=== PATIENT | female | born 1930 | race Caucasian/White ===

== ENCOUNTER 2016-09-04 09:03 | Inpatient (IN) | payer MEDICARE ==
[2016-09-04] VITALS (8 sets, daily range): BP systolic 112–154; BP diastolic 56–71; PULSE 73–86; RESP 16–18; TEMP 96.2–98.2; O2SAT 94–100
[~2016-09-04] VITALS: Ht 154.9 cm; Wt 60.4 kg
[~2016-09-04 09:03] MED LIST: EZET10 PO; GABA300 PO; LEVO.025 PO; LISI-357 PO; LISI-360 PO; MEVA40TA6 PO; PLAV75TA PO; TAB-TAB PO
--- NOTE | 2016-09-04 09:11 | PD ---
HPI Chief Complaint: fall, hip and shoulder pain Time Seen by Provider: 09:11 Travel History International Travel<30 days: No Contact w/Intl Traveler<30days: No Traveled to known affect area: No History of Present Illness HPI 86-year-old female who lives by herself says she got up out of her bed and went to open the door when she lost her balance and fell. She fell backwards but didn't hit her head. She was unable to get up from the floor because of intense left hip and left shoulder pain. She was brought in by EMS. They noticed swelling of her left shoulder and shortening of her left leg with rotation. Patient is on Plavix. She is awake and answering questions appropriately. She was given morphine en route. Vital signs in triage were stable. [facility] Past Medical History Narrative Medical List of his past medical, surgical, social and family history is reviewed from the nursing note. Hx Anticoagulant Therapy: Yes (plavix) Arthritis: Yes Cancer: Yes (SKIN-MELANOMA) Cardiovascular Problems: Yes (htn on meds) Diabetes: No Diminished Hearing: No Endocrine: No Gastrointestinal Disorders: Yes (HX OF ACID REFLUX MANY YEARS AGO, HX OF ESOPHAGEAL DILATION) Genitourinary: No Hepatitis: No Hiatal Hernia: No Hypertension: Yes Immune Disorder: No Musculoskeletal: Yes (SPINAL STENOSIS, BACK AND NECK PAIN, ARTHRITIS) Neurologic: Yes (NUMBNESS, TINGLING IN FEET, NEUROPATHY) Psychiatric: No Respiratory: No Immunizations Current: Yes Thyroid Disease: Yes (HYPO) Ulcer: Yes Menopausal: Yes Past Surgical History AICD: No Eye Surgery: Yes (LEFT CATARACT) Joint Replacement: No Oral Surgery: Yes (ESOPHAGEAL DILATION 1997) Pacemaker: No Other Surgery: Yes (SKIN CANCER REMOVED ON NOSE) Social History Alcohol Use: No Tobacco Use: No Substance Use: No Allergies-Medications (Allergen,Severity, Reaction): Coded Allergies: Tizanidine (Verified Allergy, Severe, doesn't know, 12/28/15) Tramadol (Verified Allergy, Severe, doesn't remember, 12/28/15) Baclofen (Unverified Allergy, Intermediate, RASH, 12/28/15) Cipro (Unverified Allergy, Intermediate, RASH, 12/28/15) Cymbalta (Unverified Allergy, Intermediate, SEVERE RASH, 12/28/15) Elavil (Unverified Allergy, Intermediate, RASH, 12/28/15) Tetracycline (Unverified Allergy, Intermediate, RASH, 12/28/15) Triamcinolone (Unverified Allergy, Intermediate, SEVERE RASH, 12/28/15) Comments List of his allergies reviewed from the nursing note. Reported Meds & Prescriptions Reported Meds & Active Scripts Active Reported Multiple Vitamin 1 Tab 1 Tab PO DAILY Plavix (Clopidogrel Bisulfate) 75 Mg Tab 75 Mg PO DAILY Levothyroxine (Levothyroxine Sodium) 25 Mcg Tab 25 Mcg PO DAILY Lovastatin 40 Mg Tab 80 Mg PO DAILY Zetia (Ezetimibe) 10 Mg Tab 10 Mg PO DAILY Lisinopril 5 Mg Tab 5 Mg PO HS Lisinopril 5 Mg Tab 10 Mg PO Narrative Medication List of his home medications reviewed from the nursing note. Review of Systems Except as stated in HPI: all other systems reviewed are Neg Physical Exam Narrative GENERAL: Awake, alert, elderly, mild distress SKIN: Focused skin assessment warm/dry. HEAD: Atraumatic. Normocephalic. EYES: Pupils equal and round. No scleral icterus. No injection or drainage. ENT: No nasal bleeding or discharge. Dry mucous membrane and coated tongue NECK: Trachea midline. No JVD. CARDIOVASCULAR: Regular rate and rhythm. No murmur appreciated. RESPIRATORY: No accessory muscle use. Clear to auscultation. Breath sounds equal bilaterally. GASTROINTESTINAL: Abdomen soft, non-tender, nondistended. Hepatic and splenic margins not palpable. MUSCULOSKELETAL: Left shoulder swollen, tender and decreased range of motion due to the tenderness. Left leg shortening and externally rotated. Decreased range of motion due to the pain. No clubbing. No cyanosis. No edema. Distal pulses palpable. NEUROLOGICAL: Awake and alert. No obvious cranial nerve deficits. Motor grossly within normal limits. Normal speech. PSYCHIATRIC: Appropriate mood and affect; insight and judgment normal. Data Data Last Documented VS Vital Signs Date Time Temp Pulse Resp B/P Pulse Ox O2 Delivery O2 Flow Rate FiO2 09/04/16 11:00 76 18 112/56 94 Nasal Cannula 2 09/04/16 09:05 98.0 Orders Electrocardiogram (09/04/16 09:23) Basic Metabolic Panel (Bmp) (09/04/16 09:23) Complete Blood Count With Diff (09/04/16 09:23) Prothrombin Time / Inr (Pt) (09/04/16 09:23) Chest, Single Ap (09/04/16 09:23) Ecg Monitoring (09/04/16 09:23) Bilateral Bp Monitoring (09/04/16 09:23) Iv Access Insert/Monitor (09/04/16 09:23) Oximetry (09/04/16 09:23) Oxygen Administration (09/04/16 09:23) Sodium Chloride 0.9% Flush (Ns Flush) (09/04/16 09:30) Hip, Uni(Ap&Lat) W Ap Pelvis (09/04/16 ) Sodium Chlorid 0.9% 500 Ml Inj (Ns 500 M (09/04/16 09:30) Urinalysis - C+S If Indicated (09/04/16 09:57) Shoulder, Limited(2vws) (09/04/16 ) Sling Cradle Arm (09/04/16 ) Admit To Inpatient (09/04/16 ) Code Status (09/04/16 10:35) Vital Signs (Adult) Q4H (09/04/16 10:35) Activity Bed Rest (09/04/16 10:35) Substance Abuse Prevention Coordinator / Telemetry .CONTINUOUS (09/04/16 10:35) Sodium Chloride 0.9% Flush (Ns Flush) (09/04/16 10:45) Sodium Chloride 0.9% Flush (Ns Flush) (09/04/16 21:00) Acetaminophen (Tylenol) (09/04/16 10:45) Ondansetron Inj (Zofran Inj) (09/04/16 10:45) Basic Metabolic Panel (Bmp) (09/05/16 06:00) Complete Blood Count With Diff (09/05/16 06:00) Pt Request For Service (09/04/16 10:35) Scd Bilateral/Knee High RACHEL.BID (09/04/16 10:35) Naloxone Inj (Narcan Inj) (09/04/16 10:45) Magnesium Hydroxide Liq (Milk Of Magnesi (09/04/16 10:45) Inpatient Certification (09/04/16 ) Hydromorphone Pf Inj (Dilaudid Pf Inj) (09/04/16 10:45) Ezetimibe (Zetia) (09/04/16 11:00) Levothyroxine (Synthroid) (09/05/16 06:00) Lisinopril (Prinivil) (09/04/16 21:00) Lisinopril (Prinivil) (09/05/16 09:00) Enalaprilat Inj (Vasotec Inj) (09/04/16 10:45) Clonidine (Catapres) (09/04/16 10:45) Pravastatin (Pravachol) (09/04/16 11:00) Urine Culture (09/04/16 10:15) Admit Order (Ed Use Only) (09/04/16 10:59) Labs Laboratory Tests Test 09/04/16 09/04/16 09:30 10:15 White Blood Count 14.2 TH/MM3 Red Blood Count 4.19 MIL/MM3 Hemoglobin 12.5 GM/DL Hematocrit 38.0 % Mean Corpuscular Volume 90.7 FL Mean Corpuscular Hemoglobin 29.9 PG Mean Corpuscular Hemoglobin 33.0 % Concent Red Cell Distribution Width 13.2 % Platelet Count 239 TH/MM3 Mean Platelet Volume 8.1 FL Neutrophils (%) (Auto) 86.0 % Lymphocytes (%) (Auto) 6.7 % Monocytes (%) (Auto) 6.5 % Eosinophils (%) (Auto) 0.2 % Basophils (%) (Auto) 0.6 % Neutrophils # (Auto) 12.2 TH/MM3 Lymphocytes # (Auto) 1.0 TH/MM3 Monocytes # (Auto) 0.9 TH/MM3 Eosinophils # (Auto) 0.0 TH/MM3 Basophils # (Auto) 0.1 TH/MM3 CBC Comment DIFF FINAL Differential Comment Sodium Level 135 MEQ/L Potassium Level 4.5 MEQ/L Chloride Level 101 MEQ/L Carbon Dioxide Level 22.4 MEQ/L Anion Gap 12 MEQ/L Blood Urea Nitrogen 17 MG/DL Creatinine 0.99 MG/DL Estimat Glomerular Filtration 53 ML/MIN Rate Random Glucose 116 MG/DL Calcium Level 8.5 MG/DL Prothrombin Time 10.0 SEC Prothromb Time International 0.9 RATIO Ratio Urine Color YELLOW Urine Turbidity CLEAR Urine pH 5.0 Urine Specific [place] 1.013 Urine Protein NEG mg/dL Urine Glucose (UA) NEG mg/dL Urine Ketones NEG mg/dL Urine Occult Blood NEG Urine Nitrite NEG Urine Bilirubin NEG Urine Urobilinogen LESS THAN 2.0 MG/DL Urine Leukocyte Esterase NEG Urine RBC LESS THAN 1 /hpf Urine WBC LESS THAN 1 /hpf Urine Bacteria RARE /hpf Urine Hyaline Casts 1 /lpf Urine Mucus FEW /lpf Microscopic Urinalysis Comment CATH-CULTURE IND MDM Medical Decision Making Medical Screen Exam Complete: Yes Emergency Medical Condition: Yes Medical Record Reviewed: Yes Interpretation(s) Twelve-lead EKG was reviewed by me. Normal sinus rhythm, normal axis, nonspecific ST-T wave changes. Heart rate of 78 bpm. Differential Diagnosis Shoulder fracture, hip fracture, shoulder dislocation, hip dislocation Narrative Course 9:56 AM awaiting for the blood test and x-rays to be done and resulted. Patient was given 250 ML's of IV fluid bolus in the meanwhile. My suspicion for fracture both of her extremities are high. 10:20 AM x-ray suggestive of femoral neck fracture with displacement and left humeral head fracture. Patient will be given an arm sling for the shoulder. I put a call out for the orthopedist as well as the hospitalist for consult and admission. 10:30 AM spoke with Lloyd who is the PA for Dr. Dunbar. They want the patient nothing by mouth after midnight for a surgery tomorrow. Awaiting for the hospitalist to call back. Procedures EKG Prior to Arrival: No Physician Communication Physician Communication PA for Dr. Dunbar Diagnosis Primary Impression: Hip fracture, left Qualified Code: S72.002A - Hip fracture, left, closed, initial encounter Additional Impression: Humerus head fracture Qualified Code: S42.292A - Humerus head fracture, left, closed, initial encounter Admitting Information Admitting Physician Requests: Admit Scripts Calcium Carbonate-Vitamin D (Calcium 600+D 200)600-200 Mg-Unit Tab1 Tab PO BID 30 Days Ref 0 Prov:Lloyd Munoz 09/05/16 Cholecalciferol (Vitamin D3)2,000 Unit Cap2,000 Units PO DAILY #56 CAP Ref 0 Prov:Lloyd Munoz 09/05/16 Ergocalciferol 50,000 Unit Cap50,000 Units PO Q7D #56 CAP Prov:Lloyd Munoz 09/05/16 Rivaroxaban (Xarelto)10 Mg Tab10 Mg PO DAILY #14 TAB Ref 0 Prov:Lloyd Munoz 09/05/16 Hydrocodone-Acetaminophen 7.5-325 mg Tab1 Tab PO Q4H PRN (PAIN) #60 TAB Ref 0 Prov:Lloyd Munoz 09/05/16 Hemant Humphrey MD Sep 04, 2016 09:11
[2016-09-04] MEDS ORDERED: SODIUM CHLORIDE 0.9% FLUSH 10 ML FLUSH IVF PRN (09:30)
[2016-09-04] MEDS ORDERED: SODIUM CHLORID 0.9% 500 ML INJ 500 ML IV ONE (09:30)
[2016-09-04] MEDS ORDERED: LOVA40TA PO (09:35)
[2016-09-04] MEDS ORDERED: ZETI10TA5 PO (09:35)
[2016-09-04] MEDS ORDERED: LEVO25TA4 PO (09:35)
[2016-09-04] MEDS ORDERED: MULTTAB67 PO (09:35)
[2016-09-04] MEDS ORDERED: PLAV75TA29 PO (09:35)
[2016-09-04] MEDS ORDERED: LISI-519 PO ×2 (09:35)
[2016-09-04 09:54] LABS: AUTOMATED NEUTROPHIL # 12.2 TH/MM3 (1.8-7.7); BASOPHIL # 0.1 TH/MM3 (0-0.2); BASOPHIL % 0.6 % (0.0-2.0); EOSINOPHIL % 0.2 % (0.0-4.0); HEMO FLAGS DIFF FINAL; LYMPH % 6.7 % (9.0-44.0); MEAN CELL VOLUME 90.7 FL (80.0-100.0); MEAN CORPUSCULAR HEMOGLOBIN 29.9 PG (27.0-34.0); MONO % 6.5 % (0.0-8.0); PLATELET COUNT 239 TH/MM3 (150-450); RED BLOOD COUNT 4.19 MIL/MM3 (4.00-5.30); RED CELL DISTRIBUTION WIDTH 13.2 % (11.6-17.2); WHITE BLOOD COUNT 14.2 TH/MM3 (4.0-11.0)
[2016-09-04 10:15] LABS: BICARBONATE 22.4 MEQ/L (21.0-32.0); POTASSIUM 4.5 MEQ/L (3.5-5.1)
--- NOTE | 2016-09-04 10:20 | RADRPT ---
EXAM DATE/TIME: 09/04/2016 09:35 [facility] COMPARISON: CHEST SINGLE AP, January 28, 2015, 19:31. INDICATIONS : Left shoulder pain post fall MEDICAL HISTORY : Hypothyroidism. Neuropathy SURGICAL HISTORY : None. ENCOUNTER: Initial ACUITY: 1 day PAIN SCORE: 9/10 LOCATION: Bilateral chest FINDINGS: Heart is minimally enlarged. There is mild interstitial edema present. There is no alveolar consoli dation, pleural effusion or pneumothorax. CONCLUSION: 1. Compared to 01/28/2015, there would appear to be mild to moderate congestive failure. 2. There is no identifiable rib fracture. Gatito Vásquez MD FACR on September 04, 2016 at 10:15 Board Certified Radiologist. This report was verified electronically.
--- NOTE | 2016-09-04 10:22 | RADRPT ---
EXAM DATE/TIME: 09/04/2016 09:36 [facility] COMPARISON: No previous studies available for comparison. INDICATIONS : Left hip pain post fall MEDICAL HISTORY : Hypothyroidism. Neuropathy SURGICAL HISTORY : None. ENCOUNTER: Initial ACUITY: 1 day PAIN SCORE: 10/10 LOCATION: Left hip FINDINGS: There is basicervical fracture left femoral neck. Femoral head remains aligned with the acetabulum. Right hemipelvis is intact. CONCLUSION: Basicervical fracture left femoral neck. Gatito Vásquez MD FACR on September 04, 2016 at 10:16 Board Certified Radiologist. This report was verified electronically.
--- NOTE | 2016-09-04 10:23 | RADRPT ---
EXAM DATE/TIME: 09/04/2016 09:38 [facility] COMPARISON: No previous studies available for comparison. INDICATIONS : Left shoulder pain post fall MEDICAL HISTORY : Hypothyroidism. Neuropathy SURGICAL HISTORY : None. ENCOUNTER: Initial ACUITY: 1 day PAIN SCORE: 9/10 LOCATION: Left upper extremity FINDINGS: There is a minimally displaced fracture of the humerus with moderate impaction. Majority of the anoop ral head remains aligned with the glenoid. Acromion and clavicle are intact. CONCLUSION: Humeral fracture as described above with moderate impaction. Gatito Vásquez MD FACR on September 04, 2016 at 10:16 Board Certified Radiologist. This report was verified electronically.
[2016-09-04] MEDS ORDERED: NALOXONE HCL 0.4 MG/ML AMP IV PRN (10:45)
[2016-09-04] MEDS ORDERED: ENALAPRILAT 1.25 MG/ML VIAL IV PRN (10:45)
[2016-09-04] MEDS ORDERED: SODIUM CHLORIDE 0.9% FLUSH 10 ML FLUSH IV FLUSH PRN (10:45)
[2016-09-04] MEDS ORDERED: cloNIDine HCL 0.2 MG TAB PO PRN (10:45)
[2016-09-04] MEDS ORDERED: ACETAMINOPHEN 325 MG TAB PO PRN (10:45)
[2016-09-04 10:55] LABS: BACTERIA, URINE RARE /hpf; BLOOD, URINE NEG (NEG); GLUCOSE,URINE NEG (NEG); HYALINE CAST, URINE 1 /lpf (RARE); INTERNATIONAL NORMALIZED RATIO 0.9 RATIO; KETONE, URINE NEG (NEG); MUCUS URINE FEW /lpf (OCC); NITRITE,URINE NEG (NEG); URINE COLOR YELLOW (YELLW/STRAW)
[2016-09-04] MEDS: EZETIMIBE 10 MG TAB PO SCH (10:55)
[2016-09-04] MEDS: PRAVASTATIN SOD 80 MG TAB PO SCH (10:55)
[2016-09-04 10:56] LABS: COMMENT (UR) CATH-CULTURE IND; CULTURE IF INDICATED CATH CULTURE IND
[2016-09-04] MEDS: HYDROmorphone HCL PF 1 MG/ML VIAL IV PUSH PRN ×3 (14:08→23:43)
--- NOTE | 2016-09-04 17:30 | HHI.HP ---
HPI Service [facility] Hospitalists Primary Care Physician Adan Davis MD Admission Diagnosis hip fracture, shoulder fracture Chief Complaint: left shoulder pain left hip pain Travel History International Travel<30 Days: No Contact w/Intl Traveler <30 Da: No Traveled to Known Affected Are: No History of Present Illness Pt is a pleasant 86 y/o F with h/o HTN, TIA, CKD-2, and peripheral neuropathy. Last night while ambulating to the bathroom, pt lost her balance and fell to the floor without striking her head. Pt experienced immediate pain to the left shoulder and left hip. Pt was brought to the [place] ER. X-rays confromed Left humerus fracture with impaction and Left femoral neck fracture. Pt with advanced age so admitted to the medical service. Dr. Bill has been consulted. Surgical repair of the pt's Left hip fracture is planned fot . Pt's pain is adequately controlled. Review of Systems Constitutional: DENIES: Diaphoretic episodes, Fatigue, Fever, Weight gain, Weight loss, Chills, Dizziness, Change in appetite, Night Sweats Endocrine: DENIES: Heat/cold intolerance, Polydipsia, Polyuria, Polyphagia Eyes: DENIES: Blurred vision, Diplopia, Eye inflammation, Eye pain, Vision loss , Photosensitivity, Double Vision Ears, nose, mouth, throat: DENIES: Tinnitus, Hearing loss, Vertigo, Nasal discharge, Oral lesions, Throat pain, Hoarseness, Ear Pain, Running Nose, Epistaxis, Sinus Pain, Toothache, Odynophagia Respiratory: DENIES: Apneas, Cough, Snoring, Wheezing, Hemoptysis, Sputum production, Shortness of breath Cardiovascular: DENIES: Chest pain, Palpitations, Syncope, Dyspnea on Exertion , PND, Lower Extremity Edema, Orthopnea, Claudication Gastrointestinal: DENIES: Abdominal pain, Black stools, Bloody stools, BRB per rectum, Constipation, Diarrhea, GERD, Nausea, Reflux, Vomiting, Difficulty Swallowing, Anorexia Genitourinary: COMPLAINS OF: Sexual dysfunction, DENIES: Urinary frequency, Urinary incontinence, Urgency, Hematuria, Dysuria, Nocturia Musculoskeletal: COMPLAINS OF: Joint pain, DENIES: Muscle aches, Stiffness, Joint Swelling, Back pain, Neck pain Integumentary: DENIES: Abnormal pigmentation, Pruritus, Rash, Nail changes, Breast masses, Breast skin changes, Nipple discharge Hematologic/lymphatic: DENIES: Bruising, Lymphadenopathy Immunologic/allergic: DENIES: Eczema, Urticaria Neurologic: DENIES: Abnormal gait, Headache, Localized weakness, Paresthesias, Seizures, Speech Problems, Tremor, Poor Balance Psychiatric: DENIES: Anxiety, Confusion, Mood changes, Depression, Hallucinations, Agitation, Suicidal Ideation, Homicidal Ideation, Delusions, History of Bipolar, History of Schizophrenia Past Family Social History Past Medical History 1) HTN 2) peripheral neuropathy 3) CKD, stage 2 4) TIA 5) hypothyroid 6) hyperlipidemia Past Surgical History 1. History of Arthroscopy Knee Left 2. History of Complete Colonoscopy 3. History of Duodenoscopy With Biopsy 4. History of Nerve Block Paravertebral Facet Joint Additional Lumbar Level 5. EGD with dilation 6. left cataract surgery 7. Excision of skin cancer from nose Reported Medications Reported Meds & Active Scripts Active Reported Multiple Vitamin 1 Tab 1 Tab PO DAILY Plavix (Clopidogrel Bisulfate) 75 Mg Tab 75 Mg PO DAILY Levothyroxine (Levothyroxine Sodium) 25 Mcg Tab 25 Mcg PO DAILY Lovastatin 40 Mg Tab 80 Mg PO DAILY Zetia (Ezetimibe) 10 Mg Tab 10 Mg PO DAILY Lisinopril 5 Mg Tab 5 Mg PO HS Lisinopril 5 Mg Tab 10 Mg PO Allergies: Coded Allergies: Tizanidine (Verified Allergy, Severe, doesn't know, 12/28/15) Tramadol (Verified Allergy, Severe, doesn't remember, 12/28/15) Baclofen (Unverified Allergy, Intermediate, RASH, 12/28/15) Cipro (Unverified Allergy, Intermediate, RASH, 12/28/15) Cymbalta (Unverified Allergy, Intermediate, SEVERE RASH, 12/28/15) Elavil (Unverified Allergy, Intermediate, RASH, 12/28/15) Tetracycline (Unverified Allergy, Intermediate, RASH, 12/28/15) Triamcinolone (Unverified Allergy, Intermediate, SEVERE RASH, 12/28/15) Family History Non-contributory Social History - - son, lives in [place] - NO tobacco - NO alcohol - NO illicit street drugs - Pt lives alone & is independent with ADLs at baseline Physical Exam Vital Signs Vital Signs Date Time Temp Pulse Resp B/P Pulse Ox O2 Delivery O2 Flow Rate FiO2 09/04/16 13:12 97.0 80 16 140/63 100 09/04/16 11:00 76 18 112/56 94 Nasal Cannula 2 09/04/16 10:00 73 16 115/57 100 Nasal Cannula 2 09/04/16 09:30 78 16 98 Room Air 09/04/16 09:27 16 98 Room Air 09/04/16 09:26 98 Nasal Cannula 2 09/04/16 09:26 16 98 Room Air 09/04/16 09:05 98.0 78 16 122/58 100 09/04/16 09:05 78 16 122/58 98 Room Air 130/56 Physical Exam GENERAL: This is a well-nourished, well-developed patient, in no apparent distress. SKIN: No rashes, ecchymoses or lesions. Cool and dry. HEAD: Atraumatic. Normocephalic. No temporal or scalp tenderness. EYES: Pupils equal round and reactive. Extraocular motions intact. No scleral icterus. No injection or drainage. ENT: Nose without bleeding, purulent drainage or septal hematoma. Throat without erythema, tonsillar hypertrophy or exudate. Uvula midline. Airway patent. NECK: Trachea midline. No JVD or lymphadenopathy. Supple, nontender, no meningeal signs. CARDIOVASCULAR: Regular rate and rhythm without murmurs, gallops, or rubs. RESPIRATORY: Clear to auscultation. Breath sounds equal bilaterally. No wheezes , rales, or rhonchi. GASTROINTESTINAL: Abdomen soft, non-tender, nondistended. No hepato-splenomegaly , or palpable masses. No guarding. MUSCULOSKELETAL: Extremities without clubbing, cyanosis, or edema. No joint tenderness, effusion, or edema noted. No calf tenderness. Negative Homans sign bilaterally. NEUROLOGICAL: Awake and alert. Cranial nerves II through XII intact. Motor and sensory grossly within normal limits. Five out of 5 muscle strength in all muscle groups. Normal speech. Laboratory Laboratory Tests Test 09/04/16 09/04/16 09:30 10:15 White Blood Count 14.2 Red Blood Count 4.19 Hemoglobin 12.5 Hematocrit 38.0 Mean Corpuscular Volume 90.7 Mean Corpuscular Hemoglobin 29.9 Mean Corpuscular Hemoglobin 33.0 Concent Red Cell Distribution Width 13.2 Platelet Count 239 Mean Platelet Volume 8.1 Neutrophils (%) (Auto) 86.0 Lymphocytes (%) (Auto) 6.7 Monocytes (%) (Auto) 6.5 Eosinophils (%) (Auto) 0.2 Basophils (%) (Auto) 0.6 Neutrophils # (Auto) 12.2 Lymphocytes # (Auto) 1.0 Monocytes # (Auto) 0.9 Eosinophils # (Auto) 0.0 Basophils # (Auto) 0.1 CBC Comment DIFF FINAL Differential Comment Sodium Level 135 Potassium Level 4.5 Chloride Level 101 Carbon Dioxide Level 22.4 Anion Gap 12 Blood Urea Nitrogen 17 Creatinine 0.99 Estimat Glomerular Filtration 53 Rate Random Glucose 116 Calcium Level 8.5 Prothrombin Time 10.0 Prothromb Time International 0.9 Ratio Urine Color YELLOW Urine Turbidity CLEAR Urine pH 5.0 Urine Specific [place] 1.013 Urine Protein NEG Urine Glucose (UA) NEG Urine Ketones NEG Urine Occult Blood NEG Urine Nitrite NEG Urine Bilirubin NEG Urine Urobilinogen LESS THAN 2.0 Urine Leukocyte Esterase NEG Urine RBC LESS THAN 1 Urine WBC LESS THAN 1 Urine Bacteria RARE Urine Hyaline Casts 1 Urine Mucus FEW Microscopic Urinalysis Comment CATH-CULTURE IND Date/Time Procedure Status Source Growth 09/04/16 10:15 Urine Culture Received Urine Clean Catch Pending Result Diagram: 09/04/1630 09/04/16 0930 Imaging Last Impressions Chest X-Ray 09/04/1623 Signed Impressions: Service Date/Time: Sunday, September 04, 2016 09:35 - CONCLUSION: 1. Compared to 01/28/2015, there would appear to be mild to moderate congestive failure. 2. There is no identifiable rib fracture. Gatito Vásquez MD FACR Shoulder X-Ray 09/04/16 0000 Signed Impressions: Service Date/Time: Sunday, September 04, 2016 09:38 - CONCLUSION: Humeral fracture as described above with moderate impaction. Gatito Vásquez MD FACR Hip and Pelvis X-Ray 09/04/16 0000 Signed Impressions: Service Date/Time: Sunday, September 04, 2016 09:36 - CONCLUSION: Basicervical fracture left femoral neck. Gatito Vásquez MD FACR Septic Shock Reassessment Heart: Regular rate and rhythm Lungs: Clear Skin: Warm Peripheral Pulses: Bounding Right Radial Bounding Left Radial Bounding Right Popliteal Bounding Left Popliteal Bounding Right Dorsalis Pedis Bounding Left Dorsalis Pedis Bounding Right Posterior Tibial Bounding Left Posterior Tibial Capillary Refill: Brisk Assessment and Plan Problem List: (1) Hip fracture, left Status: Acute Plan: - comgmt with Dr. Bill, Orthopedist - surgical repair planned for 09/04/16 - norco/dilaudid prn - ASA/plavix on hold - PT - pt will need SNF at the end of this hospitalization - constipation precautions - supportive care (2) Humerus head fracture Status: Acute Plan: - repair per Orthopedic service - norco/dilaudid prn pain - PT (3) HTN (hypertension) Status: Chronic Plan: - stable - lisinopril (4) Hyperlipidemia Status: Chronic Plan: - zetia, pravachol (5) Hypothyroid Status: Chronic Plan: - levothyroxine (6) Hx TIA/stroke w/o resid Status: Chronic Plan: - ASA, plavix on hold (7) Peripheral neuropathy Status: Chronic Physician Certification 2 Midnight Certification Type: Admission for Inpatient Services Order for Inpatient Services The services are ordered in accordance with Medicare regulations or non- Medicare payer requirements, as applicable. In the case of services not specified as inpatient-only, they are appropriately provided as inpatient services in accordance with the 2-midnight benchmark. Estimated LOS (days): 3 3 days is the estimated time the patient will need to remain in the hospital, assuming treatment plan goals are met and no additional complications. Post-Hospital Plan: SNF Problem Qualifiers (1) Hip fracture, left: Qualified Code: S72.002A - Hip fracture, left, closed, initial encounter (2) Humerus head fracture: Qualified Code: S42.292A - Humerus head fracture, left, closed, initial encounter (3) HTN (hypertension): Qualified Code: I10 - Essential hypertension (4) Hyperlipidemia: Qualified Code: E78.5 - Hyperlipidemia, unspecified hyperlipidemia type (5) Hypothyroid: Qualified Code: E03.9 - Hypothyroidism, unspecified type (6) Peripheral neuropathy: Qualified Code: G62.9 - Peripheral polyneuropathy Ankit Fournier DO Sep 04, 2016 17:30
[2016-09-04] MEDS: LISINOPRIL 5 MG TAB PO SCH (23:44)
[2016-09-04] MEDS: ONDANSETRON HCL 4 MG/2 ML VIAL IVP PRN (23:44)
[2016-09-04] MEDS: SODIUM CHLORIDE 0.9% FLUSH 10 ML FLUSH IV FLUSH SCH (23:44)
[2016-09-05] VITALS (8 sets, daily range): BP systolic 125–135; BP diastolic 56–65; PULSE 67–88; RESP 16–20; TEMP 96.6–97.6; O2SAT 95–99
[2016-09-05] MEDS ORDERED: INSULIN HUMAN REGULAR 1,000 UNITS/10 ML VIAL SQ PRN (02:30)
[2016-09-05] MEDS ORDERED: SODIUM CHLORID 0.9% 500 ML IV PRN (02:30)
[2016-09-05] MEDS ORDERED: POVIDONE IODINE 5% (ANTISEPSIS KIT) 4 APPLICATIONS EACH NARE PRN (02:30)
[2016-09-05] MEDS ORDERED: METOPROLOL TARTRATE 25 MG TAB PO PRN (02:30)
[2016-09-05] MEDS ORDERED: CHLORHEXIDINE GLUCONATE 2 % 1 PACK (2 CLOTHS) TOPICAL PRN (02:30)
[2016-09-05] MEDS ORDERED: LACTATED RINGER'S 1000 ML IV PRN (02:30)
[2016-09-05] MEDS: ONDANSETRON HCL 4 MG/2 ML VIAL IVP PRN ×3 (05:23→20:38)
[2016-09-05] MEDS: LEVOTHYROXINE SODIUM 25 MCG TAB PO SCH (05:23)
[2016-09-05] MEDS: HYDROmorphone HCL PF 1 MG/ML VIAL IV PUSH PRN ×3 (05:26→17:27)
[2016-09-05 07:09] LABS: AUTOMATED NEUTROPHIL # 7.7 TH/MM3 (1.8-7.7); BASOPHIL % 0.1 % (0.0-2.0); HEMATOCRIT 33.7 % (35.0-46.0); HEMO FLAGS DIFF FINAL; LYMPH % 5.4 % (9.0-44.0); LYMPHOCYTE # 0.5 TH/MM3 (1.0-4.8); MEAN CELL VOLUME 89.6 FL (80.0-100.0); MEAN CORPUSCULAR HEMOGLOBIN 31.7 PG (27.0-34.0); MEAN CORPUSCULAR HGB CONC 35.4 % (32.0-36.0); MONO % 8.8 % (0.0-8.0); NEUT % 85.7 % (16.0-70.0); PLATELET COUNT 228 TH/MM3 (150-450); RED BLOOD COUNT 3.76 MIL/MM3 (4.00-5.30); RED CELL DISTRIBUTION WIDTH 13.2 % (11.6-17.2)
--- NOTE | 2016-09-05 07:13 | PD.ORT.PN ---
Subjective Subjective Remarks s/p fall at home left shoulder and left hip pain Objective Vitals Vital Signs Date Time Temp Pulse Resp B/P Pulse Ox O2 Delivery O2 Flow Rate FiO2 09/05/16 03:47 97.4 88 19 135/59 95 09/05/16 00:01 96.7 78 18 133/63 98 09/04/16 20:19 98.2 86 18 140/63 97 09/04/16 19:17 Nasal Cannula 2.00 09/04/16 16:00 96.2 82 16 154/71 96 09/04/16 13:12 97.0 80 16 140/63 100 09/04/16 11:00 76 18 112/56 94 Nasal Cannula 2 09/04/16 10:00 73 16 115/57 100 Nasal Cannula 2 09/04/16 09:30 78 16 98 Room Air 09/04/16 09:27 16 98 Room Air 09/04/16 09:26 98 Nasal Cannula 2 09/04/16 09:26 16 98 Room Air 09/04/16 09:05 98.0 78 16 122/58 100 09/04/16 09:05 78 16 122/58 98 Room Air 130/56 I/O 09/04/16 09/04/16 09/04/16 09/05/16 09/05/16 09/05/16 07:00 15:00 23:00 07:00 15:00 23:00 Intake Total 0 ml 360 ml 0 ml Output Total 150 ml 500 ml 200 ml Balance -150 ml -140 ml -200 ml Intake Oral 0 ml 360 ml 0 ml Output Urine Total 150 ml 500 ml 200 ml # Voids 0 0 # Bowel Movements 0 0 0 Result Diagram: 09/05/16 0546 09/04/16929 Other Results Laboratory Tests Test 09/04/16 10:15 Prothrombin Time 10.0 SEC (9.8-11.6) Prothromb Time International 0.9 RATIO Ratio Imaging Last 24 hours Impressions Chest X-Ray 09/04/16922 Signed Impressions: Service Date/Time: Sunday, September 04, 2016 09:35 - CONCLUSION: 1. Compared to 01/28/2015, there would appear to be mild to moderate congestive failure. 2. There is no identifiable rib fracture. Gatito Vásquez MD FACR Objective Remarks LUE: +sling. minimal pain in elbow. full motion of wrist and fingers. Full sensation to median/ulnar nerve. full radial nerve function LLE: pain in hip with motion. no pain in knee or ankle. NVI Assessment & Plan Assessment and Plan 1) Left Femoral NEck Fx 2) Left Proximal Humerus Fx -NWB LUE/AMELIA -NPO -consents -surgery today Lloyd Munoz Sep 05, 2016 07:13
[2016-09-05 07:21] LABS: BICARBONATE 29.3 MEQ/L (21.0-32.0); POTASSIUM 4.5 MEQ/L (3.5-5.1)
[2016-09-05] MEDS ORDERED: ERGO1CAP30 PO (07:28)
[2016-09-05] MEDS ORDERED: HYDR-3580 PO (07:28)
[2016-09-05] MEDS ORDERED: CALCTAB19 PO (07:28)
[2016-09-05] MEDS ORDERED: XARE10TA PO (07:28)
[2016-09-05] MEDS ORDERED: VITA2000 PO (07:28)
[2016-09-05] MEDS ORDERED: TRANEXAMIC ACID INJ 897 MG in SODIUM CHLORIDE 0.9% INJ 100 ML IV ONE (07:30)
[2016-09-05] MEDS ORDERED: GENTAMICIN SULFATE 80 MG/2 ML VIAL ONE (07:48)
[2016-09-05] MEDS ORDERED: SODIUM CHLOR 0.9% 250 ML INJ 250 ML ONE (07:48)
[2016-09-05] MEDS ORDERED: VANCOMYCIN HCL 1000 MG VIAL ONE (07:48)
[2016-09-05] MEDS ORDERED: KETAMINE HCL 500 MG/5 ML VIAL ONE (08:11)
[2016-09-05] MEDS ORDERED: ceFAZolin INJ 1,000 MG VIAL IV ONE ×2 (08:40→12:00)
[2016-09-05] MEDS: PRAVASTATIN SOD 80 MG TAB PO SCH (09:00)
[2016-09-05] MEDS: LISINOPRIL 10 MG TAB PO SCH (09:00)
[2016-09-05] MEDS: SODIUM CHLORIDE 0.9% FLUSH 10 ML FLUSH IV FLUSH SCH ×2 (09:00→20:37)
[2016-09-05] MEDS: EZETIMIBE 10 MG TAB PO SCH (09:00)
[2016-09-05] MEDS ORDERED: Post-op Orders (for Pharmacy) MISC XX ONE (09:15)
[2016-09-05] MEDS ORDERED: MORPHINE SULFATE 4 MG/ML INJ IV PUSH PRN (09:15)
[2016-09-05] MEDS ORDERED: SODIUM CHLORIDE 0.9% FLUSH 5 ML FLUSH IVF PRN (09:15)
[2016-09-05] MEDS ORDERED: ACETAMINOPHEN/HYDROcodone 325 MG/7.5 MG TAB PO PRN (09:15)
--- NOTE | 2016-09-05 09:16 | MB ---
cc: JUDY LANDEROS DATE OF CONSULTATION: 09/05/2016 REASON FOR CONSULTATION 1. Left proximal humerus fracture. 2. Left femoral neck fracture. CONSULTING PHYSICIAN Dr. New. HISTORY OF PRESENT ILLNESS Lisa is a pleasant 86-year-old female who has a history of TIA, renal failure, peripheral neuropathy, hypertension. She was going to the bathroom when she lost her balance. She fell. She landed on her left side. She had immediate left shoulder and left hip pain. She presented to the emergency room where x-rays revealed a left femoral neck fracture as well as a left proximal humerus fracture. She is currently awake and alert in the orthopedic floor. She complains of left shoulder and left hip pain. She denies hitting her head. She had no dizziness, syncope, loss of consciousness. Pain is worse with movement and is improved with rest. PAST MEDICAL HISTORY ILLNESSES 1. Hypertension. 2. Peripheral neuropathy. 3. Renal failure. 4. TIA. 5. Hypothyroidism. 6. High cholesterol. SURGERIES 1. Left knee arthroscopy. 2. Colonoscopy. 3. Duodenal biopsy. 4. EGD. 5. Cataract surgery. 6. Skin cancer removal. MEDICATIONS Include: 1. Plavix. 2. Levothyroxine. 3. Lovastatin. 4. Zetia. 5. Lisinopril. ALLERGIES TRAMADOL, BACLOFEN, CIPRO, SYBALTA, ELAVIL, TETRACYCLINE, TRIAMCINOLONE. FAMILY HISTORY Noncontributory. SOCIAL HISTORY The patient is . She lives alone. She has a son who lives in [place]. She denies alcohol, tobacco or drug use. REVIEW OF SYSTEMS The patient denies headache, visual changes, neck pain, chest pain, shortness of breath, abdominal pain, nausea, vomiting or recent weight loss. She complains of left shoulder pain and left hip pain. PHYSICAL EXAMINATION GENERAL: The patient is a pleasant 86-year-old female who is awake and alert. She is alert and oriented x3. VITAL SIGNS: Temperature 97.4, pulse 88, respirations 19, blood pressure 135/59, O2 sat 95% on 2 liters nasal cannula. The patient appears well-developed, well-nourished. HEAD: The patient is normocephalic. Pupils are equal. NECK: Soft, nontender. Trachea is midline. ABDOMEN: Soft, nontender, nondistended. EXTREMITIES: Examination of left arm reveals mild swelling around her shoulder. She is diffusely tender around the proximal humerus. She has minimal tenderness around her elbow, wrist or fingers. She has intact sensation all fingers. She has palpable radial pulse. Skin is intact. Examination of right arm reveals no pain with shoulder, elbow or wrist motion. Skin is intact. Radial pulses palpable. Sensation is intact in all fingers. Examination of right leg reveals no pain with hip, knee or ankle motion. Skin is intact. Dorsalis pedis pulses palpable. Examination of left leg reveals pain with any hip motion. She has no tenderness around her knee, tibia or ankle. Skin is intact. Dorsalis pedis pulse is palpable. X-RAYS X-rays of left hip were reviewed. X-rays reveal a displaced left femoral neck fracture. X-RAYS X-rays of left shoulder were reviewed. X-rays reveal a mildly displaced left proximal humerus fracture. IMPRESSION 1. Displaced left femoral neck fracture. 2. Partially displaced left proximal humerus fracture. 3. Osteoporosis. 4. Hypertension. 5. History of TIA. PLAN Treatment options were discussed with the patient. At this point I discussed surgical and nonsurgical options of the proximal humerus and the femoral neck fracture. At this point I would recommend surgical intervention for left hip hemiarthroplasty. Fracture of the proximal humerus was relatively well-aligned. Nonoperative treatment will likely yield relatively good function. If the proximal humerus fracture displaces she may need surgical intervention with open reduction, internal fixation. Risks of surgery include bleeding, infection, injuries to arteries, nerves and blood vessels, hip dislocation, leg length discrepancies as well as medical complications including blood clot, stroke, heart attack and . All questions were answered. I will plan on surgery today. A mid-level provider in my office, nurse practitioner or PA, may see this patient on a follow-up basis and continue to implement the objective of this plan including: Starting or adjusting medications, injections of muscle, tendon, bursa or joints, cast application, orthotic or brace application, physical therapy, further radiographic studies including x-ray, MRI, CT, ultrasounds or bone scan, vascular studies, neurologic studies, or other specialist consultations, and proceeding with surgical management as appropriate. MD CINTHYA Plummer/SUHAIL /7:19 AM /9:06 AM
--- NOTE | 2016-09-05 09:18 | PD.OP ---
cc: Rah Dunbar MD Operative Report Date of Surgery: Sep 05, 2016 Preoperative Diagnosis: Displaced left femoral neck fracture, mildly displaced left proximal humerus fracture Postoperative Diagnosis: Procedure: Left hip hemiarthroplasty Anesthesia: Gen. Surgeon: Rah Dunbar Gas Pit Worker(s): ROXANN German PA-C The surgical procedure was assisted by my physician assistant city attorney. My P.A. presence was necessary throughout this case for the manipulation and positioning of the surgical extremity. My P.A. was assisting me throughout the duration of this procedure. The skill set of a physician assistant city attorney was medically necessary to complete this procedure. During the surgical case the surgical coder was working at the back table and the physician assistant city attorney was directly assisting me. Operation and Findings: PLAN OF ACTIVITY Weight bear as tolerated. IMPLANTS USED DePuy Corail size 11 stem with size [45] bipolar head and [+1.5] neck. DRAIN: 7 mm Blaine-Love drain DETAILS OF PROCEDURE This patient was brought into the operating room and placed on the OR table. The patient was given anesthesia. The patient received IV antibiotics. The patient was then placed in lateral decubitus position. The left hip and leg were prepped with alcohol, followed by Hibiclens and draped in a usual sterile fashion. Clean air was used for this procedure. Time out procedure was performed. The procedure began with a 5 inch incision over the posterolateral hip. The subcutaneous tissue was dissected with the Bovie. The iliotibial band were split in line with fibers. The Charnley retractor was placed. The piriformis and external rotators were released from the femur and tagged with a #1 Vicryl suture. The capsule is now incised and tagged with #1 Vicryl. The femoral neck fracture was now visualized. A corkscrew was now used to remove the femoral head. The femoral head was sized and measured. Soft tissue was now protected. The hip skid was placed underneath the femoral neck. An oscillating saw was used to make a femoral neck cut. At this point attention was turned to preparation of the proximal femur. A box osteotome was used to remove the lateral cortex of the femoral neck. The T- handle reamer was used to open the femoral canal. Next, the canal was broached. A lateralizing reamer was used to help lateralize the prosthesis. At this point a trial head and neck were placed. The hip was reduced. The patient was found to have excellent stability with good range of motion. Trial components were removed. Soft tissue and bone were thoroughly irrigated. A Corail stem was now opened. The stem was now impacted into the proximal femur. Care was taken to keep appropriate anteversion. The head and neck were now impacted onto the stem. The hip was again reduced. The hip was found to have good range of motion and good stability. Leg lengths were clinically equal. The wound was thoroughly irrigated. The capsule, piriformis and iliotibial band were closed with #1 Vicryl. Subcutaneous tissue was closed with 3-0 Vicryl. The skin was closed with danna. A sterile dressing was applied with Primapore. The patient was placed into a knee immobilizer. The patient was awakened and transferred to the recovery room in stable condition. Needle and sponge counts were correct. Rah Dunbar MD Sep 05, 2016 09:18
[2016-09-05] MEDS ORDERED: SUGAMMADEX SODIUM 200 MG/2 ML VIAL IV PUSH ONE ×2 (09:22)
--- NOTE | 2016-09-05 09:48 | EKG ---
Date Performed: 09/04/2016 Time Performed: 09:14:43 PTAGE: 86 years EKG: Sinus rhythm NONSPECIFIC ST & T-WAVE ABNORMALITY BORDERLINE ECG PREVIOUS TRACING : 01/28/2015 19.44 DOCTOR: Rajendra Tse Interpretating Date/Time 09/05/2016 09:39:39
[2016-09-05] MEDS ORDERED: fentaNYL CITRATE 250 MCG/5 ML AMP ONE (09:54)
[2016-09-05] MEDS ORDERED: *morphine SULFATE 8 MG/ML PERIprocedure ONLY ONE ×2 (10:17→10:37)
[2016-09-05] MEDS ORDERED: DO NOT ADM ANY ANTICOAGULANT DRUGS PRN (10:30)
--- NOTE | 2016-09-05 10:50 | RADRPT ---
EXAM DATE/TIME: 09/05/2016 09:50 [facility] COMPARISON: HIP LEFT (AP&LAT 2/3VWS) W AP PELVIS, September 04, 2016, 9:36. INDICATIONS : Post operation, hip replacement. MEDICAL HISTORY : Hip fracture, left. SURGICAL HISTORY : Hip replacement, left. ENCOUNTER: Initial ACUITY: 1 day PAIN SCORE: 4/10 LOCATION: Left hip. FINDINGS: The patient is status post a total hip arthroplasty with a bipolar prosthesis. Prosthesis is well-sea ghislaine. Alignment is anatomic. A fracture is not appreciated. CONCLUSION: Anatomic alignment. Gatito Vásquez MD FACR Board Certified Radiologist. This report was verified electronically.
[2016-09-05] MEDS ORDERED: ERGOCALCIFEROL (VIT D2) 50,000 UNIT CAP PO ONE (11:00)
[2016-09-05] MEDS ORDERED: ONDANSETRON HCL 4 MG/2 ML VIAL IV PUSH ONE (12:00)
[2016-09-05] MEDS ORDERED: SODIUM CHLOR 0.9% 250 ML INJ 250 ML IV ONE (12:00)
[2016-09-05] MEDS ORDERED: PROPOFOL 200 MG/20 ML AMP IV ONE (12:00)
[2016-09-05] MEDS ORDERED: LACTATED RINGER'S 1000 ML INJ 1,000 ML IV ONE (12:00)
[2016-09-05] MEDS ORDERED: ePHEDrine/NS 25 MG/5 ML SYR IV ONE (12:00)
--- NOTE | 2016-09-05 15:19 | HHI.PR ---
Subjective Remarks Pt underwent repair of Left hip fracture today utilizing Left hip hemiarthroplasty performed by Orthopedist, Dr. Rah Bill. Pt is interviewed and examined in her hospital room, just return from Post OP, pain is controlled. Objective Vitals Vital Signs Date Time Temp Pulse Resp B/P Pulse Ox O2 Delivery O2 Flow Rate FiO2 09/05/16 10:45 97.8 69 16 126/58 98 Nasal Cannula 2 09/05/16 10:30 70 16 140/50 98 09/05/16 10:15 73 17 140/66 99 09/05/16 10:00 75 22 135/63 98 09/05/16 09:45 79 12 135/62 93 09/05/16 09:43 97.5 80 16 140/62 93 Nasal Cannula 2 09/05/16 07:30 97.6 81 16 125/65 96 09/05/16 03:47 97.4 88 19 135/59 95 09/05/16 00:01 96.7 78 18 133/63 98 09/04/16 20:19 98.2 86 18 140/63 97 09/04/16 19:17 Nasal Cannula 2.00 09/04/16 16:00 96.2 82 16 154/71 96 09/04/16 09/04/16 09/05/16 15:00 23:00 07:00 Intake Total 0 ml 360 ml 0 ml Output Total 150 ml 500 ml 200 ml Balance -150 ml -140 ml -200 ml Intake Oral 0 ml 360 ml 0 ml Output Urine Total 150 ml 500 ml 200 ml # Voids 0 0 # Bowel Movements 0 0 0 Result Diagram: 09/05/16 0546 09/05/16 0546 Imaging Last Impressions Hip and Pelvis X-Ray 09/05/1615 Signed Impressions: Service Date/Time: Monday, September 05, 2016 09:50 - CONCLUSION: Anatomic alignment. Gatito Vásquez MD Chest X-Ray 09/04/1623 Signed Impressions: Service Date/Time: Sunday, September 04, 2016 09:35 - CONCLUSION: 1. Compared to 01/28/2015, there would appear to be mild to moderate congestive failure. 2. There is no identifiable rib fracture. Gatito Vásquez MD FACR Shoulder X-Ray 09/04/16 0000 Signed Impressions: Service Date/Time: Sunday, September 04, 2016 09:38 - CONCLUSION: Humeral fracture as described above with moderate impaction. Gatito Vásquez MD FACR A/P Problem List: (1) Hip fracture, left Status: Acute Plan: - comgmt with Dr. Bill, Orthopedist - Left hip hemiarthroplasty, 09/05/16 - norco/dilaudid prn - ASA/plavix on hold - lovenox - PT - DORA drain at left hip, observe - pt will need SNF at the end of this hospitalization - constipation precautions - supportive care (2) Humerus head fracture Status: Acute Plan: - conservative mgmt only, no surgery - norco/dilaudid prn pain - PT (3) HTN (hypertension) Status: Chronic Plan: - stable - lisinopril (4) Hyperlipidemia Status: Chronic Plan: - zetia, pravachol (5) Hypothyroid Status: Chronic Plan: - levothyroxine (6) Hx TIA/stroke w/o resid Status: Chronic Plan: - ASA, plavix on hold (7) Peripheral neuropathy Status: Chronic Problem Qualifiers (1) Hip fracture, left: Qualified Code: S72.002A - Hip fracture, left, closed, initial encounter (2) Humerus head fracture: Qualified Code: S42.292A - Humerus head fracture, left, closed, initial encounter (3) HTN (hypertension): Qualified Code: I10 - Essential hypertension (4) Hyperlipidemia: Qualified Code: E78.5 - Hyperlipidemia, unspecified hyperlipidemia type (5) Hypothyroid: Qualified Code: E03.9 - Hypothyroidism, unspecified type (6) Peripheral neuropathy: Qualified Code: G62.9 - Peripheral polyneuropathy Ankit Fournier DO Sep 05, 2016 15:19
[2016-09-05] MEDS: ceFAZolin 2 GM PREMIX 50 ML IV SCH ×2 (16:27→20:37)
[2016-09-05] MEDS: SODIUM CHLORIDE 0.9% FLUSH 5 ML FLUSH IVF SCH (20:37)
[2016-09-05] MEDS: LISINOPRIL 5 MG TAB PO SCH (20:38)
[2016-09-06] VITALS (10 sets, daily range): BP systolic 120–164; BP diastolic 53–69; PULSE 72–97; RESP 16–19; TEMP 97.3–99.2; O2SAT 93–100
[2016-09-06] MEDS: HYDROmorphone HCL PF 1 MG/ML VIAL IV PUSH PRN ×2 (00:07→04:37)
[2016-09-06] MEDS: ceFAZolin 2 GM PREMIX 50 ML IV SCH (03:12)
[2016-09-06] MEDS: ONDANSETRON HCL 4 MG/2 ML VIAL IVP PRN (04:36)
[2016-09-06] MEDS: LEVOTHYROXINE SODIUM 25 MCG TAB PO SCH (05:04)
--- NOTE | 2016-09-06 06:38 | PD.ORT.PN ---
Subjective Subjective Remarks Lisa has left femoral neck fracture and left proximal humerus fracture. Status post left hip hemiarthroplasty. Patient is relatively comfortable. She does have some mild confusion this morning. Pain is relatively well controlled. Objective Vitals Vital Signs Date Time Temp Pulse Resp B/P Pulse Ox O2 Delivery O2 Flow Rate FiO2 09/06/16 04:35 97.7 77 18 120/53 98 09/06/16 00:39 97.3 76 18 127/58 97 09/05/16 20:55 97.6 73 19 134/60 96 09/05/16 20:00 96 Nasal Cannula 2.00 09/05/16 20:00 72 09/05/16 17:51 98 Nasal Cannula 2.00 09/05/16 15:54 96.6 76 20 128/57 98 09/05/16 11:09 96.6 67 16 126/56 99 09/05/16 10:45 97.8 69 16 126/58 98 Nasal Cannula 2 09/05/16 10:30 70 16 140/50 98 09/05/16 10:15 73 17 140/66 99 09/05/16 10:00 75 22 135/63 98 09/05/16 09:45 79 12 135/62 93 09/05/16 09:43 97.5 80 16 140/62 93 Nasal Cannula 2 09/05/16 07:30 97.6 81 16 125/65 96 I/O 09/05/16 09/05/16 09/05/16 09/06/16 09/06/16 09/06/16 07:00 15:00 23:00 07:00 15:00 23:00 Intake Total 0 ml 1180 ml 240 ml Output Total 200 ml 580 ml 360 ml Balance -200 ml 600 ml -120 ml Intake Oral 0 ml 480 ml 240 ml IV Total 100 ml Other 600 ml Output Urine Total 200 ml 200 ml 325 ml Drainage Total 30 ml 35 ml Estimated Blood Loss 150 ml Other 200 ml # Voids 0 # Bowel Movements 0 0 0 Result Diagram: 09/05/16 0546 09/05/16 0546 Imaging Last 24 hours Impressions Chest X-Ray 09/04/1623 Signed Impressions: Service Date/Time: Sunday, September 04, 2016 09:35 - CONCLUSION: 1. Compared to 01/28/2015, there would appear to be mild to moderate congestive failure. 2. There is no identifiable rib fracture. Gatito Vásquez MD FACR Objective Remarks LUE: +sling. Tender to palpation left proximal humerus. Mild swelling present. Minimal pain in elbow. Minimal pain with motion of wrist and fingers. Full sensation to median/ulnar nerve. full radial nerve function LLE: Clean dry dressing on left hip. Drain in place. Sensation intact left lower extremity No pain in knee or ankle. NVI Assessment & Plan Assessment and Plan 1) Left Femoral NEck Fx--status post bipolar hemiarthroplasty 09/05/16 2) Left Proximal Humerus Fx--plan nonoperative treatment--I discussed again with the patient that if fracture displaces surgical intervention may become necessary. She will need to be very cautious with the left arm and not do any active motion. -NWB LUE Weight-bear as tolerated left lower extremity Lovenox/Xarelto SNF planning Follow-up with Dr. Bill 2 weeks Rah Bill MD Sep 06, 2016 06:38
[2016-09-06 06:42] LABS: HEMATOCRIT 30.3 % (35.0-46.0); REVIEW FLAG FINAL
[2016-09-06] MEDS: EZETIMIBE 10 MG TAB PO SCH (08:39)
[2016-09-06] MEDS: ENOXAPARIN SODIUM 30 MG/0.3 ML SYRINGE SQ SCH (08:39)
[2016-09-06] MEDS: PRAVASTATIN SOD 80 MG TAB PO SCH (08:39)
[2016-09-06] MEDS: LISINOPRIL 10 MG TAB PO SCH (08:39)
[2016-09-06] MEDS: CHOLECALCIFEROL (VIT D3) 5000 UNIT CAP PO SCH (08:39)
[2016-09-06] MEDS: MAGNESIUM HYDROXIDE SUSP 30 ML CUP PO PRN (08:43)
[2016-09-06] MEDS: SODIUM CHLORIDE 0.9% FLUSH 10 ML FLUSH IV FLUSH SCH (08:44)
[2016-09-06] MEDS: SODIUM CHLORIDE 0.9% FLUSH 5 ML FLUSH IVF SCH ×2 (08:45→19:51)
--- NOTE | 2016-09-06 11:31 | HHI.PR ---
Subjective Remarks Pt without any specific complaints She seems to be a but of a poor historian and repeats herself quite a bit, unclear if this is a new issue or if there is any baseline underlying dementia. Pain is controlled. Objective Vitals Vital Signs Date Time Temp Pulse Resp B/P Pulse Ox O2 Delivery O2 Flow Rate FiO2 09/06/16 08:32 Nasal Cannula 2.00 09/06/16 07:22 98.2 81 19 127/61 100 09/06/16 04:35 97.7 77 18 120/53 98 09/06/16 00:39 97.3 76 18 127/58 97 09/05/16 20:55 97.6 73 19 134/60 96 09/05/16 20:00 96 Nasal Cannula 2.00 09/05/16 20:00 72 09/05/16 17:51 98 Nasal Cannula 2.00 09/05/16 15:54 96.6 76 20 128/57 98 09/05/16 09/05/16 09/06/16 15:00 23:00 07:00 Intake Total 1180 ml 240 ml 240 ml Output Total 580 ml 360 ml 315 ml Balance 600 ml -120 ml -75 ml Intake Oral 480 ml 240 ml 240 ml IV Total 100 ml Other 600 ml Output Urine Total 200 ml 325 ml 300 ml Drainage Total 30 ml 35 ml 15 ml Estimated Blood Loss 150 ml Other 200 ml # Voids 0 # Bowel Movements 0 0 0 Result Diagram: 09/06/16 0527 09/05/16 0546 Other Results Laboratory Tests Test 09/05/16 09/05/16 09/06/16 05:46 07:29 05:27 White Blood Count 9.0 TH/MM3 Red Blood Count 3.76 MIL/MM3 Hemoglobin 11.9 GM/DL 10.7 GM/DL Hematocrit 33.7 % 30.3 % Mean Corpuscular Volume 89.6 FL Mean Corpuscular Hemoglobin 31.7 PG Mean Corpuscular Hemoglobin 35.4 % Concent Red Cell Distribution Width 13.2 % Platelet Count 228 TH/MM3 Mean Platelet Volume 8.0 FL Neutrophils (%) (Auto) 85.7 % Lymphocytes (%) (Auto) 5.4 % Monocytes (%) (Auto) 8.8 % Eosinophils (%) (Auto) 0.0 % Basophils (%) (Auto) 0.1 % Neutrophils # (Auto) 7.7 TH/MM3 Lymphocytes # (Auto) 0.5 TH/MM3 Monocytes # (Auto) 0.8 TH/MM3 Eosinophils # (Auto) 0.0 TH/MM3 Basophils # (Auto) 0.0 TH/MM3 CBC Comment DIFF FINAL Differential Comment Sodium Level 134 MEQ/L Potassium Level 4.5 MEQ/L Chloride Level 100 MEQ/L Carbon Dioxide Level 29.3 MEQ/L Anion Gap 5 MEQ/L Blood Urea Nitrogen 16 MG/DL Creatinine 0.75 MG/DL Estimat Glomerular Filtration 73 ML/MIN Rate Random Glucose 121 MG/DL Calcium Level 8.9 MG/DL Blood Type A POSITIVE Antibody Screen NEGATIVE Blood Bank Comment 25-Hydroxy Vitamin D Total 10.7 ng/ML Imaging Last Impressions Hip and Pelvis X-Ray 09/05/1615 Signed Impressions: Service Date/Time: Monday, September 05, 2016 09:50 - CONCLUSION: Anatomic alignment. Gatito Vásquez MD Chest X-Ray 09/04/16 0923 Signed Impressions: Service Date/Time: Sunday, September 04, 2016 09:35 - CONCLUSION: 1. Compared to 01/28/2015, there would appear to be mild to moderate congestive failure. 2. There is no identifiable rib fracture. Gatito Vásquez MD FACR Shoulder X-Ray 09/04/16 0000 Signed Impressions: Service Date/Time: Sunday, September 04, 2016 09:38 - CONCLUSION: Humeral fracture as described above with moderate impaction. Gatito Vásquez MD FACR Objective Remarks General: NAD, AAOx3 Chest: CTA Cardiac: Regular Abd: +BS, soft ND/NT Ext: LUE in sling, bruising to both UE A/P Problem List: (1) Hip fracture, left Status: Acute Plan: - comgmt with Dr. Bill, Orthopedist - Left hip hemiarthroplasty, 09/05/16 - [place] prn, use sparingly to help minimize confusion - ASA/Plavix on hold - Lovenox - PT - DORA drain at left hip, observe - Pt will need SNF at the end of this hospitalization - constipation precautions - supportive care (2) Humerus head fracture Status: Acute Plan: - conservative mgmt only, no surgery - Pain control PRN with [place] - PT - IS instructions given to pt this morning (3) HTN (hypertension) Status: Chronic Plan: - stable - lisinopril (4) Hyperlipidemia Status: Chronic Plan: - zetia, pravachol (5) Hypothyroid Status: Chronic Plan: - levothyroxine (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 Assessment and plan formulated with Sarita Stanley PA-C. I agree with the above. Problem Qualifiers (1) Hip fracture, left: Qualified Code: S72.002A - Hip fracture, left, closed, initial encounter (2) Humerus head fracture: Qualified Code: S42.292A - Humerus head fracture, left, closed, initial encounter (3) HTN (hypertension): Qualified Code: I10 - Essential hypertension (4) Hyperlipidemia: Qualified Code: E78.5 - Hyperlipidemia, unspecified hyperlipidemia type (5) Hypothyroid: Qualified Code: E03.9 - Hypothyroidism, unspecified type (6) Peripheral neuropathy: Qualified Code: G62.9 - Peripheral polyneuropathy Sarita Stanley Sep 06, 2016 11:31 Kavin Delgado MD Sep 06, 2016 13:30
[2016-09-06] MEDS: ACETAMINOPHEN/HYDROcodone 325 MG/7.5 MG TAB PO PRN ×3 (12:33→23:13)
[2016-09-06] MEDS: LISINOPRIL 5 MG TAB PO SCH (19:51)
[2016-09-07 04:00] VITALS: BP 142/59; PULSE 83; RESP 16; TEMP 98.6; O2SAT 92
[2016-09-07] MEDS: LEVOTHYROXINE SODIUM 25 MCG TAB PO SCH (04:39)
[2016-09-07] MEDS: ACETAMINOPHEN/HYDROcodone 325 MG/7.5 MG TAB PO PRN ×2 (04:39→08:48)
[2016-09-07 04:54] LABS: AUTOMATED NEUTROPHIL # 8.5 TH/MM3 (1.8-7.7); BASOPHIL % 0.2 % (0.0-2.0); HEMATOCRIT 31.9 % (35.0-46.0); HEMO FLAGS DIFF FINAL; LYMPH % 7.3 % (9.0-44.0); LYMPHOCYTE # 0.7 TH/MM3 (1.0-4.8); MEAN CELL VOLUME 89.9 FL (80.0-100.0); MEAN CORPUSCULAR HGB CONC 33.4 % (32.0-36.0); MONO % 8.3 % (0.0-8.0); NEUT % 84.2 % (16.0-70.0); PLATELET COUNT 207 TH/MM3 (150-450); RED BLOOD COUNT 3.55 MIL/MM3 (4.00-5.30); WHITE BLOOD COUNT 10.1 TH/MM3 (4.0-11.0)
[2016-09-07 04:59] LABS: BICARBONATE 29.9 MEQ/L (21.0-32.0); MAGNESIUM 2.2 MG/DL (1.5-2.5); POTASSIUM 4.5 MEQ/L (3.5-5.1)
--- NOTE | 2016-09-07 07:10 | PD.ORT.PN ---
Subjective Subjective Remarks Resting comfortably Objective Vitals Vital Signs Date Time Temp Pulse Resp B/P Pulse Ox O2 Delivery O2 Flow Rate FiO2 09/07/16 04:00 98.6 83 16 142/59 92 09/06/16 23:58 98.6 97 19 164/69 93 09/06/16 21:00 72 09/06/16 20:34 94 21 09/06/16 19:00 97.9 78 16 123/53 93 09/06/16 15:50 99.2 80 19 128/64 95 09/06/16 11:37 97.8 91 19 139/69 93 09/06/16 09:05 98 21 09/06/16 08:32 Nasal Cannula 2.00 09/06/16 07:22 98.2 81 19 127/61 100 I/O 09/06/16 09/06/16 09/06/16 09/07/16 09/07/16 09/07/16 07:00 15:00 23:00 07:00 15:00 23:00 Intake Total 240 ml 480 ml 480 ml 480 ml Output Total 315 ml 160 ml 20 ml Balance -75 ml 320 ml 460 ml 480 ml Intake Oral 240 ml 480 ml 480 ml 480 ml Output Urine Total 300 ml 150 ml Drainage Total 15 ml 10 ml 20 ml # Voids 1 1 1 # Bowel Movements 0 0 0 Result Diagram: 09/07/16 0415 09/07/16 0415 Imaging Last 24 hours Impressions Chest X-Ray 09/04/16922 Signed Impressions: Service Date/Time: Sunday, September 04, 2016 09:35 - CONCLUSION: 1. Compared to 01/28/2015, there would appear to be mild to moderate congestive failure. 2. There is no identifiable rib fracture. Gatito Vásquez MD FACR Objective Remarks LUE: +sling. Tender to palpation left proximal humerus. Mild swelling present. Minimal pain in elbow. Minimal pain with motion of wrist and fingers. Full sensation to median/ulnar nerve. full radial nerve function LLE: Clean dry dressing on left hip. Drain in place. Sensation intact left lower extremity No pain in knee or ankle. NVI Assessment & Plan Assessment and Plan 1) Left Femoral Neck Fx--status post bipolar hemiarthroplasty 09/05/16 2) Left Proximal Humerus Fx--plan nonoperative treatment -NWB LUE, remove ring Weight-bear as tolerated left lower extremity Lovenox/Xarelto SNF planning ortho cleared Follow-up with Dr. Bill 2 weeks Chucho Akbar Jr. Sep 07, 2016 07:10
[2016-09-07 07:26] VITALS: BP 141/59; PULSE 75; RESP 18; TEMP 97.6; O2SAT 95
[2016-09-07] MEDS ORDERED: SODIUM CHLORID 0.9% 500 ML INJ 500 ML IV SCH (08:00)
[2016-09-07] MEDS: MAGNESIUM HYDROXIDE SUSP 30 ML CUP PO PRN (08:48)
[2016-09-07] MEDS: EZETIMIBE 10 MG TAB PO SCH (08:48)
[2016-09-07] MEDS: CHOLECALCIFEROL (VIT D3) 5000 UNIT CAP PO SCH (08:48)
[2016-09-07] MEDS: SODIUM CHLORIDE 0.9% FLUSH 5 ML FLUSH IVF SCH ×2 (08:48→20:04)
[2016-09-07] MEDS: LISINOPRIL 10 MG TAB PO SCH (08:48)
[2016-09-07] MEDS: PRAVASTATIN SOD 80 MG TAB PO SCH (08:48)
[2016-09-07] MEDS: ENOXAPARIN SODIUM 30 MG/0.3 ML SYRINGE SQ SCH (08:49)
[2016-09-07] MEDS ORDERED: BISACODYL 10 MG SUPP RECTAL PRN (09:30)
[2016-09-07] MEDS: ONDANSETRON HCL 4 MG/2 ML VIAL IVP PRN (09:46)
--- NOTE | 2016-09-07 09:48 | HHI.PR ---
Subjective Remarks Pt reports that she is in pain but unable to really tell me where she is painful She just received pain medication Pt is also nauseated and is about to receive Zofran Nursing staff reports pt is still somewhat confused and repeats herself quite a bit. Her son reported to the nursing staff that this is unusual behavior for the pt and is not her baseline. Objective Vitals Vital Signs Date Time Temp Pulse Resp B/P Pulse Ox O2 Delivery O2 Flow Rate FiO2 09/07/16 07:26 97.6 75 18 141/59 95 09/07/16 04:00 98.6 83 16 142/59 92 09/06/16 23:58 98.6 97 19 164/69 93 09/06/16 21:00 72 09/06/16 20:34 94 21 09/06/16 19:00 97.9 78 16 123/53 93 09/06/16 15:50 99.2 80 19 128/64 95 09/06/16 11:37 97.8 91 19 139/69 93 09/06/16 09/06/16 09/07/16 15:00 23:00 07:00 Intake Total 480 ml 480 ml 480 ml Output Total 160 ml 20 ml Balance 320 ml 460 ml 480 ml Intake Oral 480 ml 480 ml 480 ml Output Urine Total 150 ml Drainage Total 10 ml 20 ml # Voids 1 1 1 # Bowel Movements 0 0 Result Diagram: 09/07/16 0415 09/07/16 0415 Other Results Laboratory Tests Test 09/06/16 09/07/16 05:27 04:15 Hemoglobin 10.7 GM/DL 10.7 GM/DL Hematocrit 30.3 % 31.9 % White Blood Count 10.1 TH/MM3 Red Blood Count 3.55 MIL/MM3 Mean Corpuscular Volume 89.9 FL Mean Corpuscular Hemoglobin 30.0 PG Mean Corpuscular Hemoglobin 33.4 % Concent Red Cell Distribution Width 13.0 % Platelet Count 207 TH/MM3 Mean Platelet Volume 7.9 FL Neutrophils (%) (Auto) 84.2 % Lymphocytes (%) (Auto) 7.3 % Monocytes (%) (Auto) 8.3 % Eosinophils (%) (Auto) 0.0 % Basophils (%) (Auto) 0.2 % Neutrophils # (Auto) 8.5 TH/MM3 Lymphocytes # (Auto) 0.7 TH/MM3 Monocytes # (Auto) 0.8 TH/MM3 Eosinophils # (Auto) 0.0 TH/MM3 Basophils # (Auto) 0.0 TH/MM3 CBC Comment DIFF FINAL Differential Comment Sodium Level 129 MEQ/L Potassium Level 4.5 MEQ/L Chloride Level 91 MEQ/L Carbon Dioxide Level 29.9 MEQ/L Anion Gap 8 MEQ/L Blood Urea Nitrogen 13 MG/DL Creatinine 0.75 MG/DL Estimat Glomerular Filtration 73 ML/MIN Rate Random Glucose 112 MG/DL Calcium Level 9.0 MG/DL Magnesium Level 2.2 MG/DL Imaging Last Impressions Hip and Pelvis X-Ray 09/05/16914 Signed Impressions: Service Date/Time: Monday, September 05, 2016 09:50 - CONCLUSION: Anatomic alignment. Gatito Vásquez MD Chest X-Ray 09/04/16922 Signed Impressions: Service Date/Time: Sunday, September 04, 2016 09:35 - CONCLUSION: 1. Compared to 01/28/2015, there would appear to be mild to moderate congestive failure. 2. There is no identifiable rib fracture. Gatito Vásquez MD FACR Shoulder X-Ray 09/04/16 0000 Signed Impressions: Service Date/Time: Sunday, September 04, 2016 09:38 - CONCLUSION: Humeral fracture as described above with moderate impaction. Gatito Vásquez MD FACR Objective Remarks General: NAD, Awake but confused Chest: CTA Cardiac: Regular Abd: +BS, soft ND/NT Ext: LUE in sling, bruising to both UE A/P Problem List: (1) Hip fracture, left Status: Acute Plan: - comgmt with Dr. Bill, Orthopedist - Left hip hemiarthroplasty, 09/05/16 - [place] prn, use sparingly to help minimize confusion - ASA/Plavix on hold - Lovenox - PT - Pt will need continued rehab at the end of this hospitalization - constipation precautions - supportive care (2) Humerus head fracture Status: Acute Plan: - conservative mgmt only, no surgery - Pain control PRN with [place] - PT - IS instructions given to pt this morning (3) HTN (hypertension) Status: Chronic Plan: - stable - lisinopril (4) Hyperlipidemia Status: Chronic Plan: - zetia, pravachol (5) Hypothyroid Status: Chronic Plan: - levothyroxine (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 Assessment and plan formulated with Sarita Stanley PA-C. I agree with the above. correct na and lower pain meds. pt still has some delirium. d/c to snf tomorrow Problem Qualifiers (1) Hip fracture, left: Qualified Code: S72.002A - Hip fracture, left, closed, initial encounter (2) Humerus head fracture: Qualified Code: S42.292A - Humerus head fracture, left, closed, initial encounter (3) HTN (hypertension): Qualified Code: I10 - Essential hypertension (4) Hyperlipidemia: Qualified Code: E78.5 - Hyperlipidemia, unspecified hyperlipidemia type (5) Hypothyroid: Qualified Code: E03.9 - Hypothyroidism, unspecified type (6) Peripheral neuropathy: Qualified Code: G62.9 - Peripheral polyneuropathy Sarita Stanley Sep 07, 2016 09:48 Kavin Delgado MD Sep 07, 2016 12:54
[2016-09-07 10:06] VITALS: O2SAT 94
[2016-09-07 11:42] VITALS: BP 148/62; PULSE 59; RESP 18; TEMP 96.5; O2SAT 92
[2016-09-07] MEDS ORDERED: ACETAMINOPHEN/HYDROcodone 325 MG/5 MG TAB PO PRN (13:00)
[2016-09-07] MEDS: ACETAMINOPHEN/HYDROcodone 325 MG/5 MG TAB PO PRN ×2 (14:00→20:04)
[2016-09-07 15:58] VITALS: BP 140/61; PULSE 76; RESP 18; TEMP 98.5; O2SAT 97
[2016-09-07 20:00] VITALS: BP 158/71; PULSE 79; RESP 18; TEMP 98.3; O2SAT 95
[2016-09-07] MEDS: LISINOPRIL 5 MG TAB PO SCH (20:04)
[2016-09-08] VITALS (9 sets, daily range): BP systolic 116–165; BP diastolic 56–79; PULSE 71–84; RESP 15–18; TEMP 97.4–98.8; O2SAT 94–98
[2016-09-08] MEDS: ACETAMINOPHEN/HYDROcodone 325 MG/5 MG TAB PO PRN ×3 (05:09→17:39)
[2016-09-08] MEDS: LEVOTHYROXINE SODIUM 25 MCG TAB PO SCH (05:09)
--- NOTE | 2016-09-08 06:50 | PD.ORT.PN ---
Subjective Subjective Remarks Resting comfortably Objective Vitals Vital Signs Date Time Temp Pulse Resp B/P Pulse Ox O2 Delivery O2 Flow Rate FiO2 09/08/16 04:00 98.3 76 18 143/67 94 09/08/16 00:00 98.0 82 18 127/66 94 09/07/16 20:00 98.3 79 18 158/71 95 09/07/16 15:58 98.5 76 18 140/61 97 09/07/16 11:42 96.5 59 18 148/62 92 09/07/16 10:06 94 21 09/07/16 08:40 Room Air 09/07/16 07:26 97.6 75 18 141/59 95 I/O 09/07/16 09/07/16 09/07/16 09/08/16 09/08/16 09/08/16 07:00 15:00 23:00 07:00 15:00 23:00 Intake Total 480 ml 480 ml 780 ml 240 ml Balance 480 ml 480 ml 780 ml 240 ml Intake Oral 480 ml 480 ml 780 ml 240 ml Bladder Scan Volume Amount 381 ml 277 ml 362 ml # Voids 1 1 0 0 # Bowel Movements 0 1 3 Result Diagram: 09/07/16 0415 09/07/16 0415 Imaging Last 24 hours Impressions Chest X-Ray 09/04/16922 Signed Impressions: Service Date/Time: Sunday, September 04, 2016 09:35 - CONCLUSION: 1. Compared to 01/28/2015, there would appear to be mild to moderate congestive failure. 2. There is no identifiable rib fracture. Gatito Vásquez MD FACR Objective Remarks LUE: +sling. Tender to palpation left proximal humerus. Mild swelling present. Minimal pain in elbow. Minimal pain with motion of wrist and fingers. Full sensation to median/ulnar nerve. full radial nerve function. Still has ring on finger LLE: Clean dry dressing on left hip. Drain in place. Sensation intact left lower extremity No pain in knee or ankle. NVI Assessment & Plan Assessment and Plan 1) Left Femoral Neck Fx--status post bipolar hemiarthroplasty 09/05/16 2) Left Proximal Humerus Fx--plan nonoperative treatment -NWB LUE, remove ring Weight-bear as tolerated left lower extremity Lovenox/Xarelto SNF planning ortho cleared for discharge Follow-up with Dr. Bill 2 weeks Chucho Akbar Jr. Sep 08, 2016 06:50
[2016-09-08 07:23] LABS: AUTOMATED NEUTROPHIL # 6.8 TH/MM3 (1.8-7.7); BASOPHIL % 0.1 % (0.0-2.0); EOSINOPHIL % 0.1 % (0.0-4.0); HEMATOCRIT 30.3 % (35.0-46.0); HEMO FLAGS DIFF FINAL; LYMPHOCYTE # 0.5 TH/MM3 (1.0-4.8); MEAN CORPUSCULAR HEMOGLOBIN 30.7 PG (27.0-34.0); MEAN CORPUSCULAR HGB CONC 34.2 % (32.0-36.0); MONO % 11.3 % (0.0-8.0); NEUT % 82.5 % (16.0-70.0); PLATELET COUNT 242 TH/MM3 (150-450); RED BLOOD COUNT 3.36 MIL/MM3 (4.00-5.30); RED CELL DISTRIBUTION WIDTH 12.8 % (11.6-17.2); WHITE BLOOD COUNT 8.2 TH/MM3 (4.0-11.0)
[2016-09-08 07:44] LABS: BICARBONATE 25.5 MEQ/L (21.0-32.0); MAGNESIUM 2.3 MG/DL (1.5-2.5); POTASSIUM 4.3 MEQ/L (3.5-5.1)
[2016-09-08] MEDS: EZETIMIBE 10 MG TAB PO SCH (08:14)
[2016-09-08] MEDS: ENOXAPARIN SODIUM 30 MG/0.3 ML SYRINGE SQ SCH (08:14)
[2016-09-08] MEDS: CHOLECALCIFEROL (VIT D3) 5000 UNIT CAP PO SCH (08:14)
[2016-09-08] MEDS: PRAVASTATIN SOD 80 MG TAB PO SCH (08:14)
[2016-09-08] MEDS: LISINOPRIL 10 MG TAB PO SCH (08:14)
[2016-09-08] MEDS: SODIUM CHLORIDE 0.9% FLUSH 5 ML FLUSH IVF SCH ×2 (09:00→20:19)
--- NOTE | 2016-09-08 09:21 | HHI.PR ---
Subjective Remarks not eating much no doing deep inspiration. Objective Vitals cognitive delays and confusion lue sling heart reg lung cta abd s/nt ext no edema Vital Signs Date Time Temp Pulse Resp B/P Pulse Ox O2 Delivery O2 Flow Rate FiO2 09/08/16 08:00 98.0 74 18 164/73 96 09/08/16 04:00 98.3 76 18 143/67 94 09/08/16 00:00 98.0 82 18 127/66 94 09/07/16 20:00 98.3 79 18 158/71 95 09/07/16 15:58 98.5 76 18 140/61 97 09/07/16 11:42 96.5 59 18 148/62 92 09/07/16 10:06 94 21 09/07/16 09/07/16 09/08/16 15:00 23:00 07:00 Intake Total 480 ml 780 ml 240 ml Balance 480 ml 780 ml 240 ml Intake Oral 480 ml 780 ml 240 ml Bladder Scan Volume Amount 381 ml 277 ml 362 ml # Voids 1 0 0 # Bowel Movements 0 1 3 Result Diagram: 09/08/16 0643 09/08/16 0643 Imaging Last Impressions Hip and Pelvis X-Ray 09/05/16 0915 Signed Impressions: Service Date/Time: Monday, September 05, 2016 09:50 - CONCLUSION: Anatomic alignment. Gatito Vásquez MD Chest X-Ray 09/04/16 0923 Signed Impressions: Service Date/Time: Sunday, September 04, 2016 09:35 - CONCLUSION: 1. Compared to 01/28/2015, there would appear to be mild to moderate congestive failure. 2. There is no identifiable rib fracture. Gatito Vásquez MD FACR Shoulder X-Ray 09/04/16 0000 Signed Impressions: Service Date/Time: Sunday, September 04, 2016 09:38 - CONCLUSION: Humeral fracture as described above with moderate impaction. Gatito Vásquez MD FACR A/P Problem List: (1) Hip fracture, left Status: Acute Plan: - Left hip hemiarthroplasty, 09/05/16 - lower iv and po pain meds due to mental status - ASA/Plavix on hold - Lovenox. xarelto on d/c - PT - Pt will need continued rehab at the end of this hospitalization d/c held up by poor po and hyponatremia. NS and salt tabs today. encourage po. recheck IS to avoid pna/atelectasis lower pain meds. 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 Plan: - ASA, plavix on hold (7) Peripheral neuropathy Status: Chronic Problem Qualifiers (1) Hip fracture, left: Qualified Code: S72.002A - Hip fracture, left, closed, initial encounter (2) Humerus head fracture: Qualified Code: S42.292A - Humerus head fracture, left, closed, initial encounter (3) HTN (hypertension): Qualified Code: I10 - Essential hypertension (4) Hyperlipidemia: Qualified Code: E78.5 - Hyperlipidemia, unspecified hyperlipidemia type (5) Hypothyroid: Qualified Code: E03.9 - Hypothyroidism, unspecified type (6) Peripheral neuropathy: Qualified Code: G62.9 - Peripheral polyneuropathy Kavin Delgado MD Sep 08, 2016 09:21
[2016-09-08] MEDS: SODIUM CHLORIDE 1 GRAM TAB PO SCH ×2 (11:10→20:19)
[2016-09-08] MEDS: SODIUM CHLOR 0.9% 1000 ML INJ 1,000 ML IV SCH ×3 (11:10→20:20)
[2016-09-08] MEDS: LISINOPRIL 5 MG TAB PO SCH (20:19)
[2016-09-09] MEDS: ACETAMINOPHEN/HYDROcodone 325 MG/5 MG TAB PO PRN ×3 (00:19→11:18)
[2016-09-09 04:00] VITALS: BP 142/62; PULSE 79; RESP 16; TEMP 98.5; O2SAT 96
[2016-09-09] MEDS: LEVOTHYROXINE SODIUM 25 MCG TAB PO SCH (05:33)
--- NOTE | 2016-09-09 06:43 | PD.ORT.PN ---
Subjective Subjective Remarks Resting comfortably Objective Vitals Vital Signs Date Time Temp Pulse Resp B/P Pulse Ox O2 Delivery O2 Flow Rate FiO2 09/09/16 04:00 98.5 79 16 142/62 96 09/08/16 20:18 84 09/08/16 19:00 97.4 73 18 165/65 96 09/08/16 16:00 98.2 72 18 157/68 96 09/08/16 12:00 97.9 71 17 158/62 94 09/08/16 10:05 77 09/08/16 08:00 98.0 74 18 164/73 96 I/O 09/08/16 09/08/16 09/08/16 09/09/16 09/09/16 09/09/16 07:00 15:00 23:00 07:00 15:00 23:00 Intake Total 720 ml 480 ml 888 ml 1157 ml Output Total 850 ml 600 ml 1200 ml Balance -130 ml -120 ml 888 ml -43 ml Intake Oral 720 ml 480 ml 240 ml IV Total 888 ml 917 ml Output Urine Total 850 ml 600 ml 1200 ml Bladder Scan Volume Amount 277 ml 362 ml # Voids 0 # Bowel Movements 3 0 Result Diagram: 09/08/16 0643 09/08/16 0643 Imaging Last 24 hours Impressions Chest X-Ray 09/04/16 0923 Signed Impressions: Service Date/Time: Sunday, September 04, 2016 09:35 - CONCLUSION: 1. Compared to 01/28/2015, there would appear to be mild to moderate congestive failure. 2. There is no identifiable rib fracture. Gatito Vásquez MD FACR Objective Remarks LUE: +sling. Tender to palpation left proximal humerus. Mild swelling present. Minimal pain in elbow. Minimal pain with motion of wrist and fingers. Full sensation to median/ulnar nerve. full radial nerve function. LLE: Clean dry dressing on left hip. Drain in place. Sensation intact left lower extremity No pain in knee or ankle. NVI Assessment & Plan Assessment and Plan 1) Left Femoral Neck Fx--status post bipolar hemiarthroplasty 09/05/16 2) Left Proximal Humerus Fx--plan nonoperative treatment -NWB LUE, no range of motion Weight-bear as tolerated left lower extremity Lovenox convert to Xarelto after discharge SNF planning ortho cleared for discharge Follow-up with Dr. Bill 2 weeks Chucho Akbar Jr. Sep 09, 2016 06:43
[2016-09-09 08:00] VITALS: BP 158/69; PULSE 68; RESP 22; TEMP 98.6; O2SAT 95
[2016-09-09] MEDS: SODIUM CHLORIDE 1 GRAM TAB PO SCH (08:20)
[2016-09-09] MEDS: CHOLECALCIFEROL (VIT D3) 5000 UNIT CAP PO SCH (08:20)
[2016-09-09] MEDS: ENOXAPARIN SODIUM 30 MG/0.3 ML SYRINGE SQ SCH (08:20)
[2016-09-09] MEDS: LISINOPRIL 10 MG TAB PO SCH (08:21)
[2016-09-09] MEDS: SODIUM CHLORIDE 0.9% FLUSH 5 ML FLUSH IVF SCH (08:21)
[2016-09-09] MEDS: PRAVASTATIN SOD 80 MG TAB PO SCH (08:21)
[2016-09-09] MEDS: EZETIMIBE 10 MG TAB PO SCH (08:21)
[2016-09-09 08:46] LABS: BICARBONATE 26.2 MEQ/L (21.0-32.0)
[2016-09-09] MEDS ORDERED: DOCUSATE SODIUM 100 MG CAP PO SCH (09:30)
[2016-09-09] MEDS ORDERED: PLAV75TA29 PO (10:04)
--- NOTE | 2016-09-09 10:05 | HHI.DCPOC ---
Discharge Care Plan Diagnosis: (1) Hip fracture, left (2) Humerus head fracture (3) Hx TIA/stroke w/o resid (4) Hypothyroid (5) HTN (hypertension) (6) Peripheral neuropathy Goals to Promote Your Health * To prevent worsening of your condition and complications * To maintain your health at the optimal level Directions to Meet Your Goals Take your medications as prescribed Follow your dietary instruction Follow activity as directed Keep your appointments as scheduled Take your immunizations and boosters as scheduled If your symptoms worsen call your PCP, if no PCP go to Urgent Care Center or Emergency Room Smoking is Dangerous to Your Health. Avoid second hand smoke Call the 24-hour hour crisis hotline for domestic abuse at Kavin Delgado MD Sep 09, 2016 10:05
--- NOTE | 2016-09-09 10:14 | HHI.DS ---
Discharge Summary Admission Date Sep 04, 2016 at 11:00 Discharge Date: Sep 09, 2016 Admitting Diagnosis hip fracture, shoulder fracture (1) Hip fracture, left Diagnosis: Principal (2) Humerus head fracture Diagnosis: Principal (3) HTN (hypertension) Diagnosis: Secondary (4) Hyperlipidemia Diagnosis: Secondary (5) Hypothyroid Diagnosis: Secondary (6) Hx TIA/stroke w/o resid Diagnosis: Secondary (7) Peripheral neuropathy Diagnosis: Secondary CBC/BMP: 09/08/16 0643 09/09/16 0725 Significant Findings Laboratory Tests Test 09/07/16 09/08/16 09/08/16 09/08/16 04:15 06:43 12:09 15:45 Red Blood Count 3.55 MIL/MM3 3.36 MIL/MM3 (4.00-5.30) (4.00-5.30) Hemoglobin 10.7 GM/DL 10.3 GM/DL (11.6-15.3) (11.6-15.3) Hematocrit 31.9 % 30.3 % (35.0-46.0) (35.0-46.0) Neutrophils (%) (Auto) 84.2 % 82.5 % (16.0-70.0) (16.0-70.0) Lymphocytes (%) (Auto) 7.3 % 6.0 % (9.0-44.0) (9.0-44.0) Monocytes (%) (Auto) 8.3 % (0.0-8.0) 11.3 % (0.0-8.0) Neutrophils # (Auto) 8.5 TH/MM3 (1.8-7.7) Lymphocytes # (Auto) 0.7 TH/MM3 0.5 TH/MM3 (1.0-4.8) (1.0-4.8) Sodium Level 129 MEQ/L 126 MEQ/L (136-145) (136-145) Chloride Level 91 MEQ/L 89 MEQ/L (98-107) (98-107) Estimat Glomerular Filtration 73 ML/MIN (>89) Rate Random Glucose 112 MG/DL (74-106) Serum Osmolality 262 MOSM/KG (275-295) Urine Osmolality 285 MOSM/KG (300-1300) Test 09/09/16 07:25 Sodium Level 134 MEQ/L (136-145) Creatinine 0.48 MG/DL (0.50-1.00) Calcium Level 7.8 MG/DL (8.5-10.1) Hospital Course Pt is a pleasant 86 y/o F with h/o HTN, TIA, and peripheral neuropathy. While ambulating to the bathroom, pt lost her balance and fell to the floor without striking her head. Pt experienced immediate pain to the left shoulder and left hip. Pt was brought to the [facility]. X-rays confromed Left humerus fracture with impaction and Left femoral neck fracture. Dr. Bill has been consulted. She underwent Left hip hemiarthroplasty on . Sling and conservative management for the humerus fx. Incentive spirometer use is advised. Post op pt had poor po intake and more confused from pain meds and hyponatremia. This resolved with lower pain med dosing and ivf. Today she is eating and oriented. Her bowels are moving. she will be on xarelto for dvt prophyaxis then can resume her plavix after complete. She will f/u with Dr Bill. Pt Condition on Discharge: Stable Discharge Disposition: Rehab Inpatient Discharge Instructions DIET: Follow Instructions for: As Tolerated, No Restrictions Activities you can perform: Regular-No Restrictions Follow up Referrals: Orthopedics - 09/19/16 @ [facility] with Rah Bill MD New Medications: Calcium Carbonate-Vitamin D (Calcium 600+D 200) 600-200 Mg-Unit Tab 1 TAB PO BID Nutritional Supplement Days 30 Ref 0 TAB Cholecalciferol (Vitamin D3) 2,000 Unit Cap 2000 UNITS PO DAILY Nutritional Supplement #56 Ref 0 CAP Ergocalciferol (Ergocalciferol) 50,000 Unit Cap 80875 UNITS PO Q7D Nutritional Supplement #56 CAP Hydrocodone-Acetaminophen (Hydrocodone-Acetaminophen) 7.5-325 mg Tab 1 TAB PO Q4H PRN PAIN #60 Ref 0 TAB Rivaroxaban (Xarelto) 10 Mg Tab 10 MG PO DAILY Blood Clot Prevention #14 Ref 0 TAB Changed Medications: Clopidogrel (Plavix) 75 Mg Tab 75 MG PO DAILY resume September 25 Blood Clot Prevention #0 Ref 0 TAB (Changed from: 30) Continued Medications: Ezetimibe (Zetia) 10 Mg Tab 10 MG PO DAILY #30 Ref 0 TAB Levothyroxine (Levothyroxine) 25 Mcg Tab 25 MCG PO DAILY Thyroid #30 Ref 0 TAB Lisinopril (Lisinopril) 5 Mg Tab 10 MG PO Blood Pressure Management #30 Ref 0 TAB Lisinopril (Lisinopril) 5 Mg Tab 5 MG PO HS Blood Pressure Management #30 Ref 0 TAB Lovastatin (Lovastatin) 40 Mg Tab 80 MG PO DAILY Cholesterol Management #60 Ref 0 TAB Multiple Vitamin (Multiple Vitamin) 1 Tab 1 TAB PO DAILY Nutritional Supplement Ref 0 TAB Kavin Delgado MD Sep 09, 2016 10:14
[2016-09-09 10:21] VITALS: O2SAT 98
[2016-09-15] MEDS ORDERED: ZOSY3.375P IV (06:14)
[2016-09-15] MEDS ORDERED: LACT PO (06:14)
[2016-09-15] MEDS ORDERED: SODI1TAB PO (06:14)
== END 2016-09-09 12:52 | DRG 470 ==
LOC: NEPE 09:03 → NEDA 11:00 → N06B 12:44
PROVIDERS: ADMIT Hospitalist; ATTEND Hospitalist
PROC: 0SRS01A Replacement of Left Hip Joint, Femoral Surface with Metal Synthetic Substitute, Uncemented, Open Approach (ICD-10-PCS; principal; 2016-09-05 08:09)
DX: S72.092A Other fracture of head and neck of left femur, initial encounter for closed fracture (principal); G62.9 Polyneuropathy, unspecified; E87.1 Hypo-osmolality and hyponatremia; S42.202A Unspecified fracture of upper end of left humerus, initial encounter for closed fracture; W01.0XXA Fall on same level from slipping, tripping and stumbling without subsequent striking against object, initial encounter; Y92.008 Other place in unspecified non-institutional (private) residence as the place of occurrence of the external cause; M81.0 Age-related osteoporosis without current pathological fracture; R41.0 Disorientation, unspecified; E78.5 Hyperlipidemia, unspecified; E03.9 Hypothyroidism, unspecified; I12.9 Hypertensive chronic kidney disease with stage 1 through stage 4 chronic kidney disease, or unspecified chronic kidney disease; N18.2 Chronic kidney disease, stage 2 (mild); Z86.73 Personal history of transient ischemic attack (TIA), and cerebral infarction without residual deficits; Z85.828 Personal history of other malignant neoplasm of skin
CPT/HCPCS: 51702; 71010; 73030; 73502; 80048; 81001; 82306; 83735; 83930; 83935; 84300; 85014; 85018; 85025; 85610; 86850; 86900; 86901; 87086; 93005; 94150; 96360; C1776; J0690; J1170; J1580; J1650; J2270; J2405; J3010; J3370; J7030; J7040; J7050; J7120; L1830

== ENCOUNTER 2016-09-15 07:25 | Inpatient (IN) | payer MEDICARE ==
[2016-09-15] VITALS (10 sets, daily range): BP systolic 88–108; BP diastolic 47–51; PULSE 71–91; RESP 15–34; TEMP 97.9–98.3; O2SAT 94–97
[~2016-09-15 07:25] MED LIST changes: +CALCTAB19 PO; +ERGO1CAP30 PO; -EZET10 PO; -GABA300 PO; +HYDR-3580 PO; +LACT PO; -LEVO.025 PO; +LEVO25TA4 PO; -LISI-357 PO; -LISI-360 PO; +LISI-519 PO; +LOVA40TA PO; -MEVA40TA6 PO; +MULTTAB67 PO; -PLAV75TA PO; +PLAV75TA29 PO; +SODI1TAB PO; -TAB-TAB PO; +VITA2000 PO; +XARE10TA PO; +ZETI10TA5 PO; +ZOSY3.375P IV
[2016-09-15] MEDS ORDERED: SODIUM CHLOR 0.9% 1000 ML INJ 1,000 ML IV ONE (07:45)
[2016-09-15] MEDS ORDERED: CHLORHEXIDINE GLUCONATE 2 % 1 PACK (2 CLOTHS) TOP PRN ×2 (07:45→08:15)
[2016-09-15] MEDS ORDERED: MISCELLANEOUS NURSING INFORMATION XX SCH ×2 (07:45→08:15)
[2016-09-15] MEDS ORDERED: SODIUM CHLORIDE 0.9% FLUSH 10 ML FLUSH IV FLUSH PRN (07:45)
--- NOTE | 2016-09-15 07:55 | HHI.HP ---
[facility] Service Critical Care Medicine Primary Care Physician Adan Davis MD Admission Diagnosis Diagnosis: (1) Severe sepsis Diagnosis: Principal (2) Hip fracture, left Diagnosis: Principal (3) Humerus head fracture Diagnosis: Principal (4) Hx TIA/stroke w/o resid Diagnosis: Principal (5) HTN (hypertension) Diagnosis: Principal (6) Hypothyroid Diagnosis: Principal (7) Septic shock Diagnosis: Principal (8) Leukocytosis Diagnosis: Principal (9) HX: anticoagulation Diagnosis: Principal (10) Dyslipidemia Diagnosis: Principal (11) UTI (urinary tract infection) Diagnosis: Principal (12) Abdominal pain Diagnosis: Principal (13) Hyponatremia Diagnosis: Principal (14) Peripheral neuropathy Diagnosis: Principal (15) Spinal stenosis Diagnosis: Principal (16) Protein-calorie malnutrition, moderate Diagnosis: Principal (17) Lactic acidosis Diagnosis: Principal (18) Acute kidney injury (nontraumatic) Diagnosis: Principal (19) Chronic kidney disease (CKD), stage II (mild) Diagnosis: Principal (20) Osteoarthritis Diagnosis: Principal Chief Complaint: Abdominal pain Travel History International Travel<30 Days: No Contact w/Intl Traveler <30 Da: No Traveled to Known Affected Are: No Sepsis Criteria SIRS Criteria (2 or more): Heart rate over 90, WBC > 48504, < 4000 or > 10% bands Sepsis Criteria (SIRS+source): Infect source susp/known Severe Sepsis (+one): Hypotension, Lactate >2 Criteria Outcome: Meets severe sepsis criteria History of Present Illness This is an 86-year-old female. Date of admission 09/15/2016. Past medical history includes peripheral neuropathy, TIA history, osteoarthritis, spinal stenosis, hypertension, dyslipidemia, chronic kidney disease stage II, hypothyroidism, chronic lumbar pain with previous history of nerve blocks and gastroesophageal reflux disease. See originally presented to [facility] status post unwitnessed fall at home which he had a left femoral neck fracture and left humeral head fracture. She was seen in consultation by Dr. Bill and had a bipolar gayla-plasty 09/05 without complication. Left wrist fractures treated conservatively with a sling therapy. Patient was sent to rehabilitation 09/09 09/12 patient was diagnosed with urinary tract infection. Initially treated with Ceftin 500 mg every 12 and switch to Rocephin 1 g every 24 09/13. Patient having constipation KUB revealed stool 09/13. Receiving fleets enema 1 and Relistor 12 mg subcutaneous 1. Along with Florastor twice a day Since admission rehabilitation on Angelic-Colace. Yesterday, she was noted to have multiple bouts of diarrhea starting yesterday Today, consultation to hospitalist for hypotension abdominal pain. Noted she had white cell count that jumped from slightly above normal to 43,000 late yesterday. LFTs and lipase were normal. Lactate slightly elevated 3.2 currently 2.2 after [address] abdomen/pelvis revealed ileus type pattern. With gas in the bowel. Mild anasarca. Some free fluid in the pelvis. A nonobstructing right calculus. She received 2 L normal saline wide open was transferred to [id number] and we are asked to see in consultation. C. difficile was drawn. Worried about mesenteric ischemia sent to CT with contrast At the present time, patient complaining of diffuse abdominal pain specifically in the bilateral lower quadrants. Abdomen soft. Voluntary guarding. No rigidity. Review of Systems Constitutional: COMPLAINS OF: Fatigue, Weight loss, DENIES: Fever, Weight gain Endocrine: DENIES: Polydipsia, Polyuria Eyes: DENIES: Blurred vision Ears, nose, mouth, throat: DENIES: Tinnitus Respiratory: DENIES: Shortness of breath Cardiovascular: DENIES: Chest pain Gastrointestinal: COMPLAINS OF: Abdominal pain, Diarrhea, Nausea, DENIES: Vomiting Genitourinary: DENIES: Urgency, Dysuria Musculoskeletal: COMPLAINS OF: Joint pain, Back pain, DENIES: Neck pain Integumentary: DENIES: Pruritus, Rash Hematologic/lymphatic: DENIES: Bruising Immunologic/allergic: DENIES: Eczema Neurologic: DENIES: Abnormal gait Psychiatric: DENIES: Anxiety, Confusion Past Family Social History Allergies: Coded Allergies: Tizanidine (Verified Allergy, Severe, doesn't know, 09/09/16) Tramadol (Verified Allergy, Severe, doesn't remember, 09/09/16) Baclofen (Unverified Allergy, Intermediate, RASH, 09/09/16) Cipro (Unverified Allergy, Intermediate, RASH, 09/09/16) Cymbalta (Unverified Allergy, Intermediate, SEVERE RASH, 09/09/16) Elavil (Unverified Allergy, Intermediate, RASH, 09/09/16) Tetracycline (Unverified Allergy, Intermediate, RASH, 09/09/16) Triamcinolone (Unverified Allergy, Intermediate, SEVERE RASH, 09/09/16) Past Medical History Peripheral neuropathy History of TIA Osteoarthritis Spinal stenosis Hypertension Dyslipidemia Chronic kidney disease stage II Hypothyroidism Gastroesophageal reflux disease Past Surgical History Left bipolar hemiarthroplasty for left femoral neck fracture Dr. Bill Skin cancer removed from the ears Left total knee arthroplasty/meniscal tear Esophageal dilatation Left cataract Reported Medications Plavix (Clopidogrel Bisulfate) 75 Mg Tab 75 Mg PO DAILY resume September 25 Calcium 600+D 200 (Calcium Carbonate-Vitamin D) 600-200 Mg-Unit Tab 1 Tab PO BID 30 Days Vitamin D3 (Cholecalciferol) 2,000 Unit Cap 2,000 Units PO DAILY Ergocalciferol 50,000 Unit Cap 50,000 Units PO Q7D Xarelto (Rivaroxaban) 10 Mg Tab 10 Mg PO DAILY Hydrocodone-Acetaminophen 7.5-325 mg Tab 1 Tab PO Q4H PRN Multiple Vitamin 1 Tab 1 Tab PO DAILY Levothyroxine (Levothyroxine Sodium) 25 Mcg Tab 25 Mcg PO DAILY Lovastatin 40 Mg Tab 80 Mg PO DAILY Zetia (Ezetimibe) 10 Mg Tab 10 Mg PO DAILY Lisinopril 5 Mg Tab 5 Mg PO HS Lisinopril 5 Mg Tab 10 Mg PO Active Ordered Medications Reviewed in EMR Family History Mother and father both of old age. One daughter with lung cancer with brain metastases Social History No prior use tobacco, alcohol or IV drug use. Lives alone Physical Exam Physical Exam GENERAL: 86-year-old female, resting in bed in no acute distress SKIN: Warm and dry. Ecchymosis to the left upper extremity HEAD: Atraumatic. Normocephalic. EYES: Pupils equal and round about 3 mm bilaterally. No scleral icterus. No injection or drainage. ENT: No nasal bleeding or discharge. Mucous membranes pink and moist. Upper dentures/partial lower dentures. NECK: Trachea midline. No JVD. CARDIOVASCULAR: Regular rate and rhythm. S1, S2. No S4. Without murmur RESPIRATORY: No accessory muscle use. Clear to auscultation. Breath sounds equal bilaterally. GASTROINTESTINAL: Abdomen soft, non-tender, nondistended. Hepatic and splenic margins not palpable. MUSCULOSKELETAL: Extremities with trace lower extremity edema. Left leg is in a immobilizer. Left arm is in a sling NEUROLOGICAL: Awake and alert. No obvious cranial nerve deficits. Motor grossly within normal limits. Five out of 5 muscle strength in the arms and legs. Normal speech. PSYCHIATRIC: Appropriate mood and affect; insight and judgment normal. Assessment and Plan Assessment and Plan Neuro/Psych: Peripheral neuropathy History of TIA Spinal stenosis Left cataract Acetaminophen for fever Prompton/morphine for pain management On Prompton for pain management for left hip fracture/humerus fracture in past CV: Severe sepsis Lactic acidosis History of hypertension Dyslipidemia Troponin pending. EKG shows normal sinus rhythm. Normal DC, QRS and QT intervals. No signs acute ischemia Status post 3 L normal saline Currently on NS @ 84 cc an hour Holding Xarelto 10 mg daily and Plavix 75 mg by mouth daily. Holding home medications of Pravachol 80 mg at night and Zetia 10 mg daily night of ileus. Resume when clinically indicated Holding lisinopril 10 mg daily light of hypotension and acute kidney injury Resp: Nasal cannula to maintain saturations greater than or equal to 92% Incentive spirometry while awake GI: Abdominal pain NOS Moderate protein calorie malnutrition with albumin 1.[address] abdomen/pelvis 09/14 revealed mild chronic ileus type pattern. Nonobstructing right nephrolithiasis. Some free fluid in the pelvis. Mild anasarca. CT abdomen/post contrast pending LFT/lipase within normal limits. : Bañuelos catheter has been placed for accurate I's and O's in a critically ill patient Endo: Hypothyroidism Sliding-scale insulin with Accu-Cheks to maintain euglycemia/low regimen Continue Levoxyl 25 mics grams by mouth daily. Check TSH Renal: Acute on chronic kidney injury stage II Nonobstructing right nephrolithiasis Monitor urine output Accurate I's and O's Follow BMP magnesium and phosphorus in a.m. Nonobstructing right-sided nephrolithiasis noted Heme: Leukocytosis Thrombocytosis Normocytic anemia Monitor CBC daily. Follow trends ID: E cloacae UTI On Zosyn day 1 Repeat blood cultures 2, urine cultures and sputum 1 now FEN: Replace electrolytes as clinically indicated MSK: Osteoarthritis Status post bipolar hemiarthroplasty secondary to left femoral neck fracture by Dr. Bill Left humerus fracture conservative management with sling Holding vitamin D 3 2000 units daily and Os-Chapincito D5 100/250 one tablet twice a day Access - Utilize IV. Central line if indicated Prophylaxis - GI - Protonix - DVT - SCDs/on Xarelto Critical Care: The total critical care time was 55 minutes. Time to perform other separately billable procedures was not included in the critical care time. Code Status Full code Discussed Condition With Patient. Care plan discussed and all questions answered. Problem Qualifiers (1) Hip fracture, left: Qualified Code: S72.002D - Hip fracture, left, closed, with routine healing, subsequent encounter (2) Humerus head fracture: (3) HTN (hypertension): Qualified Code: I10 - Essential hypertension (4) Hypothyroid: Qualified Code: E03.9 - Hypothyroidism, unspecified type (5) Leukocytosis: Qualified Code: D72.825 - Bandemia (6) UTI (urinary tract infection): Qualified Code: N39.0 - Urinary tract infection without hematuria, site unspecified (7) Abdominal pain: Qualified Code: R10.84 - Generalized abdominal pain (8) Peripheral neuropathy: Qualified Code: G62.9 - Peripheral polyneuropathy (9) Spinal stenosis: Qualified Code: M48.06 - Spinal stenosis of lumbar region (10) Osteoarthritis: Qualified Code: M19.90 - Osteoarthritis, unspecified osteoarthritis type, unspecified site Teo Lloyd MD Sep 15, 2016 07:54
[2016-09-15] MEDS ORDERED: metroNIDAZOLE 500 MG INJ 100 ML IV SCH (08:00)
[2016-09-15] MEDS ORDERED: RESP: ALBUTEROL 2.5 MG/3 ML NEB (PRN) INH (08:15)
[2016-09-15] MEDS ORDERED: MAGNESIUM HYDROXIDE SUSP 30 ML CUP PO PRN (08:15)
[2016-09-15] MEDS ORDERED: SENNOSIDES 8.6 MG TAB PO PRN (08:15)
[2016-09-15] MEDS ORDERED: ACETAMINOPHEN 325 MG TAB PO PRN (08:15)
[2016-09-15] MEDS ORDERED: LACTULOSE SYRUP 20 GM/30 ML CUP PO PRN (08:15)
[2016-09-15] MEDS ORDERED: BISACODYL 10 MG SUPP RECTAL PRN (08:15)
[2016-09-15] MEDS ORDERED: ACETAMINOPHEN/HYDROcodone 325 MG/5 MG TAB PO PRN (08:15)
[2016-09-15] MEDS: ARTIFICIAL TEARS OPTH SOLN 15 ML BTL EACH EYE SCH ×3 (09:00→18:08)
[2016-09-15] MEDS ORDERED: SODIUM CHLORIDE 0.9% FLUSH 10 ML FLUSH IV FLUSH SCH (09:00)
[2016-09-15] MEDS: DOCUSATE SODIUM 50 MG/SENNA 8.6 MG TAB PO SCH ×2 (09:22→19:40)
[2016-09-15] MEDS: LEVOTHYROXINE SODIUM 25 MCG TAB PO SCH (09:22)
[2016-09-15] MEDS: PANTOPRAZOLE SODIUM 40 MG VIAL IV SCH (09:22)
[2016-09-15] MEDS: SODIUM CHLOR 0.9% 1000 ML INJ 1,000 ML IV SCH ×2 (09:22→19:40)
[2016-09-15] MEDS: SODIUM CHLORIDE 0.9% FLUSH 10 ML FLUSH IV FLUSH SCH ×2 (09:22→19:40)
[2016-09-15] MEDS ORDERED: IOHEXOL 350 MG/ML 10 ML VIAL (for RAD DIAG) IV ONE (09:55)
[2016-09-15] MEDS ORDERED: IODIXANOL 320 MG/ML 10 ML VIAL (for Rad CT) IV ONE (10:06)
--- NOTE | 2016-09-15 10:28 | RADRPT ---
EXAM DATE/TIME: 09/15/2016 09:07 [facility] COMPARISON: CHEST SINGLE AP, September 14, 2016, 18:27. CHEST SINGLE AP, September 15, 2016, 6:11. INDICATIONS : Chest pain. MEDICAL HISTORY : Hypothyroidism. Spinal stenosis. SURGICAL HISTORY : Esophageal dilation. ENCOUNTER: Subsequent ACUITY: 4 - 6 days PAIN SCORE: 5/10 LOCATION: Bilateral chest FINDINGS: The heart size is normal. The lungs are free of focal consolidation. No effusion is seen. Patient does appear to have a chronic deformity at the proximal left humerus from prior fracturing. CONCLUSION: No acute abnormality is seen. En Lambert MD on September 15, 2016 at 10:11 Board Certified Radiologist. This report was verified electronically.
--- NOTE | 2016-09-15 10:44 | RADRPT ---
EXAM DATE/TIME: 09/15/2016 09:43 [facility] COMPARISON: CT ABDOMEN & PELVIS W CONTRAST, January 28, 2015, 21:11. INDICATIONS : Low blood pressure. Distended abdomen. Diarrhea. Rule out ischemic bowel. IV CONTRAST: 46 cc Visipaque (iodixanol) IV ORAL CONTRAST: No oral contrast ingested. RADIATION DOSE: 9.79 CTDIvol (mGy) MEDICAL HISTORY : Hypertension. Skin melanoma SURGICAL HISTORY : Knee arthroscopy ENCOUNTER: Initial ACUITY: 1 day PAIN SCALE: 7/10 LOCATION: Medial abdomen TECHNIQUE: Volumetric scanning of the abdomen and pelvis was performed. Using automated exposure control and ad justment of the mA and/or kV according to patient size, radiation dose was kept as low as reasonably achievable to obtain optimal diagnostic quality images. FINDINGS: There is thickening of the entire colon. The stomach and small bowel are unremarkable. The liver, spleen, pancreas and adrenal glands are normal. Both kidneys demonstrate normal enhanceme nt. There is a 3 mm calcification seen at the right kidney likely related to a non-obstructing stone . No hydronephrosis is seen on either side. Scattered atherosclerotic calcifications are seen at th e aorta. No aneurysm is seen. The pelvis structures appear grossly intact. No pelvic mass is seen. There is a mild amount of flui d in the peritoneal cavity in the pelvis. The gallbladder is distended. No calcified gallstones are seen. There is degenerative change in the lower lumbar spine. There is a left hip prosthesis in pl [address]. There is sub-pleural atelectasis identified at the posterior lung bases bilaterally. CONCLUSION: 1. Diffuse thickening of the entire colon consistent with diffuse colitis. 2. Mild atherosclerotic calcifications seen at the aorta. There is no aneurysm. Contrast is seen wi thin the celiac, SMA and HARRIS. 3. Small non-obstructing right renal stone. En Lambert MD on September 15, 2016 at 10:15 Board Certified Radiologist. This report was verified electronically.
[2016-09-15 10:53] LABS: AUTOMATED NEUTROPHIL # 36.8 TH/MM3 (1.8-7.7); BASOPHIL % 0.1 % (0.0-2.0); HEMATOCRIT 31.7 % (35.0-46.0); LYMPH % 2.1 % (9.0-44.0); LYMPHOCYTE # 0.8 TH/MM3 (1.0-4.8); MEAN CELL VOLUME 91.4 FL (80.0-100.0); MEAN CORPUSCULAR HEMOGLOBIN 29.9 PG (27.0-34.0); MEAN CORPUSCULAR HGB CONC 32.7 % (32.0-36.0); NEUT % 93.8 % (16.0-70.0); PLATELET COUNT 527 TH/MM3 (150-450); RED BLOOD COUNT 3.47 MIL/MM3 (4.00-5.30); RED CELL DISTRIBUTION WIDTH 14.3 % (11.6-17.2); WHITE BLOOD COUNT 39.3 TH/MM3 (4.0-11.0)
[2016-09-15 10:57] LABS: HEMO FLAGS AUTO DIFF
[2016-09-15 11:09] LABS: APTT (PATIENT) 28.8 SEC (24.3-30.1); PROTHROMBIN TIME - PATIENT 11.3 SEC (9.8-11.6)
[2016-09-15 11:28] LABS: ANION GAP 8 MEQ/L (5-15); BICARBONATE 28.7 MEQ/L (21.0-32.0); BLOOD UREA NITROGEN 27 MG/DL (7-18); CHLORIDE 100 MEQ/L (98-107); MAGNESIUM 5.2 MG/DL (1.5-2.5); POTASSIUM 4.4 MEQ/L (3.5-5.1); SODIUM (NA) 137 MEQ/L (136-145)
[2016-09-15 11:35] LABS: ALKALINE PHOSPHATASE 90 U/L (45-117); ALT (GPT) 16 U/L (10-53); GLOMERULAR FILTRATION RATE 40 ML/MIN (>89); TOTAL BILIRUBIN ADULT 0.5 MG/DL (0.2-1.0)
[2016-09-15 11:54] LABS: CREATINE KINASE 22 U/L (26-192)
[2016-09-15 11:56] LABS: BANDS 46 % (0-6); METAMYELOCYTES 5 % (0-1); NEUTROPHIL # MANUAL DIFF 37.3 TH/MM3 (1.8-7.7); POLYS (SEG NEUTROPHILS) 44 % (16-70); WBC DIFF SAMPLE 100
--- NOTE | 2016-09-15 11:56 | PD.PROCEDR ---
Central Line Procedure REASON FOR PROCEDURE Central venous access PROCEDURE PERFORMED Central line placement: Right IJ CVL CONSENT Informed consent for procedure was obtained from patient. The risks and benefits of the procedure were discussed to include but limited to bleeding, clot formation, infection, and even . ANESTHESIA Local injection of 1% Lidocaine DESCRIPTION OF THE PROCEDURE The patient was placed in supine, mild Trendelenburg position. The area was exposed and cleansed with ChloraPrep, times two. Large sterile drape was used to cover the patient, with the site exposed, under sterile conditions including cap, face mask, sterile gown, and sterile gloves. On single attempt, the introducer needle was inserted with negative pressure in syringe and venous flash was obtained. The guide wire was then advanced without any restriction and the needle was removed. The dilator was used without any complications. Using Seldinger technique the antibiotic coated triple-lumen catheter was advanced over the guide wire to a depth of 16 centimeters. The guide wire was removed. All ports were aspirated with dark venous blood return and flushed easily with sterile saline. All ports were capped. Antibiotic disc was placed around central line at puncture site. The central line was secured to the skin with two interrupted 2.0 silk sutures. The area was bandaged with sterile see- through central line bandage. RADIOLOGICAL DATA Ultrasound guidance was used to locate right internal jugular vein. Doppler/ color flow was used to confirm venous flow. COMPLICATIONS: No apparent complications ESTIMATED BLOOD LOSS: Less than 1 cc. Teo Lloyd MD Sep 15, 2016 11:56
[2016-09-15 11:57] LABS: PLATELET ESTIMATE SMEAR HIGH (NORMAL)
--- NOTE | 2016-09-15 11:57 | EKG ---
Date Performed: 09/15/2016 Time Performed: 08:29:21 PTAGE: 86 years EKG: Sinus rhythm NONSPECIFIC T-WAVE ABNORMALITY ABNORMAL ECG PREVIOUS TRACING : 09/04/2016 09.14 Compared to previous tracing, nonspecific T wave changes ar e now more evident, nonspecific ST changes have resolved. DOCTOR: Alireza Knight Interpretating Date/Time 09/15/2016 11:56:23
[2016-09-15 11:58] LABS: PLATELET MORPHOLOGY NORMAL (NORMAL); SCAN/DIFF FINAL DIFF MANUAL
[2016-09-15] MEDS ORDERED: PIPERACIL-TAZO 4.5 GM PREMIX 100 ML IV SCH (13:00)
[2016-09-15] MEDS: metroNIDAZOLE 500 MG INJ 100 ML IV SCH ×2 (13:05→19:40)
--- NOTE | 2016-09-15 13:06 | RADRPT ---
EXAM DATE/TIME: 09/15/2016 12:29 [facility] COMPARISON: CHEST SINGLE AP, September 15, 2016, 9:07. INDICATIONS : Central line placement. MEDICAL HISTORY : Hypertension. Skin melanoma. Hypothyroidism. Spinal stenosis. SURGICAL HISTORY : Knee arthroscopy. ENCOUNTER: Subsequent ACUITY: 4 - 6 days PAIN SCORE: 0/10 LOCATION: Bilateral chest FINDINGS: Interval placement of a right IJ central line with tip in the central SVC. There is no pneumothorax. No significant focal pleural or parenchymal opacities. Cardiomediastinal contours are within normal l imits. Bony thorax is intact. CONCLUSION: 1. Right IJ central line in good position without pneumothorax. Aldair Garcia MD on September 15, 2016 at 13:03 Board Certified Radiologist. This report was verified electronically.
--- NOTE | 2016-09-15 13:06 | PD.CONS ---
HPI History of Present Illness This is a 86 year old female with a hx of TIA, currently on Plavix at home. She fell at home on 09/04/16 and sustained a left femoral neck fracture and left humeral head fracture. She underwent bipolar hemiarthroplasty on 09/05/[address] Bill and her left humeral head fracture is being treated conservatively with sling. She was transferred to [facility] on 09/09/16. Postoperatively, she has been taking narcotics for pain management and she started having issues with constipation. She has been taking pericolace and lactinex. She was given a dose of MOM and relistor on 09/14/16. Afterwards, she started having significant diarrhea with liquid stool. A noncontrasted CT of the abdomen and pelvis (09/14/16) revealed a chronic ileus pattern similar to January of 2015. She developed worsening abdominal pain and distention and therefore was transferred to the unit. There was a concern for mesenteric ischemia and therefore she underwent CT Scan abdomen and pelvis with IV contrast (09/15/16)--- -> 1. Diffuse thickening of the entire colon consistent with diffuse colitis. 2. Mild atherosclerotic calcifications seen at the aorta. There is no aneurysm. Contrast is seen within the celiac, SMA and HARRIS. 3. Small non- obstructing right renal stone. WBC is 39.3. Of note, she was recently treated with antibiotics for a UTI. Stool was sent for CDiff and this is pending. The patient tells me that she did not have any GI issues until this diarrhea and abdominal pain started yesterday. She denies any nausea or vomiting. She does complain of constant diffuse abdominal pain, worse with palpation. She currently has a flexiseal and has a small amount of liquid brown stool in the bag. She is also having hypotension, currently with a b/p of 94/46, MAP 67. EGD (08/14/14) revealed normal esophagus, multiple biopsies,erythematous gastritis in the body and antrum. Pathology of distal esophagus with benign gastroesophageal junction mucosa with moderate chronic inflammation of the gastric component, antrum of the stomach with mild reactive gastropathy negative for H. Pylori. Colonoscopy (05/20/2005) revealed normal colon, medium internal hemorrhoids. PFSH Past Medical History GERD/Gastritis Basal cell carcinoma Cerebral atherosclerosis Cervical radiculopathy Chronic kidney disease II Dysphagia Hx Herpes zoster History of TIA Hypertension Hyperlipidemia Hypothyroidism Osteoarthritis Spinal stenosis Peripheral neuropathy Vertigo Past Surgical History Left knee arthroscopy Colonoscopy EGD Skin cancer removal from ears Left cataract surgery Left bipolar hemiarthroplasty for left femoral neck fx Nerve block lumbar spine Coded Allergies: Tizanidine (Verified Allergy, Severe, doesn't know, 09/09/16) Tramadol (Verified Allergy, Severe, doesn't remember, 09/09/16) Baclofen (Unverified Allergy, Intermediate, RASH, 09/09/16) Cipro (Unverified Allergy, Intermediate, RASH, 09/09/16) Cymbalta (Unverified Allergy, Intermediate, SEVERE RASH, 09/09/16) Elavil (Unverified Allergy, Intermediate, RASH, 09/09/16) Tetracycline (Unverified Allergy, Intermediate, RASH, 09/09/16) Triamcinolone (Unverified Allergy, Intermediate, SEVERE RASH, 09/09/16) Medications Allergies Coded Allergies Type Severity Reaction Last Updated Verified Tizanidine Allergy Severe doesn't know 09/09/16 Yes Tramadol Allergy Severe doesn't remember 09/09/16 Yes Baclofen Allergy Intermediate RASH 09/09/16 No Cipro Allergy Intermediate RASH 09/09/16 No Cymbalta Allergy Intermediate SEVERE RASH 09/09/16 No Elavil Allergy Intermediate RASH 09/09/16 No Tetracycline Allergy Intermediate RASH 09/09/16 No Triamcinolone Allergy Intermediate SEVERE RASH 09/09/16 No Active Scripts Medications Dose Route/Sig Days Date Category Dose Instructions Zosyn Inj (Piperacillin Sod/Tazobactam Sod) 3.375 Gm Inj 3.375 Gm IV Q6HR 1 09/15/16 Rx Sodium Chloride 1 Gm Tab 1 Gm PO DAILY 09/15/16 Rx Acidophilus/l-Sporogenes (Lactobacillus Acidophilus) 1 Tab Tab 1 Tab PO Q12HR 09/15/16 Rx Plavix (Clopidogrel Bisulfate) 75 Mg Tab 75 Mg PO DAILY 09/09/16 Rx resume September 25 Calcium 600+D 200 (Calcium Carbonate-Vitamin D) 600-200 Mg-Unit Tab 1 Tab PO BID 30 09/05/16 Rx Vitamin D3 (Cholecalciferol) 2,000 Unit Cap 2,000 Units PO DAILY 09/05/16 Rx Xarelto (Rivaroxaban) 10 Mg Tab 10 Mg PO DAILY 09/05/16 Rx Hydrocodone-Acetaminophen 7.5-325 mg Tab 1 Tab PO Q4H PRN 09/05/16 Rx Multiple Vitamin 1 Tab 1 Tab PO DAILY 09/04/16 Reported Levothyroxine (Levothyroxine Sodium) 25 Mcg Tab 25 Mcg PO DAILY 09/04/16 Reported Lovastatin 40 Mg Tab 80 Mg PO DAILY 09/04/16 Reported Zetia (Ezetimibe) 10 Mg Tab 10 Mg PO DAILY 09/04/16 Reported Lisinopril 5 Mg Tab 5 Mg PO HS 09/04/16 Reported Lisinopril 5 Mg Tab 10 Mg PO 09/04/16 Reported Family History Father had cardiac disease Social History Never smoker Review of Systems Constitutional: COMPLAINS OF: Fatigue, DENIES: Fever, Weight loss Respiratory: DENIES: Cough Cardiovascular: DENIES: Chest pain Gastrointestinal: COMPLAINS OF: Abdominal pain, Diarrhea, Swelling of Abdomen, DENIES: Black stools, Bloody stools, Constipation, Nausea, Vomiting Musculoskeletal: COMPLAINS OF: Joint pain, Muscle aches Hematologic/lymphatic: COMPLAINS OF: Bruising Neurologic: DENIES: Headache Psychiatric: DENIES: Confusion GI Exam Vitals I&O Vital Signs Date Time Temp Pulse Resp B/P Pulse Ox O2 Delivery O2 Flow Rate FiO2 09/15/16 08:47 96 21 Imaging Last Impressions Chest X-Ray 09/15/16 1155 Signed Impressions: Service Date/Time: Thursday, September 15, 2016 12:29 - CONCLUSION: 1. Right IJ central line in good position without pneumothorax. Aldair Garcia MD Abdomen/Pelvis CT 09/15/16 0000 Signed Impressions: Service Date/Time: Thursday, September 15, 2016 09:43 - CONCLUSION: 1. Diffuse thickening of the entire colon consistent with diffuse colitis. 2. Mild atherosclerotic calcifications seen at the aorta. There is no aneurysm. Contrast is seen within the celiac, SMA and HARRIS. 3. Small non-obstructing right renal stone. En Lambert MD Laboratory Test 09/15/16 09/15/16 07:45 10:30 Nasal Screen MRSA (PCR) MRSA NOT DETECTED White Blood Count 39.3 TH/MM3 Red Blood Count 3.47 MIL/MM3 Hemoglobin 10.4 GM/DL Hematocrit 31.7 % Mean Corpuscular Volume 91.4 FL Mean Corpuscular Hemoglobin 29.9 PG Mean Corpuscular Hemoglobin 32.7 % Concent Red Cell Distribution Width 14.3 % Platelet Count 527 TH/MM3 Mean Platelet Volume 7.2 FL Neutrophils (%) (Auto) 93.8 % Lymphocytes (%) (Auto) 2.1 % Monocytes (%) (Auto) 4.0 % Eosinophils (%) (Auto) 0.0 % Basophils (%) (Auto) 0.1 % Neutrophils # (Auto) 36.8 TH/MM3 Lymphocytes # (Auto) 0.8 TH/MM3 Monocytes # (Auto) 1.6 TH/MM3 Eosinophils # (Auto) 0.0 TH/MM3 Basophils # (Auto) 0.0 TH/MM3 CBC Comment AUTO DIFF Differential Total Cells 100 Counted Neutrophils % (Manual) 44 % Band Neutrophils % 46 % Lymphocytes % 4 % Monocytes % 1 % Neutrophils # (Manual) 37.3 TH/MM3 Metamyelocytes 5 % Differential Comment FINAL DIFF MANUAL Platelet Estimate HIGH Platelet Morphology Comment NORMAL Prothrombin Time 11.3 SEC Prothromb Time International 1.0 RATIO Ratio Activated Partial 28.8 SEC Thromboplast Time Fibrinogen 551 mg/dL Sodium Level 137 MEQ/L Potassium Level 4.4 MEQ/L Chloride Level 100 MEQ/L Carbon Dioxide Level 28.7 MEQ/L Anion Gap 8 MEQ/L Blood Urea Nitrogen 27 MG/DL Creatinine 1.26 MG/DL Estimat Glomerular Filtration 40 ML/MIN Rate Random Glucose 121 MG/DL Lactic Acid Level 2.1 mmol/L Calcium Level 8.0 MG/DL Phosphorus Level 5.0 MG/DL Magnesium Level 5.2 MG/DL Total Bilirubin 0.5 MG/DL Alanine Aminotransferase 16 U/L (ALT/SGPT) Alkaline Phosphatase 90 U/L Total Creatine Kinase 22 U/L Troponin I LESS THAN 0.02 NG/ML Total Protein 4.4 GM/DL Albumin 1.4 GM/DL Lipase 43 U/L Thyroid Stimulating Hormone 1.400 uIU/ML 3rd Gen Date/Time Procedure Status Source Growth 09/15/16 11:28 Aerobic Blood Culture Received Blood Peripheral Pending 09/15/16 11:28 Anaerobic Blood Culture Received Blood Peripheral Pending Physical Examination HEENT: Normocephalic; atraumatic; no jaundice. CHEST: CTA, Diminished. Resp. shallow/even. CARDIAC: RRR, hypotension. ABDOMEN: Firm, distended, moderate to severe diffuse tenderness, bowel sounds hypoactive. Flexiseal with small amount liquid stool EXTREMITIES: Left lower extremity CKS, Sling LUE BLEACHER SULFITE PULP: Lethargic. Assessment and Plan Plan ASSESSMENT: - Severe pancolitis in patient with recent abx use and hypotension. CT Scan abdomen and pelvis with IV contrast (09/15/16)----> 1. Diffuse thickening of the entire colon consistent with diffuse colitis. 2. Mild atherosclerotic calcifications seen at the aorta. There is no aneurysm. Contrast is seen within the celiac, SMA and HARRIS. 3. Small non-obstructing right renal stone. EGD (08/14/14) revealed normal esophagus, multiple biopsies,erythematous gastritis in the body and antrum. Pathology of distal esophagus with benign gastroesophageal junction mucosa with moderate chronic inflammation of the gastric component, antrum of the stomach with mild reactive gastropathy negative for H. Pylori. Colonoscopy (05/20/2005) revealed normal colon, medium internal hemorrhoids. WBC is 39.3. CDiff is pending. She was started on Flagyl and Oral Vanco. She has significant abdominal distention with moderate to severe diffuse tenderness. Flexiseal with small amount of liquid stool. This is most likely severe CDiff colitis, although she is also hypotensive and therefore she could also have some degree of ischemic colitis as well. Cont. Oral Vanco, Flagyl. Await CDiff. ID following. - Ileus secondary to above. Postoperatively, she has been taking narcotics for pain management and she started having issues with constipation. She has been taking pericolace and lactinex. She was given a dose of MOM and relistor on 09/14/16. Afterwards, she started having significant diarrhea with liquid stool and significant pain/distention. - Sepsis/Leukocytosis, suspected CDiff. ID following, Flagyl, Oral vanco - Anemia, 10.4/31.7. - Acute on chronic kidney injury. Creat 1.26. Per attending. - Recent fall at home on 09/04/16 and sustained a left femoral neck fracture and left humeral head fracture. S/P Bipolar hemiarthroplasty on 09/05/[address] Bill and her left humeral head fracture is being treated conservatively with sling. She was transferred to [facility] on 09/09/16, but transferred to the unit for severe abdominal tenderness and leukocytosis with concern for mesenteric ischemia. - History of TIA (on plavix), OA, Hx HTN now with hypotension, hyperlipidemia, CKD per attending. PLAN: - NPO - Await CDiff PCR - Cont. Flagyl IV - Cont. Oral Vancomycin - Start Vanco Enema 500mg in 100mL NS retention enema OK q6h - IVF - CBC, CMP in am - KUB in am - Notify GI of worsening pain, distention - Supportive care - Further recommendations to follow based on results of above - Pt seen and examined by Dr. Barnett and myself and this note is written on his behalf Dinora Renteria Sep 15, 2016 13:06
[2016-09-15] MEDS: VANCOMYCIN 500 MG VIAL (FOR ORAL USE ONLY) PO SCH ×2 (14:00→18:08)
[2016-09-15 14:13] LABS: AST (GOT) 22 U/L (15-37)
--- NOTE | 2016-09-15 15:28 | PD.ID.CON ---
History of Present Illness Service ID Consult Requested By Dr Lloyd Reason for Consult leukocytosis Primary Care Physician Adan Davis MD Diagnoses: History of Present Illness 86 yo F from [facility] originally presented to [facility] 09/04 status post unwitnessed fall at home which he had a left femoral neck fracture and left humeral head fracture. She was seen in consultation by Dr. Bill and had a bipolar gayla-plasty 09/05 without complication. Left wrist fractures treated conservatively with a sling therapy. Patient was sent to rehabilitation 09/09 on 09/12 patient was diagnosed with urinary tract infection. Initially treated with Ceftin 500 mg every 12 and switch to Rocephin 1 g every 24 09/13. A day prior to presentations she was noted to have multiple bouts of diarrhea Her white cell count start to slowly rise on 09/10 and yday jumpted to 43,000. Pt co severe abdominal pain x few days Pt was transferred with hypotension to ICU SHe apparentlky developped constipation 2 days prior Her abdominal scan showed sigmoid colitis Yday' UA had 8 WBC (down from 66) She originally grew Enterobacter cloacea from urine clx Review of Systems Constitutional: COMPLAINS OF: Fatigue Gastrointestinal: COMPLAINS OF: Abdominal pain, Diarrhea Except as stated in HPI: all other systems reviewed are Neg Past Family Social History Allergies: Coded Allergies: Tizanidine (Verified Allergy, Severe, doesn't know, 09/09/16) Tramadol (Verified Allergy, Severe, doesn't remember, 09/09/16) Baclofen (Unverified Allergy, Intermediate, RASH, 09/09/16) Cipro (Unverified Allergy, Intermediate, RASH, 09/09/16) Cymbalta (Unverified Allergy, Intermediate, SEVERE RASH, 09/09/16) Elavil (Unverified Allergy, Intermediate, RASH, 09/09/16) Tetracycline (Unverified Allergy, Intermediate, RASH, 09/09/16) Triamcinolone (Unverified Allergy, Intermediate, SEVERE RASH, 09/09/16) Past Medical History Past Medical History Peripheral neuropathy History of TIA Osteoarthritis Spinal stenosis Hypertension Dyslipidemia Chronic kidney disease stage II Hypothyroidism Gastroesophageal reflux disease Past Surgical History Left bipolar hemiarthroplasty for left femoral neck fracture Dr. Bill Skin cancer removed from the ears Left total knee arthroplasty/meniscal tear Esophageal dilatation Left cataract Active Ordered Medications Medications where reviewed in EMR Antibiotics Include: zosyn flagyl IV Family History Non-Contributory. Social History No Tobacco. No ETOH. No Illicit Drugs. Physical Exam Vital Signs Vital Signs Date Time Temp Pulse Resp B/P Pulse Ox O2 Delivery O2 Flow Rate FiO2 09/15/16 12:00 98.1 85 30 104/50 94 09/15/16 08:47 96 21 09/15/16 08:00 97.9 71 15 88/47 97 Physical Exam CONSTITUTIONAL/GENERAL: This is an adequately nourished elderly patient, in no apparent distress. Looks ill, weak TUBES/LINES/DRAINS: SKIN: No jaundice, rashes, or lesions. Ecchymoses on upper extremities. No wounds seen anteriorly. Skin temperature appropriate. Not diaphoretic. HEAD: Atraumatic. Normocephalic. EYES: Pupils equal and round and reactive. Extraocular motions intact. No scleral icterus. No injection or drainage. Fundi not examined. ENT: Hearing grossly normal. Nose without bleeding or purulent drainage. Oral mucosae moist without visible erythema, exudates, masses, or lesions. NECK: Trachea midline. Supple, nontender. CARDIOVASCULAR: Regular rate and rhythm without murmurs, gallops, or rubs. No JVD. Peripheral pulses symmetric. RESPIRATORY/CHEST: Symmetric, unlabored respirations. Clear to auscultation. Breath sounds equal bilaterally. No wheezes, rales, or rhonchi. GASTROINTESTINAL: Abdomen soft, very tender diffusely with max tenderness RLQ, + guarding, + markedly distended. No hepato-splenomegaly, or palpable masses. Incontinent of large amount of watery light brown stool GENITOURINARY: Without palpable bladder distension. MUSCULOSKELETAL: Extremities without clubbing, cyanosis, or edema. No joint tenderness or effusion noted. No calf tenderness. No mottling or clubbing. LYMPHATICS: No palpable cervical or supraclavicular adenopathy. NEUROLOGICAL: Awake and alert. Motor and sensory grossly within normal limits. Follows commands. Clear speech. Moves all extremities. PSYCHIATRIC: No obvious anxiety/depression. no apparent hallucinations or other psychotic thought process. Laboratory Laboratory Tests Test 09/15/16 09/15/16 07:45 10:30 Nasal Screen MRSA (PCR) MRSA NOT DETECTED White Blood Count 39.3 Red Blood Count 3.47 Hemoglobin 10.4 Hematocrit 31.7 Mean Corpuscular Volume 91.4 Mean Corpuscular Hemoglobin 29.9 Mean Corpuscular Hemoglobin 32.7 Concent Red Cell Distribution Width 14.3 Platelet Count 527 Mean Platelet Volume 7.2 Neutrophils (%) (Auto) 93.8 Lymphocytes (%) (Auto) 2.1 Monocytes (%) (Auto) 4.0 Eosinophils (%) (Auto) 0.0 Basophils (%) (Auto) 0.1 Neutrophils # (Auto) 36.8 Lymphocytes # (Auto) 0.8 Monocytes # (Auto) 1.6 Eosinophils # (Auto) 0.0 Basophils # (Auto) 0.0 CBC Comment AUTO DIFF Differential Total Cells 100 Counted Neutrophils % (Manual) 44 Band Neutrophils % 46 Lymphocytes % 4 Monocytes % 1 Neutrophils # (Manual) 37.3 Metamyelocytes 5 Differential Comment FINAL DIFF MANUAL Platelet Estimate HIGH Platelet Morphology Comment NORMAL Prothrombin Time 11.3 Prothromb Time International 1.0 Ratio Activated Partial 28.8 Thromboplast Time Fibrinogen 551 Sodium Level 137 Potassium Level 4.4 Chloride Level 100 Carbon Dioxide Level 28.7 Anion Gap 8 Blood Urea Nitrogen 27 Creatinine 1.26 Estimat Glomerular Filtration 40 Rate Random Glucose 121 Lactic Acid Level 2.1 Calcium Level 8.0 Phosphorus Level 5.0 Magnesium Level 5.2 Total Bilirubin 0.5 Aspartate Amino Transf 22 (AST/SGOT) Alanine Aminotransferase 16 (ALT/SGPT) Alkaline Phosphatase 90 Total Creatine Kinase 22 Troponin I LESS THAN 0.02 Total Protein 4.4 Albumin 1.4 Lipase 43 Thyroid Stimulating Hormone 1.400 3rd Gen Date/Time Procedure Status Source Growth 09/15/16 11:28 Aerobic Blood Culture Received Blood Peripheral Pending 09/15/16 11:28 Anaerobic Blood Culture Received Blood Peripheral Pending Result Diagram: 09/15/16 1030 09/15/16 1030 Imaging Last Impressions Chest X-Ray 09/15/16 1155 Signed Impressions: Service Date/Time: Thursday, September 15, 2016 12:29 - CONCLUSION: 1. Right IJ central line in good position without pneumothorax. Aldair Garcia MD Abdomen/Pelvis CT 09/15/16 0000 Signed Impressions: Service Date/Time: Thursday, September 15, 2016 09:43 - CONCLUSION: 1. Diffuse thickening of the entire colon consistent with diffuse colitis. 2. Mild atherosclerotic calcifications seen at the aorta. There is no aneurysm. Contrast is seen within the celiac, SMA and HARRIS. 3. Small non-obstructing right renal stone. En Lambert MD Assessment and Plan Assessment and Plan Colitis, probably C.diff, severe - non bloody high volume diarrhea - recent abx exposure - extermely high WBC, leukemoid reaction SIRS, sepsis - 2./2 C.diff - lactic acidosis, hypotension, acute renal dysfunction Doubt active UTI Dc zosyn start po vancomycin cont IV flagyl fu C.diff Discussed Condition With Dr Prema Rodriguez,Shayy Sosa MD Sep 15, 2016 15:27
[2016-09-15 15:38] LABS: BACTERIA, URINE FEW /hpf; BLOOD, URINE NEG (NEG); GLUCOSE,URINE NEG (NEG); KETONE, URINE TRACE mg/dL (NEG); MUCUS URINE FEW /lpf (OCC); NITRITE,URINE NEG (NEG); PH, URINE 6.5 (5.0-8.5); SQUAMOUS EPITHELIAL CELL URINE 3 /hpf (0-5)
[2016-09-15 15:39] LABS: URINE COLOR ORANGE (YELLW/STRAW)
[2016-09-15 15:41] LABS: COMMENT (UR) CATH-CULTURE IND; CULTURE IF INDICATED CATH CULTURE IND
[2016-09-15 16:54] LABS: C. DIFF EPI 027 PRESUMPTIVE POSITIVE (NEGATIVE); C. DIFF TOXIN PCR POSITIVE (NEGATIVE)
[2016-09-15] MEDS ORDERED: PHENYLEPHRINE INJ 160 MG in DEXTROSE 5% IN WATE 500 ML INJ 484 ML IV SCH ×2 (17:30)
[2016-09-15] MEDS ORDERED: SODIUM CHLORID 0.9% 500 ML INJ 500 ML IV ONE (17:30)
[2016-09-15] MEDS ORDERED: TERBUTALINE INJ 1 MG/ML AMP SQ PRN (17:30)
[2016-09-15] MEDS: MORPHINE SULFATE 4 MG/ML INJ IV PRN (17:51)
[2016-09-15] MEDS: VANCOMYCIN INJ 500 MG in SODIUM CHLORIDE 0.9% IRR BTL 250 ML IRRIGATION SCH (18:08)
[2016-09-16] VITALS (14 sets, daily range): BP systolic 101–136; BP diastolic 49–60; PULSE 71–91; RESP 17–27; TEMP 97.8–98.4; O2SAT 91–100
[2016-09-16] MEDS: VANCOMYCIN 500 MG VIAL (FOR ORAL USE ONLY) PO SCH ×4 (00:38→17:26)
[2016-09-16] MEDS: VANCOMYCIN INJ 500 MG in SODIUM CHLORIDE 0.9% IRR BTL 250 ML IRRIGATION SCH ×4 (00:39→17:26)
[2016-09-16] MEDS ORDERED: SODIUM CHLOR 0.9% 1000 ML INJ 1,000 ML IV ONE (01:00)
[2016-09-16] MEDS: metroNIDAZOLE 500 MG INJ 100 ML IV SCH ×4 (01:25→20:36)
[2016-09-16] MEDS ORDERED: SODIUM CHLOR 0.9% 1000 ML INJ 1,000 ML IV SCH ×3 (01:30→06:15)
[2016-09-16] MEDS: CHLORHEXIDINE GLUCONATE 2 % 1 PACK (2 CLOTHS) TOP SCH (04:00)
[2016-09-16] MEDS ORDERED: CHLORHEXIDINE GLUCONATE 2 % 1 PACK (2 CLOTHS) TOP SCH (04:00)
[2016-09-16 05:21] LABS: AUTOMATED NEUTROPHIL # 35.1 TH/MM3 (1.8-7.7); BASOPHIL % 0.1 % (0.0-2.0); EOSINOPHIL % 0.1 % (0.0-4.0); HEMATOCRIT 27.3 % (35.0-46.0); LYMPH % 1.4 % (9.0-44.0); LYMPHOCYTE # 0.5 TH/MM3 (1.0-4.8); MEAN CELL VOLUME 90.3 FL (80.0-100.0); MEAN CORPUSCULAR HEMOGLOBIN 30.3 PG (27.0-34.0); MEAN CORPUSCULAR HGB CONC 33.6 % (32.0-36.0); MONO % 4.1 % (0.0-8.0); NEUT % 94.3 % (16.0-70.0); PLATELET COUNT 483 TH/MM3 (150-450); RED BLOOD COUNT 3.02 MIL/MM3 (4.00-5.30); RED CELL DISTRIBUTION WIDTH 14.1 % (11.6-17.2); WHITE BLOOD COUNT 37.2 TH/MM3 (4.0-11.0)
[2016-09-16 05:24] LABS: APTT (PATIENT) 26.1 SEC (24.3-30.1); HEMO FLAGS AUTO DIFF; PROTHROMBIN TIME - PATIENT 10.8 SEC (9.8-11.6)
--- NOTE | 2016-09-16 05:30 | RADRPT ---
EXAM DATE/TIME: 09/16/2016 03:32 [facility] COMPARISON: CT ABDOMEN & PELVIS W CONTRAST, September 15, 2016, 9:43. INDICATIONS : Abdominal pain. MEDICAL HISTORY : Hypertension. Hypothyroidism. Skin melanoma SURGICAL HISTORY : None. ENCOUNTER: Subsequent ACUITY: 1 week PAIN SCORE: 10/10 LOCATION: Left flank FINDINGS: Wall thickening/thumbprinting seen in the colon. Nonobstructive pattern. No evidence of free air. CONCLUSION: Colitis without obstruction. En Andres MD on September 16, 2016 at 5:27 Board Certified Radiologist. This report was verified electronically.
[2016-09-16 05:44] LABS: BICARBONATE 26.1 MEQ/L (21.0-32.0); CALCIUM-PROTEIN CORRECTED 8.3 MG/DL (8.5-10.1); MAGNESIUM 4.1 MG/DL (1.5-2.5); POTASSIUM 4.4 MEQ/L (3.5-5.1); TOTAL BILIRUBIN ADULT 0.2 MG/DL (0.2-1.0)
[2016-09-16 07:29] LABS: BANDS 37 % (0-6); NEUTROPHIL # MANUAL DIFF 36.1 TH/MM3 (1.8-7.7); POLYS (SEG NEUTROPHILS) 60 % (16-70); WBC DIFF SAMPLE 100
[2016-09-16 07:30] LABS: PLATELET ESTIMATE SMEAR HIGH (NORMAL); PLATELET MORPHOLOGY CLUMPED (NORMAL); SCAN/DIFF FINAL DIFF MANUAL
--- NOTE | 2016-09-16 07:53 | HHI.GIFU ---
Subjective Remarks Resting in bed. Still with diffuse abdominal pain- pt reports the same- no worse, no better. Was hypotensive overnight until she received fluid boluses for low urinary output. Now it has improved. No n/v. Objective Vitals I&O Vital Signs Date Time Temp Pulse Resp B/P Pulse Ox O2 Delivery O2 Flow Rate FiO2 09/16/16 06:00 75 09/16/16 04:00 74 09/16/16 04:00 98.3 74 20 115/56 99 09/16/16 02:00 79 09/16/16 00:00 75 09/16/16 00:00 98.3 75 20 101/49 100 09/15/16 22:00 85 09/15/16 20:00 98.2 82 21 96/49 96 09/15/16 20:00 82 09/15/16 19:57 97 Nasal Cannula 2.00 09/15/16 18:00 81 09/15/16 16:00 91 09/15/16 16:00 98.3 91 34 108/51 97 09/15/16 14:00 82 09/15/16 12:00 98.1 85 30 104/50 94 09/15/16 12:00 85 09/15/16 10:00 77 09/15/16 08:47 96 21 09/15/16 08:00 71 09/15/16 08:00 97.9 71 15 88/47 97 I/O 09/15/16 09/15/16 09/15/16 09/16/16 09/16/16 09/16/16 07:00 15:00 23:00 07:00 15:00 23:00 Intake Total 1075 ml 2096 ml Output Total 350 ml 175 ml Balance 725 ml 1921 ml Intake Oral 30 ml 30 ml IV Total 1045 ml 2066 ml Output Urine Total 50 ml 75 ml Stool Total 300 ml 100 ml Laboratory Laboratory Tests Test 09/15/16 09/15/16 09/15/16 09/15/16 07:45 10:30 13:30 15:00 Nasal Screen MRSA (PCR) MRSA NOT DETECTED White Blood Count 39.3 Red Blood Count 3.47 Hemoglobin 10.4 Hematocrit 31.7 Mean Corpuscular Volume 91.4 Mean Corpuscular Hemoglobin 29.9 Mean Corpuscular Hemoglobin 32.7 Concent Red Cell Distribution Width 14.3 Platelet Count 527 Mean Platelet Volume 7.2 Neutrophils (%) (Auto) 93.8 Lymphocytes (%) (Auto) 2.1 Monocytes (%) (Auto) 4.0 Eosinophils (%) (Auto) 0.0 Basophils (%) (Auto) 0.1 Neutrophils # (Auto) 36.8 Lymphocytes # (Auto) 0.8 Monocytes # (Auto) 1.6 Eosinophils # (Auto) 0.0 Basophils # (Auto) 0.0 CBC Comment AUTO DIFF Differential Total Cells 100 Counted Neutrophils % (Manual) 44 Band Neutrophils % 46 Lymphocytes % 4 Monocytes % 1 Neutrophils # (Manual) 37.3 Metamyelocytes 5 Differential Comment FINAL DIFF MANUAL Platelet Estimate HIGH Platelet Morphology Comment NORMAL Prothrombin Time 11.3 Prothromb Time International 1.0 Ratio Activated Partial 28.8 Thromboplast Time Fibrinogen 551 Sodium Level 137 Potassium Level 4.4 Chloride Level 100 Carbon Dioxide Level 28.7 Anion Gap 8 Blood Urea Nitrogen 27 Creatinine 1.26 Estimat Glomerular Filtration 40 Rate Random Glucose 121 Lactic Acid Level 2.1 1.5 Calcium Level 8.0 Phosphorus Level 5.0 Magnesium Level 5.2 Total Bilirubin 0.5 Aspartate Amino Transf 22 (AST/SGOT) Alanine Aminotransferase 16 (ALT/SGPT) Alkaline Phosphatase 90 Total Creatine Kinase 22 Troponin I LESS THAN 0.02 LESS THAN 0.02 Total Protein 4.4 Albumin 1.4 Lipase 43 Thyroid Stimulating Hormone 1.400 3rd Gen Urine Color ORANGE Urine Turbidity CLEAR Urine pH 6.5 Urine Specific [place] GREATER THAN 1.050 Urine Protein 30 Urine Glucose (UA) NEG Urine Ketones TRACE Urine Occult Blood NEG Urine Nitrite NEG Urine Bilirubin NEG Urine Urobilinogen LESS THAN 2.0 Urine Leukocyte Esterase NEG Urine RBC 12 Urine WBC 5 Urine Squamous Epithelial 3 Cells Urine Bacteria FEW Urine Mucus FEW Microscopic Urinalysis Comment CATH-CULTURE IND Urine Random Sodium 10 Stool C. difficile Toxin (PCR) POSITIVE Stl C. difficile Toxin PRESUMPTIVE Epiderm 027 POSITIVE Random Cortisol 70.1 Test 09/16/16 09/16/16 00:47 05:00 Lactic Acid Level 1.3 1.2 Troponin I LESS THAN 0.02 White Blood Count 37.2 Red Blood Count 3.02 Hemoglobin 9.2 Hematocrit 27.3 Mean Corpuscular Volume 90.3 Mean Corpuscular Hemoglobin 30.3 Mean Corpuscular Hemoglobin 33.6 Concent Red Cell Distribution Width 14.1 Platelet Count 483 Mean Platelet Volume 7.0 Neutrophils (%) (Auto) 94.3 Lymphocytes (%) (Auto) 1.4 Monocytes (%) (Auto) 4.1 Eosinophils (%) (Auto) 0.1 Basophils (%) (Auto) 0.1 Neutrophils # (Auto) 35.1 Lymphocytes # (Auto) 0.5 Monocytes # (Auto) 1.5 Eosinophils # (Auto) 0.0 Basophils # (Auto) 0.0 CBC Comment AUTO DIFF Differential Total Cells 100 Counted Neutrophils % (Manual) 60 Band Neutrophils % 37 Lymphocytes % 1 Monocytes % 2 Neutrophils # (Manual) 36.1 Differential Comment FINAL DIFF MANUAL Platelet Estimate HIGH Platelet Morphology Comment CLUMPED Red Cell Morphology Comment NORMAL Prothrombin Time 10.8 Prothromb Time International 1.0 Ratio Activated Partial 26.1 Thromboplast Time Sodium Level 139 Potassium Level 4.4 Chloride Level 106 Carbon Dioxide Level 26.1 Anion Gap 7 Blood Urea Nitrogen 33 Creatinine 1.02 Estimat Glomerular Filtration 51 Rate Random Glucose 91 Calcium Level 6.6 Protein Corrected Calcium 8.3 Phosphorus Level 4.4 Magnesium Level 4.1 Total Bilirubin 0.2 Aspartate Amino Transf 19 (AST/SGOT) Alanine Aminotransferase 15 (ALT/SGPT) Alkaline Phosphatase 86 Total Protein 4.0 Albumin 1.2 Date/Time Procedure Status Source Growth 09/15/16 13:30 Urine Culture Received Urine Catheterized Urine Pending 09/15/16 11:28 Aerobic Blood Culture Received Blood Peripheral Pending 09/15/16 11:28 Anaerobic Blood Culture Received Blood Peripheral Pending Imaging Last Impressions Abdomen X-Ray 09/16/16 0600 Signed Impressions: Service Date/Time: August 03:32 - CONCLUSION: Colitis without obstruction. En Andres MD Chest X-Ray 09/15/16 1155 Signed Impressions: Service Date/Time: Thursday, September 15, 2016 12:29 - CONCLUSION: 1. Right IJ central line in good position without pneumothorax. Aldair Garcia MD Abdomen/Pelvis CT 09/15/16 0000 Signed Impressions: Service Date/Time: Thursday, September 15, 2016 09:43 - CONCLUSION: 1. Diffuse thickening of the entire colon consistent with diffuse colitis. 2. Mild atherosclerotic calcifications seen at the aorta. There is no aneurysm. Contrast is seen within the celiac, SMA and HARRIS. 3. Small non-obstructing right renal stone. En Lambert MD Physical Exam HEENT: Normocephalic; atraumatic; no jaundice CHEST: Resp even/unlabored, diminished CARDIAC: RRR, on neosynephrine ABDOMEN: Soft, moderate distended, moderate-severe diffuse abdominal tenderness ; bowel sounds hypoactive. Flexiseal with liquid stool in tubing. EXTREMITIES: Generalized edema. Left CKS, Left upper extremity in sling. SKIN: Normal; no rash; no jaundice. MANAGER MECHANICAL MAINTENANCE: Lethargic. Assessment and Plan Plan ASSESSMENT: - Severe C difficile colitis (Epid 027 (+) in patient with recent abx use and hypotension). CT Scan abdomen and pelvis with IV contrast (09/15/16)----> 1. Diffuse thickening of the entire colon consistent with diffuse colitis. 2. Mild atherosclerotic calcifications seen at the aorta. There is no aneurysm. Contrast is seen within the celiac, SMA and HARRIS. 3. Small non-obstructing right renal stone. Colonoscopy (05/20/2005) revealed normal colon, medium internal hemorrhoids. She continues to have significant distention, although slightly softer than yesterday. Still with moderate to severe diffuse tenderness- no change. Flexiseal in place. 100cc of liquid stool overnight, 300cc on 3-11 shift. KUB (09/16/16)----> colitis without obstruction, wall thickening/thumbprinting seen in the colon. WBC is 37.2. Cont. Oral Vanco, Flagyl, Vanco Enema. - Ileus secondary to above. Postoperatively, she has been taking narcotics for pain management and she started having issues with constipation. She has been taking pericolace and lactinex. She was given a dose of MOM and relistor on 09/14/16. Afterwards, she started having significant diarrhea with liquid stool and significant pain/distention. KUB with nonobstructive pattern. - Sepsis/Leukocytosis secondary to severe CDiff infection. WBC 37.2. Hypotensive, s/p fluid boluses overnight, on neosynephrine- b/p now improved after fluid boluses. ID following, Flagyl, Oral vanco, Vanco enemas - Anemia, 9.2/27.3.Calcium 6.6, PCC 8.3. Nurse reports low UOP overnight. - Recent fall at home on 09/04/16 and sustained a left femoral neck fracture and left humeral head fracture. S/P Bipolar hemiarthroplasty on 09/05/[address] Bill and her left humeral head fracture is being treated conservatively with sling. She was transferred to [facility] on 09/09/16, but transferred to the unit for severe abdominal tenderness and leukocytosis with concern for mesenteric ischemia. - History of TIA (on plavix), OA, Hx HTN now with hypotension, hyperlipidemia, CKD per attending. PLAN: - NPO for now - Add Albumin - Cont. Flagyl IV - Cont. Oral Vancomycin - Cont. Vanco Enema 500mg in 100mL NS retention enema NH q6h - Cont. IVF - CBC, CMP in am - Commercial Correspondent consult for TPN recommendations - ID following - CCM following - Supportive care - Notify GI of worsening pain, distention - Further recommendations to follow based on results of above - Pt seen and examined by Dr. Barnett and myself and this note is written on his behalf Dinora Renteria Sep 16, 2016 07:53
[2016-09-16] MEDS: PANTOPRAZOLE SODIUM 40 MG VIAL IV SCH (08:35)
[2016-09-16] MEDS: LEVOTHYROXINE SODIUM 25 MCG TAB PO SCH (08:36)
[2016-09-16] MEDS: SODIUM CHLORIDE 0.9% FLUSH 10 ML FLUSH IVF SCH (08:36)
[2016-09-16] MEDS: SODIUM CHLOR 0.9% 1000 ML INJ 1,000 ML IV SCH ×2 (08:36→20:36)
[2016-09-16] MEDS: ARTIFICIAL TEARS OPTH SOLN 15 ML BTL EACH EYE SCH ×3 (08:36→17:27)
[2016-09-16] MEDS: SODIUM CHLORIDE 0.9% FLUSH 10 ML FLUSH IV FLUSH SCH ×2 (08:36→20:36)
[2016-09-16] MEDS: DOCUSATE SODIUM 50 MG/SENNA 8.6 MG TAB PO SCH (08:38)
[2016-09-16] MEDS ORDERED: ALBUMIN HUMAN 25% 25 GM/100 ML BAGP IV ONE (09:00)
--- NOTE | 2016-09-16 09:32 | HHI.CCPN ---
Subjective Remarks/Hospital Course This is an 86-year-old female. Date of admission 09/15/2016. Past medical history includes peripheral neuropathy, TIA history, osteoarthritis, spinal stenosis, hypertension, dyslipidemia, chronic kidney disease stage II, hypothyroidism, chronic lumbar pain with previous history of nerve blocks and gastroesophageal reflux disease. See originally presented to [facility] status post unwitnessed fall at home which he had a left femoral neck fracture and left humeral head fracture. She was seen in consultation by Dr. Bill and had a bipolar gayla-plasty 09/05 without complication. Left wrist fractures treated conservatively with a sling therapy. Patient was sent to rehabilitation 09/09 09/12 patient was diagnosed with urinary tract infection. Initially treated with Ceftin 500 mg every 12 and switch to Rocephin 1 g every 24 09/13. Patient having constipation KUB revealed stool 09/13. Receiving fleets enema 1 and Relistor 12 mg subcutaneous 1. Along with Florastor twice a day Since admission rehabilitation on Angelic-Colace. Yesterday, she was noted to have multiple bouts of diarrhea starting yesterday Today, consultation to hospitalist for hypotension abdominal pain. Noted she had white cell count that jumped from slightly above normal to 43,000 late yesterday. LFTs and lipase were normal. Lactate slightly elevated 3.2 currently 2.2 after [address] abdomen/pelvis revealed ileus type pattern. With gas in the bowel. Mild anasarca. Some free fluid in the pelvis. A nonobstructing right calculus. She received 2 L normal saline wide open was transferred to [id number] and we are asked to see in consultation. C. difficile was drawn. Worried about mesenteric ischemia sent to CT with contrast At the present time, patient complaining of diffuse abdominal pain specifically in the bilateral lower quadrants. Abdomen soft. Voluntary guarding. No rigidity. Subjective 09/16: Noted Hieu-Synephrine started overnight and 70 mu./m. Received 2 L normal saline. Urine output decreased however the creatinine is still within normal limits. Started on vancomycin enema, oral and IV Flagyl for C. difficile positive. Abdominal pain currently 8 out of 10 Objective Vital Signs Date Time Temp Pulse Resp B/P Pulse Ox O2 Delivery O2 Flow Rate FiO2 09/16/16 06:00 75 09/16/16 04:00 98.3 20 115/56 99 6/21/17 19:57 Nasal Cannula 2.00 09/15/16 08:47 21 Intake and Output 09/15/16 09/15/16 09/16/16 08:00 16:00 00:00 Intake Total 1075 ml Output Total 350 ml Balance 725 ml Result Diagram: 09/16/16 0500 09/16/16 0500 Other Results Microbiology Date/Time Procedure Status Source Growth 09/15/16 13:30 Urine Culture Received Urine Catheterized Urine Pending 09/15/16 11:28 Aerobic Blood Culture Received Blood Peripheral Pending 09/15/16 11:28 Anaerobic Blood Culture Received Blood Peripheral Pending Imaging Last Impressions Abdomen X-Ray 09/16/16 0600 Signed Impressions: Service Date/Time: August 03:32 - CONCLUSION: Colitis without obstruction. En Andres MD Chest X-Ray 09/15/16 1155 Signed Impressions: Service Date/Time: Thursday, September 15, 2016 12:29 - CONCLUSION: 1. Right IJ central line in good position without pneumothorax. Aldair Garcia MD Abdomen/Pelvis CT 09/15/16 0000 Signed Impressions: Service Date/Time: Thursday, September 15, 2016 09:43 - CONCLUSION: 1. Diffuse thickening of the entire colon consistent with diffuse colitis. 2. Mild atherosclerotic calcifications seen at the aorta. There is no aneurysm. Contrast is seen within the celiac, SMA and HARRIS. 3. Small non-obstructing right renal stone. En Lambert MD Objective Remarks GENERAL: 86-year-old female, resting in bed in no acute distress SKIN: Warm and dry. Ecchymosis to the left upper extremity HEAD: Atraumatic. Normocephalic. EYES: Pupils equal and round about 3 mm bilaterally. No scleral icterus. No injection or drainage. ENT: No nasal bleeding or discharge. Mucous membranes pink and moist. Upper dentures/partial lower dentures. NECK: Trachea midline. No JVD. CARDIOVASCULAR: Regular rate and rhythm. S1, S2. No S4. Without murmur RESPIRATORY: No accessory muscle use. Clear to auscultation. Breath sounds equal bilaterally. GASTROINTESTINAL: Abdomen soft, non-tender, nondistended. Hepatic and splenic margins not palpable. MUSCULOSKELETAL: Extremities with trace lower extremity edema. Left leg is in a immobilizer. Left arm is in a sling NEUROLOGICAL: Awake and alert. No obvious cranial nerve deficits. Motor grossly within normal limits. Five out of 5 muscle strength in the arms and legs. Normal speech. PSYCHIATRIC: Appropriate mood and affect; insight and judgment normal. Urinary Catheter: Yes Assessment to: Continue Bañuelos insert reason: Prolonged Immobilization Vascular Central Line Catheter: Yes Assessment to: Continue Date of Insertion: Sep 15, 2016 Line: Central Venous Catheter Side: Right Location: Internal, Jugular A/P Assessment and Plan Neuro/Psych: Peripheral neuropathy History of TIA Spinal stenosis Left cataract Acetaminophen for fever Power/morphine for pain management On Power for pain management for left hip fracture/humerus fracture in past CV: Severe sepsis Lactic acidosis History of hypertension Dyslipidemia Currently on Hieu-Synephrine at 70 mcg/m to maintain an MAP > 65 Check CVP Status post 5 L normal saline Currently on NS @ 84 cc an hour Holding Xarelto 10 mg daily and Plavix 75 mg by mouth daily. Holding home medications of Pravachol 80 mg at night and Zetia 10 mg daily night of ileus. Resume when clinically indicated Holding lisinopril 10 mg daily light of hypotension and acute kidney injury Resp: Nasal cannula to maintain saturations greater than or equal to 92% Incentive spirometry while awake GI: C. difficile colitis Moderate protein calorie malnutrition with albumin 1.[address] abdomen/pelvis 09/14 revealed mild chronic ileus type pattern. Nonobstructing right nephrolithiasis. Some free fluid in the pelvis. Mild anasarca. CT abdomen/post contrast 09/15 revealed diffuse colitis. Noted C. difficile positive see below LFT/lipase within normal limits. Received 50 g albumin 1 now. Skeletal 0.5 daily per GI Starting TPN per GIs recommendations Protonix for GI prophylaxis : Bañuelos catheter has been placed for accurate I's and O's in a critically ill patient Endo: Hypothyroidism Sliding-scale insulin with Accu-Cheks to maintain euglycemia/low regimen Continue Levoxyl 25 mics grams by mouth daily. Renal: Acute on chronic kidney injury stage II Nonobstructing right nephrolithiasis Monitor urine output Accurate I's and O's Follow BMP magnesium and phosphorus in a.m. Nonobstructing right-sided nephrolithiasis noted Heme: Leukocytosis Thrombocytosis Normocytic anemia Monitor CBC daily. Follow trends ID: E cloacae UTI C. difficile Currently vancomycin enema 500 mg every 6, 500 mg by mouth every 6 and Flagyl 500 mg IV every 8 09/15 blood cultures 2, urine cultures and sputum 1 pending C. difficile positive FEN: Hyper-magnesium Replace electrolytes as clinically indicated Renal magnesium TPN MSK: Osteoarthritis Status post bipolar hemiarthroplasty secondary to left femoral neck fracture by Dr. Bill Left humerus fracture conservative management with sling Holding vitamin D 3 2000 units daily and Os-[place] D5 100/250 one tablet twice a day Access - Utilize IV. Central line if indicated Prophylaxis - GI - Protonix - DVT - SCDs/heparin subcutaneous Critical Care: Level II Teo Lloyd MD Sep 16, 2016 09:32
[2016-09-16] MEDS: ALBUMIN HUMAN 25% 12.5 GM/50 ML BAGP IV SCH ×2 (13:03→20:36)
[2016-09-16] MEDS: HEPARIN SODIUM - SQ 10,000 UNITS/ML VIAL SQ SCH ×2 (13:04→20:37)
--- NOTE | 2016-09-16 19:07 | HHI.IDPN ---
Subjective Subjective Remarks pt is quite ill On pressors low urine output confused no fever cont to have very liquid diarrhea c/o abdominal pain Antibiotics flagyl IV vanco po vanco enemas Allergies: Coded Allergies: Tizanidine (Verified Allergy, Severe, doesn't know, 09/09/16) Tramadol (Verified Allergy, Severe, doesn't remember, 09/09/16) Baclofen (Unverified Allergy, Intermediate, RASH, 09/09/16) Cipro (Unverified Allergy, Intermediate, RASH, 09/09/16) Cymbalta (Unverified Allergy, Intermediate, SEVERE RASH, 09/09/16) Elavil (Unverified Allergy, Intermediate, RASH, 09/09/16) Tetracycline (Unverified Allergy, Intermediate, RASH, 09/09/16) Triamcinolone (Unverified Allergy, Intermediate, SEVERE RASH, 09/09/16) Objective . Vital Signs Date Time Temp Pulse Resp B/P Pulse Ox O2 Delivery O2 Flow Rate FiO2 09/16/16 18:00 82 09/16/16 16:29 91 21 09/16/16 16:00 91 09/16/16 16:00 98.0 91 22 107/49 91 09/16/16 14:00 77 09/16/16 12:00 78 09/16/16 12:00 97.8 78 24 106/49 96 09/16/16 10:00 77 09/16/16 08:00 97.9 71 17 112/54 100 09/16/16 08:00 71 09/16/16 06:00 75 09/16/16 04:00 74 09/16/16 04:00 98.3 74 20 115/56 99 09/16/16 02:00 79 09/16/16 00:00 75 09/16/16 00:00 98.3 75 20 101/49 100 09/15/16 22:00 85 09/15/16 20:00 98.2 82 21 96/49 96 09/15/16 20:00 82 09/15/16 19:57 97 Nasal Cannula 2.00 09/15/16 09/15/16 09/16/16 15:00 23:00 07:00 Intake Total 1075 ml 2096 ml Output Total 350 ml 175 ml Balance 725 ml 1921 ml Intake Oral 30 ml 30 ml IV Total 1045 ml 2066 ml Output Urine Total 50 ml 75 ml Stool Total 300 ml 100 ml . Laboratory Tests Test 09/15/16 09/16/16 10:30 05:00 White Blood Count 39.3 TH/MM3 37.2 TH/MM3 Red Blood Count 3.47 MIL/MM3 3.02 MIL/MM3 Hemoglobin 10.4 GM/DL 9.2 GM/DL Hematocrit 31.7 % 27.3 % Mean Corpuscular Volume 91.4 FL 90.3 FL Mean Corpuscular Hemoglobin 29.9 PG 30.3 PG Mean Corpuscular Hemoglobin 32.7 % 33.6 % Concent Red Cell Distribution Width 14.3 % 14.1 % Platelet Count 527 TH/MM3 483 TH/MM3 Mean Platelet Volume 7.2 FL 7.0 FL Neutrophils (%) (Auto) 93.8 % 94.3 % Lymphocytes (%) (Auto) 2.1 % 1.4 % Monocytes (%) (Auto) 4.0 % 4.1 % Eosinophils (%) (Auto) 0.0 % 0.1 % Basophils (%) (Auto) 0.1 % 0.1 % Neutrophils # (Auto) 36.8 TH/MM3 35.1 TH/MM3 Lymphocytes # (Auto) 0.8 TH/MM3 0.5 TH/MM3 Monocytes # (Auto) 1.6 TH/MM3 1.5 TH/MM3 Eosinophils # (Auto) 0.0 TH/MM3 0.0 TH/MM3 Basophils # (Auto) 0.0 TH/MM3 0.0 TH/MM3 CBC Comment AUTO DIFF AUTO DIFF Differential Total Cells 100 100 Counted Neutrophils % (Manual) 44 % 60 % Band Neutrophils % 46 % 37 % Lymphocytes % 4 % 1 % Monocytes % 1 % 2 % Neutrophils # (Manual) 37.3 TH/MM3 36.1 TH/MM3 Metamyelocytes 5 % Differential Comment FINAL DIFF FINAL DIFF MANUAL MANUAL Platelet Estimate HIGH HIGH Platelet Morphology Comment NORMAL CLUMPED Red Cell Morphology Comment NORMAL Laboratory Tests Test 09/15/16 09/15/16 09/16/16 09/16/16 10:30 15:00 00:47 05:00 Sodium Level 137 MEQ/L 139 MEQ/L Potassium Level 4.4 MEQ/L 4.4 MEQ/L Chloride Level 100 MEQ/L 106 MEQ/L Carbon Dioxide Level 28.7 MEQ/L 26.1 MEQ/L Anion Gap 8 MEQ/L 7 MEQ/L Blood Urea Nitrogen 27 MG/DL 33 MG/DL Creatinine 1.26 MG/DL 1.02 MG/DL Estimat Glomerular Filtration 40 ML/MIN 51 ML/MIN Rate Random Glucose 121 MG/DL 91 MG/DL Lactic Acid Level 2.1 mmol/L 1.5 mmol/L 1.3 mmol/L 1.2 mmol/L Calcium Level 8.0 MG/DL 6.6 MG/DL Phosphorus Level 5.0 MG/DL 4.4 MG/DL Magnesium Level 5.2 MG/DL 4.1 MG/DL Total Bilirubin 0.5 MG/DL 0.2 MG/DL Aspartate Amino Transf 22 U/L 19 U/L (AST/SGOT) Alanine Aminotransferase 16 U/L 15 U/L (ALT/SGPT) Alkaline Phosphatase 90 U/L 86 U/L Total Creatine Kinase 22 U/L Troponin I LESS THAN 0.02 LESS THAN 0.02 LESS THAN 0.02 NG/ML NG/ML NG/ML Total Protein 4.4 GM/DL 4.0 GM/DL Albumin 1.4 GM/DL 1.2 GM/DL Lipase 43 U/L Thyroid Stimulating Hormone 1.400 uIU/ML 3rd Gen Random Cortisol 70.1 MCG/DL Protein Corrected Calcium 8.3 MG/DL Microbiology Date/Time Procedure Status Source Growth 09/15/16 11:25 Aerobic Blood Culture - Preliminary Resulted Blood Peripheral NO GROWTH IN 1 DAY 09/15/16 11:25 Anaerobic Blood Culture - Preliminary Resulted Blood Peripheral NO GROWTH IN 1 DAY 09/15/16 11:28 Aerobic Blood Culture - Preliminary Resulted Blood Peripheral NO GROWTH IN 1 DAY 09/15/16 11:28 Anaerobic Blood Culture - Preliminary Resulted Blood Peripheral NO GROWTH IN 1 DAY 09/15/16 13:30 Urine Culture - Preliminary Resulted Urine Catheterized Urine NO GROWTH IN 24 HOURS. Imaging Last Impressions Abdomen X-Ray 09/16/16 0600 Signed Impressions: Service Date/Time: August 03:32 - CONCLUSION: Colitis without obstruction. En Andres MD Chest X-Ray 09/15/16 1155 Signed Impressions: Service Date/Time: Thursday, September 15, 2016 12:29 - CONCLUSION: 1. Right IJ central line in good position without pneumothorax. Aldair Garcia MD Abdomen/Pelvis CT 09/15/16 0000 Signed Impressions: Service Date/Time: Thursday, September 15, 2016 09:43 - CONCLUSION: 1. Diffuse thickening of the entire colon consistent with diffuse colitis. 2. Mild atherosclerotic calcifications seen at the aorta. There is no aneurysm. Contrast is seen within the celiac, SMA and HARRIS. 3. Small non-obstructing right renal stone. En Lambert MD Physical Exam CONSTITUTIONAL/GENERAL: This is an adequately nourished elderly patient, in no apparent distress. Looks ill, weak TUBES/LINES/DRAINS: SKIN: No jaundice, rashes, or lesions. Ecchymoses on upper extremities. No wounds seen anteriorly. Skin temperature appropriate. Not diaphoretic. EYES: No scleral icterus. ENT: Oral mucosae moist without visible erythema, exudates, masses, or lesions. CARDIOVASCULAR: Regular rate and rhythm without murmurs, gallops, or rubs. No JVD. Peripheral pulses symmetric. RESPIRATORY/CHEST: Symmetric, unlabored respirations. Clear to auscultation. Breath sounds equal bilaterally. No wheezes, rales, or rhonchi. GASTROINTESTINAL: Abdomen soft, very tender diffusely with max tenderness RLQ, + guarding, + markedly distended. No hepato-splenomegaly, or palpable masses. Dignisheild in place with large amount of watery light brown stool GENITOURINARY: Without palpable bladder distension. Bañuelos in place with small amount of urine MUSCULOSKELETAL: Extremities without clubbing, cyanosis, or edema. No joint tenderness or effusion noted. No calf tenderness. No mottling or clubbing. LYMPHATICS: No palpable cervical or supraclavicular adenopathy. NEUROLOGICAL: Awake and alert. Motor and sensory grossly within normal limits. Follows commands. Confused PSYCHIATRIC: calm and cooperative Assessment & Plan Remarks Colitis, confirmed C.diff, hypervirilent stain 027 severe SIRS, sepsis - 2./2 C.diff - lactic acidosis, hypotension, acute renal dysfunction No e/o UTI cont po vancomycin cont vanco enemas cont IV flagyl favoid systemic abx Shayy Rodriguez MD Sep 16, 2016 19:06
[2016-09-16] MEDS ORDERED: FAT EMULSION 20% INJ 250 ML (@10 mls/hr) IV-CENTRAL SCH (20:00)
[2016-09-16] MEDS ORDERED: SODIUM CHLORIDE 23.4% INJ 11 MEQ, SODIUM ACETATE INJ 59 MEQ, POTASSIUM CHLORIDE INJ 40 ... IV-CENTRAL SCH ×8 (20:00)
[2016-09-16] MEDS: MORPHINE SULFATE 4 MG/ML INJ IV PRN (20:38)
[2016-09-17] VITALS (14 sets, daily range): BP systolic 125–170; BP diastolic 61–76; PULSE 73–81; RESP 17–26; TEMP 98.4–98.8; O2SAT 96–100
[2016-09-17] MEDS: VANCOMYCIN INJ 500 MG in SODIUM CHLORIDE 0.9% IRR BTL 250 ML IRRIGATION SCH ×5 (00:24→23:07)
[2016-09-17] MEDS: VANCOMYCIN 500 MG VIAL (FOR ORAL USE ONLY) PO SCH ×5 (00:24→23:07)
[2016-09-17] MEDS: metroNIDAZOLE 500 MG INJ 100 ML IV SCH ×4 (01:30→19:44)
[2016-09-17] MEDS: CHLORHEXIDINE GLUCONATE 2 % 1 PACK (2 CLOTHS) TOP SCH (01:30)
[2016-09-17 06:01] LABS: AUTOMATED NEUTROPHIL # 25.5 TH/MM3 (1.8-7.7); BASOPHIL % 0.1 % (0.0-2.0); EOSINOPHIL % 0.1 % (0.0-4.0); HEMATOCRIT 26.8 % (35.0-46.0); LYMPH % 2.6 % (9.0-44.0); LYMPHOCYTE # 0.7 TH/MM3 (1.0-4.8); MEAN CELL VOLUME 91.9 FL (80.0-100.0); MEAN CORPUSCULAR HEMOGLOBIN 30.7 PG (27.0-34.0); MEAN CORPUSCULAR HGB CONC 33.4 % (32.0-36.0); MONO % 3.7 % (0.0-8.0); NEUT % 93.5 % (16.0-70.0); PLATELET COUNT 395 TH/MM3 (150-450); RED BLOOD COUNT 2.91 MIL/MM3 (4.00-5.30); RED CELL DISTRIBUTION WIDTH 14.2 % (11.6-17.2); WHITE BLOOD COUNT 27.3 TH/MM3 (4.0-11.0)
[2016-09-17] MEDS: ALBUMIN HUMAN 25% 12.5 GM/50 ML BAGP IV SCH ×3 (06:03→21:22)
[2016-09-17] MEDS: HEPARIN SODIUM - SQ 10,000 UNITS/ML VIAL SQ SCH ×3 (06:03→21:23)
[2016-09-17 06:11] LABS: HEMO FLAGS AUTO DIFF
[2016-09-17 06:28] LABS: ALKALINE PHOSPHATASE 77 U/L (45-117); ALT (GPT) 12 U/L (10-53); ANION GAP 10 MEQ/L (5-15); AST (GOT) 20 U/L (15-37); BLOOD UREA NITROGEN 31 MG/DL (7-18); CHLORIDE 110 MEQ/L (98-107); GLOMERULAR FILTRATION RATE 89 ML/MIN (>89); MAGNESIUM 3.3 MG/DL (1.5-2.5); POTASSIUM 3.9 MEQ/L (3.5-5.1); SODIUM (NA) 141 MEQ/L (136-145); TOTAL BILIRUBIN ADULT 0.4 MG/DL (0.2-1.0)
[2016-09-17 07:41] LABS: BANDS 19 % (0-6); NEUTROPHIL # MANUAL DIFF 25.1 TH/MM3 (1.8-7.7); PLATELET ESTIMATE SMEAR NORMAL (NORMAL); PLATELET MORPHOLOGY NORMAL (NORMAL); POLYS (SEG NEUTROPHILS) 73 % (16-70); WBC DIFF SAMPLE 100
[2016-09-17 07:42] LABS: BURR CELLS 1+ (NORMAL); SCAN/DIFF FINAL DIFF MANUAL
[2016-09-17] MEDS: SODIUM CHLOR 0.9% 1000 ML INJ 1,000 ML IV SCH ×2 (07:49→20:35)
[2016-09-17] MEDS: ARTIFICIAL TEARS OPTH SOLN 15 ML BTL EACH EYE SCH ×3 (07:49→18:07)
[2016-09-17] MEDS: LEVOTHYROXINE SODIUM 25 MCG TAB PO SCH (07:50)
[2016-09-17] MEDS: PANTOPRAZOLE SODIUM 40 MG VIAL IV SCH (07:50)
[2016-09-17] MEDS: SODIUM CHLORIDE 0.9% FLUSH 10 ML FLUSH IV FLUSH SCH ×2 (07:50→21:22)
[2016-09-17] MEDS: SODIUM CHLORIDE 0.9% FLUSH 10 ML FLUSH IVF SCH (07:50)
[2016-09-17] MEDS: MORPHINE SULFATE 4 MG/ML INJ IV PRN ×2 (09:23→23:08)
[2016-09-17] MEDS: SODIUM CHLORIDE 0.9% FLUSH 10 ML FLUSH IV FLUSH PRN (09:23)
--- NOTE | 2016-09-17 09:57 | HHI.CCPN ---
Subjective Remarks/Hospital Course This is an 86-year-old female. Date of admission 09/15/2016. Past medical history includes peripheral neuropathy, TIA history, osteoarthritis, spinal stenosis, hypertension, dyslipidemia, chronic kidney disease stage II, hypothyroidism, chronic lumbar pain with previous history of nerve blocks and gastroesophageal reflux disease. See originally presented to [facility] status post unwitnessed fall at home which he had a left femoral neck fracture and left humeral head fracture. She was seen in consultation by Dr. Bill and had a bipolar gayla-plasty 09/05 without complication. Left wrist fractures treated conservatively with a sling therapy. Patient was sent to rehabilitation 09/09 09/12 patient was diagnosed with urinary tract infection. Initially treated with Ceftin 500 mg every 12 and switch to Rocephin 1 g every 24 09/13. Patient having constipation KUB revealed stool 09/13. Receiving fleets enema 1 and Relistor 12 mg subcutaneous 1. Along with Florastor twice a day Since admission rehabilitation on Angelic-Colace. Yesterday, she was noted to have multiple bouts of diarrhea starting yesterday Today, consultation to hospitalist for hypotension abdominal pain. Noted she had white cell count that jumped from slightly above normal to 43,000 late yesterday. LFTs and lipase were normal. Lactate slightly elevated 3.2 currently 2.2 after [address] abdomen/pelvis revealed ileus type pattern. With gas in the bowel. Mild anasarca. Some free fluid in the pelvis. A nonobstructing right calculus. She received 2 L normal saline wide open was transferred to [id number] and we are asked to see in consultation. C. difficile was drawn. Worried about mesenteric ischemia sent to CT with contrast At the present time, patient complaining of diffuse abdominal pain specifically in the bilateral lower quadrants. Abdomen soft. Voluntary guarding. No rigidity. 09/16: Noted Hieu-Synephrine started overnight and 70 mu./m. Received 2 L normal saline. Urine output decreased however the creatinine is still within normal limits. Started on vancomycin enema, oral and IV Flagyl for C. difficile positive. Abdominal pain currently 8 out of 10 Subjective 09/17: Afebrile. Abdominal pain still 8 out of 10. Percocet central line yesterday however currently off all vasopressors. Will attempt single lumen PICC line for TPN Objective Vital Signs Date Time Temp Pulse Resp B/P Pulse Ox O2 Delivery O2 Flow Rate FiO2 09/17/16 08:00 98.6 75 22 135/61 97 09/16/16 21:11 Nasal Cannula 1.00 09/16/16 16:29 21 Intake and Output 09/16/16 09/16/16 09/17/16 08:00 16:00 00:00 Intake Total 2096 ml 764 ml 629 ml Output Total 175 ml 325 ml 250 ml Balance 1921 ml 439 ml 379 ml Result Diagram: 09/17/16 0507 09/17/16 0507 Other Results Microbiology Date/Time Procedure Status Source Growth 09/15/16 13:30 Urine Culture - Final Complete Urine Catheterized Urine NO GROWTH IN 48 HOURS. 09/15/16 11:28 Aerobic Blood Culture - Preliminary Resulted Blood Peripheral NO GROWTH IN 1 DAY 09/15/16 11:28 Anaerobic Blood Culture - Preliminary Resulted Blood Peripheral NO GROWTH IN 1 DAY Imaging Last Impressions Abdomen X-Ray 09/16/16 0600 Signed Impressions: Service Date/Time: August 03:32 - CONCLUSION: Colitis without obstruction. En Andres MD Chest X-Ray 09/15/16 1155 Signed Impressions: Service Date/Time: Thursday, September 15, 2016 12:29 - CONCLUSION: 1. Right IJ central line in good position without pneumothorax. Aldair Garcia MD Abdomen/Pelvis CT 09/15/16 0000 Signed Impressions: Service Date/Time: Thursday, September 15, 2016 09:43 - CONCLUSION: 1. Diffuse thickening of the entire colon consistent with diffuse colitis. 2. Mild atherosclerotic calcifications seen at the aorta. There is no aneurysm. Contrast is seen within the celiac, SMA and HARRIS. 3. Small non-obstructing right renal stone. En Lambert MD Objective Remarks GENERAL: 86-year-old female, resting in bed in no acute distress SKIN: Warm and dry. Ecchymosis to the left upper extremity HEAD: Atraumatic. Normocephalic. EYES: Pupils equal and round about 3 mm bilaterally. No scleral icterus. No injection or drainage. ENT: No nasal bleeding or discharge. Mucous membranes pink and moist. Upper dentures/partial lower dentures. NECK: Trachea midline. No JVD. CARDIOVASCULAR: Regular rate and rhythm. S1, S2. No S4. Without murmur RESPIRATORY: No accessory muscle use. Clear to auscultation. Breath sounds equal bilaterally. GASTROINTESTINAL: Abdomen soft, non-tender, nondistended. Hepatic and splenic margins not palpable. MUSCULOSKELETAL: Extremities with trace lower extremity edema. Left leg is in a immobilizer. Left arm is in a sling NEUROLOGICAL: Awake and alert. No obvious cranial nerve deficits. Motor grossly within normal limits. Five out of 5 muscle strength in the arms and legs. Normal speech. PSYCHIATRIC: Appropriate mood and affect; insight and judgment normal. Date of Insertion: Sep 15, 2016 Date of Removal: Sep 16, 2016 Line: Central Venous Catheter Side: Right Location: Internal, Jugular A/P Assessment and Plan Neuro/Psych: Peripheral neuropathy History of TIA Spinal stenosis Left cataract Acetaminophen for fever [place]/morphine for pain management On [place] for pain management for left hip fracture/humerus fracture in past CV: Severe sepsis Lactic acidosis History of hypertension Dyslipidemia Currently off all vasopressors Status post 5 L normal saline Currently on NS @ 84 cc an hour Holding Xarelto 10 mg daily and Plavix 75 mg by mouth daily. Holding home medications of Pravachol 80 mg at night and Zetia 10 mg daily night of ileus. Resume when clinically indicated Holding lisinopril 10 mg daily light of hypotension and acute kidney injury Resp: Nasal cannula to maintain saturations greater than or equal to 92% Incentive spirometry while awake GI: C. difficile colitis Moderate protein calorie malnutrition with albumin 1.[address] abdomen/pelvis 09/14 revealed mild chronic ileus type pattern. Nonobstructing right nephrolithiasis. Some free fluid in the pelvis. Mild anasarca. CT abdomen/post contrast 09/15 revealed diffuse colitis. Noted C. difficile positive see below LFT/lipase within normal limits. Received 50 g albumin 1 now. Scheduled 12.5 g IV every 8 hours per GI day currently 2.3 Starting TPN per GIs recommendations at 62.5 cc an hour with lipids 10% 250 cc 2 times a week Protonix 40 mg IV daily for GI prophylaxis : Bañuelos catheter has been placed for accurate I's and O's in a critically ill patient Endo: Hypothyroidism Sliding-scale insulin with Accu-Cheks to maintain euglycemia/low regimen Continue Levoxyl 25 mics grams by mouth daily. Renal: Acute on chronic kidney injury stage II Nonobstructing right nephrolithiasis Monitor urine output Accurate I's and O's Follow BMP magnesium and phosphorus in a.m. Nonobstructing right-sided nephrolithiasis noted Heme: Leukocytosis Thrombocytosis Normocytic anemia Monitor CBC daily. Follow trends ID: E cloacae UTI C. difficile Currently vancomycin enema 500 mg every 6, 500 mg by mouth every 6 and Flagyl 500 mg IV every 8 day #3 09/15 blood cultures 2, urine cultures no growth to date C. difficile positive FEN: Hyper-magnesium \Hypophosphatemia Replace electrolytes as clinically indicated 30 mmol sodium phosphate IV 1 now. MSK: Osteoarthritis Status post bipolar hemiarthroplasty secondary to left femoral neck fracture by Dr. Bill Left humerus fracture conservative management with sling Holding vitamin D 3 2000 units daily and Os-[place] D5 100/250 one tablet twice a day Access - Utilize IV. Central line if indicated Prophylaxis - GI - Protonix - DVT - SCDs/heparin subcutaneous Critical Care: Level II Teo Lloyd MD Sep 17, 2016 09:57
[2016-09-17] MEDS ORDERED: SODIUM PHOSPHATE INJ 30 MMOL in SODIUM CHLOR 0.9% 250 ML INJ 250 ML IV ONE (11:00)
--- NOTE | 2016-09-17 12:10 | HHI.GIFU ---
Subjective Remarks Pt resting in bed in no apparent distress. She is c/o abd pain, no better. She is passing flatus. Per RN she seems slightly more confused in the last few days. Putting out watery brown stool. No n/v. Objective Vitals I&O Vital Signs Date Time Temp Pulse Resp B/P Pulse Ox O2 Delivery O2 Flow Rate FiO2 09/17/16 10:30 96 Nasal Cannula 1.00 09/17/16 10:00 76 09/17/16 09:49 15 09/17/16 08:00 98.6 75 22 135/61 97 09/17/16 08:00 75 09/17/16 08:00 98.6 75 22 132/64 96 09/17/16 06:00 73 09/17/16 04:00 75 09/17/16 04:00 98.6 75 22 135/61 97 09/17/16 02:00 75 09/17/16 00:00 98.8 81 22 125/76 98 09/17/16 00:00 81 09/16/16 22:00 75 09/16/16 21:11 96 Nasal Cannula 1.00 09/16/16 20:00 85 09/16/16 20:00 98.4 85 27 136/60 96 09/16/16 18:00 82 09/16/16 16:29 91 21 09/16/16 16:00 91 09/16/16 16:00 98.0 91 22 107/49 91 09/16/16 14:00 77 I/O 09/16/16 09/16/16 09/16/16 09/17/16 09/17/16 09/17/16 07:00 15:00 23:00 07:00 15:00 23:00 Intake Total 2096 ml 764 ml 629 ml 690 ml Output Total 175 ml 325 ml 250 ml 350 ml Balance 1921 ml 439 ml 379 ml 340 ml Intake Oral 30 ml 0 ml 0 ml 0 ml IV Total 2066 ml 764 ml 579 ml 640 ml Albumin 50 ml 50 ml Output Urine Total 75 ml 175 ml 200 ml 250 ml Stool Total 100 ml 150 ml 50 ml 100 ml Laboratory Laboratory Tests Test 09/17/16 05:07 White Blood Count 27.3 Red Blood Count 2.91 Hemoglobin 8.9 Hematocrit 26.8 Mean Corpuscular Volume 91.9 Mean Corpuscular Hemoglobin 30.7 Mean Corpuscular Hemoglobin 33.4 Concent Red Cell Distribution Width 14.2 Platelet Count 395 Mean Platelet Volume 7.2 Neutrophils (%) (Auto) 93.5 Lymphocytes (%) (Auto) 2.6 Monocytes (%) (Auto) 3.7 Eosinophils (%) (Auto) 0.1 Basophils (%) (Auto) 0.1 Neutrophils # (Auto) 25.5 Lymphocytes # (Auto) 0.7 Monocytes # (Auto) 1.0 Eosinophils # (Auto) 0.0 Basophils # (Auto) 0.0 CBC Comment AUTO DIFF Differential Total Cells 100 Counted Neutrophils % (Manual) 73 Band Neutrophils % 19 Lymphocytes % 5 Monocytes % 3 Neutrophils # (Manual) 25.1 Differential Comment FINAL DIFF MANUAL Platelet Estimate NORMAL Platelet Morphology Comment NORMAL [place] Cells 1+ Sodium Level 141 Potassium Level 3.9 Chloride Level 110 Carbon Dioxide Level 21.0 Anion Gap 10 Blood Urea Nitrogen 31 Creatinine 0.63 Estimat Glomerular Filtration 89 Rate Random Glucose 71 Calcium Level 7.6 Phosphorus Level 1.8 Magnesium Level 3.3 Total Bilirubin 0.4 Aspartate Amino Transf 20 (AST/SGOT) Alanine Aminotransferase 12 (ALT/SGPT) Alkaline Phosphatase 77 Total Protein 4.7 Albumin 2.3 Triglycerides Level 51 Date/Time Procedure Status Source Growth 09/15/16 13:30 Urine Culture - Final Complete Urine Catheterized Urine NO GROWTH IN 48 HOURS. 09/15/16 11:28 Aerobic Blood Culture - Preliminary Resulted Blood Peripheral NO GROWTH IN 2 DAYS 09/15/16 11:28 Anaerobic Blood Culture - Preliminary Resulted Blood Peripheral NO GROWTH IN 2 DAYS Imaging Last Impressions Abdomen X-Ray 09/16/16 0600 Signed Impressions: Service Date/Time: August 03:32 - CONCLUSION: Colitis without obstruction. En Andres MD Chest X-Ray 09/15/16 1155 Signed Impressions: Service Date/Time: Thursday, September 15, 2016 12:29 - CONCLUSION: 1. Right IJ central line in good position without pneumothorax. Aldair Garcia MD Abdomen/Pelvis CT 09/15/16 0000 Signed Impressions: Service Date/Time: Thursday, September 15, 2016 09:43 - CONCLUSION: 1. Diffuse thickening of the entire colon consistent with diffuse colitis. 2. Mild atherosclerotic calcifications seen at the aorta. There is no aneurysm. Contrast is seen within the celiac, SMA and HARRIS. 3. Small non-obstructing right renal stone. En Lambert MD Physical Exam HEENT: Normocephalic; atraumatic; no jaundice CHEST: Resp even/unlabored, diminished CARDIAC: RRR ABDOMEN: Soft, distended, tympanitic, moderate-severe diffuse abdominal tenderness; bowel sounds hypoactive. Flexiseal with liquid stool in tubing. EXTREMITIES: Generalized edema. Left CKS, Left upper extremity in sling. SKIN: Normal; no rash; no jaundice. CAR GROOMER: alert, oriented to self and place. Assessment and Plan Plan ASSESSMENT: - Severe C difficile colitis (Epid 027 (+) in patient with recent abx use and hypotension). CT Scan abdomen and pelvis with IV contrast (09/15/16)----> 1. Diffuse thickening of the entire colon consistent with diffuse colitis. 2. Mild atherosclerotic calcifications seen at the aorta. There is no aneurysm. Contrast is seen within the celiac, SMA and HARRIS. 3. Small non-obstructing right renal stone. Colonoscopy (05/20/2005) revealed normal colon, medium internal hemorrhoids. She continues to have significant distention, although slightly softer than yesterday. Still with moderate to severe diffuse tenderness- no change. Flexiseal in place. 100cc of liquid stool overnight, 300cc on 3-11 shift. KUB (09/16/16)----> colitis without obstruction, wall thickening/thumbprinting seen in the colon. WBC is 27.3. Cont. Oral Vanco, Flagyl, Vanco Enema. - Ileus secondary to above. xr abd 09-16-16 --> Colitis without obstruction Postoperatively, she has been taking narcotics for pain management and she started having issues with constipation. She has been taking pericolace and lactinex. She was given a dose of MOM and relistor on 09/14/16. Afterwards, she started having significant diarrhea with liquid stool and significant pain/distention. KUB with nonobstructive pattern. dietary rec for TPN: Clinimix E 4.25/25 at rate of 62.5 ml/hr 20% lipids, twice weekly, infuse 250 mls over 8 hrs, Continue to monitor renal function/UOP - Sepsis/Leukocytosis secondary to severe CDiff infection. WBC 27.3. Hypotensive, s/p fluid boluses overnight, on neosynephrine- b/p now improved after fluid boluses. ID following, Flagyl, Oral vanco, Vanco enemas - Anemia, 8.9 .Calcium 7.6, PCC 8.3. - Recent fall at home on 09/04/16 and sustained a left femoral neck fracture and left humeral head fracture. S/P Bipolar hemiarthroplasty on 09/05/[address] Bill and her left humeral head fracture is being treated conservatively with sling. She was transferred to [facility] on 09/09/16, but transferred to the unit for severe abdominal tenderness and leukocytosis with concern for mesenteric ischemia. - History of TIA (on plavix), OA, Hx HTN now with hypotension, hyperlipidemia, CKD per attending. PLAN: - dietary rec for TPN: Clinimix E 4.25/25 at rate of 62.5 ml/hr 20% lipids, twice weekly, infuse 250 mls over 8 hrs - continue albumin - Cont. Flagyl IV - Cont. Oral Vancomycin - Cont. Vanco Enema 500mg in 100mL NS retention enema RI q6h - Cont. IVF - ID following - CCM following - Supportive care - Notify GI of worsening pain, distention - Further recommendations to follow based on results of above - Pt seen and examined by Dr. Barnett and myself and this note is written on his behalf Monique Gibson Sep 17, 2016 12:10
--- NOTE | 2016-09-17 16:03 | RADRPT ---
EXAM DATE/TIME: 09/17/2016 15:16 [place] COMPARISON: CT ABDOMEN & PELVIS W CONTRAST, September 15, 2016, 9:43. INDICATIONS : Distention, low blood pressure ORAL CONTRAST: No oral contrast ingested. RADIATION DOSE: 15.17 CTDIvol (mGy) MEDICAL HISTORY : Cardiovascular disease. Hypertension. C-Diff SURGICAL HISTORY : Esophageal dilitation ENCOUNTER: Subsequent ACUITY: 1 month PAIN SCALE: 6/10 LOCATION: medial ABDOMEN TECHNIQUE: Volumetric scanning of the abdomen and pelvis was performed. Using automated exposure control and ad justment of the mA and/or kV according to patient size, radiation dose was kept as low as reasonably achievable to obtain optimal diagnostic quality images. DICOM format image data is available electro nically for review and comparison. FINDINGS: Imaging through the lung bases demonstrate bilateral pleural effusions and consolidative change. There is a small amount of ascites within the upper abdomen. [facility] The liver, spleen, pancreas, adrenal glands and kidneys are unremarkable in appearance. The examination demonstrates diffuse colonic thickening with distention of the cecum. Findings would be consistent with a diffuse colitis. No findings to indicate bowel obstruction are seen. There is free fluid within the pelvis. No iliac or inguinal adenopathy is seen. The visualized bony structures demonstrate degenerative changes but are otherwise intact. CONCLUSION: 1. The exam demonstrates diffuse colonic thickening most consistent with a colitis. The overall amoun t of colonic thickening is stable from previous exam however, there has now been development of a sma ll amount of abdominal ascites. 2. Interval development of bilateral effusions and consolidative changes in the lung bases. Thomas Vásquez MD on September 17, 2016 at 15:55 Board Certified Radiologist. This report was verified electronically.
[2016-09-17] MEDS ORDERED: NITROGLYCERIN 2% OINT 1 GM PACKET TOPICAL PRN (16:30)
[2016-09-17] MEDS ORDERED: hydrALAZINE HCL 20 MG/ML VIAL IV PUSH PRN (16:30)
[2016-09-17] MEDS ORDERED: FUROSEMIDE 20 MG/2 ML VIAL IV PUSH ONE (17:00)
--- NOTE | 2016-09-17 19:27 | HHI.IDPN ---
Subjective Subjective Remarks pt still quite ill Off pressors low urine output but slightly up from yday less confused no fever cont to have very liquid diarrhea 200 cc/ 8 hrs c/o severe abdominal pain Antibiotics flagyl IV vanco po vanco enemas Allergies: Coded Allergies: Tizanidine (Verified Allergy, Severe, doesn't know, 09/09/16) Tramadol (Verified Allergy, Severe, doesn't remember, 09/09/16) Baclofen (Unverified Allergy, Intermediate, RASH, 09/09/16) Cipro (Unverified Allergy, Intermediate, RASH, 09/09/16) Cymbalta (Unverified Allergy, Intermediate, SEVERE RASH, 09/09/16) Elavil (Unverified Allergy, Intermediate, RASH, 09/09/16) Tetracycline (Unverified Allergy, Intermediate, RASH, 09/09/16) Triamcinolone (Unverified Allergy, Intermediate, SEVERE RASH, 09/09/16) Objective . Vital Signs Date Time Temp Pulse Resp B/P Pulse Ox O2 Delivery O2 Flow Rate FiO2 09/17/16 18:00 80 09/17/16 16:00 74 09/17/16 14:00 76 09/17/16 12:00 75 09/17/16 10:30 96 Nasal Cannula 1.00 09/17/16 10:00 76 09/17/16 09:49 15 09/17/16 08:00 98.6 75 22 135/61 97 09/17/16 08:00 75 09/17/16 08:00 98.6 75 22 132/64 96 09/17/16 06:00 73 09/17/16 04:00 75 09/17/16 04:00 98.6 75 22 135/61 97 09/17/16 02:00 75 09/17/16 00:00 98.8 81 22 125/76 98 09/17/16 00:00 81 09/16/16 22:00 75 09/16/16 21:11 96 Nasal Cannula 1.00 09/16/16 20:00 85 09/16/16 20:00 98.4 85 27 136/60 96 09/16/16 09/16/16 09/17/16 15:00 23:00 07:00 Intake Total 764 ml 629 ml 690 ml Output Total 325 ml 250 ml 350 ml Balance 439 ml 379 ml 340 ml Intake Oral 0 ml 0 ml 0 ml IV Total 764 ml 579 ml 640 ml Albumin 50 ml 50 ml Output Urine Total 175 ml 200 ml 250 ml Stool Total 150 ml 50 ml 100 ml . Laboratory Tests Test 09/16/16 09/17/16 05:00 05:07 White Blood Count 37.2 TH/MM3 27.3 TH/MM3 Red Blood Count 3.02 MIL/MM3 2.91 MIL/MM3 Hemoglobin 9.2 GM/DL 8.9 GM/DL Hematocrit 27.3 % 26.8 % Mean Corpuscular Volume 90.3 FL 91.9 FL Mean Corpuscular Hemoglobin 30.3 PG 30.7 PG Mean Corpuscular Hemoglobin 33.6 % 33.4 % Concent Red Cell Distribution Width 14.1 % 14.2 % Platelet Count 483 TH/MM3 395 TH/MM3 Mean Platelet Volume 7.0 FL 7.2 FL Neutrophils (%) (Auto) 94.3 % 93.5 % Lymphocytes (%) (Auto) 1.4 % 2.6 % Monocytes (%) (Auto) 4.1 % 3.7 % Eosinophils (%) (Auto) 0.1 % 0.1 % Basophils (%) (Auto) 0.1 % 0.1 % Neutrophils # (Auto) 35.1 TH/MM3 25.5 TH/MM3 Lymphocytes # (Auto) 0.5 TH/MM3 0.7 TH/MM3 Monocytes # (Auto) 1.5 TH/MM3 1.0 TH/MM3 Eosinophils # (Auto) 0.0 TH/MM3 0.0 TH/MM3 Basophils # (Auto) 0.0 TH/MM3 0.0 TH/MM3 CBC Comment AUTO DIFF AUTO DIFF Differential Total Cells 100 100 Counted Neutrophils % (Manual) 60 % 73 % Band Neutrophils % 37 % 19 % Lymphocytes % 1 % 5 % Monocytes % 2 % 3 % Neutrophils # (Manual) 36.1 TH/MM3 25.1 TH/MM3 Differential Comment FINAL DIFF FINAL DIFF MANUAL MANUAL Platelet Estimate HIGH NORMAL Platelet Morphology Comment CLUMPED NORMAL Red Cell Morphology Comment NORMAL [place] Cells 1+ Laboratory Tests Test 09/16/16 09/16/16 09/17/16 00:47 05:00 05:07 Lactic Acid Level 1.3 mmol/L 1.2 mmol/L Troponin I LESS THAN 0.02 NG/ML Sodium Level 139 MEQ/L 141 MEQ/L Potassium Level 4.4 MEQ/L 3.9 MEQ/L Chloride Level 106 MEQ/L 110 MEQ/L Carbon Dioxide Level 26.1 MEQ/L 21.0 MEQ/L Anion Gap 7 MEQ/L 10 MEQ/L Blood Urea Nitrogen 33 MG/DL 31 MG/DL Creatinine 1.02 MG/DL 0.63 MG/DL Estimat Glomerular Filtration 51 ML/MIN 89 ML/MIN Rate Random Glucose 91 MG/DL 71 MG/DL Calcium Level 6.6 MG/DL 7.6 MG/DL Protein Corrected Calcium 8.3 MG/DL Phosphorus Level 4.4 MG/DL 1.8 MG/DL Magnesium Level 4.1 MG/DL 3.3 MG/DL Total Bilirubin 0.2 MG/DL 0.4 MG/DL Aspartate Amino Transf 19 U/L 20 U/L (AST/SGOT) Alanine Aminotransferase 15 U/L 12 U/L (ALT/SGPT) Alkaline Phosphatase 86 U/L 77 U/L Total Protein 4.0 GM/DL 4.7 GM/DL Albumin 1.2 GM/DL 2.3 GM/DL Triglycerides Level 51 MG/DL Microbiology Date/Time Procedure Status Source Growth 09/15/16 11:25 Aerobic Blood Culture - Preliminary Resulted Blood Peripheral NO GROWTH IN 2 DAYS 09/15/16 11:25 Anaerobic Blood Culture - Preliminary Resulted Blood Peripheral NO GROWTH IN 2 DAYS 09/15/16 11:28 Aerobic Blood Culture - Preliminary Resulted Blood Peripheral NO GROWTH IN 2 DAYS 09/15/16 11:28 Anaerobic Blood Culture - Preliminary Resulted Blood Peripheral NO GROWTH IN 2 DAYS 09/15/16 13:30 Urine Culture - Final Complete Urine Catheterized Urine NO GROWTH IN 48 HOURS. Imaging Last Impressions Abdomen/Pelvis CT 09/17/16 0000 Signed Impressions: Service Date/Time: Saturday, September 17, 2016 15:16 - CONCLUSION: 1. The exam demonstrates diffuse colonic thickening most consistent with a colitis. The overall amount of colonic thickening is stable from previous exam however, there has now been development of a small amount of abdominal ascites. 2. Interval development of bilateral effusions and consolidative changes in the lung bases. Thomas Vásquez MD Abdomen X-Ray 09/16/16 0600 Signed Impressions: Service Date/Time: August 03:32 - CONCLUSION: Colitis without obstruction. En Andres MD Chest X-Ray 09/15/16 1155 Signed Impressions: Service Date/Time: Thursday, September 15, 2016 12:29 - CONCLUSION: 1. Right IJ central line in good position without pneumothorax. Aldair Garcia MD Physical Exam CONSTITUTIONAL/GENERAL: This is an adequately nourished elderly patient, in no apparent distress. Looks ill, weak TUBES/LINES/DRAINS: SKIN: No jaundice, rashes, or lesions. Ecchymoses on upper extremities. No wounds seen anteriorly. Skin temperature appropriate. Not diaphoretic. EYES: No scleral icterus. ENT: Oral mucosae moist without visible erythema, exudates, masses, or lesions. CARDIOVASCULAR: Regular rate and rhythm without murmurs, gallops, or rubs. No JVD. Peripheral pulses symmetric. RESPIRATORY/CHEST: Symmetric, unlabored respirations. Clear to auscultation. Breath sounds equal bilaterally. No wheezes, rales, or rhonchi. GASTROINTESTINAL: Abdomen soft, very tender diffusely with max tenderness RLQ, + guarding, + rebound, + tympani + markedly distended. No hepato-splenomegaly, or palpable masses. Dignisheild in place with large amount of watery light brown stool GENITOURINARY: Without palpable bladder distension. Bañuelos in place with small amount of urine MUSCULOSKELETAL: Extremities without clubbing, cyanosis, Diffuse soft pitting edema, 2-3+, anasarca No joint tenderness or effusion noted. No calf tenderness. No mottling or clubbing. NEUROLOGICAL: Awake and alert. Motor and sensory grossly within normal limits. Follows commands. Oriented PSYCHIATRIC: calm and cooperative Assessment & Plan Remarks Colitis, confirmed C.diff, hypervirilent stain 027 severe - pt is still quite ill with diffuse ileus SIRS, sepsis - 2./2 C.diff - lactic acidosis, hypotension, acute renal dysfunction No e/o UTI cont po vancomycin cont vanco enemas cont IV flagyl avoid systemic abx dw Shayy Uriostegui MD Sep 17, 2016 19:27
--- NOTE | 2016-09-17 19:41 | RADRPT ---
EXAM DATE/TIME: 09/17/2016 19:18 [facility] COMPARISON: CHEST SINGLE AP, September 15, 2016, 12:29. INDICATIONS : PICC line placement. MEDICAL HISTORY : Hypertension. Skin melanoma. Hypothyroidism. Spinal stenosis. SURGICAL HISTORY : None. ENCOUNTER: Initial ACUITY: 1 day PAIN SCORE: 0/10 LOCATION: Bilateral chest FINDINGS: A single portable frontal view of the chest is a patchy area parenchymal consolidation involving the right infrahilar region. This is new. Blunting of the left costophrenic angle. No effusion on the rig ht. Heart is normal in size. CONCLUSION: 1. Right lower lobe atelectasis versus infiltrate. 2. Blunting of the left costophrenic angle suggesting a tiny left effusion. Marty Neely Jr., MD on September 17, 2016 at 19:38 Board Certified Radiologist. This report was verified electronically.
[2016-09-17] MEDS: CLINIMIX E 4.25/25 2000 mL- >42 mls/hr IV-CENTRAL SCH ×3 (20:00)
[2016-09-18] VITALS (19 sets, daily range): BP systolic 131–177; BP diastolic 61–77; PULSE 72–94; RESP 17–24; TEMP 98.5–98.9; O2SAT 96–99
[2016-09-18] MEDS: metroNIDAZOLE 500 MG INJ 100 ML IV SCH ×4 (01:12→20:25)
[2016-09-18] MEDS: CHLORHEXIDINE GLUCONATE 2 % 1 PACK (2 CLOTHS) TOP SCH (01:12)
[2016-09-18] MEDS: MORPHINE SULFATE 4 MG/ML INJ IV PRN ×4 (03:17→20:26)
[2016-09-18] MEDS: VANCOMYCIN 500 MG VIAL (FOR ORAL USE ONLY) PO SCH ×4 (05:11→23:37)
[2016-09-18] MEDS: ALBUMIN HUMAN 25% 12.5 GM/50 ML BAGP IV SCH ×3 (05:11→21:30)
[2016-09-18] MEDS: VANCOMYCIN INJ 500 MG in SODIUM CHLORIDE 0.9% IRR BTL 250 ML IRRIGATION SCH ×4 (05:11→23:54)
[2016-09-18] MEDS: HEPARIN SODIUM - SQ 10,000 UNITS/ML VIAL SQ SCH ×3 (05:11→21:30)
[2016-09-18] MEDS: SODIUM CHLOR 0.9% 1000 ML INJ 1,000 ML IV SCH (08:30)
[2016-09-18] MEDS: PANTOPRAZOLE SODIUM 40 MG VIAL IV SCH (08:48)
[2016-09-18] MEDS: SODIUM CHLORIDE 0.9% FLUSH 10 ML FLUSH IVF PRN (08:48)
[2016-09-18] MEDS: SODIUM CHLORIDE 0.9% FLUSH 10 ML FLUSH IV FLUSH PRN (08:49)
[2016-09-18] MEDS: SODIUM CHLORIDE 0.9% FLUSH 10 ML FLUSH IV FLUSH SCH ×3 (08:49→20:25)
[2016-09-18] MEDS: SODIUM CHLORIDE 0.9% FLUSH 10 ML FLUSH IVF SCH (08:49)
[2016-09-18] MEDS: ARTIFICIAL TEARS OPTH SOLN 15 ML BTL EACH EYE SCH ×3 (08:50→17:06)
[2016-09-18] MEDS: LEVOTHYROXINE SODIUM 25 MCG TAB PO SCH (08:54)
--- NOTE | 2016-09-18 10:02 | HHI.CCPN ---
Subjective Remarks/Hospital Course This is an 86-year-old female. Date of admission 09/15/2016. Past medical history includes peripheral neuropathy, TIA history, osteoarthritis, spinal stenosis, hypertension, dyslipidemia, chronic kidney disease stage II, hypothyroidism, chronic lumbar pain with previous history of nerve blocks and gastroesophageal reflux disease. See originally presented to [facility] status post unwitnessed fall at home which he had a left femoral neck fracture and left humeral head fracture. She was seen in consultation by Dr. Bill and had a bipolar gayla-plasty 09/05 without complication. Left wrist fractures treated conservatively with a sling therapy. Patient was sent to rehabilitation 09/09 09/12 patient was diagnosed with urinary tract infection. Initially treated with Ceftin 500 mg every 12 and switch to Rocephin 1 g every 24 09/13. Patient having constipation KUB revealed stool 09/13. Receiving fleets enema 1 and Relistor 12 mg subcutaneous 1. Along with Florastor twice a day Since admission rehabilitation on Angelic-Colace. Yesterday, she was noted to have multiple bouts of diarrhea starting yesterday Today, consultation to hospitalist for hypotension abdominal pain. Noted she had white cell count that jumped from slightly above normal to 43,000 late yesterday. LFTs and lipase were normal. Lactate slightly elevated 3.2 currently 2.2 after [address] abdomen/pelvis revealed ileus type pattern. With gas in the bowel. Mild anasarca. Some free fluid in the pelvis. A nonobstructing right calculus. She received 2 L normal saline wide open was transferred to [id number] and we are asked to see in consultation. C. difficile was drawn. Worried about mesenteric ischemia sent to CT with contrast At the present time, patient complaining of diffuse abdominal pain specifically in the bilateral lower quadrants. Abdomen soft. Voluntary guarding. No rigidity. 09/16: Noted Hieu-Synephrine started overnight and 70 mu./m. Received 2 L normal saline. Urine output decreased however the creatinine is still within normal limits. Started on vancomycin enema, oral and IV Flagyl for C. difficile positive. Abdominal pain currently 8 out of 10 Subjective 09/17: Afebrile. Abdominal pain still 8 out of 10. Percocet central line yesterday however currently off all vasopressors. Will attempt single lumen PICC line for TPN 09/18: Remains critically ill. Off pressors, but abdomen severe distension, tympanic and tender. CT yesterday diffuse thickening, predominately R colon. D/ W radiology Dr. Alexandra, will repeat CT abdomen stat today. Keep nothing by mouth. CBC CMP and lactic acid stat pending Objective Vital Signs Date Time Temp Pulse Resp B/P Pulse Ox O2 Delivery O2 Flow Rate FiO2 09/18/16 07:58 98 Nasal Cannula 1.00 09/18/16 06:00 84 09/18/16 04:00 98.6 20 131/61 09/16/16 16:29 21 Intake and Output 09/17/16 09/17/16 09/18/16 08:00 16:00 00:00 Intake Total 690 ml 1213 ml Output Total 350 ml 250 ml 1100 ml Balance 340 ml -250 ml 113 ml Result Diagram: 09/17/16 0507 09/17/16 0507 Other Results Microbiology Date/Time Procedure Status Source Growth 09/15/16 13:30 Urine Culture - Final Complete Urine Catheterized Urine NO GROWTH IN 48 HOURS. Imaging Last Impressions Abdomen X-Ray 09/16/16 0600 Signed Impressions: Service Date/Time: August 03:32 - CONCLUSION: Colitis without obstruction. En Andres MD Chest X-Ray 09/15/16 1155 Signed Impressions: Service Date/Time: Thursday, September 15, 2016 12:29 - CONCLUSION: 1. Right IJ central line in good position without pneumothorax. Aldair Garcia MD Abdomen/Pelvis CT 09/15/16 0000 Signed Impressions: Service Date/Time: Thursday, September 15, 2016 09:43 - CONCLUSION: 1. Diffuse thickening of the entire colon consistent with diffuse colitis. 2. Mild atherosclerotic calcifications seen at the aorta. There is no aneurysm. Contrast is seen within the celiac, SMA and HARRIS. 3. Small non-obstructing right renal stone. En Lambert MD Objective Remarks GENERAL: 86-year-old female, resting in bed in moderate distress SKIN: Warm and dry. Ecchymosis to the left upper extremity HEAD: Atraumatic. Normocephalic. EYES: Pupils equal and round about 3 mm bilaterally. ENT: No nasal bleeding or discharge. Upper dentures/partial lower dentures. NECK: Trachea midline. No JVD. CARDIOVASCULAR: Regular rate and rhythm. S1, S2. No S4. Without murmur RESPIRATORY: No accessory muscle use. Clear to auscultation. Breath sounds equal bilaterally. GASTROINTESTINAL: Abdomen severely distended tympanic to percussion tender to palpation. Hepatic and splenic margins not palpable. MUSCULOSKELETAL: Extremities with trace lower extremity edema. Left leg is in a immobilizer. Left arm is in a sling NEUROLOGICAL: Awake and alert. No obvious cranial nerve deficits. Motor grossly within normal limits. Five out of 5 muscle strength in the arms and legs. Normal speech. PSYCHIATRIC: Appropriate mood and affect; insight and judgment normal. Urinary Catheter: Yes Assessment to: Continue Date of Insertion: Sep 15, 2016 Date of Removal: Sep 16, 2016 Line: Central Venous Catheter Side: Right Location: Internal, Jugular A/P Assessment and Plan Neuro/Psych: Peripheral neuropathy History of TIA Spinal stenosis IV Acetaminophen for fever Morphine for pain management for left hip fracture/humerus fracture in past CV: Severe sepsis Lactic acidosis History of hypertension Dyslipidemia Currently off all vasopressors, Status post 5 L normal saline Currently on NS @ 84 cc an hour Holding Xarelto 10 mg daily and Plavix 75 mg by mouth daily. Holding home medications of Pravachol 80 mg at night and Zetia 10 mg daily night of ileus. Resume when clinically indicated Holding lisinopril 10 mg daily light of hypotension and acute kidney injury Resp: Nasal cannula to maintain saturations greater than or equal to 92% Incentive spirometry while awake GI: C. difficile colitis Rule out toxic megacolon Moderate protein calorie malnutrition with albumin 1.[address] abdomen/pelvis 09/14 revealed mild chronic ileus type pattern. Nonobstructing right nephrolithiasis. Some free fluid in the pelvis. Mild anasarca. CT abdomen/post contrast 09/17 revealed diffuse colitis. Noted C. difficile positive see below Discussed with radiology Dr. Alexandra. Repeat CT abdomen and pelvis without contrast today rule out toxic megacolon Received 50 g albumin 1 now. Scheduled 12.5 g IV every 8 hours per GI day currently 2.3 TPN per GIs recommendations at 62.5 cc an hour with lipids 10% 250 cc 2 times a week Protonix 40 mg IV daily for GI prophylaxis Nothing by mouth : Bañuelos catheter has been placed for accurate I's and O's in a critically ill patient Endo: Hypothyroidism Sliding-scale insulin with Accu-Cheks to maintain euglycemia/low regimen Continue Levoxyl 25 mics grams-change to IV. Renal: Acute on chronic kidney injury stage II Nonobstructing right nephrolithiasis Monitor urine output Accurate I's and O's Follow BMP magnesium and phosphorus in a.m. Nonobstructing right-sided nephrolithiasis noted Heme: Leukocytosis Thrombocytosis Normocytic anemia Monitor CBC daily. Follow trends ID: C. difficile, hypervirulent strain 027 E cloacae UTI-urine culture on 09/15/16 negative Currently vancomycin enema 500 mg every 6, 500 mg by mouth every 6 and Flagyl 500 mg IV every 8 day #4 09/15 blood cultures 2, urine cultures no growth to date C. difficile positive CT abdomen and pelvis today and general surgery or colorectal surgery consult if indicated FEN: Hyper-magnesium Hypophosphatemia Replace electrolytes as clinically indicated MSK: Osteoarthritis Status post bipolar hemiarthroplasty secondary to left femoral neck fracture by Dr. Bill Left humerus fracture conservative management with sling Holding vitamin D 3 2000 units daily and Os-[place] D5 100/250 one tablet twice a day Access - Utilize IV. PICC placement today Prophylaxis - GI - Protonix - DVT - SCDs/heparin subcutaneous Critical Care: CCT 32 min Patient remains acutely critically ill. Abdominal distention is increasing. There is concern about toxic megacolon. CT of the abdomen and pelvis stat ordered Christiano Gatica MD Sep 18, 2016 10:02
--- NOTE | 2016-09-18 10:23 | HHI.GIFU ---
Subjective Remarks Resting in bed. Continues to have abdominal pain, although slightly improved. Worsening distention. Nurse reports that patient became confused after Lortab and pulled out central line and vascular access was not able to place PICC and therefore TPN is on hold. They will try again to place PICC today and if unsuccessful, CCM will place central line. (Dinora Renteria) Objective Vitals I&O Vital Signs Date Time Temp Pulse Resp B/P Pulse Ox O2 Delivery O2 Flow Rate FiO2 09/18/16 07:58 98 Nasal Cannula 1.00 09/18/16 06:00 84 09/18/16 04:00 90 09/18/16 04:00 98.6 90 20 131/61 96 09/18/16 02:00 83 09/18/16 00:00 72 09/18/16 00:00 98.8 72 20 177/77 99 09/17/16 22:00 78 09/17/16 20:00 98.6 73 17 170/72 99 09/17/16 20:00 73 09/17/16 19:50 97 Nasal Cannula 1.00 09/17/16 18:00 80 09/17/16 16:00 74 09/17/16 16:00 98.4 74 18 164/72 100 09/17/16 14:00 76 09/17/16 12:00 75 09/17/16 12:00 98.5 75 26 146/66 97 09/17/16 10:30 96 Nasal Cannula 1.00 I/O 09/17/16 09/17/16 09/17/16 09/18/16 09/18/16 09/18/16 07:00 15:00 23:00 07:00 15:00 23:00 Intake Total 690 ml 1213 ml 613 ml Output Total 350 ml 250 ml 1100 ml 300 ml Balance 340 ml -250 ml 113 ml 313 ml Intake Oral 0 ml 50 ml IV Total 640 ml 1163 ml 513 ml Albumin 50 ml 50 ml 50 ml Output Urine Total 250 ml 250 ml 900 ml 250 ml Stool Total 100 ml 200 ml 50 ml Laboratory Date/Time Procedure Status Source Growth 09/15/16 13:30 Urine Culture - Final Complete Urine Catheterized Urine NO GROWTH IN 48 HOURS. 09/15/16 11:28 Aerobic Blood Culture - Preliminary Resulted Blood Peripheral NO GROWTH IN 2 DAYS 09/15/16 11:28 Anaerobic Blood Culture - Preliminary Resulted Blood Peripheral NO GROWTH IN 2 DAYS Imaging Last Impressions Chest X-Ray 09/17/16 0000 Signed Impressions: Service Date/Time: Saturday, September 17, 2016 19:18 - CONCLUSION: 1. Right lower lobe atelectasis versus infiltrate. 2. Blunting of the left costophrenic angle suggesting a tiny left effusion. Marty Neely Jr., MD Abdomen/Pelvis CT 09/17/16 0000 Signed Impressions: Service Date/Time: Saturday, September 17, 2016 15:16 - CONCLUSION: 1. The exam demonstrates diffuse colonic thickening most consistent with a colitis. The overall amount of colonic thickening is stable from previous exam however, there has now been development of a small amount of abdominal ascites. 2. Interval development of bilateral effusions and consolidative changes in the lung bases. Thomas Vásquez MD Abdomen X-Ray 09/16/16 0600 Signed Impressions: Service Date/Time: August 03:32 - CONCLUSION: Colitis without obstruction. En Andres MD Physical Exam HEENT: Normocephalic; atraumatic; no jaundice CHEST: Resp even/unlabored, diminished CARDIAC: RRR ABDOMEN: Moderate to severe distention/tympanic, moderate diffuse abdominal tenderness; bowel sounds hypoactive. Flexiseal with liquid stool in tubing. EXTREMITIES: Generalized edema. Left CKS, Left upper extremity in sling. SKIN: Normal; no rash; no jaundice. 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 (Dinora Renteria [facility]) Assessment and Plan Plan ASSESSMENT: - Severe C difficile colitis (Epid 027 (+) in patient with recent abx use and hypotension). CT Scan abdomen and pelvis with IV contrast (09/15/16)----> 1. Diffuse thickening of the entire colon consistent with diffuse colitis. 2. Mild atherosclerotic calcifications seen at the aorta. There is no aneurysm. Contrast is seen within the celiac, SMA and HARRIS. 3. Small non-obstructing right renal stone. Colonoscopy (05/20/2005) revealed normal colon, medium internal hemorrhoids. Rpt. Abdomen/Pelvis CT (09/17/16)---> 1. The exam demonstrates diffuse colonic thickening most consistent with a colitis. The overall amount of colonic thickening is stable from previous exam however, there has now been development of a small amount of abdominal ascites. 2. Interval development of bilateral effusions and consolidative changes in the lung bases. CBC not resulted for this am- yesterday WBC is 27.3. Small amount liquid stool 50cc-200cc per shift. STill with diffuse tenderness, slightly improved. Rpt. CT scan ordered, as the patient has significant worsening distention and very tympanic, [facility] d/w radiology. ? GS evaluation if worsening on CT scan. Oral Vanco, Flagyl, Vanco Enema. - Ileus secondary to above. She has been taking pericolace and lactinex. She was given a dose of MOM and relistor on 09/14/16. Afterwards, she started having significant diarrhea with liquid stool and significant pain/distention. More tympanic and distended today. Stat CT scan ordered. NPO - Malnutrition. Was started on TPN, Clinimix E 4.25/25 at rate of 62.5 ml/hr 20 % lipids, twice weekly, infuse 250 mls over 8 hrs. This was started but the patient dislodged central line and vascular access has not been able to place PICC line. Nurse reports the plan is for them to try again today, and that if they are not able, [facility] will place central line. - Sepsis/Leukocytosis secondary to severe CDiff infection. CBC not done for today. ID following, Flagyl, Oral vanco, Vanco enemas - Anemia. CBC pending. - Acute on chronic kidney injury. Per [facility] - Recent fall at home on 09/04/16 and sustained a left femoral neck fracture and left humeral head fracture. S/P Bipolar hemiarthroplasty on 09/05/[address] Bill and her left humeral head fracture is being treated conservatively with sling. She was transferred to [facility] on 09/09/16, but transferred to the unit for severe abdominal tenderness and leukocytosis with concern for mesenteric ischemia. - History of TIA (on plavix), OA, Hx HTN now with hypotension, hyperlipidemia, CKD per attending. PLAN: - NPO - Stat CT scan abdomen and pelvis - TPN- Clinimix E 4.25/25 at rate of 62.5 ml/hr 20% lipids, twice weekly, infuse 250 mls over 8 hrs once she has PICC or Central line - Cont. Flagyl IV - Cont. Oral Vancomycin - Cont. Vanco Enema 500mg in 100mL NS retention enema AL q6h - Cont. IVF - Cont. Albumin - ID following - CCM following - Supportive care - Notify GI of worsening pain, distention - Further recommendations to follow based on results of above - ? GS evaluation if worsening on today's CT scan - Pt seen and examined by Dr. Todd and myself and this note is written on his behalf (Dinora Renteria) Plan Patient was seen and examined, agree with above note, await labs result and may need repeat KUB in am (Juan Carlos Todd MD) Dinora Renteria Sep 18, 2016 10:23 Juan Carlos Todd MD Sep 18, 2016 15:24
--- NOTE | 2016-09-18 10:50 | RADRPT ---
EXAM DATE/TIME: 09/18/2016 10:34 [facility] COMPARISON: CT ABDOMEN & PELVIS W/O CONTRAST, September 17, 2016, 15:16. INDICATIONS : Abdomen pain; evaluate megacolon. ORAL CONTRAST: No oral contrast ingested. RADIATION DOSE: 15.35 CTDIvol (mGy) MEDICAL HISTORY : Cardiovascular disease. Hypertension. SURGICAL HISTORY : None. ENCOUNTER: Initial ACUITY: 1 day PAIN SCALE: 5/10 LOCATION: Bilateral abdomen. TECHNIQUE: Volumetric scanning of the abdomen and pelvis was performed. Using automated exposure control and ad justment of the mA and/or kV according to patient size, radiation dose was kept as low as reasonably achievable to obtain optimal diagnostic quality images. DICOM format image data is available electro nically for review and comparison. FINDINGS: LOWER LUNGS: Stable bilateral pleural effusions and bibasilar atelectasis. LIVER: Homogeneous density without lesion. There is no dilation of the biliary tree. No calcified gallston es. No significant change SPLEEN: Normal size without lesion. PANCREAS: Within normal limits. KIDNEYS: Normal in size and shape. There is no mass or hydronephrosis. Tiny nonobstructing stone upper pole r ight kidney. No change ADRENAL GLANDS: Within normal limits. VASCULAR: There is no aortic aneurysm. BOWEL/MESENTERY: There continues to be some ascites in the upper abdomen which is stable. There is no evidence of free air. Small bowel is non-distended. There continues to be diffuse thickening involving the right colo n and left colon suggestive of colitis. Continues to be some moderate distention of the colon without significant change compared to the prior study. Continues to be some dilatation of the cecum which i s stable. In these to be some free fluid in the pelvis which is stable. ABDOMINAL WALL: Anasarca unchanged.. RETROPERITONEUM: There is no lymphadenopathy. BLADDER: Bañuelos catheter in the bladder. REPRODUCTIVE: Within normal limits. INGUINAL: There is no lymphadenopathy or hernia. MUSCULOSKELETAL: Within normal limits for patient age. CONCLUSION: 1. Compared to the prior examination of 09/17/2016, there has been no significant change in the overal l appearance of the colon. There continues to be diffuse wall thickening involving the right and left colon suggestive of colitis with some moderate distention. However, no increased distention is seen on today's examination. There is no evidence of free air. 2. No change in the abdominal ascites. 3. No change in body wall anasarca. 4. No change in the bibasilar infiltrates and bilateral effusions. Odilon Alexandra MD on September 18, 2016 at 10:42 Board Certified Radiologist. This report was verified electronically.
[2016-09-18 12:32] LABS: ALT (GPT) 15 U/L (10-53); ANION GAP 11 MEQ/L (5-15); AST (GOT) 22 U/L (15-37); BICARBONATE 21.2 MEQ/L (21.0-32.0); BLOOD UREA NITROGEN 27 MG/DL (7-18); CHLORIDE 108 MEQ/L (98-107); GLOMERULAR FILTRATION RATE 89 ML/MIN (>89); MAGNESIUM 2.7 MG/DL (1.5-2.5); POTASSIUM 3.7 MEQ/L (3.5-5.1); SODIUM (NA) 140 MEQ/L (136-145)
[2016-09-18 12:36] LABS: ALKALINE PHOSPHATASE 89 U/L (45-117); CREATINE KINASE 102 U/L (26-192); TOTAL BILIRUBIN ADULT 0.5 MG/DL (0.2-1.0)
--- NOTE | 2016-09-18 16:16 | RADRPT ---
EXAM DATE/TIME: 09/18/2016 15:27 [facility] COMPARISON: CT ABDOMEN & PELVIS W/O CONTRAST, September 18, 2016, 10:34. CHEST SINGLE AP, September 17, 2016, 19:18. INDICATIONS : Post PICC line revision. MEDICAL HISTORY : Hypertension. Skin melanoma. Hypothyroidism. Spinal stenosis. SURGICAL HISTORY : None. ENCOUNTER: Subsequent ACUITY: 2 days PAIN SCORE: 0/10 LOCATION: Bilateral chest FINDINGS: The heart size is normal. There is hazy density at the right base with silhouetting of the right gayla diaphragm. There is prominence of the right paratracheal region. There some mild increased density at the left lateral base at the left costophrenic angle region.. There is a PICC line in place from the right upper arm with the tip overlying the SVC. CONCLUSION: Bibasilar areas of mild atelectasis or consolidation being worse on the right. There are suspected mi ld bilateral pleural effusions. En Lambert MD on September 18, 2016 at 16:11 Board Certified Radiologist. This report was verified electronically.
[2016-09-18] MEDS ORDERED: POTASSIUM PHOSPHATE MONOBASIC 500 MG TAB PO PRN (16:30)
[2016-09-18] MEDS ORDERED: MAGNESIUM OXIDE 400 MG TAB PO PRN (16:30)
[2016-09-18] MEDS ORDERED: POTASSIUM CHLORIDE 25 MEQ EFFERVESCENT TAB PO PRN (16:30)
[2016-09-18] MEDS ORDERED: POTASSIUM CHLOR 40 MEQ PREMIX 100 ML IV PRN (16:30)
[2016-09-18] MEDS ORDERED: MAGNESIUM SULFATE INJ 4 GM in SODIUM CHLORIDE 0.9% INJ 92 ML IV PRN (16:30)
[2016-09-18] MEDS ORDERED: MAGNESIUM SULFATE INJ 2 GM in SODIUM CHLORIDE 0.9% INJ 96 ML IV PRN (16:30)
[2016-09-18] MEDS ORDERED: POTASSIUM CHLOR 20 MEQ PREMIX 100 ML IV PRN ×2 (16:30)
[2016-09-18] MEDS ORDERED: POTASSIUM PHOSPHATE MONOBASIC 500 MG TAB PO/TUBE PRN (16:30)
[2016-09-18] MEDS ORDERED: SODIUM PHOSPHATE INJ 30 MMOL in SODIUM CHLOR 0.9% 250 ML INJ 240 ML IV PRN (16:30)
[2016-09-18] MEDS ORDERED: POTASSIUM CHLORIDE 25 MEQ EFFERVESCENT TAB PO ONE (16:30)
[2016-09-18] MEDS ORDERED: SODIUM CHLOR 0.9% 1000 ML INJ 1,000 ML IV ONE (16:30)
--- NOTE | 2016-09-18 17:02 | HHI.IDPN ---
Subjective Subjective Remarks doing clinically worse UOP is very low No stool but worsening abdominal distntion co severe abd pain off pressor, mild hypertension afebrile Antibiotics flagyl IV vanco po vanco enemas Allergies: Coded Allergies: Tizanidine (Verified Allergy, Severe, doesn't know, 09/09/16) Tramadol (Verified Allergy, Severe, doesn't remember, 09/09/16) Baclofen (Unverified Allergy, Intermediate, RASH, 09/09/16) Cipro (Unverified Allergy, Intermediate, RASH, 09/09/16) Cymbalta (Unverified Allergy, Intermediate, SEVERE RASH, 09/09/16) Elavil (Unverified Allergy, Intermediate, RASH, 09/09/16) Tetracycline (Unverified Allergy, Intermediate, RASH, 09/09/16) Triamcinolone (Unverified Allergy, Intermediate, SEVERE RASH, 09/09/16) Objective . Vital Signs Date Time Temp Pulse Resp B/P Pulse Ox O2 Delivery O2 Flow Rate FiO2 09/18/16 16:00 86 09/18/16 16:00 98.9 86 17 148/67 97 09/18/16 15:00 91 24 134/63 97 09/18/16 14:00 92 21 143/64 97 09/18/16 14:00 92 09/18/16 13:00 94 23 148/66 97 09/18/16 12:00 88 09/18/16 12:00 98.7 88 18 144/67 99 09/18/16 11:00 89 20 146/67 98 09/18/16 10:00 85 21 149/68 98 09/18/16 10:00 85 09/18/16 09:00 83 17 145/65 97 09/18/16 08:00 81 09/18/16 08:00 98.5 81 20 154/70 99 09/18/16 07:58 98 Nasal Cannula 1.00 09/18/16 07:00 84 20 140/64 97 09/18/16 06:00 84 09/18/16 04:00 90 09/18/16 04:00 98.6 90 20 131/61 96 09/18/16 02:00 83 09/18/16 00:00 72 09/18/16 00:00 98.8 72 20 177/77 99 09/17/16 22:00 78 09/17/16 20:00 98.6 73 17 170/72 99 09/17/16 20:00 73 09/17/16 19:50 97 Nasal Cannula 1.00 09/17/16 18:00 80 09/17/16 09/17/16 09/18/16 15:00 23:00 07:00 Intake Total 1213 ml 613 ml Output Total 250 ml 1100 ml 300 ml Balance -250 ml 113 ml 313 ml Intake Oral 50 ml IV Total 1163 ml 513 ml Albumin 50 ml 50 ml Output Urine Total 250 ml 900 ml 250 ml Stool Total 200 ml 50 ml . Laboratory Tests Test 09/17/16 05:07 White Blood Count 27.3 TH/MM3 Red Blood Count 2.91 MIL/MM3 Hemoglobin 8.9 GM/DL Hematocrit 26.8 % Mean Corpuscular Volume 91.9 FL Mean Corpuscular Hemoglobin 30.7 PG Mean Corpuscular Hemoglobin 33.4 % Concent Red Cell Distribution Width 14.2 % Platelet Count 395 TH/MM3 Mean Platelet Volume 7.2 FL Neutrophils (%) (Auto) 93.5 % Lymphocytes (%) (Auto) 2.6 % Monocytes (%) (Auto) 3.7 % Eosinophils (%) (Auto) 0.1 % Basophils (%) (Auto) 0.1 % Neutrophils # (Auto) 25.5 TH/MM3 Lymphocytes # (Auto) 0.7 TH/MM3 Monocytes # (Auto) 1.0 TH/MM3 Eosinophils # (Auto) 0.0 TH/MM3 Basophils # (Auto) 0.0 TH/MM3 CBC Comment AUTO DIFF Differential Total Cells 100 Counted Neutrophils % (Manual) 73 % Band Neutrophils % 19 % Lymphocytes % 5 % Monocytes % 3 % Neutrophils # (Manual) 25.1 TH/MM3 Differential Comment FINAL DIFF MANUAL Platelet Estimate NORMAL Platelet Morphology Comment NORMAL [place] Cells 1+ Laboratory Tests Test 09/17/16 09/18/16 09/18/16 05:07 11:52 14:15 Sodium Level 141 MEQ/L 140 MEQ/L Potassium Level 3.9 MEQ/L 3.7 MEQ/L Chloride Level 110 MEQ/L 108 MEQ/L Carbon Dioxide Level 21.0 MEQ/L 21.2 MEQ/L Anion Gap 10 MEQ/L 11 MEQ/L Blood Urea Nitrogen 31 MG/DL 27 MG/DL Creatinine 0.63 MG/DL 0.63 MG/DL Estimat Glomerular Filtration 89 ML/MIN 89 ML/MIN Rate Random Glucose 71 MG/DL 123 MG/DL Calcium Level 7.6 MG/DL 7.9 MG/DL Phosphorus Level 1.8 MG/DL 1.6 MG/DL Magnesium Level 3.3 MG/DL 2.7 MG/DL Total Bilirubin 0.4 MG/DL 0.5 MG/DL Aspartate Amino Transf 20 U/L 22 U/L (AST/SGOT) Alanine Aminotransferase 12 U/L 15 U/L (ALT/SGPT) Alkaline Phosphatase 77 U/L 89 U/L Total Protein 4.7 GM/DL 5.3 GM/DL Albumin 2.3 GM/DL 2.7 GM/DL Triglycerides Level 51 MG/DL 70 MG/DL Total Creatine Kinase 102 U/L Lactic Acid Level 1.0 mmol/L Imaging Last Impressions Chest X-Ray 09/18/16 0000 Signed Impressions: Service Date/Time: Sunday, September 18, 2016 15:27 - CONCLUSION: Bibasilar areas of mild atelectasis or consolidation being worse on the right. There are suspected mild bilateral pleural effusions. En Lambert MD Abdomen/Pelvis CT 09/18/16 0000 Signed Impressions: Service Date/Time: Sunday, September 18, 2016 10:34 - CONCLUSION: 1. Compared to the prior examination of 09/17/2016, there has been no significant change in the overall appearance of the colon. There continues to be diffuse wall thickening involving the right and left colon suggestive of colitis with some moderate distention. However, no increased distention is seen on today's examination. There is no evidence of free air. 2. No change in the abdominal ascites. 3. No change in body wall anasarca. 4. No change in the bibasilar infiltrates and bilateral effusions. Odilon Alexandra MD Abdomen X-Ray 09/16/16 0600 Signed Impressions: Service Date/Time: August 03:32 - CONCLUSION: Colitis without obstruction. En Andres MD Physical Exam CONSTITUTIONAL/GENERAL: This is an adequately nourished elderly patient, in no apparent distress. Looks ill, weak TUBES/LINES/DRAINS: SKIN: No jaundice, rashes, or lesions. . Skin temperature appropriate. Not diaphoretic. Diffuse weeping anasarca EYES: No scleral icterus. ENT: Oral mucosae dry without visible erythema, exudates, masses, or lesions. CARDIOVASCULAR: Regular rate and rhythm without murmurs, gallops, or rubs. No JVD. Peripheral pulses symmetric. RESPIRATORY/CHEST: Symmetric, unlabored respirations. Clear to auscultation. B/ b crackles bilaterally. GASTROINTESTINAL: Abdomen now tense , very tender diffusely with max tenderness RLQ, + guarding, + rebound, + tympani + markedly distended. No bowel sounds No hepato-splenomegaly, or palpable masses. Dignisheild in place GENITOURINARY: Without palpable bladder distension. Bañuelos in place with scant amount of brownish urine MUSCULOSKELETAL: Extremities without clubbing, cyanosis, Diffuse soft pitting edema, 3+, anasarca . No mottling NEUROLOGICAL: Awake and alert. Motor and sensory grossly within normal limits. Follows commands. Oriented x 3 PSYCHIATRIC: calm and cooperative Assessment & Plan Remarks Severe life threatening colitis, C.diff, hypervirilent stain 027 severe - pt with progressive ileus SIRS, sepsis - 2./2 C.diff - lactic acidosis, hypotension, acute renal dysfunction No e/o UTI Pt is critically ill and clinically worsening Pt does not appear to respond to the therapy, next step if cont to deteriorate will be colectomy, but I doubt that the pt is good candidate for a surgery cont po vancomycin cont vanco enemas cont IV flagyl monitor for toxic megacolon avoid systemic abx Shayy Reeves RN, MD Sep 18, 2016 17:02
[2016-09-18 17:26] LABS: AUTOMATED NEUTROPHIL # 16.3 TH/MM3 (1.8-7.7); BASOPHIL % 0.1 % (0.0-2.0); EOSINOPHIL % 0.2 % (0.0-4.0); HEMATOCRIT 31.8 % (35.0-46.0); LYMPH % 4.1 % (9.0-44.0); LYMPHOCYTE # 0.8 TH/MM3 (1.0-4.8); MEAN CELL VOLUME 89.8 FL (80.0-100.0); MEAN CORPUSCULAR HEMOGLOBIN 30.3 PG (27.0-34.0); MEAN CORPUSCULAR HGB CONC 33.7 % (32.0-36.0); NEUT % 86.6 % (16.0-70.0); PLATELET COUNT 462 TH/MM3 (150-450); RED BLOOD COUNT 3.54 MIL/MM3 (4.00-5.30); RED CELL DISTRIBUTION WIDTH 14.2 % (11.6-17.2); WHITE BLOOD COUNT 18.8 TH/MM3 (4.0-11.0)
[2016-09-18 17:29] LABS: HEMO FLAGS AUTO DIFF
[2016-09-18 17:50] LABS: ALT (GPT) 15 U/L (10-53); ANION GAP 8 MEQ/L (5-15); AST (GOT) 18 U/L (15-37); BICARBONATE 25.2 MEQ/L (21.0-32.0); BLOOD UREA NITROGEN 26 MG/DL (7-18); CHLORIDE 108 MEQ/L (98-107); GLOMERULAR FILTRATION RATE 93 ML/MIN (>89); POTASSIUM 3.7 MEQ/L (3.5-5.1); SODIUM (NA) 141 MEQ/L (136-145)
[2016-09-18 17:53] LABS: ALKALINE PHOSPHATASE 79 U/L (45-117); TOTAL BILIRUBIN ADULT 0.4 MG/DL (0.2-1.0)
[2016-09-18] MEDS ORDERED: BUMETANIDE INJ 1 MG/4 ML VIAL IV PUSH ONE (18:00)
[2016-09-18 18:03] LABS: PLATELET ESTIMATE SMEAR NORMAL (NORMAL); PLATELET MORPHOLOGY NORMAL (NORMAL); SCAN/DIFF AUTO DIFF CONFIRMED
[2016-09-18] MEDS: BUMETANIDE INJ 100 ML IV SCH (18:09)
--- NOTE | 2016-09-18 19:45 | PD.CONS ---
HPI Consult Requested By Reason for Consult Oliguria Primary Care Physician Adan Davis MD History of Present Illness 86-year-old female apparently with a history of severe colitis secondary to clostridium difficile. Mention in the records of his CKD stage II. Apparently nephrology consult was placed when the patient developed oliguria however prior to my arrival the patient was placed on bumetanide drip and her urine output has improved. She of note has a very distended and tense abdomen. Colorectal surgery has been counseled it. Review of Systems Constitutional: COMPLAINS OF: Change in appetite Cardiovascular: DENIES: Chest pain, Palpitations, Syncope, Dyspnea on Exertion , PND, Lower Extremity Edema, Orthopnea, Claudication Gastrointestinal: COMPLAINS OF: Abdominal pain, Diarrhea, DENIES: Black stools , Bloody stools, Constipation, Nausea, Vomiting, Difficulty Swallowing, Anorexia Past Family Social History Allergies: Coded Allergies: Tizanidine (Verified Allergy, Severe, doesn't know, 09/09/16) Tramadol (Verified Allergy, Severe, doesn't remember, 09/09/16) Baclofen (Unverified Allergy, Intermediate, RASH, 09/09/16) Cipro (Unverified Allergy, Intermediate, RASH, 09/09/16) Cymbalta (Unverified Allergy, Intermediate, SEVERE RASH, 09/09/16) Elavil (Unverified Allergy, Intermediate, RASH, 09/09/16) Tetracycline (Unverified Allergy, Intermediate, RASH, 09/09/16) Triamcinolone (Unverified Allergy, Intermediate, SEVERE RASH, 09/09/16) Past Medical History Hypertension CKD stage III by records Gastric 70 reflux disease History of esophageal dialytic dictation. History of TIA. Past Surgical History Noncontributory to above complaint. Reported Medications Reported Meds & Active Scripts Active Zosyn Inj (Piperacillin Sod/Tazobactam Sod) 3.375 Gm Inj 3.375 Gm IV Q6HR 1 Days Sodium Chloride 1 Gm Tab 1 Gm PO DAILY Acidophilus/l-Sporogenes (Lactobacillus Acidophilus) 1 Tab Tab 1 Tab PO Q12HR Plavix (Clopidogrel Bisulfate) 75 Mg Tab 75 Mg PO DAILY resume September 25 Calcium 600+D 200 (Calcium Carbonate-Vitamin D) 600-200 Mg-Unit Tab 1 Tab PO BID 30 Days Vitamin D3 (Cholecalciferol) 2,000 Unit Cap 2,000 Units PO DAILY Xarelto (Rivaroxaban) 10 Mg Tab 10 Mg PO DAILY Hydrocodone-Acetaminophen 7.5-325 mg Tab 1 Tab PO Q4H PRN Reported Multiple Vitamin 1 Tab 1 Tab PO DAILY Levothyroxine (Levothyroxine Sodium) 25 Mcg Tab 25 Mcg PO DAILY Lovastatin 40 Mg Tab 80 Mg PO DAILY Zetia (Ezetimibe) 10 Mg Tab 10 Mg PO DAILY Lisinopril 5 Mg Tab 5 Mg PO HS Lisinopril 5 Mg Tab 10 Mg PO Active Ordered Medications Current Medications Sodium Chloride (NS Flush) 2 ml UNSCH PRN IV FLUSH FLUSH AFTER USING IV ACCESS ; Start 09/15/16 at 07:45; Stop 09/15/16 at 08:33; Status DC Sodium Chloride (NS Flush) 2 ml BID IV FLUSH Last administered on 09/15/16 08: 15; Start 09/15/16 at 09:00; Stop 09/15/16 at 09:00; Status DC Miscellaneous Information 1 Q361D XX Last administered on 09/15/16 07:45; Start 09/15/16 at 07:45; Stop 09/15/16 at 08:32; Status DC Chlorhexidine Gluconate (Chlorhexidine 2% Cloth) 3 pack Taper DAILY@04 TOP ; Start 09/16/16 at 04:00; Stop 09/16/16 at 04:00; Status DC Chlorhexidine Gluconate 3 pack 3 pack UNSCH PRN TOP HYGIENIC CARE; Start at 07:45; Stop 09/15/16 at 08:32; Status DC Metronidazole 100 ml @ 100 mls/hr Q6H IV Last administered on 09/15/16 08:14 ; Start 09/15/16 at 08:00; Stop 09/15/16 at 08:31; Status DC Sodium Chloride (NS 1000 ml Inj) 1,000 ml @ 999 mls/hr BOLUS ONCE IV Last administered on 09/15/16 08:15; Start 09/15/16 at 07:45; Stop 09/15/16 at 08:45 ; Status DC Levothyroxine Sodium 25 mcg 25 mcg DAILY PO Last administered on 09/18/16 08: 54; Start 09/15/16 at 09:00; Status Hold Sodium Chloride (NS 1000 ml Inj) 1,000 ml @ 84 mls/hr [id number] IV Last administered on 09/17/16 07:49; Start 09/15/16 at 09:00; Stop 09/18/16 at 17:53 ; Status DC Sodium Chloride (NS Flush) 2 ml UNSCH PRN IV FLUSH FLUSH AFTER USING IV ACCESS Last administered on 09/18/16 08:49; Start 09/15/16 at 08:15 Sodium Chloride (NS Flush) 2 ml BID IV FLUSH Last administered on 09/18/16 08: 49; Start 09/15/16 at 09:00 Acetaminophen (Tylenol) 650 mg Q6H PRN PO FEVER >101F; Start 09/15/16 at 08:15 ; Status Hold Acetaminophen/ Hydrocodone Bitart ([place] 5-325 Mg) 1 tab Q4H PRN PO PAIN SCALE 1 TO 5 Last administered on 09/16/16 08:37; Start 09/15/16 at 08:15; Status Hold Morphine Sulfate (Morphine Inj) 2 mg Q2H PRN IV PAIN SCALE 6 TO 10 Last administered on 09/18/16 13:06; Start 09/15/16 at 08:15 Pantoprazole Sodium (Protonix Inj) 40 mg DAILY IV Last administered on 08:48; Start 09/15/16 at 09:00 Artificial Tears (Tears Naturale Opth Soln) 1 drop TID EACH EYE Last administered on 09/18/16 17:06; Start 09/15/16 at 09:00 Ondansetron HCl (Zofran Inj) 4 mg Q6H PRN IV NAUSEA OR VOMITING; Start at 08:15 Albuterol Sulfate (Albuterol Neb) 2.5 mg Q2HR NEB PRN INH SOB/WHEEZING Last administered on 09/15/16 09:07; Start 09/15/16 at 08:15 Miscellaneous Information 1 Q361D XX Last administered on 09/15/16 08:15; Start 09/15/16 at 08:15 Chlorhexidine Gluconate (Chlorhexidine 2% Cloth) 3 pack Taper DAILY@04 TOP Last administered on 09/18/16 01:12; Start 09/16/16 at 04:00; Stop 09/12/17 at 03:59 Chlorhexidine Gluconate (Chlorhexidine 2% Cloth) 3 pack UNSCH PRN TOP HYGIENIC CARE; Start 09/15/16 at 08:15 Senna/Docusate Sodium (Angelic-Colace) 1 tab BID PO Last administered on 08:38; Start 09/15/16 at 09:00; Stop 09/16/16 at 09:38; Status DC Magnesium Hydroxide (Milk Of Magnesia Liq) 30 ml Q12H PRN PO MILD - MODERATE CONSTIPATION; Start 09/15/16 at 08:15 Sennosides (Senokot) 17.2 mg Q12H PRN PO MODERATE - SEVERE CONSTIPATION; Start 09/15/16 at 08:15; Stop 09/16/16 at 09:38; Status DC Bisacodyl (Dulcolax Supp) 10 mg DAILY PRN RECTAL SEVERE CONSITIPATION; Start at 08:15 Lactulose 30 ml 30 ml DAILY PRN PO SEVERE CONSITIPATION; Start 09/15/16 at 08: 15 Piperacillin Sod/ Tazobactam Sod 100 ml @ 200 mls/hr Q8H IV ; Start 09/15/16 at 13:00; Stop 09/15/16 at 13:00; Status DC Metronidazole (Flagyl 500 Mg Inj) 100 ml @ 100 mls/hr Q6H IV Last administered on 09/18/16 13:07; Start 09/15/16 at 14:00 Iohexol (Omnipaque 350 Inj) 46 ml STK-MED ONCE IV ; Start 09/15/16 at 09:55; Stop 09/15/16 at 09:56; Status Cancel Iodixanol (VISIPAQUE 320 INJ (Rad CT)) 48 ml STK-MED ONCE IV Last administered on 09/15/16 10:06; Start 09/15/16 at 10:06; Stop 09/15/16 at 10:07; Status DC Sodium Chloride (NS Flush) DAILY IVF Last administered on 09/18/16 08:49; Start 09/16/16 at 09:00 Sodium Chloride (NS Flush) UNSCH PRN IVF SEE PROTOCOL Last administered on 08:48; Start 09/15/16 at 12:00 Vancomycin HCl 500 mg 500 mg Q6HR PO Last administered on 09/18/16 17:07; Start 09/15/16 at 13:15 Vancomycin HCl/ Sodium Chloride (Vancomycin Inj/ NS Irr Btl) 250 ml @ 0 mls/hr Q6HR IRRIGATION Last administered on 09/18/16 17:04; Start 09/15/16 at 18:00 Terbutaline Sulfate 1 mg 1 mg UNSCH PRN SQ For Extravasation; Start 09/15/16 at 17:30; Stop 09/17/16 at 09:59; Status DC Phenylephrine HCl 160 mg/Dextrose 500 ml @ 0 mls/hr TITRATE IV Last administered on 09/15/16 17:45; Start 09/15/16 at 17:30; Stop 09/17/16 at 09:59 ; Status DC Sodium Chloride 500 ml @ 500 mls/hr BOLUS ONCE IV Last administered on 17:30; Start 09/15/16 at 17:30; Stop 09/15/16 at 18:29; Status DC Sodium Chloride 1,000 ml @ 0 mls/hr BOLUS ONCE IV Last administered on 01:22; Start 09/16/16 at 01:00; Stop 09/16/16 at 01:01; Status DC Sodium Chloride 1,000 ml @ 0 mls/hr NOW IV ; Start 09/16/16 at 01:30; Stop at 02:00; Status DC Sodium Chloride 1,000 ml @ 0 mls/hr NOW IV ; Start 09/16/16 at 06:15; Stop at 06:15; Status DC Sodium Chloride (NS 1000 ml Inj) 1,000 ml @ 0 mls/hr NOW IV ; Start 09/16/16 at 04:15; Stop 09/16/16 at 06:07; Status DC Albumin Human (Albumin 25% Inj) 50 gm ONCE ONCE IV Last administered on 09:51; Start 09/16/16 at 09:00; Stop 09/16/16 at 09:04; Status DC Albumin Human (Albumin 25% Inj) 12.5 gm Q8HR IV Last administered on 09/18/16 13:05; Start 09/16/16 at 14:00 Heparin Sodium (Porcine) 5000 units 5,000 units Q8HR SQ Last administered on 13:05; Start 09/16/16 at 14:00 Sodium Chloride 11 meq/Sodium Acetate 59 meq/ Potassium Chloride 40 meq/ Sodium Phosphate 40 meq/Calcium Chloride 9 meq/ Multivitamins 10 ml/Folic Acid 1 mg/ Amino Acids/ Dextrose 2,079.0676 ml @ 70 mls/hr Q24H IV-CENTRAL ; Start at 20:00; Stop 09/17/16 at 10:49; Status DC Fat Emulsion Intravenous 250 ml @ 10 mls/hr Q24H IV-CENTRAL ; Start 09/16/16 at 20:00; Stop 09/17/16 at 10:48; Status DC Sodium Phosphate 30 mmol/Sodium Chloride 260 ml @ 43.333 mls/ hr ONCE ONCE IV Last administered on 09/17/16 12:25; Start 09/17/16 at 11:00; Stop 09/17/16 at 16:59; Status DC Multivitamins 10 ml/Folic Acid 1 mg/Amino Acids/ Electrolytes/ Dextrose 2,010.2 ml @ 62.5 mls/ hr Q24H IV-CENTRAL ; Start 09/17/16 at 20:00 Fat Emulsion Intravenous (Liposyn Iii 20% Inj) 250 ml @ 31.25 mls/ hr SuWe@20 IV-CENTRAL ; Start 09/19/16 at 20:00 Furosemide (Lasix Inj) 20 mg ONCE ONCE IV PUSH Last administered on 09/17/16 18:07; Start 09/17/16 at 17:00; Stop 09/17/16 at 17:01; Status DC Hydralazine HCl (Apresoline Inj) 10 mg Q1HR PRN IV PUSH SBP>160, DBP>90 Last administered on 09/18/16 00:19; Start 09/17/16 at 16:30 Nitroglycerin (Nitroglycerin 2% Oint) 2 inch Q6HR PRN TOPICAL SBP>160, DBP>90; Start 09/17/16 at 16:30 Sodium Chloride (NS Flush) See Protocol DAILY IV FLUSH ; Start 09/18/16 at 09:00 Sodium Chloride (NS Flush) See Protocol UNSCH PRN IV FLUSH SEE PROTOCOL TABLE; Start 09/17/16 at 21:45 Heparin Sodium (Porcine) (Heparin Central Flush) See Protocol DAILY IV FLUSH ; Start 09/18/16 at 09:00 Heparin Sodium (Porcine) (Heparin Central Flush) See Protocol UNSCH PRN IV FLUSH SEE PROTOCOL TABLE; Start 09/17/16 at 21:45 Sodium Chloride (NS Flush) UNSCH PRN IV FLUSH SEE PROTOCOL TABLE; Start at 21:45 Levothyroxine Sodium 25 mcg 25 mcg DAILY@06 IV PUSH ; Start 09/19/16 at 06:00 Sodium Chloride 1,000 ml @ 999 mls/hr BOLUS ONCE IV Last administered on 09/18t 17:07; Start 09/18/16 at 16:30; Stop 09/18/16 at 17:30; Status DC Potassium Chloride 100 ml @ 50 mls/hr Q2H PRN IV For Potassium 2.8 - 3.2 mEq/L ; Start 09/18/16 at 16:30 Potassium Chloride (KCl 20 Meq Premix Inj) 100 ml @ 50 mls/hr Q2H PRN IV For Potassium 2.8 - 3.2 mEq/L; Start 09/18/16 at 16:30 Potassium Bicarb/ Potassium Chloride 50 meq 50 meq UNSCH PRN PO For Potassium 3.3 - 3.5 mEq/L; Start 09/18/16 at 16:30 Potassium Chloride 100 ml @ 25 mls/hr UNSCH PRN IV For Potassium 3.3 - 3.5 mEq /L; Start 09/18/16 at 16:30 Potassium Chloride 100 ml @ 50 mls/hr Q2H PRN IV For Potassium 3.3 - 3.5 mEq/L ; Start 09/18/16 at 16:30 Magnesium Sulfate/ Sodium Chloride (Magnesium Sulfate Inj/NS Inj) 100 ml @ 50 mls/hr UNSCH PRN IV For Magnesium 0.9 - 1.1 mg/dL; Start 09/18/16 at 16:30 Magnesium Oxide 800 mg 800 mg UNSCH PRN PO For Magnesium 1.2 - 1.6 mg/dL; Start 09/18/16 at 16:30 Magnesium Sulfate/ Sodium Chloride (Magnesium Sulfate Inj/NS Inj) 100 ml @ 50 mls/hr UNSCH PRN IV For Magnesium 1.2 - 1.6 mg/dL; Start 09/18/16 at 16:30 Potassium Phosphate 2000 mg 2,000 mg Q4H PRN PO For Phosphorus < 2.5 mg/dL; Start 09/18/16 at 16:30 Sodium Phosphate/ Sodium Chloride (Sodium Phosphate Inj/NS 250 ml Inj) 250 ml @ 42 mls/hr UNSCH PRN IV For Phosphorus < 2.5 mg/dL Last administered on 17:15; Start 09/18/16 at 16:30 Potassium Phosphate 2000 mg 2,000 mg UNSCH PRN PO/TUBE SEE LABEL COMMENTS; Start 09/18/16 at 16:30 Potassium Phosphate/Sodium Chloride (Potassium Phosphate Inj/NS 250 ml Inj) 260 ml @ 42 mls/hr UNSCH PRN IV SEE LABEL COMMENTS; Start 09/18/16 at 16:30 Potassium Bicarb/ Potassium Chloride (K-Lyte Cl Eff) 25 meq ONCE ONCE PO Last administered on 09/18/16 17:06; Start 09/18/16 at 16:30; Stop 09/18/16 at 16:31; Status DC Bumetanide 2 mg 2 mg ONCE ONCE IV PUSH Last administered on 09/18/16 17:51; Start 09/18/16 at 18:00; Stop 09/18/16 at 18:01; Status DC Bumetanide (Bumex Inj) 100 ml @ 2 mls/hr CONTINUOUS IV Last administered on 18:09; Start 09/18/16 at 19:30 Family History Please see H&P. Social History Please see H&P. Physical Exam Vital Signs Vital Signs Date Time Temp Pulse Resp B/P Pulse Ox O2 Delivery O2 Flow Rate FiO2 09/18/16 18:00 85 09/18/16 16:00 86 09/18/16 16:00 98.9 86 17 148/67 97 09/18/16 15:00 91 24 134/63 97 09/18/16 14:00 92 21 143/64 97 09/18/16 14:00 92 09/18/16 13:00 94 23 148/66 97 09/18/16 12:00 88 09/18/16 12:00 98.7 88 18 144/67 99 09/18/16 11:00 89 20 146/67 98 09/18/16 10:00 85 21 149/68 98 09/18/16 10:00 85 09/18/16 09:00 83 17 145/65 97 09/18/16 08:00 81 09/18/16 08:00 98.5 81 20 154/70 99 09/18/16 07:58 98 Nasal Cannula 1.00 09/18/16 07:00 84 20 140/64 97 09/18/16 06:00 84 09/18/16 04:00 90 09/18/16 04:00 98.6 90 20 131/61 96 09/18/16 02:00 83 09/18/16 00:00 72 09/18/16 00:00 98.8 72 20 177/77 99 09/17/16 22:00 78 09/17/16 20:00 98.6 73 17 170/72 99 09/17/16 20:00 73 09/17/16 19:50 97 Nasal Cannula 1.00 Physical Exam GENERAL: Elderly debilitated appearing female not in respiratory distress. SKIN: Warm and dry. HEAD: Normocephalic. EYES: No scleral icterus. No injection or drainage. NECK: Supple, trachea midline. No JVD or lymphadenopathy. CARDIOVASCULAR: Regular rate and rhythm without murmurs, gallops, or rubs. RESPIRATORY: Breath sounds equal bilaterally. No accessory muscle use. GASTROINTESTINAL: Patient's abdomen is markedly distended and tense. MUSCULOSKELETAL: No cyanosis, or edema. BACK: Nontender without obvious deformity. No CVA tenderness. Laboratory Laboratory Tests Test 09/18/16 09/18/16 09/18/16 09/18/16 11:52 14:15 16:50 16:55 Sodium Level 140 141 Potassium Level 3.7 3.7 Chloride Level 108 108 Carbon Dioxide Level 21.2 25.2 Anion Gap 11 8 Blood Urea Nitrogen 27 26 Creatinine 0.63 0.61 Estimat Glomerular Filtration 89 93 Rate Random Glucose 123 129 Calcium Level 7.9 7.9 Phosphorus Level 1.6 1.3 Magnesium Level 2.7 Total Bilirubin 0.5 0.4 Aspartate Amino Transf 22 18 (AST/SGOT) Alanine Aminotransferase 15 15 (ALT/SGPT) Alkaline Phosphatase 89 79 Total Creatine Kinase 102 Total Protein 5.3 5.0 Albumin 2.7 2.7 Triglycerides Level 70 Lactic Acid Level 1.0 White Blood Count 18.8 Red Blood Count 3.54 Hemoglobin 10.7 Hematocrit 31.8 Mean Corpuscular Volume 89.8 Mean Corpuscular Hemoglobin 30.3 Mean Corpuscular Hemoglobin 33.7 Concent Red Cell Distribution Width 14.2 Platelet Count 462 Mean Platelet Volume 7.0 Neutrophils (%) (Auto) 86.6 Lymphocytes (%) (Auto) 4.1 Monocytes (%) (Auto) 9.0 Eosinophils (%) (Auto) 0.2 Basophils (%) (Auto) 0.1 Neutrophils # (Auto) 16.3 Lymphocytes # (Auto) 0.8 Monocytes # (Auto) 1.7 Eosinophils # (Auto) 0.0 Basophils # (Auto) 0.0 CBC Comment AUTO DIFF Differential Comment AUTO DIFF CONFIRMED Platelet Estimate NORMAL Platelet Morphology Comment NORMAL Red Cell Morphology Comment NORMAL Date/Time Procedure Status Source Growth 09/15/16 13:30 Urine Culture - Final Complete Urine Catheterized Urine NO GROWTH IN 48 HOURS. 09/15/16 11:28 Aerobic Blood Culture - Preliminary Resulted Blood Peripheral NO GROWTH IN 3 DAYS 09/15/16 11:28 Anaerobic Blood Culture - Preliminary Resulted Blood Peripheral NO GROWTH IN 3 DAYS Result Diagram: 09/18/16 1655 09/18/16 1650 Imaging Last 48 hours Impressions Chest X-Ray 09/18/16 0000 Signed Impressions: Service Date/Time: Sunday, September 18, 2016 15:27 - CONCLUSION: Bibasilar areas of mild atelectasis or consolidation being worse on the right. There are suspected mild bilateral pleural effusions. En Lambert MD Abdomen/Pelvis CT 09/18/16 0000 Signed Impressions: Service Date/Time: Sunday, September 18, 2016 10:34 - CONCLUSION: 1. Compared to the prior examination of 09/17/2016, there has been no significant change in the overall appearance of the colon. There continues to be diffuse wall thickening involving the right and left colon suggestive of colitis with some moderate distention. However, no increased distention is seen on today's examination. There is no evidence of free air. 2. No change in the abdominal ascites. 3. No change in body wall anasarca. 4. No change in the bibasilar infiltrates and bilateral effusions. Odilon Alexandra MD Chest X-Ray 09/17/16 0000 Signed Impressions: Service Date/Time: Saturday, September 17, 2016 19:18 - CONCLUSION: 1. Right lower lobe atelectasis versus infiltrate. 2. Blunting of the left costophrenic angle suggesting a tiny left effusion. Marty Neely Jr., MD Abdomen/Pelvis CT 09/17/16 0000 Signed Impressions: Service Date/Time: Saturday, September 17, 2016 15:16 - CONCLUSION: 1. The exam demonstrates diffuse colonic thickening most consistent with a colitis. The overall amount of colonic thickening is stable from previous exam however, there has now been development of a small amount of abdominal ascites. 2. Interval development of bilateral effusions and consolidative changes in the lung bases. Thomas Vásquez MD Assessment and Plan Problem List: (1) Oliguria Plan: Patient's oliguria has improved with bumetanide drip. Oliguria possibly related to sepsis but also I believe that this patient is at significant risk for development of abdominal compartment syndrome based on clinical examination with a markedly distended and tense abdomen. I will defer monitoring of patient's intra-abdominal pressure to critical care at this time. If the oliguria reoccurs however strongly recommend that this diagnosis be considered. If the patient does indeed develop significant abdominal compartment syndrome definitive management would be abdominal decompression. It is noted that colorectal surgery has been counseled it. (2) Nontraumatic compartment syndrome of abdomen Plan: Patient is at risk for. (3) CKD (chronic kidney disease) stage 2, GFR 60-89 ml/min Plan: Most likely secondary to nephrosclerosis. Assessment and Plan The patient's renal indices remain stable with maintenance of adequate urine output I will see the patient on a when necessary basis only. Broderick Hendricks MD Sep 18, 2016 19:45
[2016-09-18] MEDS: CLINIMIX E 4.25/25 2000 mL- >42 mls/hr IV-CENTRAL SCH ×3 (20:25)
[2016-09-19] VITALS (20 sets, daily range): BP systolic 126–153; BP diastolic 61–74; PULSE 87–112; RESP 12–30; TEMP 98.6–99; O2SAT 95–98
[2016-09-19] MEDS: metroNIDAZOLE 500 MG INJ 100 ML IV SCH ×4 (02:24→21:35)
[2016-09-19] MEDS: CHLORHEXIDINE GLUCONATE 2 % 1 PACK (2 CLOTHS) TOP SCH (02:24)
[2016-09-19] MEDS: LEVOTHYROXINE SODIUM 100 MCG VIAL IV PUSH SCH (05:11)
[2016-09-19] MEDS: VANCOMYCIN INJ 500 MG in SODIUM CHLORIDE 0.9% IRR BTL 250 ML IRRIGATION SCH ×3 (05:11→18:15)
[2016-09-19] MEDS: ALBUMIN HUMAN 25% 12.5 GM/50 ML BAGP IV SCH ×3 (05:11→21:35)
[2016-09-19] MEDS: VANCOMYCIN 500 MG VIAL (FOR ORAL USE ONLY) PO SCH ×3 (05:11→18:15)
[2016-09-19] MEDS: MORPHINE SULFATE 4 MG/ML INJ IV PRN ×4 (05:12→18:15)
[2016-09-19] MEDS: HEPARIN SODIUM - SQ 10,000 UNITS/ML VIAL SQ SCH ×3 (05:12→21:35)
--- NOTE | 2016-09-19 05:15 | MB ---
cc: SAMIR MURRIETA M.D. DATE OF CONSULTATION: 09/18/2016 REASON FOR CONSULTATION: C. Diff colitis, abdominal pain. HISTORY OF PRESENT ILLNESS Ms. Hebert is an 86-year-old female recently undergoing orthopedic surgery. While in rehab, she developed a urinary tract infection and after broad-spectrum antibiotic was admitted with shortness of breath and respiratory difficulties. Since admission, she has had multiple medical problems including increased abdominal pain, fairly significant diarrhea, and stool testing positive for C. diff. She has been treated rather aggressively with oral medication as well as rectal vancomycin enemas. She was also exhibiting a significant amount of hypotension with a leukocytosis up to about 40,000. The undersigned was consulted due to increasing abdominal distension and recent drop in urine output. CT scans obtained show significant edema and swelling especially on the right colon, transverse colon, and most of the left colon. Very little colonic distension, only small amounts of ascites. The patient has continued to complain of significant amount of abdominal pain. Recent nephrology consult with administration of Bumex drip have resulted in increased urine output. PAST MEDICAL HISTORY, PAST SURGICAL HISTORY: Please see multiple admissions and consultation for more complete past medical and surgical history. PERTINENT PHYSICAL A very pleasant older female in some distress. HEENT: Remarkable for very dry but pink membranes, nonicteric sclera. NECK: Neck was a little stiff without adenopathy. CHEST: Markedly diminished in the bases with crackles, clear anteriorly. HEART: Heart had a regular rhythm, slight tachycardia. ABDOMEN: Abdomen was grossly distended, taut, quite a bit of tympany. Tender in the right lower quadrant across to the midline. No masses. No obvious hernias. No rebound or guarding, rectal tube was in place draining clear, almost watery fluid. EXTREMITIES: Significant for orthopedic trauma on the left side. LABORATORY STUDIES: The white count has gone down to 18.8, hemoglobin 10.7, platelet count was 462,000. Electrolytes remarkable for BUN of 26, creatinine of 0.6, CO2 is 25, liver enzymes with albumin of 2.7. CT scans were reviewed. IMPRESSION An 86 year-old female, status post orthopedic trauma and surgery, being treated for significant C. Difficile colitis. I spoke with Dr. Grewal, and after reviewing the blood work and lab tests, since she has started to increase her urine output with the Bumex drip, some of the abdominal distension may gradually resolve with diuresis, potentially more of a pressure phenomenon rather than significant sepsis. Her blood pressure has improved and her white count has fallen. Will monitor her closely over the next 12 to 24 hours and if abdominal swelling persists, she would be a very high-risk candidate but could be considered for colectomy. We might do a sigmoidoscopy to assess the status of the sigmoid colon in the morning to get some prognostic information. MD MIRI Mathis/JAMES /11:48 PM /5:00 AM
[2016-09-19 06:19] LABS: AUTOMATED NEUTROPHIL # 10.9 TH/MM3 (1.8-7.7); BASOPHIL % 0.3 % (0.0-2.0); EOSINOPHIL % 0.2 % (0.0-4.0); HEMATOCRIT 33.4 % (35.0-46.0); LYMPH % 5.4 % (9.0-44.0); LYMPHOCYTE # 0.7 TH/MM3 (1.0-4.8); MEAN CELL VOLUME 89.5 FL (80.0-100.0); MEAN CORPUSCULAR HEMOGLOBIN 30.4 PG (27.0-34.0); NEUT % 82.1 % (16.0-70.0); PLATELET COUNT 453 TH/MM3 (150-450); RED BLOOD COUNT 3.73 MIL/MM3 (4.00-5.30); RED CELL DISTRIBUTION WIDTH 14.2 % (11.6-17.2); WHITE BLOOD COUNT 13.3 TH/MM3 (4.0-11.0)
[2016-09-19 06:22] LABS: HEMO FLAGS AUTO DIFF
[2016-09-19 06:42] LABS: ANION GAP 11 MEQ/L (5-15); AST (GOT) 21 U/L (15-37); BICARBONATE 24.2 MEQ/L (21.0-32.0); BLOOD UREA NITROGEN 24 MG/DL (7-18); CHLORIDE 106 MEQ/L (98-107); GLOMERULAR FILTRATION RATE 78 ML/MIN (>89); POTASSIUM 3.1 MEQ/L (3.5-5.1); SODIUM (NA) 141 MEQ/L (136-145)
[2016-09-19 06:51] LABS: BANDS 15 % (0-6); CORRECTED NUCLEATED RBC 1 /100 WBC (0-0); NEUTROPHIL # MANUAL DIFF 10.9 TH/MM3 (1.8-7.7); PLATELET ESTIMATE SMEAR HIGH (NORMAL); PLATELET MORPHOLOGY NORMAL (NORMAL); POLYS (SEG NEUTROPHILS) 67 % (16-70); SCAN/DIFF FINAL DIFF MANUAL; WBC DIFF SAMPLE 100
[2016-09-19 06:56] LABS: ALKALINE PHOSPHATASE 78 U/L (45-117); ALT (GPT) 14 U/L (10-53); TOTAL BILIRUBIN ADULT 0.4 MG/DL (0.2-1.0)
[2016-09-19] MEDS: PANTOPRAZOLE SODIUM 40 MG VIAL IV SCH (08:45)
[2016-09-19] MEDS: SODIUM CHLORIDE 0.9% FLUSH 10 ML FLUSH IV FLUSH PRN ×2 (08:46→08:47)
[2016-09-19] MEDS: SODIUM CHLORIDE 0.9% FLUSH 10 ML FLUSH IVF SCH (08:46)
[2016-09-19] MEDS: ARTIFICIAL TEARS OPTH SOLN 15 ML BTL EACH EYE SCH ×3 (08:46→17:07)
[2016-09-19] MEDS: SODIUM CHLORIDE 0.9% FLUSH 10 ML FLUSH IVF PRN (08:46)
[2016-09-19] MEDS: SODIUM CHLORIDE 0.9% FLUSH 10 ML FLUSH IV FLUSH SCH ×3 (08:47→21:36)
[2016-09-19] MEDS ORDERED: PADIMATE (CHAPSTICK) 4.5 GM TUBE TOPICAL PRN (09:30)
--- NOTE | 2016-09-19 09:50 | HHI.GIFU ---
Subjective Remarks Resting in bed. Having abdominal pain. Worsening abdominal distention, confirmed with nurse. PICC line placed and TPN is running. (Raquel Khan) Objective Vitals I&O Vital Signs Date Time Temp Pulse Resp B/P Pulse Ox O2 Delivery O2 Flow Rate FiO2 09/19/16 07:28 97 Nasal Cannula 1.00 09/19/16 06:00 87 09/19/16 04:00 98.9 92 19 136/66 96 09/19/16 04:00 92 09/19/16 02:00 87 09/19/16 00:00 112 09/19/16 00:00 98.8 112 24 153/74 96 09/18/16 22:34 96 Nasal Cannula 1.00 09/18/16 22:00 86 09/18/16 20:00 98.6 90 17 153/68 97 09/18/16 20:00 90 09/18/16 18:00 85 09/18/16 16:00 86 09/18/16 16:00 98.9 86 17 148/67 97 09/18/16 15:00 91 24 134/63 97 09/18/16 14:00 92 21 143/64 97 09/18/16 14:00 92 09/18/16 13:00 94 23 148/66 97 09/18/16 12:00 88 09/18/16 12:00 98.7 88 18 144/67 99 09/18/16 11:00 89 20 146/67 98 09/18/16 10:00 85 21 149/68 98 09/18/16 10:00 85 I/O 09/18/16 09/18/16 09/18/16 09/19/16 09/19/16 09/19/16 07:00 15:00 23:00 07:00 15:00 23:00 Intake Total 613 ml 530 ml 2178 ml 245 ml Output Total 300 ml 125 ml 1700 ml 1650 ml Balance 313 ml 405 ml 478 ml -1405 ml Intake Oral 50 ml 30 ml 30 ml IV Total 513 ml 450 ml 2128 ml 165 ml Albumin 50 ml 50 ml 50 ml 50 ml Output Urine Total 250 ml 125 ml 1700 ml 1650 ml Stool Total 50 ml 0 ml 0 ml 0 ml Laboratory Laboratory Tests Test 09/18/16 09/18/16 09/18/16 6/24/17 11:52 14:15 16:50 16:55 Sodium Level 140 141 Potassium Level 3.7 3.7 Chloride Level 108 108 Carbon Dioxide Level 21.2 25.2 Anion Gap 11 8 Blood Urea Nitrogen 27 26 Creatinine 0.63 0.61 Estimat Glomerular Filtration 89 93 Rate Random Glucose 123 129 Calcium Level 7.9 7.9 Phosphorus Level 1.6 1.3 Magnesium Level 2.7 Total Bilirubin 0.5 0.4 Aspartate Amino Transf 22 18 (AST/SGOT) Alanine Aminotransferase 15 15 (ALT/SGPT) Alkaline Phosphatase 89 79 Total Creatine Kinase 102 Total Protein 5.3 5.0 Albumin 2.7 2.7 Triglycerides Level 70 Lactic Acid Level 1.0 White Blood Count 18.8 Red Blood Count 3.54 Hemoglobin 10.7 Hematocrit 31.8 Mean Corpuscular Volume 89.8 Mean Corpuscular Hemoglobin 30.3 Mean Corpuscular Hemoglobin 33.7 Concent Red Cell Distribution Width 14.2 Platelet Count 462 Mean Platelet Volume 7.0 Neutrophils (%) (Auto) 86.6 Lymphocytes (%) (Auto) 4.1 Monocytes (%) (Auto) 9.0 Eosinophils (%) (Auto) 0.2 Basophils (%) (Auto) 0.1 Neutrophils # (Auto) 16.3 Lymphocytes # (Auto) 0.8 Monocytes # (Auto) 1.7 Eosinophils # (Auto) 0.0 Basophils # (Auto) 0.0 CBC Comment AUTO DIFF Differential Comment AUTO DIFF CONFIRMED Platelet Estimate NORMAL Platelet Morphology Comment NORMAL Red Cell Morphology Comment NORMAL Test 09/19/16 04:05 White Blood Count 13.3 Red Blood Count 3.73 Hemoglobin 11.3 Hematocrit 33.4 Mean Corpuscular Volume 89.5 Mean Corpuscular Hemoglobin 30.4 Mean Corpuscular Hemoglobin 34.0 Concent Red Cell Distribution Width 14.2 Platelet Count 453 Mean Platelet Volume 7.4 Neutrophils (%) (Auto) 82.1 Lymphocytes (%) (Auto) 5.4 Monocytes (%) (Auto) 12.0 Eosinophils (%) (Auto) 0.2 Basophils (%) (Auto) 0.3 Neutrophils # (Auto) 10.9 Lymphocytes # (Auto) 0.7 Monocytes # (Auto) 1.6 Eosinophils # (Auto) 0.0 Basophils # (Auto) 0.0 CBC Comment AUTO DIFF Differential Total Cells 100 Counted Neutrophils % (Manual) 67 Band Neutrophils % 15 Lymphocytes % 4 Monocytes % 14 Neutrophils # (Manual) 10.9 Nucleated Red Blood Cells 1 Differential Comment FINAL DIFF MANUAL Platelet Estimate HIGH Platelet Morphology Comment NORMAL Red Cell Morphology Comment NORMAL Sodium Level 141 Potassium Level 3.1 Chloride Level 106 Carbon Dioxide Level 24.2 Anion Gap 11 Blood Urea Nitrogen 24 Creatinine 0.71 Estimat Glomerular Filtration 78 Rate Random Glucose 175 Calcium Level 7.8 Phosphorus Level 2.5 Total Bilirubin 0.4 Aspartate Amino Transf 21 (AST/SGOT) Alanine Aminotransferase 14 (ALT/SGPT) Alkaline Phosphatase 78 Total Protein 4.9 Albumin 2.6 Date/Time Procedure Status Source Growth 09/15/16 13:30 Urine Culture - Final Complete Urine Catheterized Urine NO GROWTH IN 48 HOURS. 09/15/16 11:28 Aerobic Blood Culture - Preliminary Resulted Blood Peripheral NO GROWTH IN 3 DAYS 09/15/16 11:28 Anaerobic Blood Culture - Preliminary Resulted Blood Peripheral NO GROWTH IN 3 DAYS Imaging Last Impressions Chest X-Ray 09/18/16 0000 Signed Impressions: Service Date/Time: Sunday, September 18, 2016 15:27 - CONCLUSION: Bibasilar areas of mild atelectasis or consolidation being worse on the right. There are suspected mild bilateral pleural effusions. En Lambert MD Abdomen/Pelvis CT 09/18/16 0000 Signed Impressions: Service Date/Time: Sunday, September 18, 2016 10:34 - CONCLUSION: 1. Compared to the prior examination of 09/17/2016, there has been no significant change in the overall appearance of the colon. There continues to be diffuse wall thickening involving the right and left colon suggestive of colitis with some moderate distention. However, no increased distention is seen on today's examination. There is no evidence of free air. 2. No change in the abdominal ascites. 3. No change in body wall anasarca. 4. No change in the bibasilar infiltrates and bilateral effusions. Odilon Alexandra MD Abdomen X-Ray 09/16/16 0600 Signed Impressions: Service Date/Time: August 03:32 - CONCLUSION: Colitis without obstruction. En Andres MD Physical Exam HEENT: Normocephalic; atraumatic; no jaundice CHEST: Resp even/unlabored, diminished CARDIAC: RRR ABDOMEN: Moderate to severe distention/tympanic, moderate diffuse abdominal tenderness; bowel sounds hypoactive. Flexiseal with liquid stool in tubing. EXTREMITIES: Generalized edema. Left CKS, Left upper extremity in sling. SKIN: Normal; no rash; no jaundice. [employer]: Lethargic, oriented to self and place. (Raquel Khan) Assessment and Plan Plan ASSESSMENT: - Severe C difficile colitis (Epid 027 (+) in patient with recent abx use and hypotension). CT Scan abdomen and pelvis with IV contrast (09/15/16)----> 1. Diffuse thickening of the entire colon consistent with diffuse colitis. 2. Mild atherosclerotic calcifications seen at the aorta. There is no aneurysm. Contrast is seen within the celiac, SMA and HARRIS. 3. Small non-obstructing right renal stone. Colonoscopy (05/20/2005) revealed normal colon, medium internal hemorrhoids. Rpt. Abdomen/Pelvis CT (09/17/16)---> 1. The exam demonstrates diffuse colonic thickening most consistent with a colitis. The overall amount of colonic thickening is stable from previous exam however, there has now been development of a small amount of abdominal ascites. 2. Interval development of bilateral effusions and consolidative changes in the lung bases.Abdomen/Pelvis CT 09/18/16--1. Compared to the prior examination of 09/17/2016, there has been no significant change in the overall appearance of the colon. There continues to be diffuse wall thickening involving the right and left colon suggestive of colitis with some moderate distention. However, no increased distention is seen on today's examination. There is no evidence of free air. 2. No change in the abdominal ascites. 3. No change in body wall anasarca. 4. No change in the bibasilar infiltrates and bilateral effusions. WBC 13.3 today. Small amount liquid stool 50cc-200cc per shift. Sill with diffuse abdominal tenderness. General surgery consulted. Oral Vanco, Flagyl, Vanco Enema. - Ileus secondary to above. She has been taking pericolace and lactinex. She was given a dose of MOM and relistor on 09/14/16. Afterwards, she started having significant diarrhea with liquid stool and significant pain/distention. More tympanic and distended today. NPO - Malnutrition. Was started on TPN, Clinimix E 4.25/25 at rate of 62.5 ml/hr 20 % lipids, twice weekly, infuse 250 mls over 8 hrs. - Sepsis/Leukocytosis secondary to severe CDiff infection. WBC 13.3 today. ID following, Flagyl, Oral vanco, Vanco enemas - Anemia. Stable, 11.3/33.4 - Acute on chronic kidney injury. Per ccm - Recent fall at home on 09/04/16 and sustained a left femoral neck fracture and left humeral head fracture. S/P Bipolar hemiarthroplasty on 09/05/[address] Bill and her left humeral head fracture is being treated conservatively with sling. She was transferred to [facility] on 09/09/16, but transferred to the unit for severe abdominal tenderness and leukocytosis with concern for mesenteric ischemia. - History of TIA (on plavix), OA, Hx HTN now with hypotension, hyperlipidemia, CKD per attending. PLAN: - NPO - Repeat KUB - TPN- Clinimix E 4.25/25 at rate of 62.5 ml/hr 20% lipids, twice weekly, infuse 250 mls over 8 hrs - Cont. Flagyl IV - Cont. Oral Vancomycin - Cont. Vanco Enema 500mg in 100mL NS retention enema TX q6h - Cont. IVF - Cont. Albumin - ID following - GS consulted, await recommendations - [facility] following - Supportive care - Notify GI of worsening pain, distention - Further recommendations to follow based on results of above Patient seen and examined by Dr. Todd and myself and this note is written on his behalf (Raquel Khan) Physician Comments patient was seen and examined, agree with above note and plan, abdomen is slightly worse distention today but KUB is not worse so it could be ascites, consider tapping her abdomen if US confirm enough fluid to tap. (Juan Carlos Todd MD) Raquel Khan Sep 19, 2016 09:50 Juan Carlos Todd MD Sep 19, 2016 14:08
--- NOTE | 2016-09-19 10:17 | HHI.CCPN ---
Subjective Remarks/Hospital Course This is an 86-year-old female. Date of admission 09/15/2016. Past medical history includes peripheral neuropathy, TIA history, osteoarthritis, spinal stenosis, hypertension, dyslipidemia, chronic kidney disease stage II, hypothyroidism, chronic lumbar pain with previous history of nerve blocks and gastroesophageal reflux disease. See originally presented to [facility] status post unwitnessed fall at home which he had a left femoral neck fracture and left humeral head fracture. She was seen in consultation by Dr. Bill and had a bipolar gayla-plasty 09/05 without complication. Left wrist fractures treated conservatively with a sling therapy. Patient was sent to rehabilitation 09/09 09/12 patient was diagnosed with urinary tract infection. Initially treated with Ceftin 500 mg every 12 and switch to Rocephin 1 g every 24 09/13. Patient having constipation KUB revealed stool 09/13. Receiving fleets enema 1 and Relistor 12 mg subcutaneous 1. Along with Florastor twice a day Since admission rehabilitation on Angelic-Colace. Yesterday, she was noted to have multiple bouts of diarrhea starting yesterday Today, consultation to hospitalist for hypotension abdominal pain. Noted she had white cell count that jumped from slightly above normal to 43,000 late yesterday. LFTs and lipase were normal. Lactate slightly elevated 3.2 currently 2.2 after [address] abdomen/pelvis revealed ileus type pattern. With gas in the bowel. Mild anasarca. Some free fluid in the pelvis. A nonobstructing right calculus. She received 2 L normal saline wide open was transferred to [id number] and we are asked to see in consultation. C. difficile was drawn. Worried about mesenteric ischemia sent to CT with contrast At the present time, patient complaining of diffuse abdominal pain specifically in the bilateral lower quadrants. Abdomen soft. Voluntary guarding. No rigidity. 09/16: Noted Hieu-Synephrine started overnight and 70 mu./m. Received 2 L normal saline. Urine output decreased however the creatinine is still within normal limits. Started on vancomycin enema, oral and IV Flagyl for C. difficile positive. Abdominal pain currently 8 out of 10 Subjective 09/17: Afebrile. Abdominal pain still 8 out of 10. Percocet central line yesterday however currently off all vasopressors. Will attempt single lumen PICC line for TPN 09/18: Remains critically ill. Off pressors, but abdomen severe distension, tympanic and tender. CT yesterday diffuse thickening, predominately R colon. D/ W radiology Dr. Alexandra, will repeat CT abdomen stat today. Keep nothing by mouth. CBC CMP and lactic acid stat pending 09/19: Remains critically ill, continues to have severe abdominal distention and tenderness. CT surgery Dr. Abarca was consulted yesterday, he is following. Urine output excellent with Bumex infusion 3.5 L in last 16 hours. Patient is reluctant to consider surgical options at this time. D/W Dr. Abarca, continue conservative management Objective Vital Signs Date Time Temp Pulse Resp B/P Pulse Ox O2 Delivery O2 Flow Rate FiO2 09/19/16 07:28 97 Nasal Cannula 1.00 09/19/16 06:00 87 09/19/16 04:00 98.9 19 136/66 09/16/16 16:29 21 Intake and Output 09/18/16 09/18/16 09/19/16 08:00 16:00 00:00 Intake Total 613 ml 530 ml 2178 ml Output Total 300 ml 125 ml 1700 ml Balance 313 ml 405 ml 478 ml Result Diagram: 09/19/16 0405 09/19/16 0405 Imaging Last Impressions Abdomen X-Ray 09/16/16 0600 Signed Impressions: Service Date/Time: August 03:32 - CONCLUSION: Colitis without obstruction. En Andres MD Chest X-Ray 09/15/16 1155 Signed Impressions: Service Date/Time: Thursday, September 15, 2016 12:29 - CONCLUSION: 1. Right IJ central line in good position without pneumothorax. Aldair Garcia MD Abdomen/Pelvis CT 09/15/16 0000 Signed Impressions: Service Date/Time: Thursday, September 15, 2016 09:43 - CONCLUSION: 1. Diffuse thickening of the entire colon consistent with diffuse colitis. 2. Mild atherosclerotic calcifications seen at the aorta. There is no aneurysm. Contrast is seen within the celiac, SMA and HARRIS. 3. Small non-obstructing right renal stone. En Lambert MD Objective Remarks GENERAL: 86-year-old female, resting in bed in moderate distress SKIN: Warm and dry. Ecchymosis to the left upper extremity HEAD: Atraumatic. Normocephalic. EYES: Pupils equal and round about 3 mm bilaterally. ENT: No nasal bleeding or discharge. Upper dentures/partial lower dentures. NECK: Trachea midline. No JVD. CARDIOVASCULAR: Regular rate and rhythm. S1, S2. No S4. Without murmur RESPIRATORY: No accessory muscle use. Clear to auscultation. Breath sounds equal bilaterally. GASTROINTESTINAL: Abdomen severely distended tympanic to percussion tender to palpation. MUSCULOSKELETAL: Extremities with trace lower extremity edema. Left leg is in a immobilizer. Left arm is in a sling NEUROLOGICAL: Awake and alert. No obvious cranial nerve deficits. Motor grossly within normal limits. Five out of 5 muscle strength in the arms and legs. Normal speech. PSYCHIATRIC: Appropriate mood and affect; insight and judgment normal. Urinary Catheter: Yes Assessment to: Continue Vascular Central Line Catheter: Yes Assessment to: Continue Date of Insertion: Sep 15, 2016 Date of Removal: Sep 16, 2016 Line: Central Venous Catheter Side: Right Location: Internal, Jugular A/P Assessment and Plan Neuro/Psych: Peripheral neuropathy History of TIA Spinal stenosis IV Acetaminophen for fever Morphine for pain management for left hip fracture/humerus fracture in past CV: Fluid overload Lactic acidosis History of hypertension Dyslipidemia Currently off all vasopressors, Status post 5 L normal saline resuscitation Bumex bolus and infusion at 0.5 mg per hour started yesterday 09/18/16 evening Urinary output excellent with Bumex Holding Xarelto 10 mg daily and Plavix 75 mg by mouth daily. Holding home medications of Pravachol 80 mg at night and Zetia 10 mg daily night of ileus. Holding lisinopril 10 mg daily light of hypotension and acute kidney injury Resp: Nasal cannula to maintain saturations greater than or equal to 92% Incentive spirometry while awake DuoNeb every 6 hours when necessary GI: Severe C. difficile colitis, hypervirulent strain 027 Moderate protein calorie malnutrition with albumin 1.[address] abdomen/pelvis 09/14 revealed mild chronic ileus type pattern. Nonobstructing right nephrolithiasis. Some free fluid in the pelvis. Mild anasarca. CT abdomen/post contrast 09/17 revealed diffuse colitis. Noted C. difficile positive see below Discussed with radiology Dr. Alexandra. Repeat CT abdomen and pelvis without contrast 09/18 showed similar findings with predominantly right-sided COLON Thickening and ascites Scheduled 12.5 g IV every 8 hours per GI day currently 2.3 TPN per GIs recommendations at 62.5 cc an hour with lipids 10% 250 cc 2 times a week Protonix 40 mg IV daily for GI prophylaxis Nothing by mouth Endo: Hypothyroidism Hyperglycemia Sliding-scale insulin with Accu-Cheks to maintain euglycemia/low regimen Continue iv Levoxyl 25 mics Electrolyte replacement per protocol Renal: Acute on chronic kidney injury stage II Nonobstructing right nephrolithiasis Bumex 2 MG iv bolus and infusion at 0.5 mg per hour started yesterday 09/18/16 evening Urinary output excellent with Bumex. Change to scheduled Bumex IV from 09/20/16 Monitor urine output, Accurate I's and O's Follow BMP magnesium and phosphorus in a.m. Nonobstructing right-sided nephrolithiasis noted Heme: Leukocytosis Thrombocytosis Normocytic anemia Monitor CBC daily. Follow trends ID: C. difficile, hypervirulent strain 027 Severe sepsis E cloacae UTI-urine culture on 09/15/16 negative Currently vancomycin enema 500 mg every 6, 500 mg by mouth every 6 and Flagyl 500 mg IV every 8 day #5 09/15 blood cultures 2, urine cultures no growth to date C. difficile positive Colorectal surgery and Gi following At this time continue conservative management. FEN: Hyper-magnesium Hypophosphatemia Replace electrolytes as clinically indicated MSK: Osteoarthritis Status post bipolar hemiarthroplasty secondary to left femoral neck fracture by Dr. Bill Left humerus fracture conservative management with sling Holding vitamin D 3 2000 units daily and Os-[place] D5 100/250 one tablet twice a day Access - Utilize IV. PICC placement 09/18 Prophylaxis - GI - Protonix - DVT - SCDs/heparin subcutaneous Critical Care: CCT 30 min Patient remains acutely critically ill. Abdominal distention is increasing. CRS and GI following. Christiano Gatica MD Sep 19, 2016 10:17 Christiano Gatica MD Sep 19, 2016 10:17
[2016-09-19] MEDS ORDERED: RESP: ALBUTEROL 2.5 MG/IPRATROPIUM 0.5 MG NEB (PRN) NEB (10:30)
--- NOTE | 2016-09-19 10:30 | HHI.PR ---
Subjective Remarks C/R Surg afebrile, VSS UO good on bumex BP adeq still c/o abd pain Objective - Vital Signs Date Time Temp Pulse Resp B/P Pulse Ox O2 Delivery O2 Flow Rate FiO2 09/19/16 07:28 97 Nasal Cannula 1.00 09/19/16 06:00 87 09/19/16 04:00 98.9 19 136/66 09/16/16 16:29 21 Result Diagram: 09/19/16 0405 09/19/16 0405 Objective Remarks PE alert Abd - distended, tight, mildly tender rectal tube - cleat output A/P Assessment and Plan Imp: stable, no acidosis, bun/cr holding discussed with pt - will cont observation, med Rx unless she shows signs of decompansating Carlitos Abarca MD Sep 19, 2016 10:29
--- NOTE | 2016-09-19 11:44 | RADRPT ---
EXAM DATE/TIME: 09/19/2016 10:13 [place] COMPARISON: CT ABDOMEN & PELVIS W/O CONTRAST, September 18, 2016, 10:34. ABDOMEN KUB ONLY, September 16, 2016, 3:32. INDICATIONS : Distention and abdominal pain. MEDICAL HISTORY : None. SURGICAL HISTORY : None. ENCOUNTER: Initial ACUITY: 3 days PAIN SCORE: 5/10 LOCATION: Bilateral abdomen. FINDINGS: Supine view of the abdomen was performed. The abdominal bowel gas pattern is nonspecific. There cont inue to be some air-filled loops of small and large bowel which are mildly distended. distended. Ther e is more air seen in the colon on this examination compared to the prior study. There is less air in the small bowel. The bony structures are stable.. CONCLUSION: Nonspecific bowel gas pattern with some air-filled dilatation of the colon and to a lesser degree the small bowel. Patient has a known recent history of colitis. Odilon Alexandra MD on September 19, 2016 at 11:39 Board Certified Radiologist. This report was verified electronically.
--- NOTE | 2016-09-19 13:32 | HHI.IDPN ---
Subjective Subjective Remarks ID COVERAGE Notes reviewed D/W RN Still with abdominal pain and distension Not much stool - what comes out is the same same volume as enema UO better WBC better CT A/P no change KUB with ileus Temps ok BP ok Antibiotics flagyl IV vanco po vanco enemas Past Medical History Reviewed Allergies: Coded Allergies: Tizanidine (Verified Allergy, Severe, doesn't know, 09/09/16) Tramadol (Verified Allergy, Severe, doesn't remember, 09/09/16) Baclofen (Unverified Allergy, Intermediate, RASH, 09/09/16) Cipro (Unverified Allergy, Intermediate, RASH, 09/09/16) Cymbalta (Unverified Allergy, Intermediate, SEVERE RASH, 09/09/16) Elavil (Unverified Allergy, Intermediate, RASH, 09/09/16) Tetracycline (Unverified Allergy, Intermediate, RASH, 09/09/16) Triamcinolone (Unverified Allergy, Intermediate, SEVERE RASH, 09/09/16) Objective . Vital Signs Date Time Temp Pulse Resp B/P Pulse Ox O2 Delivery O2 Flow Rate FiO2 09/19/16 12:00 97 09/19/16 12:00 98.7 97 25 96 09/19/16 11:00 93 16 142/67 98 09/19/16 10:00 101 09/19/16 10:00 101 30 95 09/19/16 09:00 91 20 138/65 95 09/19/16 08:00 98.6 89 17 131/65 96 09/19/16 07:28 97 Nasal Cannula 1.00 09/19/16 07:00 90 19 136/67 96 09/19/16 06:00 87 09/19/16 04:00 98.9 92 19 136/66 96 09/19/16 04:00 92 09/19/16 02:00 87 09/19/16 00:00 112 09/19/16 00:00 98.8 112 24 153/74 96 09/18/16 22:34 96 Nasal Cannula 1.00 09/18/16 22:00 86 09/18/16 20:00 98.6 90 17 153/68 97 09/18/16 20:00 90 09/18/16 18:00 85 09/18/16 16:00 86 09/18/16 16:00 98.9 86 17 148/67 97 09/18/16 15:00 91 24 134/63 97 09/18/16 14:00 92 21 143/64 97 09/18/16 14:00 92 09/18/16 09/18/16 09/19/16 14:59 22:59 06:59 Intake Total 530 ml 2178 ml 245 ml Output Total 125 ml 1700 ml 1650 ml Balance 405 ml 478 ml -1405 ml Intake Oral 30 ml 30 ml IV Total 450 ml 2128 ml 165 ml Albumin 50 ml 50 ml 50 ml Output Urine Total 125 ml 1700 ml 1650 ml Stool Total 0 ml 0 ml 0 ml . Laboratory Tests Test 09/18/16 09/19/16 16:55 04:05 White Blood Count 18.8 TH/MM3 13.3 TH/MM3 Red Blood Count 3.54 MIL/MM3 3.73 MIL/MM3 Hemoglobin 10.7 GM/DL 11.3 GM/DL Hematocrit 31.8 % 33.4 % Mean Corpuscular Volume 89.8 FL 89.5 FL Mean Corpuscular Hemoglobin 30.3 PG 30.4 PG Mean Corpuscular Hemoglobin 33.7 % 34.0 % Concent Red Cell Distribution Width 14.2 % 14.2 % Platelet Count 462 TH/MM3 453 TH/MM3 Mean Platelet Volume 7.0 FL 7.4 FL Neutrophils (%) (Auto) 86.6 % 82.1 % Lymphocytes (%) (Auto) 4.1 % 5.4 % Monocytes (%) (Auto) 9.0 % 12.0 % Eosinophils (%) (Auto) 0.2 % 0.2 % Basophils (%) (Auto) 0.1 % 0.3 % Neutrophils # (Auto) 16.3 TH/MM3 10.9 TH/MM3 Lymphocytes # (Auto) 0.8 TH/MM3 0.7 TH/MM3 Monocytes # (Auto) 1.7 TH/MM3 1.6 TH/MM3 Eosinophils # (Auto) 0.0 TH/MM3 0.0 TH/MM3 Basophils # (Auto) 0.0 TH/MM3 0.0 TH/MM3 CBC Comment AUTO DIFF AUTO DIFF Differential Comment AUTO DIFF FINAL DIFF CONFIRMED MANUAL Platelet Estimate NORMAL HIGH Platelet Morphology Comment NORMAL NORMAL Red Cell Morphology Comment NORMAL NORMAL Differential Total Cells 100 Counted Neutrophils % (Manual) 67 % Band Neutrophils % 15 % Lymphocytes % 4 % Monocytes % 14 % Neutrophils # (Manual) 10.9 TH/MM3 Nucleated Red Blood Cells 1 /100 WBC Laboratory Tests Test 09/18/16 09/18/16 09/18/16 09/19/16 11:52 14:15 16:50 04:05 Sodium Level 140 MEQ/L 141 MEQ/L 141 MEQ/L Potassium Level 3.7 MEQ/L 3.7 MEQ/L 3.1 MEQ/L Chloride Level 108 MEQ/L 108 MEQ/L 106 MEQ/L Carbon Dioxide Level 21.2 MEQ/L 25.2 MEQ/L 24.2 MEQ/L Anion Gap 11 MEQ/L 8 MEQ/L 11 MEQ/L Blood Urea Nitrogen 27 MG/DL 26 MG/DL 24 MG/DL Creatinine 0.63 MG/DL 0.61 MG/DL 0.71 MG/DL Estimat Glomerular Filtration 89 ML/MIN 93 ML/MIN 78 ML/MIN Rate Random Glucose 123 MG/DL 129 MG/DL 175 MG/DL Calcium Level 7.9 MG/DL 7.9 MG/DL 7.8 MG/DL Phosphorus Level 1.6 MG/DL 1.3 MG/DL 2.5 MG/DL Magnesium Level 2.7 MG/DL Total Bilirubin 0.5 MG/DL 0.4 MG/DL 0.4 MG/DL Aspartate Amino Transf 22 U/L 18 U/L 21 U/L (AST/SGOT) Alanine Aminotransferase 15 U/L 15 U/L 14 U/L (ALT/SGPT) Alkaline Phosphatase 89 U/L 79 U/L 78 U/L Total Creatine Kinase 102 U/L Total Protein 5.3 GM/DL 5.0 GM/DL 4.9 GM/DL Albumin 2.7 GM/DL 2.7 GM/DL 2.6 GM/DL Triglycerides Level 70 MG/DL Lactic Acid Level 1.0 mmol/L Imaging Last Impressions Chest X-Ray 09/18/16 0000 Signed Impressions: Service Date/Time: Sunday, September 18, 2016 15:27 - CONCLUSION: Bibasilar areas of mild atelectasis or consolidation being worse on the right. There are suspected mild bilateral pleural effusions. En Lambert MD Abdomen/Pelvis CT 09/18/16 0000 Signed Impressions: Service Date/Time: Sunday, September 18, 2016 10:34 - CONCLUSION: 1. Compared to the prior examination of 09/17/2016, there has been no significant change in the overall appearance of the colon. There continues to be diffuse wall thickening involving the right and left colon suggestive of colitis with some moderate distention. However, no increased distention is seen on today's examination. There is no evidence of free air. 2. No change in the abdominal ascites. 3. No change in body wall anasarca. 4. No change in the bibasilar infiltrates and bilateral effusions. Odilon Alexandra MD Abdomen X-Ray 09/16/16 0600 Signed Impressions: Service Date/Time: , September 16, 2016 03:32 - CONCLUSION: Colitis without obstruction. En Andres MD Physical Exam CONSTITUTIONAL/GENERAL: Awake and alert, not in distress, C/O abdominal pain SKIN: Warm. No jaundice, rashes, or lesions. Diffuse weeping anasarca HEENT: [place] conjunctiva, no icterus. Dry oral mucosa without visible erythema, exudates, masses, or lesions. NECK: Supple, not tender CARDIOVASCULAR: Regular rate and rhythm without murmurs, gallops, or rubs. RESPIRATORY/CHEST: Symmetric, unlabored respirations. Clear to auscultation. Decreased at bases GASTROINTESTINAL: Abdomen very distended with diffuse abdominal tenderness, some guarding and with some peritoneal sign. Hypoactive BS. RECTAL: Dignishield in place GENITOURINARY: Bañuelos in place MUSCULOSKELETAL: Extremities without clubbing, cyanosis. Diffuse soft pitting edema, 3+, anasarca. No mottling NEUROLOGICAL: Grossly non-focal PSYCHIATRIC: calm and cooperative Assessment & Plan Remarks Severe life threatening colitis, C.diff, hypervirilent stain 027 severe - pt with progressive ileus SIRS, sepsis - due to C.diff - lactic acidosis, hypotension, acute renal dysfunction No e/o UTI Pt is critically ill and clinically worsening Pt does not appear to respond to the therapy, next step if cont to deteriorate will be colectomy, but I doubt that the pt is good candidate for a surgery PLAN: Continue po vancomycin Continue vanco enemas Continue IV flagyl Avoid systemic abx Monitor progress CRS following D/W Josefina Bardales MD Sep 19, 2016 13:32
[2016-09-19] MEDS ORDERED: HYDROmorphone HCL PF 1 MG/ML VIAL IV ONE (15:45)
--- NOTE | 2016-09-19 16:06 | RADRPT ---
EXAM DATE/TIME: 09/19/2016 15:34 [facility] COMPARISON: ABDOMEN KUB ONLY, September 19, 2016, 10:13. INDICATIONS : Pain. MEDICAL HISTORY : Cardiovascular disease. Hypertension SURGICAL HISTORY : None. ENCOUNTER: Subsequent ACUITY: 1 week PAIN SCORE: 10/10 LOCATION: Bilateral abdomen FINDINGS: Air-filled loops of colon are unchanged compared to the previous examination. Mild degenerative lozano ges and scoliosis of the lumbar spine are noted. A left hip replacement is noted. CONCLUSION: 1. No significant change in the air-filled loops of colon. 2. Degenerative changes and scoliosis of the lumbar spine. French Woodall MD on September 19, 2016 at 16:01 Board Certified Radiologist. This report was verified electronically.
[2016-09-19] MEDS: FAT EMULSION 20% INJ 250 ML (Twice weekly over 8 hours) IV-CENTRAL SCH (21:35)
[2016-09-19] MEDS: CLINIMIX E 4.25/25 2000 mL- >42 mls/hr IV-CENTRAL SCH ×3 (22:30)
[2016-09-20] VITALS (14 sets, daily range): BP systolic 104–122; BP diastolic 52–78; PULSE 93–106; RESP 18–24; TEMP 98.3–98.8; O2SAT 95–98
[2016-09-20] MEDS: MORPHINE SULFATE 4 MG/ML INJ IV PRN ×6 (01:14→15:02)
[2016-09-20] MEDS: VANCOMYCIN INJ 500 MG in SODIUM CHLORIDE 0.9% IRR BTL 250 ML IRRIGATION SCH ×4 (01:14→17:35)
[2016-09-20] MEDS: CHLORHEXIDINE GLUCONATE 2 % 1 PACK (2 CLOTHS) TOP SCH (01:16)
[2016-09-20] MEDS: metroNIDAZOLE 500 MG INJ 100 ML IV SCH ×4 (01:16→20:40)
--- NOTE | 2016-09-20 04:36 | RADRPT ---
EXAM DATE/TIME: 09/20/2016 03:16 [facility] COMPARISON: CT ABDOMEN & PELVIS W/O CONTRAST, September 18, 2016, 10:34. ABDOMEN KUB ONLY, September 19, 2016, 10:13. ABD OMEN KUB ONLY, September 19, 2016, 15:34. INDICATIONS : Abdominal pain. MEDICAL HISTORY : Cardiovascular disease. Hypertension SURGICAL HISTORY : Left hip arthroplasty ENCOUNTER: Subsequent ACUITY: 1 week PAIN SCORE: 10/10 LOCATION: Bilateral Abdomen FINDINGS: Gas-distended loops of colon similar in severity when compared to 09/19/16. Gas is seen in nondistend ed loops of small bowel. Left total hip arthroplasty. Diffuse hazy density about the abdomen and pe lvis stable in appearance. CONCLUSION: Stable degree of gaseous distention of the colon. Marty Marinelli MD on September 20, 2016 at 4:33 Board Certified Radiologist. This report was verified electronically.
[2016-09-20] MEDS: VANCOMYCIN 500 MG VIAL (FOR ORAL USE ONLY) PO SCH ×4 (06:00→17:35)
[2016-09-20] MEDS: LEVOTHYROXINE SODIUM 100 MCG VIAL IV PUSH SCH (06:28)
[2016-09-20] MEDS: HEPARIN SODIUM - SQ 10,000 UNITS/ML VIAL SQ SCH ×3 (06:28→22:15)
[2016-09-20] MEDS: ALBUMIN HUMAN 25% 12.5 GM/50 ML BAGP IV SCH ×3 (06:30→22:15)
[2016-09-20] MEDS: PANTOPRAZOLE SODIUM 40 MG VIAL IV SCH (08:30)
[2016-09-20] MEDS: ARTIFICIAL TEARS OPTH SOLN 15 ML BTL EACH EYE SCH ×3 (08:30→17:35)
[2016-09-20] MEDS: SODIUM CHLORIDE 0.9% FLUSH 10 ML FLUSH IV FLUSH SCH ×3 (08:30→20:40)
[2016-09-20] MEDS: SODIUM CHLORIDE 0.9% FLUSH 10 ML FLUSH IVF SCH (08:31)
--- NOTE | 2016-09-20 10:24 | RADRPT ---
EXAM DATE/TIME: 09/20/2016 09:53 [facility] COMPARISON: SHOULDER LEFT LTD (2VWS), September 04, 2016, 9:38. INDICATIONS : Follow up left shoulder fracture. MEDICAL HISTORY : None. SURGICAL HISTORY : None. ENCOUNTER: Subsequent ACUITY: 2 weeks PAIN SCORE: 10/10 LOCATION: Left shoulder FINDINGS: 2 views of the left shoulder demonstrate a fracture through the surgical neck of the proximal humerus . There is approximately 90 of rotation of the humeral head and fracture is mildly comminuted. No di slocation is appreciated. There is mild shortening. Acromioclavicular joint is intact. Bones appear u ndermineralized. Left chest demonstrates no acute finding. CONCLUSION: No significant interval change is identified. There is a displaced mildly comminuted proximal left hu meral neck fracture with rotation of the humeral head and associated shortening. En Robledo MD on September 20, 2016 at 10:20 Board Certified Radiologist. This report was verified electronically.
--- NOTE | 2016-09-20 10:26 | RADRPT ---
EXAM DATE/TIME: 09/20/2016 09:57 [facility] COMPARISON: HIP LEFT (AP&LAT 2/3VWS) W AP PELVIS, September 05, 2016, 9:50. INDICATIONS : Follow up, post op left hip replacement. MEDICAL HISTORY : None. SURGICAL HISTORY : left total hip replacement ENCOUNTER: Subsequent ACUITY: 2 weeks PAIN SCORE: 10/10 LOCATION: Left hip FINDINGS: AP view of the pelvis with 2 views of the right hip joint demonstrate no acute fracture or dislocatio n. The bones remain undermineralized. There is a left hip bipolar arthroplasty hardware in place. It demonstrates no acute finding. Skin danna remain present. No soft tissue abnormality or radiopaque foreign body is identified. CONCLUSION: Left hip bipolar arthroplasty hardware demonstrates no acute finding. The bones are undermineralized but no fracture is visualized. En Robledo MD on September 20, 2016 at 10:22 Board Certified Radiologist. This report was verified electronically.
[2016-09-20] MEDS: CLINIMIX E 4.25/25 2000 mL- >42 mls/hr IV-CENTRAL SCH ×3 (12:37)
[2016-09-20] MEDS: BUMETANIDE INJ 100 ML IV SCH (12:37)
--- NOTE | 2016-09-20 13:24 | HHI.CCPN ---
Subjective Remarks/Hospital Course This is an 86-year-old female. Date of admission 09/15/2016. Past medical history includes peripheral neuropathy, TIA history, osteoarthritis, spinal stenosis, hypertension, dyslipidemia, chronic kidney disease stage II, hypothyroidism, chronic lumbar pain with previous history of nerve blocks and gastroesophageal reflux disease. See originally presented to [facility] status post unwitnessed fall at home which he had a left femoral neck fracture and left humeral head fracture. She was seen in consultation by Dr. Bill and had a bipolar gayla-plasty 09/05 without complication. Left wrist fractures treated conservatively with a sling therapy. Patient was sent to rehabilitation 09/09 09/12 patient was diagnosed with urinary tract infection. Initially treated with Ceftin 500 mg every 12 and switch to Rocephin 1 g every 24 09/13. Patient having constipation KUB revealed stool 09/13. Receiving fleets enema 1 and Relistor 12 mg subcutaneous 1. Along with Florastor twice a day Since admission rehabilitation on Angel[facility]-Col[facility]. Yesterday, she was noted to have multiple bouts of diarrhea starting yesterday Today, consultation to hospitalist for hypotension abdominal pain. Noted she had white cell count that jumped from slightly above normal to 43,000 late yesterday. LFTs and lipase were normal. Lactate slightly elevated 3.2 currently 2.2 after [address] abdomen/pelvis revealed ileus type pattern. With gas in the bowel. Mild anasarca. Some free fluid in the pelvis. A nonobstructing right calculus. She received 2 L normal saline wide open was transferred to [id number] and we are asked to see in consultation. C. difficile was drawn. Worried about mesenteric ischemia sent to CT with contrast At the present time, patient complaining of diffuse abdominal pain specifically in the bilateral lower quadrants. Abdomen soft. Voluntary guarding. No rigidity. 09/16: Noted Hieu-Synephrine started overnight and 70 mu./m. Received 2 L normal saline. Urine output decreased however the creatinine is still within normal limits. Started on vancomycin enema, oral and IV Flagyl for C. difficile positive. Abdominal pain currently 8 out of 10 Subjective 09/17: Afebrile. Abdominal pain still 8 out of 10. Percocet central line yesterday however currently off all vasopressors. Will attempt single lumen PICC line for TPN 09/18: Remains critically ill. Off pressors, but abdomen severe distension, tympanic and tender. CT yesterday diffuse thickening, predominately R colon. D/ W radiology Dr. Alexandra, will repeat CT abdomen stat today. Keep nothing by mouth. CBC CMP and lactic acid stat pending 09/19: Remains critically ill, continues to have severe abdominal distention and tenderness. CT surgery Dr. Abarca was consulted yesterday, he is following. Urine output excellent with Bumex infusion 3.5 L in last 16 hours. Patient is reluctant to consider surgical options at this time. D/W Dr. Abarca, continue conservative management 09/20: Patient complains of abdominal pain, distention still noted. Repeat CT this a.m. reveal stable gaseous distention of the colon. Multimodal pain relief initiated, will begin Ofirmev 1 g every 6 hours for 24 hours. Objective Vital Signs Date Time Temp Pulse Resp B/P Pulse Ox O2 Delivery O2 Flow Rate FiO2 09/20/16 07:13 96 Nasal Cannula 1.00 09/20/16 06:00 96 09/20/16 04:00 98.7 19 118/71 09/16/16 16:29 21 Intake and Output 09/19/16 09/19/16 09/20/16 08:00 16:00 00:00 Intake Total 245 ml 625 ml 553 ml Output Total 1650 ml 700 ml 500 ml Balance -1405 ml -75 ml 53 ml Result Diagram: 09/19/16 0405 09/19/16 1825 Imaging Last Impressions Abdomen X-Ray 09/16/16 0600 Signed Impressions: Service Date/Time: August 03:32 - CONCLUSION: Colitis without obstruction. En Andres MD Chest X-Ray 09/15/16 1155 Signed Impressions: Service Date/Time: Thursday, September 15, 2016 12:29 - CONCLUSION: 1. Right IJ central line in good position without pneumothorax. Aldair Garcia MD Abdomen/Pelvis CT 09/15/16 0000 Signed Impressions: Service Date/Time: Thursday, September 15, 2016 09:43 - CONCLUSION: 1. Diffuse thickening of the entire colon consistent with diffuse colitis. 2. Mild atherosclerotic calcifications seen at the aorta. There is no aneurysm. Contrast is seen within the celiac, SMA and HARRIS. 3. Small non-obstructing right renal stone. En Lambert MD Objective Remarks GENERAL: 86-year-old female, resting in bed in moderate distress SKIN: Warm and dry. Ecchymosis to the left upper extremity HEAD: Atraumatic. Normocephalic. EYES: Pupils equal and round about 3 mm bilaterally. ENT: No nasal bleeding or discharge. Upper dentures/partial lower dentures. NECK: Trachea midline. No JVD. CARDIOVASCULAR: Regular rate and rhythm. S1, S2. No S4. Without murmur RESPIRATORY: No accessory muscle use. Clear to auscultation. Breath sounds equal bilaterally. GASTROINTESTINAL: Abdomen severely distended tympanic to percussion tender to palpation. MUSCULOSKELETAL: Extremities with trace lower extremity edema. Left leg noted knee immobilizer, to avoid flexion of femoral head. Left arm is in a sling NEUROLOGICAL: Awake and alert. No obvious cranial nerve deficits. Motor grossly within normal limits. Five out of 5 muscle strength in the arms and legs. Normal speech. PSYCHIATRIC: Appropriate mood and affect; insight and judgment normal. Urinary Catheter: Yes Assessment to: Continue Bañuelos insert reason: Measure Accurate Output Date of Insertion: Sep 15, 2016 Date of Removal: Sep 16, 2016 Line: Central Venous Catheter Side: Right Location: Internal, Jugular A/P Assessment and Plan Neuro/Psych: Peripheral neuropathy History of TIA Spinal stenosis IV Ofirmev 1 g every 6 hours 24 hours Morphine for pain management for left hip fracture/humerus fracture CV: Fluid overload Lactic acidosis History of hypertension Dyslipidemia Currently off all vasopressors, Status post 5 L normal saline resuscitation Bumex bolus and infusion at 0.5 mg per hour started 09/18/16 Urinary output excellent with Bumex Holding Xarelto 10 mg daily and Plavix 75 mg by mouth daily. Holding home medications of Pravachol 80 mg at night and Zetia 10 mg daily night of ileus. Holding lisinopril 10 mg daily light of hypotension and acute kidney injury Resp: Nasal cannula to maintain saturations greater than or equal to 92% Incentive spirometry while awake DuoNeb every 6 hours when necessary GI: Severe C. difficile colitis, hypervirulent strain 027 Moderate protein calorie malnutrition with albumin 1.[address] abdomen/pelvis 09/14 revealed mild chronic ileus type pattern. Nonobstructing right nephrolithiasis. Some free fluid in the pelvis. Mild anasarca. CT abdomen/post contrast 09/17 revealed diffuse colitis. Noted C. difficile positive see below CT abdomen/pelvis 09/20-stable gaseous distention of the colon Discussed with radiology Dr. Alexandra. Repeat CT abdomen and pelvis without contrast 09/18 showed similar findings with predominantly right-sided COLON Thickening and ascites Scheduled 12.5 g IV every 8 hours per GI day currently 2.3 TPN per GIs recommendations at 62.5 cc an hour with lipids 10% 250 cc 2 times a week Protonix 40 mg IV daily for GI prophylaxis Nothing by mouth Endo: Hypothyroidism Hyperglycemia Sliding-scale insulin with Accu-Cheks to maintain euglycemia/low regimen Continue iv Levoxyl 25 mcgs Electrolyte replacement per protocol Renal: Acute on chronic kidney injury stage II Nonobstructing right nephrolithiasis Bumex 2 MG iv bolus and infusion at 0.5 mg per hour started yesterday 09/18/16 evening Urinary output excellent with Bumex. Change to scheduled Bumex IV from 09/20/16 Monitor urine output, Accurate I's and O's Follow BMP magnesium and phosphorus in a.m. Nonobstructing right-sided nephrolithiasis noted Heme: Leukocytosis Thrombocytosis Normocytic anemia Monitor CBC daily. Follow trends ID: C. difficile, hypervirulent strain 027 Severe sepsis E cloacae UTI-urine culture on 09/15/16 negative Currently vancomycin enema 500 mg every 6, 500 mg by mouth every 6 and Flagyl 500 mg IV every 8 day #5 09/15 blood cultures 2, urine cultures no growth to date C. difficile positive Colorectal surgery and Gi following At this time continue conservative management. FEN: Hyper-magnesium Hypophosphatemia Replace electrolytes as clinically indicated MSK: Osteoarthritis Status post bipolar hemiarthroplasty secondary to left femoral neck fracture by Dr. Bill Left humerus fracture conservative management with sling Holding vitamin D 3 2000 units daily and Os-[place] D5 100/250 one tablet twice a day Access - Utilize IV. PICC placement 09/18 Prophylaxis - GI - Protonix - DVT - SCDs/heparin subcutaneous Critical Care: This patient remains critically ill with one or more organ systems which are or may become a threat to life. I have spent in excess of 30 minutes discontinuously in the care and management of this patient. This time is exclusive of procedures, and includes, but is not limited to, evaluation of the patient, review of the medical record, discussions with family, consultants, nursing staff, or respiratory therapy, and documentation in the medical record. Patient remains acutely critically ill. Continued abdominal distention is increasing. CRS and GI following. Physician Mandi Clark MD Sep 20, 2016 13:24
--- NOTE | 2016-09-20 13:29 | PD.ORT.PN ---
Subjective Subjective Remarks Patient doing well status post orthopedic surgery. She is continuing to remain in sling and swath for the left upper extremity Objective Vitals Vital Signs Date Time Temp Pulse Resp B/P Pulse Ox O2 Delivery O2 Flow Rate FiO2 09/20/16 07:13 96 Nasal Cannula 1.00 09/20/16 06:00 96 09/20/16 04:00 94 09/20/16 04:00 98.7 94 19 118/71 98 09/20/16 02:00 97 09/20/16 00:00 100 09/20/16 00:00 98.8 100 18 122/69 96 09/19/16 22:00 101 09/19/16 20:00 98 09/19/16 20:00 99.0 98 19 134/61 97 09/19/16 19:31 96 Nasal Cannula 1.00 09/19/16 18:00 95 09/19/16 17:00 96 14 126/63 96 09/19/16 16:00 98.6 104 25 150/66 95 09/19/16 16:00 106 09/19/16 15:00 98 23 95 09/19/16 14:00 96 09/19/16 14:00 96 18 146/64 97 I/O 09/19/16 09/19/16 09/19/16 09/20/16 09/20/16 09/20/16 07:00 15:00 23:00 07:00 15:00 23:00 Intake Total 245 ml 625 ml 553 ml 691 ml Output Total 1650 ml 700 ml 500 ml 500 ml Balance -1405 ml -75 ml 53 ml 191 ml Intake Oral 30 ml 30 ml 15 ml 15 ml IV Total 165 ml 545 ml 246 ml 238 ml TPN/PPN 242 ml 233 ml Lipid 155 ml Albumin 50 ml 50 ml 50 ml 50 ml Output Urine Total 1650 ml 700 ml 500 ml 500 ml Stool Total 0 ml 0 ml Result Diagram: 09/19/16 0405 09/19/16 1825 Imaging Last 24 hours Impressions Abdomen X-Ray 09/20/16 0600 Signed Impressions: Service Date/Time: Tuesday, September 20, 2016 03:16 - CONCLUSION: Stable degree of gaseous distention of the colon. Marty Marinelli MD Shoulder X-Ray 09/20/16 0000 Signed Impressions: Service Date/Time: Tuesday, September 20, 2016 09:53 - CONCLUSION: No significant interval change is identified. There is a displaced mildly comminuted proximal left humeral neck fracture with rotation of the humeral head and associated shortening. En Robledo MD Hip and Pelvis X-Ray 09/20/16 0000 Signed Impressions: Service Date/Time: Tuesday, September 20, 2016 09:57 - CONCLUSION: Left hip bipolar arthroplasty hardware demonstrates no acute finding. The bones are undermineralized but no fracture is visualized. En Robledo MD Objective Remarks Left upper extremity: Mild tenderness to palpation proximal humerus. She has no tenderness of the elbow wrist. Distally she has intact sensation over the radial ulnar and median nerve distributions with good capillary refills. She is able to fully extend her fingers make a fist. Left lower extremity: Surgical incision well approximated no erythema or drainage. Kodi present. No pain with knee or ankle range of motion. Distally intact sensation good capillary refills Assessment & Plan Assessment and Plan Left proximal humerus X-rays show maintained alignment and we'll continue to treat this conservatively with sling and swath at all times. Nonweightbearing left upper extremity Left hip hemiarthroplasty. Dress incision with Xeroform today and plan on discontinuing kodi tomorrow at 1500. After that continue dressing with Xeroform and Primapore 3 days then discontinue. Weightbearing as tolerated left lower extremity with posterior hip precautions Knee immobilizer while in bed Repeat x-rays in 2 weeks for evaluation of proximal humerus fracture Chucho Akbar Jr. Sep 20, 2016 13:29
[2016-09-20] MEDS: ACETAMINOPHEN 1000 MG/100 ML VIAL IV SCH ×2 (14:01→20:39)
--- NOTE | 2016-09-20 15:09 | HHI.GIFU ---
Subjective Remarks Resting in bed. C/O generalized pain- all over. Continues to have abdominal distention with diffuse tenderness, although slightly improved as far as tenderness goes. Getting vanco enemas- no BM yesterday or today. Clear return from enema in flexiseal. Objective Vitals I&O Vital Signs Date Time Temp Pulse Resp B/P Pulse Ox O2 Delivery O2 Flow Rate FiO2 09/20/16 07:13 96 Nasal Cannula 1.00 09/20/16 06:00 96 09/20/16 04:00 94 09/20/16 04:00 98.7 94 19 118/71 98 09/20/16 02:00 97 09/20/16 00:00 100 09/20/16 00:00 98.8 100 18 122/69 96 09/19/16 22:00 101 09/19/16 20:00 98 09/19/16 20:00 99.0 98 19 134/61 97 09/19/16 19:31 96 Nasal Cannula 1.00 09/19/16 18:00 95 09/19/16 17:00 96 14 126/63 96 09/19/16 16:00 98.6 104 25 150/66 95 09/19/16 16:00 106 09/19/16 15:00 98 23 95 I/O 09/19/16 09/19/16 09/19/16 09/20/16 09/20/16 09/20/16 07:00 15:00 23:00 07:00 15:00 23:00 Intake Total 245 ml 625 ml 553 ml 691 ml Output Total 1650 ml 700 ml 500 ml 500 ml Balance -1405 ml -75 ml 53 ml 191 ml Intake Oral 30 ml 30 ml 15 ml 15 ml IV Total 165 ml 545 ml 246 ml 238 ml TPN/PPN 242 ml 233 ml Lipid 155 ml Albumin 50 ml 50 ml 50 ml 50 ml Output Urine Total 1650 ml 700 ml 500 ml 500 ml Stool Total 0 ml 0 ml Laboratory Laboratory Tests Test 09/19/16 18:25 Potassium Level 3.5 Imaging Last Impressions Abdomen X-Ray 09/20/16 0600 Signed Impressions: Service Date/Time: Tuesday, September 20, 2016 03:16 - CONCLUSION: Stable degree of gaseous distention of the colon. Marty Marinelli MD Shoulder X-Ray 09/20/16 0000 Signed Impressions: Service Date/Time: Tuesday, September 20, 2016 09:53 - CONCLUSION: No significant interval change is identified. There is a displaced mildly comminuted proximal left humeral neck fracture with rotation of the humeral head and associated shortening. En Robledo MD Hip and Pelvis X-Ray 09/20/16 0000 Signed Impressions: Service Date/Time: Tuesday, September 20, 2016 09:57 - CONCLUSION: Left hip bipolar arthroplasty hardware demonstrates no acute finding. The bones are undermineralized but no fracture is visualized. En Robledo MD Chest X-Ray 09/18/16 0000 Signed Impressions: Service Date/Time: Sunday, September 18, 2016 15:27 - CONCLUSION: Bibasilar areas of mild atelectasis or consolidation being worse on the right. There are suspected mild bilateral pleural effusions. En Lambert MD Abdomen/Pelvis CT 09/18/16 0000 Signed Impressions: Service Date/Time: Sunday, September 18, 2016 10:34 - CONCLUSION: 1. Compared to the prior examination of 09/17/2016, there has been no significant change in the overall appearance of the colon. There continues to be diffuse wall thickening involving the right and left colon suggestive of colitis with some moderate distention. However, no increased distention is seen on today's examination. There is no evidence of free air. 2. No change in the abdominal ascites. 3. No change in body wall anasarca. 4. No change in the bibasilar infiltrates and bilateral effusions. Odilon Alexandra MD Physical Exam HEENT: Normocephalic; atraumatic; no jaundice CHEST: Resp even/unlabored, diminished CARDIAC: RRR ABDOMEN: Moderate distention/tympanic, moderate diffuse abdominal tenderness; bowel sounds hypoactive. Flexiseal with clear liquid return from enema in bag EXTREMITIES: Generalized edema. Left CKS, Left upper extremity in sling. SKIN: Normal; no rash; no jaundice. TELESALES REPRESENTATIVE: Lethargic, oriented to self and place. Assessment and Plan Plan ASSESSMENT: - Severe C difficile colitis (Epid 027 (+) in patient with recent abx use and hypotension). CT Scan abdomen and pelvis with IV contrast (09/15/16)----> 1. Diffuse thickening of the entire colon consistent with diffuse colitis. 2. Mild atherosclerotic calcifications seen at the aorta. There is no aneurysm. Contrast is seen within the celiac, SMA and HARRIS. 3. Small non-obstructing right renal stone. Colonoscopy (05/20/2005) revealed normal colon, medium internal hemorrhoids. Rpt. Abdomen/Pelvis CT (09/17/16)---> 1. The exam demonstrates diffuse colonic thickening most consistent with a colitis. The overall amount of colonic thickening is stable from previous exam however, there has now been development of a small amount of abdominal ascites. 2. Interval development of bilateral effusions and consolidative changes in the lung bases.Abdomen/Pelvis CT (09/18/16)----> 1. Compared to the prior examination of 09/17/2016, there has been no significant change in the overall appearance of the colon. There continues to be diffuse wall thickening involving the right and left colon suggestive of colitis with some moderate distention. However, no increased distention is seen on today's examination. There is no evidence of free air. 2. No change in the abdominal ascites. 3. No change in body wall anasarca. 4. No change in the bibasilar infiltrates and bilateral effusions. Abdomen X-Ray (09/20/16)----> Stable degree of gaseous distention of the colon. WBC 13.3 yesterday. No stool output x 2 days - clear liquid return from the enema in the flexiseal CRS following, . Still with diffuse distention and abdominal tenderness, no bowel movements x 2 days. ID following, Oral vanco, Flagyl, Vanco enema - Colonic Ileus secondary to above. She has been taking pericolace and lactinex. She was given a dose of MOM and relistor on 09/14/16. Afterwards, she started having significant diarrhea with liquid stool and significant pain/distention. CT/KUB as above. CRS following. NPO - Malnutrition. Was started on TPN, Clinimix E 4.25/25 at rate of 62.5 ml/hr 20 % lipids, twice weekly, infuse 250 mls over 8 hrs. - Sepsis/Leukocytosis secondary to severe CDiff infection. WBC 13.3 yesterday. ID following, Flagyl, Oral vanco, Vanco enemas - Anemia. Stable, 11.3/33.4 yesterday - Acute on chronic kidney injury. Per ccm - Recent fall at home on 09/04/16 and sustained a left femoral neck fracture and left humeral head fracture. S/P Bipolar hemiarthroplasty on 09/05/[address] Bill and her left humeral head fracture is being treated conservatively with sling. She was transferred to [facility] on 09/09/16, but transferred to the unit for severe abdominal tenderness and leukocytosis with concern for mesenteric ischemia. - History of TIA (on plavix), OA, Hx HTN now with hypotension, hyperlipidemia, CKD per attending. PLAN: - NPO - Cont. TPN- Clinimix E 4.25/25 at rate of 62.5 ml/hr 20% lipids, twice weekly, infuse 250 mls over 8 hrs - Cont. Flagyl IV - Cont. Oral Vancomycin - Cont. Vanco Enema 500mg in 100mL NS retention enema IN q6h - Cont. IVF - ID following - CRS following - CCM following - Supportive care - Notify GI of worsening pain, distention - Further recommendations to follow based on results of above - Patient seen and examined by Dr. Barnett and myself and this note is written on his behalf Dinora Renteria Sep 20, 2016 15:08
--- NOTE | 2016-09-20 15:16 | HHI.IDPN ---
Subjective Subjective Remarks Notes reviewed D/W RN Still with abdominal pain and distension practically no stool UO improving WBC improving KUB with ileus o fever BP ok, off pressors Antibiotics flagyl IV vanco po vanco enemas Past Medical History Reviewed Allergies: Coded Allergies: Tizanidine (Verified Allergy, Severe, doesn't know, 09/09/16) Tramadol (Verified Allergy, Severe, doesn't remember, 09/09/16) Baclofen (Unverified Allergy, Intermediate, RASH, 09/09/16) Cipro (Unverified Allergy, Intermediate, RASH, 09/09/16) Cymbalta (Unverified Allergy, Intermediate, SEVERE RASH, 09/09/16) Elavil (Unverified Allergy, Intermediate, RASH, 09/09/16) Tetracycline (Unverified Allergy, Intermediate, RASH, 09/09/16) Triamcinolone (Unverified Allergy, Intermediate, SEVERE RASH, 09/09/16) Objective . Vital Signs Date Time Temp Pulse Resp B/P Pulse Ox O2 Delivery O2 Flow Rate FiO2 09/20/16 07:13 96 Nasal Cannula 1.00 09/20/16 06:00 96 09/20/16 04:00 94 09/20/16 04:00 98.7 94 19 118/71 98 09/20/16 02:00 97 09/20/16 00:00 100 09/20/16 00:00 98.8 100 18 122/69 96 09/19/16 22:00 101 09/19/16 20:00 98 09/19/16 20:00 99.0 98 19 134/61 97 09/19/16 19:31 96 Nasal Cannula 1.00 09/19/16 18:00 95 09/19/16 17:00 96 14 126/63 96 09/19/16 16:00 98.6 104 25 150/66 95 09/19/16 16:00 106 09/19/16 09/19/16 09/20/16 15:00 23:00 07:00 Intake Total 625 ml 553 ml 691 ml Output Total 700 ml 500 ml 500 ml Balance -75 ml 53 ml 191 ml Intake Oral 30 ml 15 ml 15 ml IV Total 545 ml 246 ml 238 ml TPN/PPN 242 ml 233 ml Lipid 155 ml Albumin 50 ml 50 ml 50 ml Output Urine Total 700 ml 500 ml 500 ml Stool Total 0 ml . Laboratory Tests Test 09/18/16 09/19/16 16:55 04:05 White Blood Count 18.8 TH/MM3 13.3 TH/MM3 Red Blood Count 3.54 MIL/MM3 3.73 MIL/MM3 Hemoglobin 10.7 GM/DL 11.3 GM/DL Hematocrit 31.8 % 33.4 % Mean Corpuscular Volume 89.8 FL 89.5 FL Mean Corpuscular Hemoglobin 30.3 PG 30.4 PG Mean Corpuscular Hemoglobin 33.7 % 34.0 % Concent Red Cell Distribution Width 14.2 % 14.2 % Platelet Count 462 TH/MM3 453 TH/MM3 Mean Platelet Volume 7.0 FL 7.4 FL Neutrophils (%) (Auto) 86.6 % 82.1 % Lymphocytes (%) (Auto) 4.1 % 5.4 % Monocytes (%) (Auto) 9.0 % 12.0 % Eosinophils (%) (Auto) 0.2 % 0.2 % Basophils (%) (Auto) 0.1 % 0.3 % Neutrophils # (Auto) 16.3 TH/MM3 10.9 TH/MM3 Lymphocytes # (Auto) 0.8 TH/MM3 0.7 TH/MM3 Monocytes # (Auto) 1.7 TH/MM3 1.6 TH/MM3 Eosinophils # (Auto) 0.0 TH/MM3 0.0 TH/MM3 Basophils # (Auto) 0.0 TH/MM3 0.0 TH/MM3 CBC Comment AUTO DIFF AUTO DIFF Differential Comment AUTO DIFF FINAL DIFF CONFIRMED MANUAL Platelet Estimate NORMAL HIGH Platelet Morphology Comment NORMAL NORMAL Red Cell Morphology Comment NORMAL NORMAL Differential Total Cells 100 Counted Neutrophils % (Manual) 67 % Band Neutrophils % 15 % Lymphocytes % 4 % Monocytes % 14 % Neutrophils # (Manual) 10.9 TH/MM3 Nucleated Red Blood Cells 1 /100 WBC Laboratory Tests Test 09/18/16 09/19/16 09/19/16 16:50 04:05 18:25 Sodium Level 141 MEQ/L 141 MEQ/L Potassium Level 3.7 MEQ/L 3.1 MEQ/L 3.5 MEQ/L Chloride Level 108 MEQ/L 106 MEQ/L Carbon Dioxide Level 25.2 MEQ/L 24.2 MEQ/L Anion Gap 8 MEQ/L 11 MEQ/L Blood Urea Nitrogen 26 MG/DL 24 MG/DL Creatinine 0.61 MG/DL 0.71 MG/DL Estimat Glomerular Filtration 93 ML/MIN 78 ML/MIN Rate Random Glucose 129 MG/DL 175 MG/DL Calcium Level 7.9 MG/DL 7.8 MG/DL Phosphorus Level 1.3 MG/DL 2.5 MG/DL Total Bilirubin 0.4 MG/DL 0.4 MG/DL Aspartate Amino Transf 18 U/L 21 U/L (AST/SGOT) Alanine Aminotransferase 15 U/L 14 U/L (ALT/SGPT) Alkaline Phosphatase 79 U/L 78 U/L Total Protein 5.0 GM/DL 4.9 GM/DL Albumin 2.7 GM/DL 2.6 GM/DL Imaging Last Impressions Abdomen X-Ray 09/20/16 0600 Signed Impressions: Service Date/Time: Tuesday, September 20, 2016 03:16 - CONCLUSION: Stable degree of gaseous distention of the colon. Marty Marinelli MD Shoulder X-Ray 09/20/16 0000 Signed Impressions: Service Date/Time: Tuesday, September 20, 2016 09:53 - CONCLUSION: No significant interval change is identified. There is a displaced mildly comminuted proximal left humeral neck fracture with rotation of the humeral head and associated shortening. En Robledo MD Hip and Pelvis X-Ray 09/20/16 0000 Signed Impressions: Service Date/Time: Tuesday, September 20, 2016 09:57 - CONCLUSION: Left hip bipolar arthroplasty hardware demonstrates no acute finding. The bones are undermineralized but no fracture is visualized. En Robledo MD Chest X-Ray 09/18/16 0000 Signed Impressions: Service Date/Time: Sunday, September 18, 2016 15:27 - CONCLUSION: Bibasilar areas of mild atelectasis or consolidation being worse on the right. There are suspected mild bilateral pleural effusions. En Lambert MD Abdomen/Pelvis CT 09/18/16 0000 Signed Impressions: Service Date/Time: Sunday, September 18, 2016 10:34 - CONCLUSION: 1. Compared to the prior examination of 09/17/2016, there has been no significant change in the overall appearance of the colon. There continues to be diffuse wall thickening involving the right and left colon suggestive of colitis with some moderate distention. However, no increased distention is seen on today's examination. There is no evidence of free air. 2. No change in the abdominal ascites. 3. No change in body wall anasarca. 4. No change in the bibasilar infiltrates and bilateral effusions. Odilon Alexandra MD Physical Exam CONSTITUTIONAL/GENERAL: Awake and alert, not in distress, SKIN: Warm. No jaundice, rashes, or lesions. Diffuse anasarca, less prominent HEENT: [place] conjunctiva, no icterus. Dry oral mucosa without visible erythema, exudates, masses, or lesions. NECK: Supple, not tender CARDIOVASCULAR: Regular rate and rhythm without murmurs, gallops, or rubs. RESPIRATORY/CHEST: Symmetric, unlabored respirations. Clear to auscultation. Decreased at bases GASTROINTESTINAL: Abdomen very distended and tight with diffuse abdominal tenderness, + guarding and rebounding . Hypoactive BS. RECTAL: [place]ign[place] in place GENITOURINARY: Bañuelos in place MUSCULOSKELETAL: Extremities without clubbing, cyanosis. Diffuse soft pitting edema, 3+, anasarca. No mottling NEUROLOGICAL: Grossly non-focal she is more awalke and alert PSYCHIATRIC: calm and cooperative Assessment & Plan Remarks Severe life threatening colitis, C.diff, hypervirilent stain 027 severe - pt with progressive ileus SIRS, sepsis - due to C.diff - lactic acidosis, hypotension, acute renal dysfunction lactic acidosis resolved No e/o UTI Pt is critically ill and clinically worsening Pt does not appear to respond to the therapy, next step if cont to deteriorate will be colectomy, seen by Dr Abarca. Very high risk pt PLAN: Continue po vancomycin Continue vanco enemas Continue IV flagyl Avoid systemic abx Monitor progress CRS following D/W Shayy Braxton MD Sep 20, 2016 15:16
--- NOTE | 2016-09-20 17:15 | HHI.PR ---
Subjective Remarks C/R Surg afebrile, VSS UO fair on bumex BP adeq still c/o abd pain/distention Objective - Vital Signs Date Time Temp Pulse Resp B/P Pulse Ox O2 Delivery O2 Flow Rate FiO2 09/20/16 16:00 100 09/20/16 07:13 96 Nasal Cannula 1.00 09/20/16 04:00 98.7 19 118/71 09/16/16 16:29 21 Result Diagram: 09/19/16 0405 09/19/16 1825 Objective Remarks PE alert Abd - distended, tight, mildly tender rectal tube - cleat output, no stool A/P Assessment and Plan Imp: stable, no acidosis, bun/cr holding discussed with pt/family - neither are interested in considering surgery even her condition deteriorates consider palliative care consult, will see only prn if family changes their decision Carlitos Abarca MD Sep 20, 2016 17:15
[2016-09-20] MEDS: BUMETANIDE INJ 1 MG/4 ML VIAL IV PUSH SCH (17:35)
[2016-09-20] MEDS: CLINIMIX E 4.25/25 1000 mL- </= 42 mls/hr IV-CENTRAL SCH ×3 (20:40)
[2016-09-21] VITALS (14 sets, daily range): BP systolic 110–132; BP diastolic 54–61; PULSE 81–101; RESP 15–21; TEMP 98–98.8; O2SAT 94–98
[2016-09-21] MEDS: VANCOMYCIN 500 MG VIAL (FOR ORAL USE ONLY) PO SCH ×5 (00:14→23:38)
[2016-09-21] MEDS: VANCOMYCIN INJ 500 MG in SODIUM CHLORIDE 0.9% IRR BTL 250 ML IRRIGATION SCH ×5 (00:14→23:37)
[2016-09-21] MEDS: MORPHINE SULFATE 4 MG/ML INJ IV PRN ×5 (00:14→21:48)
[2016-09-21] MEDS: metroNIDAZOLE 500 MG INJ 100 ML IV SCH ×4 (02:45→21:49)
[2016-09-21] MEDS: ACETAMINOPHEN 1000 MG/100 ML VIAL IV SCH ×2 (02:45→08:45)
[2016-09-21] MEDS: CHLORHEXIDINE GLUCONATE 2 % 1 PACK (2 CLOTHS) TOP SCH (04:00)
--- NOTE | 2016-09-21 05:26 | RADRPT ---
EXAM DATE/TIME: 09/21/2016 04:25 [facility] COMPARISON: CT ABDOMEN & PELVIS W/O CONTRAST, September 18, 2016, 10:34. ABDOMEN KUB ONLY, September 20, 2016, 3:16. INDICATIONS : Colonic ileus. MEDICAL HISTORY : Cardiovascular disease. Hypertension. SURGICAL HISTORY : Left hip arthroplasty. ENCOUNTER: Subsequent ACUITY: 2 weeks PAIN SCORE: 0/10 LOCATION: Bilateral abdomen FINDINGS: The degree of gaseous distention of the colon is unchanged from prior exams. No dilated loops of sma ll bowel. Diffuse hazy density about the mid and lower abdomen and pelvis is stable. Left total hip thoracoplasty. CONCLUSION: Stable gaseous distention of colon. Marty Marinelli MD on September 21, 2016 at 5:23 Board Certified Radiologist. This report was verified electronically.
[2016-09-21] MEDS: HEPARIN SODIUM - SQ 10,000 UNITS/ML VIAL SQ SCH ×3 (05:30→21:48)
[2016-09-21] MEDS: LEVOTHYROXINE SODIUM 100 MCG VIAL IV PUSH SCH (05:30)
[2016-09-21] MEDS: ALBUMIN HUMAN 25% 12.5 GM/50 ML BAGP IV SCH ×3 (05:31→21:49)
[2016-09-21 06:32] LABS: AUTOMATED NEUTROPHIL # 12.7 TH/MM3 (1.8-7.7); BASOPHIL # 0.1 TH/MM3 (0-0.2); BASOPHIL % 0.7 % (0.0-2.0); EOSINOPHIL # 0.1 TH/MM3 (0-0.4); EOSINOPHIL % 0.8 % (0.0-4.0); HEMATOCRIT 32.5 % (35.0-46.0); LYMPH % 6.8 % (9.0-44.0); LYMPHOCYTE # 1.1 TH/MM3 (1.0-4.8); MEAN CELL VOLUME 90.8 FL (80.0-100.0); MEAN CORPUSCULAR HEMOGLOBIN 29.4 PG (27.0-34.0); MEAN CORPUSCULAR HGB CONC 32.3 % (32.0-36.0); MONO % 9.6 % (0.0-8.0); NEUT % 82.1 % (16.0-70.0); PLATELET COUNT 316 TH/MM3 (150-450); RED BLOOD COUNT 3.57 MIL/MM3 (4.00-5.30); RED CELL DISTRIBUTION WIDTH 14.4 % (11.6-17.2); WHITE BLOOD COUNT 15.4 TH/MM3 (4.0-11.0)
[2016-09-21 06:40] LABS: HEMO FLAGS AUTO DIFF
[2016-09-21 06:53] LABS: BICARBONATE 30.8 MEQ/L (21.0-32.0); MAGNESIUM 1.9 MG/DL (1.5-2.5); POTASSIUM 3.4 MEQ/L (3.5-5.1)
[2016-09-21 08:22] LABS: BANDS 21 % (0-6); BASOPHILS 1 % (0-2); CORRECTED NUCLEATED RBC 1 /100 WBC (0-0); METAMYELOCYTES 3 % (0-1); NEUTROPHIL # MANUAL DIFF 13.9 TH/MM3 (1.8-7.7); PLATELET ESTIMATE SMEAR NORMAL (NORMAL); PLATELET MORPHOLOGY NORMAL (NORMAL); POLYS (SEG NEUTROPHILS) 66 % (16-70); SCAN/DIFF FINAL DIFF MANUAL; WBC DIFF SAMPLE 100
[2016-09-21] MEDS: SODIUM CHLORIDE 0.9% FLUSH 10 ML FLUSH IV FLUSH SCH ×3 (08:46→21:49)
[2016-09-21] MEDS: ARTIFICIAL TEARS OPTH SOLN 15 ML BTL EACH EYE SCH ×3 (08:46→18:02)
[2016-09-21] MEDS: PANTOPRAZOLE SODIUM 40 MG VIAL IV SCH (08:46)
[2016-09-21] MEDS: SODIUM CHLORIDE 0.9% FLUSH 10 ML FLUSH IVF SCH (08:47)
[2016-09-21] MEDS: BUMETANIDE INJ 1 MG/4 ML VIAL IV PUSH SCH (08:47)
--- NOTE | 2016-09-21 11:45 | HHI.GIFU ---
Subjective Remarks Resting in bed. Still with diffuse tenderness. No bowel movements. Denies n/ v. Objective Vitals I&O Vital Signs Date Time Temp Pulse Resp B/P Pulse Ox O2 Delivery O2 Flow Rate FiO2 09/21/16 10:00 84 09/21/16 09:15 20 09/21/16 08:45 98 Nasal Cannula 1.00 09/21/16 08:00 98.2 86 17 110/54 98 09/21/16 08:00 86 09/21/16 06:00 83 09/21/16 04:00 98.7 81 15 115/55 97 09/21/16 04:00 81 09/21/16 02:00 92 09/21/16 00:00 98.1 92 15 120/57 98 09/21/16 00:00 92 09/20/16 22:00 93 09/20/16 21:47 96 Nasal Cannula 1.00 09/20/16 20:00 102 09/20/16 20:00 98.3 102 23 114/59 96 09/20/16 18:00 96 09/20/16 16:00 100 09/20/16 16:00 98.7 100 20 104/52 95 09/20/16 14:00 104 09/20/16 12:00 104 09/20/16 12:00 98.5 104 24 109/78 96 I/O 09/20/16 09/20/16 09/20/16 09/21/16 09/21/16 09/21/16 07:00 15:00 23:00 07:00 15:00 23:00 Intake Total 691 ml 647 ml 375 ml 492 ml 97 ml Output Total 500 ml 500 ml 325 ml 350 ml Balance 191 ml 147 ml 50 ml 142 ml 97 ml Intake Oral 15 ml IV Total 238 ml 300 ml 215 ml 215 ml 97 ml TPN/PPN 233 ml 297 ml 110 ml 227 ml Lipid 155 ml Albumin 50 ml 50 ml 50 ml 50 ml Output Urine Total 500 ml 500 ml 325 ml 350 ml Stool Total 0 ml 0 ml 0 ml Laboratory Laboratory Tests Test 09/21/16 04:23 White Blood Count 15.4 Red Blood Count 3.57 Hemoglobin 10.5 Hematocrit 32.5 Mean Corpuscular Volume 90.8 Mean Corpuscular Hemoglobin 29.4 Mean Corpuscular Hemoglobin 32.3 Concent Red Cell Distribution Width 14.4 Platelet Count 316 Mean Platelet Volume 7.9 Neutrophils (%) (Auto) 82.1 Lymphocytes (%) (Auto) 6.8 Monocytes (%) (Auto) 9.6 Eosinophils (%) (Auto) 0.8 Basophils (%) (Auto) 0.7 Neutrophils # (Auto) 12.7 Lymphocytes # (Auto) 1.1 Monocytes # (Auto) 1.5 Eosinophils # (Auto) 0.1 Basophils # (Auto) 0.1 CBC Comment AUTO DIFF Differential Total Cells 100 Counted Neutrophils % (Manual) 66 Band Neutrophils % 21 Lymphocytes % 3 Monocytes % 6 Basophils % 1 Neutrophils # (Manual) 13.9 Metamyelocytes 3 Nucleated Red Blood Cells 1 Differential Comment FINAL DIFF MANUAL Platelet Estimate NORMAL Platelet Morphology Comment NORMAL Red Cell Morphology Comment NORMAL Sodium Level 144 Potassium Level 3.4 Chloride Level 106 Carbon Dioxide Level 30.8 Anion Gap 7 Blood Urea Nitrogen 35 Creatinine 1.41 Estimat Glomerular Filtration 35 Rate Random Glucose 149 Calcium Level 8.2 Phosphorus Level 3.0 Magnesium Level 1.9 Imaging Last Impressions Abdomen X-Ray 09/21/16 0600 Signed Impressions: Service Date/Time: Wednesday, September 21, 2016 04:25 - CONCLUSION: Stable gaseous distention of colon. Marty Marinelli MD Shoulder X-Ray 09/20/16 0000 Signed Impressions: Service Date/Time: Tuesday, September 20, 2016 09:53 - CONCLUSION: No significant interval change is identified. There is a displaced mildly comminuted proximal left humeral neck fracture with rotation of the humeral head and associated shortening. En Robledo MD Hip and Pelvis X-Ray 09/20/16 0000 Signed Impressions: Service Date/Time: Tuesday, September 20, 2016 09:57 - CONCLUSION: Left hip bipolar arthroplasty hardware demonstrates no acute finding. The bones are undermineralized but no fracture is visualized. En Robledo MD Chest X-Ray 09/18/16 0000 Signed Impressions: Service Date/Time: Sunday, September 18, 2016 15:27 - CONCLUSION: Bibasilar areas of mild atelectasis or consolidation being worse on the right. There are suspected mild bilateral pleural effusions. En Lambert MD Abdomen/Pelvis CT 09/18/16 0000 Signed Impressions: Service Date/Time: Sunday, September 18, 2016 10:34 - CONCLUSION: 1. Compared to the prior examination of 09/17/2016, there has been no significant change in the overall appearance of the colon. There continues to be diffuse wall thickening involving the right and left colon suggestive of colitis with some moderate distention. However, no increased distention is seen on today's examination. There is no evidence of free air. 2. No change in the abdominal ascites. 3. No change in body wall anasarca. 4. No change in the bibasilar infiltrates and bilateral effusions. Odilon Alexandra MD Physical Exam HEENT: Normocephalic; atraumatic; no jaundice CHEST: Resp even/unlabored, diminished CARDIAC: RRR ABDOMEN: Moderate distention/tympanic, moderate diffuse abdominal tenderness; bowel sounds hypoactive. Flexiseal empty EXTREMITIES: Generalized edema. Left CKS, Left upper extremity in sling. SKIN: Normal; no rash; no jaundice. 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 Assessment and Plan Plan ASSESSMENT: - Severe C difficile colitis (Epid 027 (+) in patient with recent abx use and hypotension). CT Scan abdomen and pelvis with IV contrast (09/15/16)----> 1. Diffuse thickening of the entire colon consistent with diffuse colitis. 2. Mild atherosclerotic calcifications seen at the aorta. There is no aneurysm. Contrast is seen within the celiac, SMA and HARRIS. 3. Small non-obstructing right renal stone. Colonoscopy (05/20/2005) revealed normal colon, medium internal hemorrhoids. Rpt. Abdomen/Pelvis CT (09/17/16)---> 1. The exam demonstrates diffuse colonic thickening most consistent with a colitis. The overall amount of colonic thickening is stable from previous exam however, there has now been development of a small amount of abdominal ascites. 2. Interval development of bilateral effusions and consolidative changes in the lung bases.Abdomen/Pelvis CT (09/18/16)----> 1. Compared to the prior examination of 09/17/2016, there has been no significant change in the overall appearance of the colon. There continues to be diffuse wall thickening involving the right and left colon suggestive of colitis with some moderate distention. However, no increased distention is seen on today's examination. There is no evidence of free air. 2. No change in the abdominal ascites. 3. No change in body wall anasarca. 4. No change in the bibasilar infiltrates and bilateral effusions. Abdomen X-Ray (09/21/16)----> Stable gaseous distention of colon. . WBC 15.4. Still with diffuse distention and abdominal tenderness, no bowel movements x 3 days. CRS following, family not interested in considering surgery, even if condition deteriorates per last CRS note- consider palliative care evaluation. ID following, Oral vanco, Flagyl, Vanco enema. - Colonic Ileus secondary to above. She has been taking pericolace and lactinex. She was given a dose of MOM and relistor on 09/14/16. Afterwards, she started having significant diarrhea with liquid stool and significant pain/distention. CT/KUB as above. CRS following. NPO - Malnutrition. Was started on TPN, Clinimix E 4.25/25 at rate of 62.5 ml/hr 20 % lipids, twice weekly, infuse 250 mls over 8 hrs. - Sepsis/Leukocytosis secondary to severe CDiff infection. WBC 15.4. ID following, Flagyl, Oral vanco, Vanco enemas - Anemia. Stable, 10.5/32.5. - Acute on chronic kidney injury, worsening- Creat went up to 1.41 today. Per ccm - Recent fall at home on 09/04/16 and sustained a left femoral neck fracture and left humeral head fracture. S/P Bipolar hemiarthroplasty on 09/05/[address] Bill and her left humeral head fracture is being treated conservatively with sling. She was transferred to [facility] on 09/09/16, but transferred to the unit for severe abdominal tenderness and leukocytosis with concern for mesenteric ischemia. - History of TIA (on plavix), OA, Hx HTN now with hypotension, hyperlipidemia, CKD per attending. PLAN: - NPO - Cont. TPN- Clinimix E 4.25/25 at rate of 62.5 ml/hr 20% lipids, twice weekly, infuse 250 mls over 8 hrs - Cont. Flagyl IV - Cont. Oral Vancomycin - Cont. Vanco Enema 500mg in 100mL NS retention enema ND q6h - Cont. IVF - ID following - CCM following - CRS following prn, family does not want to consider colectomy even if her condition deteriorates - ? Palliative care - Further recommendations to follow based on results of above - Patient seen and examined by Dr. Barnett and myself and this note is written on his behalf Dinora Renteria Sep 21, 2016 11:45
--- NOTE | 2016-09-21 17:37 | HHI.CCPN ---
Subjective Remarks/Hospital Course This is an 86-year-old female. Date of admission 09/15/2016. Past medical history includes peripheral neuropathy, TIA history, osteoarthritis, spinal stenosis, hypertension, dyslipidemia, chronic kidney disease stage II, hypothyroidism, chronic lumbar pain with previous history of nerve blocks and gastroesophageal reflux disease. [facility] unwitnessed fall at home which he had a left femoral neck fracture and left humeral head fracture. She was seen in consultation by Dr. Bill and had a bipolar gayla-plasty 09/05 without complication. Left wrist fractures treated conservatively with a sling therapy. Patient was sent to rehabilitation 09/09 09/12 patient was diagnosed with urinary tract infection. Initially treated with Ceftin 500 mg every 12 and switch to Rocephin 1 g every 24 09/13. Patient having constipation KUB revealed stool 09/13. Receiving fleets enema 1 and Relistor 12 mg subcutaneous 1. Along with Florastor twice a day Since admission rehabilitation on [facility]. Yesterday, she was noted to have multiple bouts of diarrhea starting yesterday Today, consultation to hospitalist for hypotension abdominal pain. Noted she had white cell count that jumped from slightly above normal to 43,000 late yesterday. LFTs and lipase were normal. Lactate slightly elevated 3.2 currently 2.2 after [address] abdomen/pelvis revealed ileus type pattern. With gas in the bowel. Mild anasarca. Some free fluid in the pelvis. A nonobstructing right calculus. She received 2 L normal saline wide open was transferred to [id number] and we are asked to see in consultation. C. difficile was drawn. Worried about mesenteric ischemia sent to CT with contrast At the present time, patient complaining of diffuse abdominal pain specifically in the bilateral lower quadrants. Abdomen soft. Voluntary guarding. No rigidity. 09/16: Noted Hieu-Synephrine started overnight and 70 mu./m. Received 2 L normal saline. Urine output decreased however the creatinine is still within normal limits. Started on vancomycin enema, oral and IV Flagyl for C. difficile positive. Abdominal pain currently 8 out of 10 Subjective 09/17: Afebrile. Abdominal pain still 8 out of 10. Percocet central line yesterday however currently off all vasopressors. Will attempt single lumen PICC line for TPN 09/18: Remains critically ill. Off pressors, but abdomen severe distension, tympanic and tender. CT yesterday diffuse thickening, predominately R colon. D/ W radiology Dr. Alexandra, will repeat CT abdomen stat today. Keep nothing by mouth. CBC CMP and lactic acid stat pending 09/19: Remains critically ill, continues to have severe abdominal distention and tenderness. CT surgery Dr. Abarca was consulted yesterday, he is following. Urine output excellent with Bumex infusion 3.5 L in last 16 hours. Patient is reluctant to consider surgical options at this time. D/W Dr. Abarca, continue conservative management 09/20: Patient complains of abdominal pain, distention still noted. Repeat CT this a.m. reveal stable gaseous distention of the colon. Multimodal pain relief initiated, will begin Ofirmev 1 g every 6 hours for 24 hours. 09/21: Plan for colonoscopy in am for decompression. NGT placed to LIWS. Objective Vital Signs Date Time Temp Pulse Resp B/P Pulse Ox O2 Delivery O2 Flow Rate FiO2 09/21/16 16:00 101 09/21/16 16:00 98.0 17 132/61 94 09/21/16 08:45 Nasal Cannula 1.00 Intake and Output 09/20/16 09/20/16 09/21/16 08:00 16:00 00:00 Intake Total 691 ml 647 ml 375 ml Output Total 500 ml 500 ml 325 ml Balance 191 ml 147 ml 50 ml Result Diagram: 09/21/16 0423 09/21/16 0423 Imaging Last Impressions Abdomen X-Ray 09/16/16 0600 Signed Impressions: Service Date/Time: August 03:32 - CONCLUSION: Colitis without obstruction. En Andres MD Chest X-Ray 09/15/16 1155 Signed Impressions: Service Date/Time: Thursday, September 15, 2016 12:29 - CONCLUSION: 1. Right IJ central line in good position without pneumothorax. Aldair Garcia MD Abdomen/Pelvis CT 09/15/16 0000 Signed Impressions: Service Date/Time: Thursday, September 15, 2016 09:43 - CONCLUSION: 1. Diffuse thickening of the entire colon consistent with diffuse colitis. 2. Mild atherosclerotic calcifications seen at the aorta. There is no aneurysm. Contrast is seen within the celiac, SMA and HARRIS. 3. Small non-obstructing right renal stone. En Lambert MD Objective Remarks GENERAL: 86-year-old female, resting in bed in mild distress 2/2 pain SKIN: Warm and dry. Ecchymosis to the left upper extremity HEAD: Atraumatic. Normocephalic. EYES: Pupils equal and round about 3 mm bilaterally. ENT: No nasal bleeding or discharge. Upper dentures/partial lower dentures. NECK: Trachea midline. No JVD. CARDIOVASCULAR: Regular rate and rhythm. S1, S2. No S4. Without murmur RESPIRATORY: No accessory muscle use. Clear to auscultation. Breath sounds equal bilaterally. GASTROINTESTINAL: Abdomen severely distended tympanic to percussion tender to palpation. MUSCULOSKELETAL: Extremities with trace lower extremity edema. Left leg noted knee immobilizer, to avoid flexion of femoral head. Left arm is in a sling NEUROLOGICAL: Awake and alert. No obvious cranial nerve deficits. Motor grossly within normal limits. Five out of 5 muscle strength in the arms and legs. Normal speech. PSYCHIATRIC: Appropriate mood and affect; insight and judgment normal. Date of Insertion: Sep 15, 2016 Date of Removal: Sep 16, 2016 Line: Central Venous Catheter Side: Right Location: Internal, Jugular A/P Assessment and Plan Neuro/Psych: Peripheral neuropathy History of TIA Spinal stenosis Tylenol for temp> 100.5 Morphine for pain management for left hip fracture/humerus fracture CV: Fluid overload Lactic acidosis History of hypertension Dyslipidemia Currently off all vasopressors, Status post 5 L normal saline resuscitation Bumex bolus and infusion at 0.5 mg per hour started 09/18/16 Bumex on hold Holding Xarelto 10 mg daily and Plavix 75 mg by mouth daily. Holding home medications of Pravachol 80 mg at night and Zetia 10 mg daily night of ileus. Holding lisinopril 10 mg daily light of hypotension and acute kidney injury Resp: Nasal cannula to maintain saturations greater than or equal to 92% Incentive spirometry while awake DuoNeb every 6 hours when necessary GI: Severe C. difficile colitis, hypervirulent strain 027 Moderate protein calorie malnutrition with albumin 1.[address] abdomen/pelvis 09/14 revealed mild chronic ileus type pattern. Nonobstructing right nephrolithiasis. Some free fluid in the pelvis. Mild anasarca. CT abdomen/post contrast 09/17 revealed diffuse colitis. Noted C. difficile positive see below CT abdomen/pelvis 09/20-stable gaseous distention of the colon Discussed with radiology Dr. Alexandra. Repeat CT abdomen and pelvis without contrast 09/18 showed similar findings with predominantly right-sided COLON Thickening and ascites Scheduled 12.5 g IV every 8 hours per GI day currently 2.3 TPN per GIs recommendations at 62.5 cc an hour with lipids 10% 250 cc 2 times a week Protonix 40 mg IV daily for GI prophylaxis Nothing by mouth Endo: Hypothyroidism Hyperglycemia Sliding-scale insulin with Accu-Cheks to maintain euglycemia/low regimen Continue iv Levoxyl 25 mcgs Electrolyte replacement per protocol Renal: Acute on chronic kidney injury stage II Nonobstructing right nephrolithiasis Bumex 2 MG iv bolus and infusion at 0.5 mg per hour started yesterday 09/18/16 evening Creatinine increasing 1.4 , UOP averaging 100cc/hr will hold Bumex Monitor urine output, Accurate I's and O's Follow BMP magnesium and phosphorus in a.m. Nonobstructing right-sided nephrolithiasis noted Heme: Leukocytosis Thrombocytosis Normocytic anemia Monitor CBC daily. Follow trends ID: C. difficile, hypervirulent strain 027 Severe sepsis E cloacae UTI-urine culture on 09/15/16 negative Persistent Leukocytosis and Bandemia Currently vancomycin enema 500 mg every 6, 500 mg by mouth every 6 and Flagyl 500 mg IV every 8 day #5 09/15 blood cultures 2, urine cultures no growth to date C. difficile positive Colorectal surgery and Gi following At this time continue conservative management. ID following Dr. Rodriguez FEN: Hyper-magnesium Hypophosphatemia Replace electrolytes as clinically indicated MSK: Osteoarthritis Status post bipolar hemiarthroplasty secondary to left femoral neck fracture by Dr. Bill Left humerus fracture conservative management with sling Holding vitamin D 3 2000 units daily and Os-[place] D5 100/250 one tablet twice a day Access - Utilize IV. PICC placement 09/18 Prophylaxis - GI - Protonix - DVT - SCDs/heparin subcutaneous Critical Care: This patient remains critically ill with one or more organ systems which are or may become a threat to life. I have spent in excess of 30 minutes discontinuously in the care and management of this patient. This time is exclusive of procedures, and includes, but is not limited to, evaluation of the patient, review of the medical record, discussions with family, consultants, nursing staff, or respiratory therapy, and documentation in the medical record. Patient remains acutely critically ill. Continued abdominal distention is increasing. CRS and GI following. Physician Mandi Clark MD Sep 21, 2016 17:37
--- NOTE | 2016-09-21 18:53 | HHI.IDPN ---
Subjective Subjective Remarks cont to do poorly co severe abd pain no stool output Pt. family refusected colectomy even in case of clinical deterioration She is in ARF now and creatinine went to 1.4 Antibiotics flagyl IV vanco po vanco enemas Past Medical History Reviewed Allergies: Coded Allergies: Tizanidine (Verified Allergy, Severe, doesn't know, 09/09/16) Tramadol (Verified Allergy, Severe, doesn't remember, 09/09/16) Baclofen (Unverified Allergy, Intermediate, RASH, 09/09/16) Cipro (Unverified Allergy, Intermediate, RASH, 09/09/16) Cymbalta (Unverified Allergy, Intermediate, SEVERE RASH, 09/09/16) Elavil (Unverified Allergy, Intermediate, RASH, 09/09/16) Tetracycline (Unverified Allergy, Intermediate, RASH, 09/09/16) Triamcinolone (Unverified Allergy, Intermediate, SEVERE RASH, 09/09/16) Objective . Vital Signs Date Time Temp Pulse Resp B/P Pulse Ox O2 Delivery O2 Flow Rate FiO2 09/21/16 18:17 20 09/21/16 18:00 97 09/21/16 16:00 101 09/21/16 16:00 98.0 101 17 132/61 94 09/21/16 14:00 89 09/21/16 12:00 87 09/21/16 12:00 98.8 87 18 110/55 96 09/21/16 10:00 84 09/21/16 09:15 20 09/21/16 08:45 98 Nasal Cannula 1.00 09/21/16 08:00 98.2 86 17 110/54 98 09/21/16 08:00 86 09/21/16 06:00 83 09/21/16 04:00 98.7 81 15 115/55 97 09/21/16 04:00 81 09/21/16 02:00 92 09/21/16 00:00 98.1 92 15 120/57 98 09/21/16 00:00 92 09/20/16 22:00 93 09/20/16 21:47 96 Nasal Cannula 1.00 09/20/16 20:00 102 09/20/16 20:00 98.3 102 23 114/59 96 09/20/16 09/20/16 09/21/16 15:00 23:00 07:00 Intake Total 647 ml 375 ml 492 ml Output Total 500 ml 325 ml 350 ml Balance 147 ml 50 ml 142 ml IV Total 300 ml 215 ml 215 ml TPN/PPN 297 ml 110 ml 227 ml Albumin 50 ml 50 ml 50 ml Output Urine Total 500 ml 325 ml 350 ml Stool Total 0 ml 0 ml 0 ml . Laboratory Tests Test 09/21/16 04:23 White Blood Count 15.4 TH/MM3 Red Blood Count 3.57 MIL/MM3 Hemoglobin 10.5 GM/DL Hematocrit 32.5 % Mean Corpuscular Volume 90.8 FL Mean Corpuscular Hemoglobin 29.4 PG Mean Corpuscular Hemoglobin 32.3 % Concent Red Cell Distribution Width 14.4 % Platelet Count 316 TH/MM3 Mean Platelet Volume 7.9 FL Neutrophils (%) (Auto) 82.1 % Lymphocytes (%) (Auto) 6.8 % Monocytes (%) (Auto) 9.6 % Eosinophils (%) (Auto) 0.8 % Basophils (%) (Auto) 0.7 % Neutrophils # (Auto) 12.7 TH/MM3 Lymphocytes # (Auto) 1.1 TH/MM3 Monocytes # (Auto) 1.5 TH/MM3 Eosinophils # (Auto) 0.1 TH/MM3 Basophils # (Auto) 0.1 TH/MM3 CBC Comment AUTO DIFF Differential Total Cells 100 Counted Neutrophils % (Manual) 66 % Band Neutrophils % 21 % Lymphocytes % 3 % Monocytes % 6 % Basophils % 1 % Neutrophils # (Manual) 13.9 TH/MM3 Metamyelocytes 3 % Nucleated Red Blood Cells 1 /100 WBC Differential Comment FINAL DIFF MANUAL Platelet Estimate NORMAL Platelet Morphology Comment NORMAL Red Cell Morphology Comment NORMAL Laboratory Tests Test 09/21/16 04:23 Sodium Level 144 MEQ/L Potassium Level 3.4 MEQ/L Chloride Level 106 MEQ/L Carbon Dioxide Level 30.8 MEQ/L Anion Gap 7 MEQ/L Blood Urea Nitrogen 35 MG/DL Creatinine 1.41 MG/DL Estimat Glomerular Filtration 35 ML/MIN Rate Random Glucose 149 MG/DL Calcium Level 8.2 MG/DL Phosphorus Level 3.0 MG/DL Magnesium Level 1.9 MG/DL Imaging Last Impressions Abdomen X-Ray 09/21/16 0600 Signed Impressions: Service Date/Time: Wednesday, September 21, 2016 04:25 - CONCLUSION: Stable gaseous distention of colon. Marty Marinelli MD Shoulder X-Ray 09/20/16 0000 Signed Impressions: Service Date/Time: Tuesday, September 20, 2016 09:53 - CONCLUSION: No significant interval change is identified. There is a displaced mildly comminuted proximal left humeral neck fracture with rotation of the humeral head and associated shortening. En Robledo MD Hip and Pelvis X-Ray 09/20/16 0000 Signed Impressions: Service Date/Time: Tuesday, September 20, 2016 09:57 - CONCLUSION: Left hip bipolar arthroplasty hardware demonstrates no acute finding. The bones are undermineralized but no fracture is visualized. En Robledo MD Chest X-Ray 09/18/16 0000 Signed Impressions: Service Date/Time: Sunday, September 18, 2016 15:27 - CONCLUSION: Bibasilar areas of mild atelectasis or consolidation being worse on the right. There are suspected mild bilateral pleural effusions. En Lambert MD Abdomen/Pelvis CT 09/18/16 0000 Signed Impressions: Service Date/Time: Sunday, September 18, 2016 10:34 - CONCLUSION: 1. Compared to the prior examination of 09/17/2016, there has been no significant change in the overall appearance of the colon. There continues to be diffuse wall thickening involving the right and left colon suggestive of colitis with some moderate distention. However, no increased distention is seen on today's examination. There is no evidence of free air. 2. No change in the abdominal ascites. 3. No change in body wall anasarca. 4. No change in the bibasilar infiltrates and bilateral effusions. Odilon Alexandra MD Physical Exam CONSTITUTIONAL/GENERAL: Awake and alert, not in distress, SKIN: Warm. No jaundice, rashes, or lesions. Diffuse anasarca, less prominent HEENT: [place] conjunctiva, no icterus. Dry oral mucosa without visible erythema, exudates, masses, or lesions. NECK: Supple, not tender CARDIOVASCULAR: Regular rate and rhythm without murmurs, gallops, or rubs. RESPIRATORY/CHEST: Symmetric, unlabored respirations. Clear to auscultation. Decreased at bases GASTROINTESTINAL: Abdomen remains very distended and tight with diffuse abdominal tenderness, + guarding and rebounding . Hypoactive BS. RECTAL: Dignishield in place GENITOURINARY: Bañuelos in place MUSCULOSKELETAL: Extremities without clubbing, cyanosis. Diffuse soft pitting edema, 3+, anasarca. No mottling NEUROLOGICAL: Grossly non-focal she is more awalke and alert PSYCHIATRIC: calm and cooperative Assessment & Plan Remarks Severe life threatening colitis, C.diff, hypervirilent stain 027 severe - pt with progressive ileus SIRS, sepsis - due to C.diff - lactic acidosis, hypotension, acute renal dysfunction lactic acidosis resolved No e/o UTI Pt is critically ill and clinically worsening - refuses colectomy, CRS s/o ARF - new Prognosis is guarded PLAN: Continue po vancomycin Continue vanco enemas Continue IV flagyl Avoid systemic abx Monitor progress Pt can have a stool transplant , she is not having current systemic abx therapy and not highly likely to have it soon D/W Shayy Winn Dr, MD Sep 21, 2016 18:53
[2016-09-21] MEDS: CLINIMIX E 4.25/25 1000 mL- </= 42 mls/hr IV-CENTRAL SCH ×3 (21:49)
[2016-09-22] VITALS (12 sets, daily range): BP systolic 123–144; BP diastolic 57–68; PULSE 85–99; RESP 13–20; TEMP 97.8–98.6; O2SAT 95–98
[2016-09-22] MEDS: metroNIDAZOLE 500 MG INJ 100 ML IV SCH ×4 (02:44→20:13)
[2016-09-22] MEDS: CHLORHEXIDINE GLUCONATE 2 % 1 PACK (2 CLOTHS) TOP SCH (04:00)
[2016-09-22 05:19] LABS: AUTOMATED NEUTROPHIL # 15.3 TH/MM3 (1.8-7.7); BASOPHIL % 0.2 % (0.0-2.0); EOSINOPHIL # 0.1 TH/MM3 (0-0.4); EOSINOPHIL % 0.4 % (0.0-4.0); HEMATOCRIT 31.6 % (35.0-46.0); LYMPHOCYTE # 1.1 TH/MM3 (1.0-4.8); MEAN CELL VOLUME 89.9 FL (80.0-100.0); MEAN CORPUSCULAR HEMOGLOBIN 30.5 PG (27.0-34.0); MEAN CORPUSCULAR HGB CONC 33.9 % (32.0-36.0); NEUT % 85.4 % (16.0-70.0); PLATELET COUNT 319 TH/MM3 (150-450); RED BLOOD COUNT 3.51 MIL/MM3 (4.00-5.30); RED CELL DISTRIBUTION WIDTH 14.3 % (11.6-17.2); WHITE BLOOD COUNT 17.9 TH/MM3 (4.0-11.0)
[2016-09-22 05:36] LABS: MAGNESIUM 1.9 MG/DL (1.5-2.5); POTASSIUM 3.4 MEQ/L (3.5-5.1)
[2016-09-22 05:38] LABS: HEMO FLAGS AUTO DIFF
[2016-09-22] MEDS: MORPHINE SULFATE 4 MG/ML INJ IV PRN ×2 (05:40→23:45)
[2016-09-22] MEDS: ALBUMIN HUMAN 25% 12.5 GM/50 ML BAGP IV SCH ×3 (05:41→21:01)
[2016-09-22] MEDS: VANCOMYCIN 500 MG VIAL (FOR ORAL USE ONLY) PO SCH ×4 (05:41→23:46)
[2016-09-22] MEDS: LEVOTHYROXINE SODIUM 100 MCG VIAL IV PUSH SCH (05:41)
[2016-09-22] MEDS: VANCOMYCIN INJ 500 MG in SODIUM CHLORIDE 0.9% IRR BTL 250 ML IRRIGATION SCH ×4 (05:41→23:45)
[2016-09-22] MEDS: HEPARIN SODIUM - SQ 10,000 UNITS/ML VIAL SQ SCH ×3 (05:42→21:01)
[2016-09-22] MEDS: SODIUM CHLORIDE 0.9% FLUSH 10 ML FLUSH IV FLUSH SCH ×3 (07:23→20:15)
[2016-09-22] MEDS: PANTOPRAZOLE SODIUM 40 MG VIAL IV SCH (08:02)
[2016-09-22] MEDS: ARTIFICIAL TEARS OPTH SOLN 15 ML BTL EACH EYE SCH ×3 (08:03→17:43)
[2016-09-22] MEDS: POTASSIUM PHOSPHATE INJ 30 MMOL in SODIUM CHLOR 0.9% 250 ML INJ 250 ML IV PRN (08:03)
[2016-09-22] MEDS: SODIUM CHLORIDE 0.9% FLUSH 10 ML FLUSH IVF SCH (08:05)
[2016-09-22 08:36] LABS: BANDS 14 % (0-6); METAMYELOCYTES 1 % (0-1); MYELOCYTES 3 % (0-0); NEUTROPHIL # MANUAL DIFF 17.5 TH/MM3 (1.8-7.7); POLYS (SEG NEUTROPHILS) 80 % (16-70); WBC DIFF SAMPLE 100
[2016-09-22 08:37] LABS: PLATELET ESTIMATE SMEAR NORMAL (NORMAL); PLATELET MORPHOLOGY NORMAL (NORMAL); SCAN/DIFF FINAL DIFF MANUAL; TOXIC GRANULATION 1+ (NORMAL)
--- NOTE | 2016-09-22 09:00 | HHI.CCPN ---
Subjective Remarks/Hospital Course This is an 86-year-old female. Date of admission 09/15/2016. Past medical history includes peripheral neuropathy, TIA history, osteoarthritis, spinal stenosis, hypertension, dyslipidemia, chronic kidney disease stage II, hypothyroidism, chronic lumbar pain with previous history of nerve blocks and gastroesophageal reflux disease. See originally presented to [facility] status post unwitnessed fall at home which he had a left femoral neck fracture and left humeral head fracture. She was seen in consultation by Dr. Bill and had a bipolar gayla-plasty 09/05 without complication. Left wrist fractures treated conservatively with a sling therapy. Patient was sent to rehabilitation 09/09 09/12 patient was diagnosed with urinary tract infection. Initially treated with Ceftin 500 mg every 12 and switch to Rocephin 1 g every 24 09/13. Patient having constipation KUB revealed stool 09/13. Receiving fleets enema 1 and Relistor 12 mg subcutaneous 1. Along with Florastor twice a day Since admission rehabilitation on [facility]. Yesterday, she was noted to have multiple bouts of diarrhea starting yesterday Today, consultation to hospitalist for hypotension abdominal pain. Noted she had white cell count that jumped from slightly above normal to 43,000 late yesterday. LFTs and lipase were normal. Lactate slightly elevated 3.2 currently 2.2 after [address] abdomen/pelvis revealed ileus type pattern. With gas in the bowel. Mild anasarca. Some free fluid in the pelvis. A nonobstructing right calculus. She received 2 L normal saline wide open was transferred to [id number] and we are asked to see in consultation. C. difficile was drawn. Worried about mesenteric ischemia sent to CT with contrast At the present time, patient complaining of diffuse abdominal pain specifically in the bilateral lower quadrants. Abdomen soft. Voluntary guarding. No rigidity. 09/16: Noted Hieu-Synephrine started overnight and 70 mu./m. Received 2 L normal saline. Urine output decreased however the creatinine is still within normal limits. Started on vancomycin enema, oral and IV Flagyl for C. difficile positive. Abdominal pain currently 8 out of 10 Subjective 09/17: Afebrile. Abdominal pain still 8 out of 10. Percocet central line yesterday however currently off all vasopressors. Will attempt single lumen PICC line for TPN 09/18: Remains critically ill. Off pressors, but abdomen severe distension, tympanic and tender. CT yesterday diffuse thickening, predominately R colon. D/ W radiology Dr. Alexandra, will repeat CT abdomen stat today. Keep nothing by mouth. CBC CMP and lactic acid stat pending 09/19: Remains critically ill, continues to have severe abdominal distention and tenderness. CT surgery Dr. Abarca was consulted yesterday, he is following. Urine output excellent with Bumex infusion 3.5 L in last 16 hours. Patient is reluctant to consider surgical options at this time. D/W Dr. Abarca, continue conservative management 09/20: Patient complains of abdominal pain, distention still noted. Repeat CT this a.m. reveal stable gaseous distention of the colon. Multimodal pain relief initiated, will begin Ofirmev 1 g every 6 hours for 24 hours. 09/21: Plan for colonoscopy in am for decompression. NGT placed to LIWS. 09/22: Tmax 98.7. She continues on vancomycin PO, and AL, and IV Flagyl. KUB results yesterday show a stable gas pattern. Plans for CT of the abdomen/ pelvis this a.m. per GI and colonoscopy. Patient previously on Bumex twice a day, with an elevation in creatinine. Bumex was held for 24 hours, with slight improvement of creatinine, but urine output decreasing. Will obtain renal studies today and plan to discuss with italian teacher Dr. Hendricks. Objective Vital Signs Date Time Temp Pulse Resp B/P Pulse Ox O2 Delivery O2 Flow Rate FiO2 09/22/16 08:19 96 Nasal Cannula 1.00 09/22/16 06:00 85 09/22/16 04:00 98.2 13 123/57 Intake and Output 09/21/16 09/21/16 09/22/16 08:00 16:00 00:00 Intake Total 492 ml 580 ml 653 ml Output Total 350 ml 750 ml 300 ml Balance 142 ml -170 ml 353 ml Result Diagram: 09/22/16 0446 09/22/16 0446 Imaging Last Impressions Abdomen X-Ray 09/16/16 0600 Signed Impressions: Service Date/Time: August 03:32 - CONCLUSION: Colitis without obstruction. En Andres MD Chest X-Ray 09/15/16 1155 Signed Impressions: Service Date/Time: Thursday, September 15, 2016 12:29 - CONCLUSION: 1. Right IJ central line in good position without pneumothorax. Aldair Garcia MD Abdomen/Pelvis CT 09/15/16 0000 Signed Impressions: Service Date/Time: Thursday, September 15, 2016 09:43 - CONCLUSION: 1. Diffuse thickening of the entire colon consistent with diffuse colitis. 2. Mild atherosclerotic calcifications seen at the aorta. There is no aneurysm. Contrast is seen within the celiac, SMA and HARRIS. 3. Small non-obstructing right renal stone. En Lambert MD Objective Remarks GENERAL: 86-year-old female, resting in bed in mild distress 2/2 pain SKIN: Warm and dry. Ecchymosis to the left upper extremity HEAD: Atraumatic. Normocephalic. EYES: Pupils equal and round about 3 mm bilaterally. ENT: No nasal bleeding or discharge. Upper dentures/partial lower dentures. NECK: Trachea midline. No JVD. CARDIOVASCULAR: Regular rate and rhythm. S1, S2. No S4. Without murmur RESPIRATORY: No accessory muscle use. Clear to auscultation. Breath sounds equal bilaterally. GASTROINTESTINAL: Abdomen severely distended tympanic to percussion tender to palpation. MUSCULOSKELETAL: Extremities with trace lower extremity edema. Left leg noted knee immobilizer, to avoid flexion of femoral head. Left arm is in a sling NEUROLOGICAL: Awake and alert. No obvious cranial nerve deficits. Motor grossly within normal limits. Five out of 5 muscle strength in the arms and legs. Normal speech. PSYCHIATRIC: Appropriate mood and affect; insight and judgment normal. Urinary Catheter: Yes Date of Insertion: Sep 15, 2016 Date of Removal: Sep 16, 2016 Line: Central Venous Catheter Side: Right Location: Internal, Jugular A/P Assessment and Plan Neuro/Psych: Peripheral neuropathy History of TIA Spinal stenosis Tylenol for temp> 100.5 Morphine for pain management for left hip fracture/humerus fracture CV: Fluid overload Lactic acidosis History of hypertension Dyslipidemia Currently off all vasopressors, Status post 5 L normal saline resuscitation Bumex bolus and infusion at 0.5 mg per hour started 09/18/16 Bumex on hold on 09/21 Holding Xarelto 10 mg daily and Plavix 75 mg by mouth daily. Holding home medications of Pravachol 80 mg at night and Zetia 10 mg daily night of ileus. Holding lisinopril 10 mg daily light of hypotension and acute kidney injury Resp: Nasal cannula to maintain saturations greater than or equal to 92% Incentive spirometry while awake DuoNeb every 6 hours when necessary GI: Severe C. difficile colitis, hypervirulent strain 027 Moderate protein calorie malnutrition with albumin 1.[address] abdomen/pelvis 09/14 revealed mild chronic ileus type pattern. Nonobstructing right nephrolithiasis. Some free fluid in the pelvis. Mild anasarca. CT abdomen/post contrast 09/17 revealed diffuse colitis. Noted C. difficile positive see below CT abdomen/pelvis 09/20-stable gaseous distention of the colon Discussed with radiology Dr. Alexandra. Repeat CT abdomen and pelvis without contrast 09/18 showed similar findings with predominantly right-sided COLON Thickening and ascites Scheduled 12.5 g IV every 8 hours per GI day currently 2.3 TPN per GIs recommendations at 62.5 cc an hour with lipids 10% 250 cc 2 times a week Protonix 40 mg IV daily for GI prophylaxis Obtain CT abdomen/pelvis 09/22 per GI recommendation Plan colonoscopy today Nothing by mouth Endo: Hypothyroidism Hyperglycemia Sliding-scale insulin with Accu-Cheks to maintain euglycemia/low regimen Continue iv Levoxyl 25 mcgs Electrolyte replacement per protocol Renal: Acute on chronic kidney injury stage II Nonobstructing right nephrolithiasis Bumex 2 MG iv bolus and infusion at 0.5 mg per hour started yesterday 09/18/16 evening Creatinine increasing 1.4 -> 1.16 today, however urinary output 550cc/[address] Hendricks [id number] recommendations Monitor urine output, Accurate I's and O's Follow BMP magnesium and phosphorus in a.m. Nonobstructing right-sided nephrolithiasis noted Heme: Leukocytosis Thrombocytosis Normocytic anemia Monitor CBC daily. Follow trends ID: C. difficile, hypervirulent strain 027 Severe sepsis E cloacae UTI-urine culture on 09/15/16 negative Persistent Leukocytosis and Bandemia Currently vancomycin enema 500 mg every 6, 500 mg by mouth every 6 and Flagyl 500 mg IV every 8 day #5 09/15 blood cultures 2, urine cultures no growth to date C. difficile positive Colorectal surgery and Gi following At this time continue conservative management. ID following Dr. Rodriguez-consideration for fecal transplant FEN: Hyper-magnesium Hypophosphatemia Replace electrolytes as clinically indicated MSK: Osteoarthritis Status post bipolar hemiarthroplasty secondary to left femoral neck fracture by Dr. Bill Left humerus fracture conservative management with sling Holding vitamin D 3 2000 units daily and Os-[place] D5 100/250 one tablet twice a day Access - Utilize IV. PICC placement 09/18 Prophylaxis - GI - Protonix - DVT - SCDs/heparin subcutaneous Dispo: Discussed with patient, ALLERGIST/IMMUNOLOGIST PHYSICIAN at bedside, and Dr. Rodriguez. Critical Care: Level 3 Physician Mandi Clark MD Sep 22, 2016 09:00
--- NOTE | 2016-09-22 09:47 | RADRPT ---
EXAM DATE/TIME: 09/22/2016 08:52 [place] COMPARISON: CT ABDOMEN & PELVIS W/O CONTRAST, September 18, 2016, 10:34. INDICATIONS : Abdominal pain with distention. ORAL CONTRAST: No oral contrast ingested. RADIATION DOSE: 15.77 CTDIvol (mGy) MEDICAL HISTORY : Hypertension. SURGICAL HISTORY : None. ENCOUNTER: Initial ACUITY: 1 day PAIN SCALE: 4/10 LOCATION: Diffuse abdomen. TECHNIQUE: Volumetric scanning of the abdomen and pelvis was performed. Using automated exposure control and ad justment of the mA and/or kV according to patient size, radiation dose was kept as low as reasonably achievable to obtain optimal diagnostic quality images. DICOM format image data is available electro nically for review and comparison. FINDINGS: There are bibasilar consolidative changes with bilateral pleural effusions. The right pleural effusi on occupies approximately 20% of the right hemithorax and has increased slightly in size. Left pleur al effusion is stable. There is no pericardial effusion. The liver is small with moderate ascites present. Spleen is of normal size. The pancreas is unremarkable. Gallbladder is prominent without gallbladder wall thickening. There is marked bowel wall thickening in the ascending and descending colon that would all be consist ent with a colitis. This has progressed substantially in the interval. In the pelvis similar bowel wall thickening is evident. Generalized anasarca is noted. There is no free air. CONCLUSION: 1. Deterioration in the appearance of the abdomen with increasing ascites and substantial bowel thic kening of the colon all consistent with a colitis. 2. Gallbladder is prominent but otherwise unremarkable. 3. Increasing right pleural effusion. Gatito Vásquez MD FACR on September 22, 2016 at 9:26 Board Certified Radiologist. This report was verified electronically.
--- NOTE | 2016-09-22 11:59 | PD.CONS ---
Consult Service Palliative Care . Consult Requested By Dr. Rdz . Primary Care Physician Adan Davis MD . Reason for Consultation a. To assist with evaluation and management of symptoms including: abdominal pain; ileus b. To assist medical decision maker(s) with: better understanding of current medical conditions; weighing benefits/burdens of medical treatment options; making medical treatment decisions. . HPI History of Present Illness Ms. Hebert is an 86-year-old female with a known medical history of hypertension; peripheral neuropathy; chronic kidney disease; transient ischemic attack; hypothyroidism; hyperlipidemia; lumbar spine disease with chronic pain; osteoarthritis; spinal stenosis; and skin cancer who was transferred from [facility] to the intensive care unit on 09/15/16 because of abdominal pain, hypotension, elevated white blood count, and elevated lactate. The patient was initially hospitalized here at [facility] on 09/04/16 after an unwitnessed fall at home resulting in a left femoral neck fracture and left humeral head fracture. The patient underwent surgical repair of the hip (bipolar hemiarthroplasty) on 09/05/16 without complication and had her humeral head fracture treated conservatively with sling therapy. The patient was sent to rehabilitation on 09/09/16. On 09/12/16 the patient was diagnosed with a urinary tract infection and started on antibiotics. Due to complaints of constipation (thought initially to be secondary to opiate use for pain control) she had a flat film of the abdomen which revealed significant stool on 09/13/16. She subsequently received an enema as well as methyl naltrexone and Angelic-colace. She had multiple bouts of loose stool on 09/14/16. On 09/15/16 she was noted to be hypotensive and was complaining of abdominal pain. Her white blood count jumped to 43,000. CT of the abdomen/pelvis revealed an ileus type pattern; mild anasarca; some free fluid in the pelvis; nonobstructing right calculus. LFTs and lipase were normal. There were concerns about mesenteric ischemia. Critical care was consulted and the patient was transferred to the medical ICU where she required pressor support. The patient subsequently underwent CT of the abdomen/pelvis with IV contrast on 09/15/16. This study revealed the following: * 1. Diffuse thickening of the entire colon consistent with diffuse colitis. * 2. Mild atherosclerotic calcifications seen at the aorta. There is no aneurysm. Contrast is seen within the celiac, SMA and HARRIS. * 3. Small non-obstructing right renal stone. Gastroenterology was consulted. Stool was tested for C. difficile and came back positive. Patient was unable to tolerate enteral feedings and TPN was started. The patient had intermittent delirium. Urine output dropped at one time and nephrology was consulted. Urine output improved, however, with a Bumex drip. Patient has been having level 8-10 abdominal pain with ongoing distention. Pain is being managed with morhpine sulfate 2 mg iv q 2 hours prn. She required 5 doses on 09/21/16. There is some reluctance to increase the opiates due to BP issues and fear or exacerbating the ileus. Colorectal surgery was consulted and is currently following. The patient is currently on vancomycin enemas; IV metronidazole; and oral vancomycin. I have spoken with critical care (Dr. Rdz) and ID (Dr. Rodriguez). Both feel the patient has life-threatening disease that does not appear to be responding to non-surgical approaches. Even if she were felt to be a candidate for colectomy, the patient has said she does not want the surgery and family has endorsed her decision. There has been some discussion of the possibility of fecal transplant. This has not yet been offered to patient or discussed with family. At time of my visit, patient is easily awakened. She can answer most questions appropriately, but show intermittent signs of mild confusion. She reports moderate abdominal pain that she cannot really quantify or qualify for me. She denies back pain at this time. She denies SOB, nausea. . Function/Cognitive Trajectory Ms. Hebert was living independently prior to her fall earlier this month. She stopped driving in 2011 due to her spinal stenosis with accompanying neuropathy. A neighbor/friend would drive her to doctor appointments and to get groceries. She had a cane to use when necessary but mostly ambulated without the use of an assistive device. She had significant back pain and neuropathy from her spinal stenosis. She apparently had been using a fair amount of opiate analgesia for years. Doctors had cut her down and she eventually decided to just live with the pain. Son is not aware of any significant trajectory of decline over the months leading up to her fall. . Review of Systems Constitutional: COMPLAINS OF: Fatigue, Change in appetite, Pain, DENIES: Fever , Weight gain, Weight loss, Generalized weakness Endocrine: DENIES: Heat/cold intolerance, Polydipsia, Polyuria Eyes: COMPLAINS OF: Vision loss (uses reading glasses), DENIES: Blurred vision , Diplopia, Eye pain Ears, nose, mouth, throat: DENIES: Tinnitus, Hearing loss, Oral lesions, Throat pain, Hoarseness Respiratory: DENIES: Cough, Hemoptysis, Sputum production, Shortness of breath Cardiovascular: DENIES: Chest pain, Palpitations Gastrointestinal: COMPLAINS OF: Abdominal pain, Constipation, Diarrhea, Dyspepsia or heartburn (long history of acid reflux with history of esophageal dilatation), Bloating, DENIES: Nausea, Vomiting Genitourinary: DENIES: Urinary frequency, Urinary incontinence, Urgency, Hematuria, Dysuria, Nocturia Musculoskeletal: COMPLAINS OF: Joint pain, Muscle aches, Back pain, Neck pain Integumentary: DENIES: Pruritus, Breast masses, Nipple discharge Hematologic/Lymphatics: COMPLAINS OF: Bruising Immunologic/Allergic: DENIES: Eczema Neurologic: COMPLAINS OF: Paresthesias (has numbness/tingling in feet attributed to peripheral neuropathy), DENIES: Headache, Seizures, Tremor Psychiatric: COMPLAINS OF: Agitation, DENIES: Anxiety, Confusion, Depression Other ROS: * Has upper denture plate and partial lower plate Past Family Social History Coded Allergies: Tizanidine (Verified Allergy, Severe, doesn't know, 09/09/16) Tramadol (Verified Allergy, Severe, doesn't remember, 09/09/16) Baclofen (Unverified Allergy, Intermediate, RASH, 09/09/16) Cipro (Unverified Allergy, Intermediate, RASH, 09/09/16) Cymbalta (Unverified Allergy, Intermediate, SEVERE RASH, 09/09/16) Elavil (Unverified Allergy, Intermediate, RASH, 09/09/16) Tetracycline (Unverified Allergy, Intermediate, RASH, 09/09/16) Triamcinolone (Unverified Allergy, Intermediate, SEVERE RASH, 09/09/16) Past Medical History GERD/Gastritis Basal cell carcinoma Carotid artery disease Cervical radiculopathy Chronic kidney disease II Dysphagia Hx Herpes zoster History of TIA Hypertension Hyperlipidemia Hypothyroidism Osteoarthritis Spinal stenosis Peripheral neuropathy secondary to spinal stenosis Vertigo Past Surgical History Left knee arthroscopy Colonoscopy EGD Skin cancer removal from ears Left cataract surgery Left bipolar hemiarthroplasty for left femoral neck fx Nerve block lumbar spine . Reported Medications Medications on admission to the ICU include the following: Plavix (Clopidogrel Bisulfate) 75 Mg Tab 75 Mg PO DAILY -- resume September 25 Calcium 600+D 200 (Calcium Carbonate-Vitamin D) 600-200 Mg-Unit Tab 1 Tab PO BID 30 Days Vitamin D3 (Cholecalciferol) 2,000 Unit Cap 2,000 Units PO DAILY Ergocalciferol 50,000 Unit Cap 50,000 Units PO Q7D Xarelto (Rivaroxaban) 10 Mg Tab 10 Mg PO DAILY Hydrocodone-Acetaminophen 7.5-325 mg Tab 1 Tab PO Q4H PRN Multiple Vitamin 1 Tab 1 Tab PO DAILY Levothyroxine (Levothyroxine Sodium) 25 Mcg Tab 25 Mcg PO DAILY Lovastatin 40 Mg Tab 80 Mg PO DAILY Zetia (Ezetimibe) 10 Mg Tab 10 Mg PO DAILY Lisinopril 5 Mg Tab 5 Mg PO HS Lisinopril 5 Mg Tab 10 Mg PO . Current Medications Medications (Trade) Dose Ordered Sig/Bunny Route Start Time Stop Time Status Last Admin (Synthroid) 25 mcg DAILY PO 09/15/16 09:00 Hold 09/18/16 08:54 (NS Flush) 2 ml UNSCH PRN IV FLUSH 09/15/16 08:15 09/19/16 08:47 (NS Flush) 2 ml BID IV FLUSH 09/15/16 09:00 09/21/16 21:49 (Tylenol) 650 mg Q6H PRN PO 09/15/16 08:15 Hold (Ashuelot 5-325 Mg) 1 tab Q4H PRN PO 09/15/16 08:15 Hold 09/16/16 08:37 (Morphine Inj) 2 mg Q2H PRN IV 09/15/16 08:15 09/22/16 05:40 (Protonix Inj) 40 mg DAILY IV 09/15/16 09:00 09/22/16 08:02 (Tears Naturale Opth Soln) 1 drop TID EACH EYE 09/15/16 09:00 09/22/16 08:03 (Zofran Inj) 4 mg Q6H PRN IV 09/15/16 08:15 Miscellaneous Information 1 Q361D XX 09/15/16 08:15 09/15/16 08:15 (Chlorhexidine 2% Cloth) Taper DAILY@04 TOP 09/16/16 04:00 09/12/17 03:59 09/20/16 01:16 (Chlorhexidine 2% Cloth) 3 pack UNSCH PRN TOP 09/15/16 08:15 (Milk Of Derick Likevin) 30 ml Q12H PRN PO 09/15/16 08:15 (Dulcolax Supp) 10 mg DAILY PRN RECTAL 09/15/16 08:15 Lactulose 30 ml 30 ml DAILY PRN PO 09/15/16 08:15 (Flagyl 500 Mg Inj) 100 ml @ 100 mls/hr Q6H IV 09/15/16 14:00 09/22/16 08:03 (NS Flush) DAILY IVF 09/16/16 09:00 09/22/16 08:05 (NS Flush) UNSCH PRN IVF 09/15/16 12:00 09/19/16 08:46 Vancomycin HCl 500 mg 500 mg Q6HR PO 09/15/16 13:15 09/22/16 05:41 (Vancomycin Inj/ NS Irr Btl) 250 ml @ 0 mls/hr Q6HR IRRIGATION 09/15/16 18:00 09/22/16 05:41 (Albumin 25% Inj) 12.5 gm Q8HR IV 09/16/16 14:00 09/22/16 05:41 Heparin Sodium (Porcine) 5000 units 5,000 units Q8HR SQ 09/16/16 14:00 09/22/16 05:42 (Liposyn Iii 20% Inj) 250 ml @ 31.25 mls/ hr SuWe@20 IV-CENTRAL 09/19/16 20:00 09/19/16 21:35 (Apresoline Inj) 10 mg Q1HR PRN IV PUSH 09/17/16 16:30 09/18/16 00:19 (Nitroglycerin 2% Oint) 2 inch Q6HR PRN TOPICAL 09/17/16 16:30 (NS Flush) See Protocol DAILY IV FLUSH 09/18/16 09:00 09/22/16 08:05 (NS Flush) See Protocol UNSCH PRN IV FLUSH 09/17/16 21:45 09/19/16 08:46 (Heparin Central Flush) See Protocol DAILY IV FLUSH 09/18/16 09:00 09/21/16 08:46 (Heparin Central Flush) See Protocol UNSCH PRN IV FLUSH 09/17/16 21:45 (NS Flush) UNSCH PRN IV FLUSH 09/17/16 21:45 09/19/16 08:47 Levothyroxine Sodium 25 mcg 25 mcg DAILY@06 IV PUSH 09/19/16 06:00 09/22/16 05:41 Potassium Chloride 100 ml @ 50 mls/hr Q2H PRN IV 09/18/16 16:30 (KCl 20 Meq Premix Inj) 100 ml @ 50 mls/hr Q2H PRN IV 09/18/16 16:30 Potassium Bicarb/ Potassium Chloride 50 meq 50 meq UNSCH PRN PO 09/18/16 16:30 Potassium Chloride 100 ml @ 25 mls/hr UNSCH PRN IV 09/18/16 16:30 09/21/16 09:07 Potassium Chloride 100 ml @ 50 mls/hr Q2H PRN IV 09/18/16 16:30 (Magnesium Sulfate Inj/NS Inj) 100 ml @ 50 mls/hr UNSCH PRN IV 09/18/16 16:30 Magnesium Oxide 800 mg 800 mg UNSCH PRN PO 09/18/16 16:30 (Magnesium Sulfate Inj/NS Inj) 100 ml @ 50 mls/hr UNSCH PRN IV 09/18/16 16:30 Potassium Phosphate 2000 mg 2,000 mg Q4H PRN PO 09/18/16 16:30 (Sodium Phosphate Inj/NS 250 ml Inj) 250 ml @ 42 mls/hr UNSCH PRN IV 09/18/16 16:30 09/18/16 17:15 Potassium Phosphate 2000 mg 2,000 mg UNSCH PRN PO/TUBE 09/18/16 16:30 (Potassium Phosphate Inj/NS 250 ml Inj) 260 ml @ 42 mls/hr UNSCH PRN IV 09/18/16 16:30 09/22/16 08:03 Padimate O 1 applic 1 applic UNSCH PRN TOPICAL 09/19/16 09:30 (Mvi-12 Inj/ Folvite Inj/ Clinimix E 4./ ) 1,010.2 ml @ 30 mls/hr Q24H IV-CENTRAL 09/20/16 20:00 09/21/16 21:49 (Bumex Inj) 1 mg BID@09,18 IV PUSH 09/20/16 18:00 Hold 09/21/16 08:47 . Family History Father had cardiac disease and some sort of cancer. Patient's daughter 6 years ago of lung cancer metastatic to the brain. Mother of "old age." Family history strongly positive for cancer and EtOH . Substance Use Tobacco: Nonsmoker Alcohol: No history of abuse Prescription med abuse: No known prescription drug abuse Illicits: No known use of illicits . Psychosocial History Patient is originally from [place]. Has lived in [place] since about 1992. She graduated from high school . Did not work outside the home. at age 16. in 1998 She had 4 children. Her only daughter 6 yrs ago from lung cancer. She has 4 sons. One lives in [place]. Two live in [place]. One lives in [place]. She is a great grandmother. . Spiritual/Cultural Factors Patient was raised in a Zoroastrianism tradition. Her was not a believer and she did not attend a congregation for most of her adult life. She did start going once her but stopped when she no longer could drive. She appreciated axle turner visits. . Living Will: Completed, but not made available Health Care Surrogate: Completed, but not made available Durable Power of Space Operations: Never completed Date completed: Son reports that patient completed a living will and designation of health care surrogacy when she completed her financial will. She might also have completed once since being here in the hospital. . Health Care Surrogate(s): Patient verbally states that she wants her son -- Reed -- to be her health care surrogate. Reed says she has completed paper work designating him in writing. We don't yet have this on the chart. . Documented care wishes: No written documentation currently available regarding patient's health care goals /preferences. . Today's verbally stated goals: Patient states she does not want surgery. She understands she might . If she does not improve with current medical treatment she would like to be kept comfortable and put her fate in God's hands. . Family/friends goals: Son reports that the patient , for years, has stated that she wished someone would give her a pill that would just allow her to peacefully. He reports that her wishes to avoid aggressive care are consistent with long stated wishes. . As a result of above, patient is NO CODE. . Ethical and Legal Issues Patient is mildly confused but seems to understand much about her medical condition and option. She is probably capacitated to make health care decisions , but I would recommend that most major health care decisions be made jointly with her son. . Physical Exam Vital Signs Date Time Temp Pulse Resp B/P Pulse Ox O2 Delivery O2 Flow Rate FiO2 09/22/16 10:00 96 09/22/16 08:19 96 Nasal Cannula 1.00 09/22/16 08:00 92 09/22/16 08:00 98.3 92 18 143/68 95 09/22/16 06:00 85 09/22/16 04:00 89 09/22/16 04:00 98.2 89 13 123/57 96 09/22/16 02:00 94 09/22/16 00:00 91 09/22/16 00:00 98.0 91 16 124/58 97 09/21/16 22:00 98 09/21/16 20:00 93 09/21/16 20:00 98.7 93 21 116/56 97 09/21/16 19:23 96 Nasal Cannula 1.00 09/21/16 18:17 20 09/21/16 18:00 97 09/21/16 16:00 101 09/21/16 16:00 98.0 101 17 132/61 94 09/21/16 14:00 89 09/21/16 12:00 87 09/21/16 12:00 98.8 87 18 110/55 96 . 09/21/16 09/22/16 19:00 07:00 Intake Total 580 ml 1013 ml Output Total 750 ml 600 ml Balance -170 ml 413 ml IV Total 580 ml 200 ml TPN/PPN 713 ml Albumin 100 ml Output Urine Total 750 ml 550 ml Stool Total 50 ml . Exam CONSTITUTIONAL/GENERAL: This is an adequately nourished patient,lying somewhat stiffly in bed. Able to smile weakly. No obvious distress. TUBES/LINES/DRAINS: NG tube; taylor catheter; peripheral iv; PICC line RUE; fecal management system SKIN: No jaundice, rashes, or lesions. No wounds seen anteriorly. Skin temperature appropriate. Not diaphoretic. HEAD: Atraumatic. Normocephalic. EYES: Pupils equal and round and reactive. Extraocular motions intact. No scleral icterus. No injection or drainage. Fundi not examined. ENT: Hearing grossly normal. Nose without bleeding or purulent drainage. Mucous membranes dry. Throat without visible erythema, exudates, masses, or lesions. NECK: Trachea midline. Supple, nontender. No palpable thyroid enlargement or nodularity. CARDIOVASCULAR: Regular rate and rhythm without murmurs, gallops, or rubs. No JVD. Peripheral pulses symmetric. RESPIRATORY/CHEST: Symmetric, unlabored respirations. Clear to auscultation. Breath sounds equal bilaterally. No wheezes, rales, or rhonchi. GASTROINTESTINAL: Abdomen distended, diffusely tender. Tympanitic. No hepato- splenomegaly, or palpable masses. No guarding. Bowel sounds hypoactive. GENITOURINARY: Without palpable bladder distension. Taylor catheter in place. MUSCULOSKELETAL: Extremities without clubbing, cyanosis. Trace edema. LLE knee immobilizer. LUE sling. LYMPHATICS: No palpable cervical or supraclavicular adenopathy. NEUROLOGICAL: Awake and alert. Motor and sensory grossly within normal limits. Follows commands. Moves all extremities. Answers most questions appropriately. Mild, intermittent confusion. PSYCHIATRIC: No obvious anxiety/depression. No apparent hallucinations or other psychotic thought process. . Diagnostic Tests Laboratory Laboratory Tests Test 09/19/16 09/21/16 09/21/16 09/22/16 18:25 04:23 18:44 04:46 Potassium Level 3.5 MEQ/L 3.4 MEQ/L 3.5 MEQ/L 3.4 MEQ/L (3.5-5.1) (3.5-5.1) (3.5-5.1) (3.5-5.1) White Blood Count 15.4 TH/MM3 17.9 TH/MM3 (4.0-11.0) (4.0-11.0) Red Blood Count 3.57 MIL/MM3 3.51 MIL/MM3 (4.00-5.30) (4.00-5.30) Hemoglobin 10.5 GM/DL 10.7 GM/DL (11.6-15.3) (11.6-15.3) Hematocrit 32.5 % 31.6 % (35.0-46.0) (35.0-46.0) Mean Corpuscular Volume 90.8 FL 89.9 FL (80.0-100.0) (80.0-100.0) Mean Corpuscular Hemoglobin 29.4 PG 30.5 PG (27.0-34.0) (27.0-34.0) Mean Corpuscular Hemoglobin 32.3 % 33.9 % Concent (32.0-36.0) (32.0-36.0) Red Cell Distribution Width 14.4 % 14.3 % (11.6-17.2) (11.6-17.2) Platelet Count 316 TH/MM3 319 TH/MM3 (150-450) (150-450) Mean Platelet Volume 7.9 FL 7.5 FL (7.0-11.0) (7.0-11.0) Neutrophils (%) (Auto) 82.1 % 85.4 % (16.0-70.0) (16.0-70.0) Lymphocytes (%) (Auto) 6.8 % 6.0 % (9.0-44.0) (9.0-44.0) Monocytes (%) (Auto) 9.6 % (0.0-8.0) 8.0 % (0.0-8.0) Eosinophils (%) (Auto) 0.8 % (0.0-4.0) 0.4 % (0.0-4.0) Basophils (%) (Auto) 0.7 % (0.0-2.0) 0.2 % (0.0-2.0) Neutrophils # (Auto) 12.7 TH/MM3 15.3 TH/MM3 (1.8-7.7) (1.8-7.7) Lymphocytes # (Auto) 1.1 TH/MM3 1.1 TH/MM3 (1.0-4.8) (1.0-4.8) Monocytes # (Auto) 1.5 TH/MM3 1.4 TH/MM3 (0-0.9) (0-0.9) Eosinophils # (Auto) 0.1 TH/MM3 0.1 TH/MM3 (0-0.4) (0-0.4) Basophils # (Auto) 0.1 TH/MM3 0.0 TH/MM3 (0-0.2) (0-0.2) CBC Comment AUTO DIFF AUTO DIFF Differential Total Cells 100 100 Counted Neutrophils % (Manual) 66 % (16-70) 80 % (16-70) Band Neutrophils % 21 % (0-6) 14 % (0-6) Lymphocytes % 3 % (9-44) 1 % (9-44) Monocytes % 6 % (0-8) 1 % (0-8) Basophils % 1 % (0-2) Neutrophils # (Manual) 13.9 TH/MM3 17.5 TH/MM3 (1.8-7.7) (1.8-7.7) Metamyelocytes 3 % (0-1) 1 % (0-1) Nucleated Red Blood Cells 1 /100 WBC (0-0) Differential Comment FINAL DIFF FINAL DIFF MANUAL MANUAL Platelet Estimate NORMAL NORMAL (NORMAL) (NORMAL) Platelet Morphology Comment NORMAL NORMAL (NORMAL) (NORMAL) Red Cell Morphology Comment NORMAL (NORMAL) Sodium Level 144 MEQ/L 146 MEQ/L (136-145) (136-145) Chloride Level 106 MEQ/L 109 MEQ/L (98-107) (98-107) Carbon Dioxide Level 30.8 MEQ/L 33.0 MEQ/L (21.0-32.0) (21.0-32.0) Anion Gap 7 MEQ/L (5-15) 4 MEQ/L (5-15) Blood Urea Nitrogen 35 MG/DL (7-18) 38 MG/DL (7-18) Creatinine 1.41 MG/DL 1.16 MG/DL (0.50-1.00) (0.50-1.00) Estimat Glomerular Filtration 35 ML/MIN (>89) 44 ML/MIN (>89) Rate Random Glucose 149 MG/DL 142 MG/DL (74-106) (74-106) Calcium Level 8.2 MG/DL 8.2 MG/DL (8.5-10.1) (8.5-10.1) Phosphorus Level 3.0 MG/DL 2.1 MG/DL (2.5-4.9) (2.5-4.9) Magnesium Level 1.9 MG/DL 1.9 MG/DL (1.5-2.5) (1.5-2.5) Myelocytes 3 % (0-0) Toxic Granulation 1+ (NORMAL) . Result Diagram: 6/28/17 0446 6/28/17 0446 Microbiology Blood and urine cultures from 09/15/16 show no growth. . Imaging Last Impressions Abdomen X-Ray 09/21/16 0600 Signed Impressions: Service Date/Time: Wednesday, September 21, 2016 04:25 - CONCLUSION: Stable gaseous distention of colon. Marty Marinelli MD Shoulder X-Ray 09/20/16 0000 Signed Impressions: Service Date/Time: Tuesday, September 20, 2016 09:53 - CONCLUSION: No significant interval change is identified. There is a displaced mildly comminuted proximal left humeral neck fracture with rotation of the humeral head and associated shortening. En Robledo MD Hip and Pelvis X-Ray 09/20/16 0000 Signed Impressions: Service Date/Time: Tuesday, September 20, 2016 09:57 - CONCLUSION: Left hip bipolar arthroplasty hardware demonstrates no acute finding. The bones are undermineralized but no fracture is visualized. En Robledo MD Chest X-Ray 09/18/16 0000 Signed Impressions: Service Date/Time: Sunday, September 18, 2016 15:27 - CONCLUSION: Bibasilar areas of mild atelectasis or consolidation being worse on the right. There are suspected mild bilateral pleural effusions. En Lambert MD Abdomen/Pelvis CT 09/18/16 0000 Signed Impressions: Service Date/Time: Sunday, September 18, 2016 10:34 - CONCLUSION: 1. Compared to the prior examination of 09/17/2016, there has been no significant change in the overall appearance of the colon. There continues to be diffuse wall thickening involving the right and left colon suggestive of colitis with some moderate distention. However, no increased distention is seen on today's examination. There is no evidence of free air. 2. No change in the abdominal ascites. 3. No change in body wall anasarca. 4. No change in the bibasilar infiltrates and bilateral effusions. Odilon Alexandra MD . Procedures * Right internal jugular central line. . Patient/Family Conference Present at Family Conference: Son -- Reed . Family Conference Time (mins): 20 Family Conference Location: Telephone Issues Discussed: * Palliative care role, purpose, approach * Additional medical, psychosocial, and spiritual history * Patients general health, functional status, and cognitive changes in the months leading up to the current hospitalization * Family understanding of the current medical problems * Family understanding of prognosis * Patients goals of care as best understood from advance directives and/or conversations and/or values * Current medical treatment options and benefits/burdens of those options * Likely scenarios comparing ongoing aggressive care with a transition to comfort measures only * Questions answered to the best of my ability * Palliative care contact information provided . Assessment and Plan Disease Oriented Problem List: (1) Colitis, Clostridium difficile Comment: Severe, life-threatening, virulent strain. . (2) Severe sepsis (3) Septic shock (4) Spinal stenosis (5) Peripheral neuropathy (6) Acute kidney injury (nontraumatic) (7) UTI (urinary tract infection) Comment: Enterobacter. Resolved. . (8) Hypothyroid (9) Humerus head fracture Comment: Left side from fall on 09/10/16. Sling therapy. . (10) Osteoarthritis (11) Hip fracture, left Comment: Left side. Bipolar gayla-arthroplasty on 09/05/16. . (12) Protein-calorie malnutrition, moderate Symptom Scale: (1) Pain 0-10 Scale: 9 Comment: Current pain is mostly abdominal. Also has history of chronic low back pain and neuropathic leg pain. Other sources of pain might include prolonged bedbound status; NG tube; venous access lines; fecal management systerm; taylor catheter; etc. Patient not able to quantify or qualify pain well at time of my visit. . Pertinent Non-Medical Issues Psychosocial: Had been living independently prior to her fall. Son in [place]; two sons in [place]; one son in [place]. Spiritual: Lapsed Rastafarian. Appreciates axle turnerparker recio. Legal: Pt verbally designates her son -- Reed -- as her surrogate and Reed claims there is paperwork confirming that selection. Ethical issues impacting care: Patient is mildly confused. Recommend shared decision making with her son. . Important Contacts * Reed Hebert (son) [phone] * Lore Hebert ([id number]) [phone] . Prognosis Patient currently has life-threatening diffuse colitis from C diff. She is not yet showing a response to medical management. She is not interested in surgery even if it remains the only option to save her life and her chances of successful recovery after major surgery is in doubt. Because of her ileus, she is receiving nutrition via TPN which places her a further risk of sepsis. As she is currently hemodynamically stable, breathing on her own , and renal function is reasonable, she can afford to continue to see if medical management will work. Should there be another major setback, she wants to transition to comfort measures only and family endorses this plan. . Code Status: No Code Plan == Code Status: NO CODE == Decision making: Patient has intermittent mild confusion but appears to understand her illness and goals. She is generally capacitated to make her own health care decision, but recommend there be shared decision making with her surrogate or proxy. Should she become incapacitated, she has indicated that she wants her son Reed (the only son that lives in [place]) to be her health care surrogate. Reed claims she has completed paperwork designating Reed as the surrogate, but we don't yet have such paperwork on the chart or in the EMR. == Goals: Patient is willing to continue with medical management for the time being to see if the current antibioitc regimen and supportive care and conquer the colitis. She does NOT want surgery. She does not want to be resuscitated. If there is any significant setback or it is clear medical management is not working, she wants to transition to "comfort measures only" and be enrolled with hospice. == Pain: Pain sources described above with most pain being her abdominal pain at this time. She continues to have episodes of level 8 or higher pain in spite of her current morphine regimen. There are concerns about increasing her opiates due to recent hypotension and fear of exacerbating her ileus. If opiates are contributing to the ileus, we can offset this with methylnaltrexone (Relistor) and then perhaps increase her opiates if her BP tolerates it. == Ileus: Recommend several day trial of methylnaltrexone to see if blocking the bowel opiate receptors will help resolve the ileus. == Confusion: This is very mild and likely a multi-factorial delirium. Do not see benefit from adding a neuroleptic at this time. Will continue to address underlying illnesses. == Have discussed possibility of "fecal transplant" with sports broadcaster and with ID. Will discuss with patient and son on 09/23 if patient is not improving. If they want to pursue this option, this apparently has to be arranged through GI, and will see if they feel patient is a reasonable candidate. == Palliative care will continue to follow to assist with symptom management and to further clarify goals of medical treatment as the clinical course evolves. . Time Spent Total Floor Time (mins): 90 (Total floor time included chart review, patient exam, bedside discussion with patient; collaboration with primary nurse, telephone conversation with son, in-person conversations with Drs. Rodriguez / Kendell, and documentation. ) Face to Face Time (mins): 20 >50% Counseling/Coord of Care: Yes Thank you for the opportunity to participate in the care of Ms. Hebert. . Attestation To help prompt me to consider important information that might be impacting today's encounter and assessment, information from prior notes written by myself or my colleagues may have been "brought forward" into today's note. My signature on this note, however, is an attestation that I personally performed the exam, history, and/or decision-making noted today, and, unless otherwise indicated, the interactions with patient, family, and staff as well as the review of records all occurred today. I also attest that the listed assessment and stated plan reflect my best clinical judgment today based on the combination of historical information, prior notes, and today's exam/ interactions. When time spent is documented, it refers only to time spent today by the signer, or if indicated, combined time spent today by collaborating physician/nurse practitioner. . Robert Manzo MD Sep 22, 2016 11:59
--- NOTE | 2016-09-22 12:04 | HHI.GIFU ---
Subjective Remarks Resting in bed. Clinically about the same. Pt continues to have diffuse abdominal discomfort, son signed consents for decompressive colonoscopy to try to help keep patient comfortable. Does state that she had very small amount of fecal matter in return after vanco enema earlier today. Objective Vitals I&O Vital Signs Date Time Temp Pulse Resp B/P Pulse Ox O2 Delivery O2 Flow Rate FiO2 09/22/16 10:00 96 09/22/16 08:19 96 Nasal Cannula 1.00 09/22/16 08:00 92 09/22/16 08:00 98.3 92 18 143/68 95 09/22/16 06:00 85 09/22/16 04:00 89 09/22/16 04:00 98.2 89 13 123/57 96 09/22/16 02:00 94 09/22/16 00:00 91 09/22/16 00:00 98.0 91 16 124/58 97 09/21/16 22:00 98 09/21/16 20:00 93 09/21/16 20:00 98.7 93 21 116/56 97 09/21/16 19:23 96 Nasal Cannula 1.00 09/21/16 18:17 20 09/21/16 18:00 97 09/21/16 16:00 101 09/21/16 16:00 98.0 101 17 132/61 94 09/21/16 14:00 89 09/21/16 12:00 87 09/21/16 12:00 98.8 87 18 110/55 96 I/O 09/21/16 09/21/16 09/21/16 09/22/16 09/22/16 09/22/16 07:00 15:00 23:00 07:00 15:00 23:00 Intake Total 492 ml 580 ml 653 ml 360 ml Output Total 350 ml 750 ml 300 ml 300 ml Balance 142 ml -170 ml 353 ml 60 ml IV Total 215 ml 580 ml 100 ml 100 ml TPN/PPN 227 ml 503 ml 210 ml Albumin 50 ml 50 ml 50 ml Output Urine Total 350 ml 750 ml 300 ml 250 ml Stool Total 0 ml 0 ml 50 ml Laboratory Laboratory Tests Test 09/21/16 09/22/16 18:44 04:46 Potassium Level 3.5 3.4 White Blood Count 17.9 Red Blood Count 3.51 Hemoglobin 10.7 Hematocrit 31.6 Mean Corpuscular Volume 89.9 Mean Corpuscular Hemoglobin 30.5 Mean Corpuscular Hemoglobin 33.9 Concent Red Cell Distribution Width 14.3 Platelet Count 319 Mean Platelet Volume 7.5 Neutrophils (%) (Auto) 85.4 Lymphocytes (%) (Auto) 6.0 Monocytes (%) (Auto) 8.0 Eosinophils (%) (Auto) 0.4 Basophils (%) (Auto) 0.2 Neutrophils # (Auto) 15.3 Lymphocytes # (Auto) 1.1 Monocytes # (Auto) 1.4 Eosinophils # (Auto) 0.1 Basophils # (Auto) 0.0 CBC Comment AUTO DIFF Differential Total Cells 100 Counted Neutrophils % (Manual) 80 Band Neutrophils % 14 Lymphocytes % 1 Monocytes % 1 Neutrophils # (Manual) 17.5 Metamyelocytes 1 Myelocytes 3 Differential Comment FINAL DIFF MANUAL Toxic Granulation 1+ Platelet Estimate NORMAL Platelet Morphology Comment NORMAL Sodium Level 146 Chloride Level 109 Carbon Dioxide Level 33.0 Anion Gap 4 Blood Urea Nitrogen 38 Creatinine 1.16 Estimat Glomerular Filtration 44 Rate Random Glucose 142 Calcium Level 8.2 Phosphorus Level 2.1 Magnesium Level 1.9 Imaging Last Impressions Abdomen X-Ray 09/21/16 0600 Signed Impressions: Service Date/Time: Wednesday, September 21, 2016 04:25 - CONCLUSION: Stable gaseous distention of colon. Marty Marinelli MD Shoulder X-Ray 09/20/16 0000 Signed Impressions: Service Date/Time: Tuesday, September 20, 2016 09:53 - CONCLUSION: No significant interval change is identified. There is a displaced mildly comminuted proximal left humeral neck fracture with rotation of the humeral head and associated shortening. En Robledo MD Hip and Pelvis X-Ray 09/20/16 0000 Signed Impressions: Service Date/Time: Tuesday, September 20, 2016 09:57 - CONCLUSION: Left hip bipolar arthroplasty hardware demonstrates no acute finding. The bones are undermineralized but no fracture is visualized. En Robledo MD Chest X-Ray 09/18/16 0000 Signed Impressions: Service Date/Time: Sunday, September 18, 2016 15:27 - CONCLUSION: Bibasilar areas of mild atelectasis or consolidation being worse on the right. There are suspected mild bilateral pleural effusions. En Lambert MD Abdomen/Pelvis CT 09/18/16 0000 Signed Impressions: Service Date/Time: Sunday, September 18, 2016 10:34 - CONCLUSION: 1. Compared to the prior examination of 09/17/2016, there has been no significant change in the overall appearance of the colon. There continues to be diffuse wall thickening involving the right and left colon suggestive of colitis with some moderate distention. However, no increased distention is seen on today's examination. There is no evidence of free air. 2. No change in the abdominal ascites. 3. No change in body wall anasarca. 4. No change in the bibasilar infiltrates and bilateral effusions. Odilon Alexandra MD Physical Exam HEENT: Normocephalic; atraumatic; no jaundice CHEST: Resp even/unlabored, diminished CARDIAC: RRR ABDOMEN: Moderate-severe distention/tympanic, moderate diffuse abdominal tenderness; bowel sounds hypoactive. Flexiseal empty. NGT to liws EXTREMITIES: Generalized edema. Left CKS, Left upper extremity in sling. SKIN: Normal; no rash; no jaundice. BRUSHER TENDER: Lethargic, oriented to self and place. Assessment and Plan Plan ASSESSMENT: - Severe C difficile colitis (Epid 027 (+) in patient with recent abx use and hypotension). CT Scan abdomen and pelvis with IV contrast (09/15/16)----> 1. Diffuse thickening of the entire colon consistent with diffuse colitis. 2. Mild atherosclerotic calcifications seen at the aorta. There is no aneurysm. Contrast is seen within the celiac, SMA and HARRIS. 3. Small non-obstructing right renal stone. Colonoscopy (05/20/2005) revealed normal colon, medium internal hemorrhoids. Rpt. Abdomen/Pelvis CT (09/17/16)---> 1. The exam demonstrates diffuse colonic thickening most consistent with a colitis. The overall amount of colonic thickening is stable from previous exam however, there has now been development of a small amount of abdominal ascites. 2. Interval development of bilateral effusions and consolidative changes in the lung bases.Abdomen/Pelvis CT (09/18/16)----> 1. Compared to the prior examination of 09/17/2016, there has been no significant change in the overall appearance of the colon. There continues to be diffuse wall thickening involving the right and left colon suggestive of colitis with some moderate distention. However, no increased distention is seen on today's examination. There is no evidence of free air. 2. No change in the abdominal ascites. 3. No change in body wall anasarca. 4. No change in the bibasilar infiltrates and bilateral effusions. Abdomen X-Ray (09/21/16)----> Stable gaseous distention of colon. Worsening leukocytosis, 17.9. No improvement- still with diffuse distention and abdominal tenderness, no significant bowel movements x 4 days- nurse does note that there was a very small amount of liquid stool in return this am after vanco enema. S/P CRS evaluation- family not interested in considering surgery, even if condition deteriorates per last CRS note- consider palliative care evaluation. Palliative care consulted. Family did want decompressive colonoscopy for comfort. ID following. Oral vanco, flagyl, vanco enema. ID following, Oral vanco, Flagyl, Vanco enema. Per ID- can have fecal transplant. Palliative care consulted, if family wants to pursue aggressive treatment, will discuss with ID possible fecal transplant. - Colonic Ileus secondary to above. She has been taking pericolace and lactinex. She was given a dose of MOM and relistor on 09/14/16. Afterwards, she started having significant diarrhea with liquid stool and significant pain/distention. CT/KUB as above. CRS following. NPO NGT to LIWS. Decompression colonoscopy today. - Malnutrition. Was started on TPN, Clinimix E 4.25/25 at rate of 62.5 ml/hr 20 % lipids, twice weekly, infuse 250 mls over 8 hrs. - Sepsis/Leukocytosis secondary to severe CDiff infection. Worsening. WBC 17.9. ID following, Flagyl, Oral vanco, Vanco enemas, ? possible fecal transplant. Will d/w ID. - Anemia. Stable, 10.7/31.6. - Acute on chronic kidney injury, worsening- Creat went up to 1.16 today. Per ccm - Recent fall at home on 09/04/16 and sustained a left femoral neck fracture and left humeral head fracture. S/P Bipolar hemiarthroplasty on 09/05/[address] Bill and her left humeral head fracture is being treated conservatively with sling. She was transferred to [facility] on 09/09/16, but transferred to the unit for severe abdominal tenderness and leukocytosis with concern for mesenteric ischemia. - History of TIA (on plavix), OA, Hx HTN now with hypotension, hyperlipidemia, CKD per attending. PLAN: - Decompressive colonoscopy today - Consents obtained - NPO - Cont. TPN- Clinimix E 4.25/25 at rate of 62.5 ml/hr 20% lipids, twice weekly, infuse 250 mls over 8 hrs - Cont. Flagyl IV - Cont. Oral Vancomycin - Cont. Vanco Enema 500mg in 100mL NS retention enema IA q6h - Cont. IVF - ID following - CCM following - CRS following prn, family does not want to consider colectomy even if her condition deteriorates - Palliative care consulted - ? Fecal transplant if family decides to pursue aggressive treatment. - Further recommendations to follow based on results of above - Patient seen and examined by Dr. Barnett and myself and this note is written on his behalf Dinora Renteria Sep 22, 2016 12:04
--- NOTE | 2016-09-22 13:34 | HHI.IDPN ---
Subjective Subjective Remarks cont to clinically deteriorate co severe abd pain minimal stool output UOP is low and creatinine slightly improved after bumex gtt stoppped WBC going up Pt. family refusected colectomy even in case of clinical deterioration Antibiotics flagyl IV vanco po vanco enemas Past Medical History Reviewed Allergies: Coded Allergies: Tizanidine (Verified Allergy, Severe, doesn't know, 09/09/16) Tramadol (Verified Allergy, Severe, doesn't remember, 09/09/16) Baclofen (Unverified Allergy, Intermediate, RASH, 09/09/16) Cipro (Unverified Allergy, Intermediate, RASH, 09/09/16) Cymbalta (Unverified Allergy, Intermediate, SEVERE RASH, 09/09/16) Elavil (Unverified Allergy, Intermediate, RASH, 09/09/16) Tetracycline (Unverified Allergy, Intermediate, RASH, 09/09/16) Triamcinolone (Unverified Allergy, Intermediate, SEVERE RASH, 09/09/16) Objective . Vital Signs Date Time Temp Pulse Resp B/P Pulse Ox O2 Delivery O2 Flow Rate FiO2 09/22/16 12:00 98.6 99 20 144/65 97 09/22/16 12:00 99 09/22/16 10:00 96 09/22/16 08:19 96 Nasal Cannula 1.00 09/22/16 08:00 92 09/22/16 08:00 98.3 92 18 143/68 95 09/22/16 06:00 85 09/22/16 04:00 89 09/22/16 04:00 98.2 89 13 123/57 96 09/22/16 02:00 94 09/22/16 00:00 91 09/22/16 00:00 98.0 91 16 124/58 97 09/21/16 22:00 98 09/21/16 20:00 93 09/21/16 20:00 98.7 93 21 116/56 97 09/21/16 19:23 96 Nasal Cannula 1.00 09/21/16 18:17 20 09/21/16 18:00 97 09/21/16 16:00 101 09/21/16 16:00 98.0 101 17 132/61 94 09/21/16 14:00 89 09/21/16 09/21/16 09/22/16 15:00 23:00 07:00 Intake Total 580 ml 653 ml 360 ml Output Total 750 ml 300 ml 300 ml Balance -170 ml 353 ml 60 ml IV Total 580 ml 100 ml 100 ml TPN/PPN 503 ml 210 ml Albumin 50 ml 50 ml Output Urine Total 750 ml 300 ml 250 ml Stool Total 0 ml 50 ml . Laboratory Tests Test 09/21/16 09/22/16 04:23 04:46 White Blood Count 15.4 TH/MM3 17.9 TH/MM3 Red Blood Count 3.57 MIL/MM3 3.51 MIL/MM3 Hemoglobin 10.5 GM/DL 10.7 GM/DL Hematocrit 32.5 % 31.6 % Mean Corpuscular Volume 90.8 FL 89.9 FL Mean Corpuscular Hemoglobin 29.4 PG 30.5 PG Mean Corpuscular Hemoglobin 32.3 % 33.9 % Concent Red Cell Distribution Width 14.4 % 14.3 % Platelet Count 316 TH/MM3 319 TH/MM3 Mean Platelet Volume 7.9 FL 7.5 FL Neutrophils (%) (Auto) 82.1 % 85.4 % Lymphocytes (%) (Auto) 6.8 % 6.0 % Monocytes (%) (Auto) 9.6 % 8.0 % Eosinophils (%) (Auto) 0.8 % 0.4 % Basophils (%) (Auto) 0.7 % 0.2 % Neutrophils # (Auto) 12.7 TH/MM3 15.3 TH/MM3 Lymphocytes # (Auto) 1.1 TH/MM3 1.1 TH/MM3 Monocytes # (Auto) 1.5 TH/MM3 1.4 TH/MM3 Eosinophils # (Auto) 0.1 TH/MM3 0.1 TH/MM3 Basophils # (Auto) 0.1 TH/MM3 0.0 TH/MM3 CBC Comment AUTO DIFF AUTO DIFF Differential Total Cells 100 100 Counted Neutrophils % (Manual) 66 % 80 % Band Neutrophils % 21 % 14 % Lymphocytes % 3 % 1 % Monocytes % 6 % 1 % Basophils % 1 % Neutrophils # (Manual) 13.9 TH/MM3 17.5 TH/MM3 Metamyelocytes 3 % 1 % Nucleated Red Blood Cells 1 /100 WBC Differential Comment FINAL DIFF FINAL DIFF MANUAL MANUAL Platelet Estimate NORMAL NORMAL Platelet Morphology Comment NORMAL NORMAL Red Cell Morphology Comment NORMAL Myelocytes 3 % Toxic Granulation 1+ Laboratory Tests Test 09/21/16 09/21/1609/22/17 04:23 18:44 04:46 Sodium Level 144 MEQ/L 146 MEQ/L Potassium Level 3.4 MEQ/L 3.5 MEQ/L 3.4 MEQ/L Chloride Level 106 MEQ/L 109 MEQ/L Carbon Dioxide Level 30.8 MEQ/L 33.0 MEQ/L Anion Gap 7 MEQ/L 4 MEQ/L Blood Urea Nitrogen 35 MG/DL 38 MG/DL Creatinine 1.41 MG/DL 1.16 MG/DL Estimat Glomerular Filtration 35 ML/MIN 44 ML/MIN Rate Random Glucose 149 MG/DL 142 MG/DL Calcium Level 8.2 MG/DL 8.2 MG/DL Phosphorus Level 3.0 MG/DL 2.1 MG/DL Magnesium Level 1.9 MG/DL 1.9 MG/DL Imaging Last Last Impressions Abdomen X-Ray 09/21/16 0600 Signed Impressions: Service Date/Time: Wednesday, September 21, 2016 04:25 - CONCLUSION: Stable gaseous distention of colon. Marty Marinelli MD Shoulder X-Ray 09/20/16 0000 Signed Impressions: Service Date/Time: Tuesday, September 20, 2016 09:53 - CONCLUSION: No significant interval change is identified. There is a displaced mildly comminuted proximal left humeral neck fracture with rotation of the humeral head and associated shortening. En Robledo MD Hip and Pelvis X-Ray 09/20/16 0000 Signed Impressions: Service Date/Time: Tuesday, September 20, 2016 09:57 - CONCLUSION: Left hip bipolar arthroplasty hardware demonstrates no acute finding. The bones are undermineralized but no fracture is visualized. En Robledo MD Chest X-Ray 09/18/16 0000 Signed Impressions: Service Date/Time: Sunday, September 18, 2016 15:27 - CONCLUSION: Bibasilar areas of mild atelectasis or consolidation being worse on the right. There are suspected mild bilateral pleural effusions. En Lambert MD Abdomen/Pelvis CT 09/18/16 0000 Signed Impressions: Service Date/Time: Sunday, September 18, 2016 10:34 - CONCLUSION: 1. Compared to the prior examination of 09/17/2016, there has been no significant change in the overall appearance of the colon. There continues to be diffuse wall thickening involving the right and left colon suggestive of colitis with some moderate distention. However, no increased distention is seen on today's examination. There is no evidence of free air. 2. No change in the abdominal ascites. 3. No change in body wall anasarca. 4. No change in the bibasilar infiltrates and bilateral effusions. Odilon Alexandra MD Physical Exam CONSTITUTIONAL/GENERAL: Awake and alert, not in distress, SKIN: Warm. No jaundice, rashes, or lesions. Diffuse anasarca, less prominent HEENT: [place] conjunctiva, no icterus. Dry oral mucosa without visible erythema, exudates, masses, or lesions. NECK: Supple, not tender CARDIOVASCULAR: Regular rate and rhythm without murmurs, gallops, or rubs. RESPIRATORY/CHEST: Symmetric, unlabored respirations. Clear to auscultation. Decreased at bases GASTROINTESTINAL: Abdomen remains very distended and tight with diffuse abdominal tenderness, + guarding and rebounding . Hypoactive BS. RECTAL: Dignishield in place GENITOURINARY: Bañuelos in place with small amount of brownish urine MUSCULOSKELETAL: Extremities without clubbing, cyanosis. Diffuse soft pitting edema, 3+, anasarca. No mottling NEUROLOGICAL: Grossly non-focal she is fully awalke and alert PSYCHIATRIC: calm and cooperative Assessment & Plan Remarks Severe life threatening colitis, C.diff, hypervirilent stain 027 severe - pt with progressive ileus - cont to deteriorate clinically SIRS, sepsis - due to C.diff - acute renal dysfunction lactic acidosis resolved No e/o UTI Pt is critically ill and clinically unstable - refuses colectomy, CRS s/o ARF - new Prognosis is now poor taking into account non lack of response to therapy PLAN: Continue po vancomycin Continue vanco enemas Continue IV flagyl add dificid Avoid systemic abx Monitor progress Pt can have a stool transplant , she is not having current systemic abx therapy and not highly likely to have it soon dw Miriam Isabel Alexandra A. MD Sep 22, 2016 13:34
[2016-09-22] MEDS ORDERED: GLUCAGON 1 MG/ML VIAL IV ONE ×2 (14:27→14:45)
[2016-09-22] MEDS ORDERED: PHENYLEPH/NS 1000 MCG/10 ML SYR IV ONE (15:00)
[2016-09-22] MEDS ORDERED: ONDANSETRON HCL 4 MG/2 ML VIAL IV PUSH ONE (15:00)
[2016-09-22] MEDS ORDERED: PROPOFOL 200 MG/20 ML AMP IV ONE (15:14)
--- NOTE | 2016-09-22 15:51 | HHI.GIFU ---
Subjective Remarks Immediate post procedure note: Colonoscopy with placement of colonic catheter Indication: Severe C Diff, failure to improve on Vancomycin Meds: MAC Findings: Cecum reached. Ascending colon and cecum were involved with moderate colitis, treatment appears to be effective. Ascending colon had edematous appearance, also could be pneumatosis Left colon appeared healthy. Green semi solid stool throughout, much of it washed and aspirated out. At end of procedure, guidewire placed in the left colon and a colonic decompression tube was placed to allow irrigation of vancomycin to the level of the splenic flexure. Vancomycin 500mg irrigated directly into the cecum and ascending colon as well as the transverse colon. Objective Vitals I&O Vital Signs Date Time Temp Pulse Resp B/P Pulse Ox O2 Delivery O2 Flow Rate FiO2 09/22/16 12:00 98.6 99 20 144/65 97 09/22/16 12:00 99 09/22/16 10:00 96 09/22/16 08:19 96 Nasal Cannula 1.00 09/22/16 08:00 92 09/22/16 08:00 98.3 92 18 143/68 95 09/22/16 06:00 85 09/22/16 04:00 89 09/22/16 04:00 98.2 89 13 123/57 96 09/22/16 02:00 94 09/22/16 00:00 91 09/22/16 00:00 98.0 91 16 124/58 97 09/21/16 22:00 98 09/21/16 20:00 93 09/21/16 20:00 98.7 93 21 116/56 97 09/21/16 19:23 96 Nasal Cannula 1.00 09/21/16 18:17 20 09/21/16 18:00 97 09/21/16 16:00 101 09/21/16 16:00 98.0 101 17 132/61 94 I/O 09/21/16 09/21/16 09/21/16 09/22/16 09/22/16 09/22/16 07:00 15:00 23:00 07:00 15:00 23:00 Intake Total 492 ml 580 ml 653 ml 360 ml Output Total 350 ml 750 ml 300 ml 300 ml Balance 142 ml -170 ml 353 ml 60 ml IV Total 215 ml 580 ml 100 ml 100 ml TPN/PPN 227 ml 503 ml 210 ml Albumin 50 ml 50 ml 50 ml Output Urine Total 350 ml 750 ml 300 ml 250 ml Stool Total 0 ml 0 ml 50 ml Laboratory Laboratory Tests Test 09/21/16 09/22/16 09/22/16 18:44 04:46 09:45 Potassium Level 3.5 3.4 White Blood Count 17.9 Red Blood Count 3.51 Hemoglobin 10.7 Hematocrit 31.6 Mean Corpuscular Volume 89.9 Mean Corpuscular Hemoglobin 30.5 Mean Corpuscular Hemoglobin 33.9 Concent Red Cell Distribution Width 14.3 Platelet Count 319 Mean Platelet Volume 7.5 Neutrophils (%) (Auto) 85.4 Lymphocytes (%) (Auto) 6.0 Monocytes (%) (Auto) 8.0 Eosinophils (%) (Auto) 0.4 Basophils (%) (Auto) 0.2 Neutrophils # (Auto) 15.3 Lymphocytes # (Auto) 1.1 Monocytes # (Auto) 1.4 Eosinophils # (Auto) 0.1 Basophils # (Auto) 0.0 CBC Comment AUTO DIFF Differential Total Cells 100 Counted Neutrophils % (Manual) 80 Band Neutrophils % 14 Lymphocytes % 1 Monocytes % 1 Neutrophils # (Manual) 17.5 Metamyelocytes 1 Myelocytes 3 Differential Comment FINAL DIFF MANUAL Toxic Granulation 1+ Platelet Estimate NORMAL Platelet Morphology Comment NORMAL Sodium Level 146 Chloride Level 109 Carbon Dioxide Level 33.0 Anion Gap 4 Blood Urea Nitrogen 38 Creatinine 1.16 Estimat Glomerular Filtration 44 Rate Random Glucose 142 Calcium Level 8.2 Phosphorus Level 2.1 Magnesium Level 1.9 Urine Osmolality 531 Urine Random Sodium 6 Physical Exam HEENT: Normocephalic; atraumatic; no jaundice CHEST: Resp even/unlabored, diminished CARDIAC: RRR ABDOMEN: Moderate-severe distention/tympanic, moderate diffuse abdominal tenderness; bowel sounds hypoactive. Flexiseal empty. NGT to liws EXTREMITIES: Generalized edema. Left CKS, Left upper extremity in sling. SKIN: Normal; no rash; no jaundice. SUPERVISOR WORD PROCESSING: Lethargic, oriented to self and place. Assessment and Plan Plan ASSESSMENT: - Severe C difficile colitis (Epid 027 (+) in patient with recent abx use and hypotension). CT Scan abdomen and pelvis with IV contrast (09/15/16)----> 1. Diffuse thickening of the entire colon consistent with diffuse colitis. 2. Mild atherosclerotic calcifications seen at the aorta. There is no aneurysm. Contrast is seen within the celiac, SMA and HARRIS. 3. Small non-obstructing right renal stone. Colonoscopy (05/20/2005) revealed normal colon, medium internal hemorrhoids. Rpt. Abdomen/Pelvis CT (09/17/16)---> 1. The exam demonstrates diffuse colonic thickening most consistent with a colitis. The overall amount of colonic thickening is stable from previous exam however, there has now been development of a small amount of abdominal ascites. 2. Interval development of bilateral effusions and consolidative changes in the lung bases.Abdomen/Pelvis CT (09/18/16)----> 1. Compared to the prior examination of 09/17/2016, there has been no significant change in the overall appearance of the colon. There continues to be diffuse wall thickening involving the right and left colon suggestive of colitis with some moderate distention. However, no increased distention is seen on today's examination. There is no evidence of free air. 2. No change in the abdominal ascites. 3. No change in body wall anasarca. 4. No change in the bibasilar infiltrates and bilateral effusions. Abdomen X-Ray (09/21/16)----> Stable gaseous distention of colon. Worsening leukocytosis, 17.9. No improvement- still with diffuse distention and abdominal tenderness, no significant bowel movements x 4 days- nurse does note that there was a very small amount of liquid stool in return this am after vanco enema. S/P CRS evaluation- family not interested in considering surgery, even if condition deteriorates per last CRS note- consider palliative care evaluation. Palliative care consulted. Family did want decompressive colonoscopy for comfort. ID following. Oral vanco, flagyl, vanco enema. ID following, Oral vanco, Flagyl, Vanco enema. Per ID- can have fecal transplant. Palliative care consulted, if family wants to pursue aggressive treatment, will discuss with ID possible fecal transplant. - Colonic Ileus secondary to above. She has been taking pericolace and lactinex. She was given a dose of MOM and relistor on 09/14/16. Afterwards, she started having significant diarrhea with liquid stool and significant pain/distention. CT/KUB as above. CRS following. NPO NGT to LIWS. Decompression colonoscopy today. - Malnutrition. Was started on TPN, Clinimix E 4.25/25 at rate of 62.5 ml/hr 20 % lipids, twice weekly, infuse 250 mls over 8 hrs. - Sepsis/Leukocytosis secondary to severe CDiff infection. Worsening. WBC 17.9. ID following, Flagyl, Oral vanco, Vanco enemas, ? possible fecal transplant. Will d/w ID. - Anemia. Stable, 10.7/31.6. - Acute on chronic kidney injury, worsening- Creat went up to 1.16 today. Per ccm - Recent fall at home on 09/04/16 and sustained a left femoral neck fracture and left humeral head fracture. S/P Bipolar hemiarthroplasty on 09/05/[address] Bill and her left humeral head fracture is being treated conservatively with sling. She was transferred to [facility] on 09/09/16, but transferred to the unit for severe abdominal tenderness and leukocytosis with concern for mesenteric ischemia. - History of TIA (on plavix), OA, Hx HTN now with hypotension, hyperlipidemia, CKD per attending. - Colonoscopy with direct instillation of vancomycin enema into the right and transverse colon. Colonic drainage tube left in place to about the splenic flexure. This can be used to irrigate vancomycin to reach the cecum and ascending colon when the patient is on the right side. The mucosal surfaces do not appear to be much inflamed, but there is mucosal edema in some areas. PLAN: -DC NG tube. Clear liquid diet. - Cont. TPN- Clinimix E 4.25/25 at rate of 62.5 ml/hr 20% lipids, twice weekly, infuse 250 mls over 8 hrs - Cont. Flagyl IV - Cont. Oral Vancomycin - Cont. Vanco Enema 500mg in 100mL NS retention enema IA q6h - Replace flexiseal rectal tube. Protect the colonic tube. - Put half of the vancomycin enema into the flexiseal tube and half into the colonic tube Q 6 H. - Cont. IVF - ID following - CCM following - CRS following prn, family does not want to consider colectomy even if her condition deteriorates - Palliative care consulted Consider fecal transplant. Discussed with ID will start Dificid. Roger Barnett MD Sep 22, 2016 15:51
[2016-09-22] MEDS: VANCOMYCIN INJ 500 MG in SODIUM CHLOR 0.9% 250 ML INJ 250 ML IRRIGATION SCH ×2 (16:05→16:08)
[2016-09-22] MEDS ORDERED: DO NOT ADM ANY ANTICOAGULANT DRUGS PRN (16:30)
[2016-09-22] MEDS ORDERED: DIMETHICONE/OXYBENZONE/PADMIATE LIP BALM 4.25 GM TOPICAL ONE (16:33)
--- NOTE | 2016-09-22 17:17 | HHI.NPPN ---
Subjective History of Present Illness 86-year-old female apparently with a history of severe colitis secondary to clostridium difficile. Mention in the records of his CKD stage II. Has continued complications with C diff colitis. NG tube been placed as well as rectal decompression 09/22 Started initially on Bumex drip given oliguria and renal functions improved as well as UOP Interval History Pt s/p colon decompression today with placement of rectal tube with Vancomycin irrigation. We were asked to see the patient again today d/t slightly worsening renal function and decrease in UOP. Was on Bumex drip at the beginning of the week and then transitioned to IVP--- last dose 09/21 at 0830. The patient herself is weak and fatigued. Complaining of abdominal pain Review of Systems General Constitutional: Fatigue Gastrointestinal Gastrointestinal: Abdominal Pain Objective Data Data 09/21/16 09/22/16 19:00 07:00 Intake Total 580 ml 1013 ml Output Total 750 ml 600 ml Balance -170 ml 413 ml IV Total 580 ml 200 ml TPN/PPN 713 ml Albumin 100 ml Output Urine Total 750 ml 550 ml Stool Total 50 ml Vital Signs Date Time Temp Pulse Resp B/P Pulse Ox O2 Delivery O2 Flow Rate FiO2 09/22/16 16:00 90 16 155/68 96 Nasal Cannula 3 09/22/16 15:45 88 15 162/72 97 Nasal Cannula 3 09/22/16 15:30 97.5 90 16 167/72 96 Nasal Cannula 3 09/22/16 12:00 98.6 99 20 144/65 97 09/22/16 12:00 99 09/22/16 10:00 96 09/22/16 08:19 96 Nasal Cannula 1.00 09/22/16 08:00 92 09/22/16 08:00 98.3 92 18 143/68 95 09/22/16 06:00 85 09/22/16 04:00 89 09/22/16 04:00 98.2 89 13 123/57 96 09/22/16 02:00 94 09/22/16 00:00 91 09/22/16 00:00 98.0 91 16 124/58 97 09/21/16 22:00 98 09/21/16 20:00 93 09/21/16 20:00 98.7 93 21 116/56 97 09/21/16 19:23 96 Nasal Cannula 1.00 09/21/16 18:17 20 09/21/16 18:00 97 -: 09/22/16 0446 09/22/16 0446 Imaging Last Impressions Abdomen X-Ray 09/21/16 0600 Signed Impressions: Service Date/Time: Wednesday, September 21, 2016 04:25 - CONCLUSION: Stable gaseous distention of colon. Marty Marinelli MD Shoulder X-Ray 09/20/16 0000 Signed Impressions: Service Date/Time: Tuesday, September 20, 2016 09:53 - CONCLUSION: No significant interval change is identified. There is a displaced mildly comminuted proximal left humeral neck fracture with rotation of the humeral head and associated shortening. En Robledo MD Hip and Pelvis X-Ray 09/20/16 0000 Signed Impressions: Service Date/Time: Tuesday, September 20, 2016 09:57 - CONCLUSION: Left hip bipolar arthroplasty hardware demonstrates no acute finding. The bones are undermineralized but no fracture is visualized. En Robledo MD Chest X-Ray 09/18/16 0000 Signed Impressions: Service Date/Time: Sunday, September 18, 2016 15:27 - CONCLUSION: Bibasilar areas of mild atelectasis or consolidation being worse on the right. There are suspected mild bilateral pleural effusions. En Lambert MD Abdomen/Pelvis CT 09/18/16 0000 Signed Impressions: Service Date/Time: Sunday, September 18, 2016 10:34 - CONCLUSION: 1. Compared to the prior examination of 09/17/2016, there has been no significant change in the overall appearance of the colon. There continues to be diffuse wall thickening involving the right and left colon suggestive of colitis with some moderate distention. However, no increased distention is seen on today's examination. There is no evidence of free air. 2. No change in the abdominal ascites. 3. No change in body wall anasarca. 4. No change in the bibasilar infiltrates and bilateral effusions. Odilon Alexandra MD Medication Review Current Medications Medications (Trade) Dose Ordered Sig/Bunny Route Start Time Stop Time Status Last Admin (Synthroid) 25 mcg DAILY PO 09/15/16 09:00 Hold 09/18/16 08:54 (NS Flush) 2 ml UNSCH PRN IV FLUSH 09/15/16 08:15 09/19/16 08:47 (NS Flush) 2 ml BID IV FLUSH 09/15/16 09:00 09/21/16 21:49 (Tylenol) 650 mg Q6H PRN PO 09/15/16 08:15 Hold ([place] 5-325 Mg) 1 tab Q4H PRN PO 09/15/16 08:15 Hold 09/16/16 08:37 (Morphine Inj) 2 mg Q2H PRN IV 09/15/16 08:15 09/22/16 05:40 (Protonix Inj) 40 mg DAILY IV 09/15/16 09:00 09/22/16 08:02 (Tears Naturale Opth Soln) 1 drop TID EACH EYE 09/15/16 09:00 09/22/16 08:03 (Zofran Inj) 4 mg Q6H PRN IV 09/15/16 08:15 Miscellaneous Information 1 Q361D XX 09/15/16 08:15 09/15/16 08:15 (Chlorhexidine 2% Cloth) Taper DAILY@04 TOP 09/16/16 04:00 09/12/17 03:59 09/20/16 01:16 (Chlorhexidine 2% Cloth) 3 pack UNSCH PRN TOP 09/15/16 08:15 (Milk Of Magnjackie Liq) 30 ml Q12H PRN PO 09/15/16 08:15 (Dulcolax Supp) 10 mg DAILY PRN RECTAL 09/15/16 08:15 Lactulose 30 ml 30 ml DAILY PRN PO 09/15/16 08:15 (Flagyl 500 Mg Inj) 100 ml @ 100 mls/hr Q6H IV 09/15/16 14:00 09/22/16 16:54 (NS Flush) DAILY IVF 09/16/16 09:00 09/22/16 08:05 (NS Flush) UNSCH PRN IVF 09/15/16 12:00 09/19/16 08:46 Vancomycin HCl 500 mg 500 mg Q6HR PO 09/15/16 13:15 09/22/16 16:53 (Vancomycin Inj/ NS Irr Btl) 250 ml @ 0 mls/hr Q6HR IRRIGATION 09/15/16 18:00 09/22/16 16:53 (Albumin 25% Inj) 12.5 gm Q8HR IV 09/16/16 14:00 09/22/16 16:54 Heparin Sodium (Porcine) 5000 units 5,000 units Q8HR SQ 09/16/16 14:00 09/22/16 16:53 (Liposyn Iii 20% Inj) 250 ml @ 31.25 mls/ hr SuWe@20 IV-CENTRAL 09/19/16 20:00 09/19/16 21:35 (Apresoline Inj) 10 mg Q1HR PRN IV PUSH 09/17/16 16:30 09/18/16 00:19 (Nitroglycerin 2% Oint) 2 inch Q6HR PRN TOPICAL 09/17/16 16:30 (NS Flush) See Protocol DAILY IV FLUSH 09/18/16 09:00 09/22/16 08:05 (NS Flush) See Protocol UNSCH PRN IV FLUSH 09/17/16 21:45 09/19/16 08:46 (Heparin Central Flush) See Protocol DAILY IV FLUSH 09/18/16 09:00 09/21/16 08:46 (Heparin Central Flush) See Protocol UNSCH PRN IV FLUSH 09/17/16 21:45 (NS Flush) UNSCH PRN IV FLUSH 09/17/16 21:45 09/19/16 08:47 Levothyroxine Sodium 25 mcg 25 mcg DAILY@06 IV PUSH 09/19/16 06:00 09/22/16 05:41 Potassium Chloride 100 ml @ 50 mls/hr Q2H PRN IV 09/18/16 16:30 (KCl 20 Meq Premix Inj) 100 ml @ 50 mls/hr Q2H PRN IV 09/18/16 16:30 Potassium Bicarb/ Potassium Chloride 50 meq 50 meq UNSCH PRN PO 09/18/16 16:30 Potassium Chloride 100 ml @ 25 mls/hr UNSCH PRN IV 09/18/16 16:30 09/21/16 09:07 Potassium Chloride 100 ml @ 50 mls/hr Q2H PRN IV 09/18/16 16:30 (Magnesium Sulfate Inj/NS Inj) 100 ml @ 50 mls/hr UNSCH PRN IV 09/18/16 16:30 Magnesium Oxide 800 mg 800 mg UNSCH PRN PO 09/18/16 16:30 (Magnesium Sulfate Inj/NS Inj) 100 ml @ 50 mls/hr UNSCH PRN IV 09/18/16 16:30 Potassium Phosphate 2000 mg 2,000 mg Q4H PRN PO 09/18/16 16:30 (Sodium Phosphate Inj/NS 250 ml Inj) 250 ml @ 42 mls/hr UNSCH PRN IV 09/18/16 16:30 09/18/16 17:15 Potassium Phosphate 2000 mg 2,000 mg UNSCH PRN PO/TUBE 09/18/16 16:30 (Potassium Phosphate Inj/NS 250 ml Inj) 260 ml @ 42 mls/hr UNSCH PRN IV 09/18/16 16:30 09/22/16 08:03 Padimate O 1 applic 1 applic UNSCH PRN TOPICAL 09/19/16 09:30 (Mvi-12 Inj/ Folvite Inj/ Clinimix E .) 1,010.2 ml @ 30 mls/hr Q24H IV-CENTRAL 09/20/16 20:00 09/21/16 21:49 (Bumex Inj) 1 mg BID@09,18 IV PUSH 09/20/16 18:00 Hold 09/21/16 08:47 (Dificid) 200 mg BID PO 09/22/16 21:00 10/02/16 20:59 Miscellaneous Information ALL NURSING DEPARTME... UNSCH PRN .XX 09/22/16 16:30 09/23/16 16:29 Physical Exam General Appearance: No Acute Distress, Pale Eyes Eye Exam: Pupils Equal, Pupils Reactive Pulmonary Resp Exam: Clear Bilaterally, Breath Sounds Equal Cardiology CV Exam: Regular, Normal Sinus Rhythm Gastrointestinal/Abdomen GI Exam: Distended Extremeties Extremities Exam: Trace Edema (1+ pitting bilat ankles and some trace edema in bilat hips. None appreciated in abdominal wall) Neurologic Neuro Exam: Alert, Awake Assessment/Plan Problem List: (1) CKD (chronic kidney disease) stage 2, GFR 60-89 ml/min Plan: Most likely secondary to nephrosclerosis. Renal functions improved since yesterday. She is at risk for worsening azotemia given need for diuretics. We will monitor. (2) Oliguria Plan: s/p colonic decompression today with placement of Vanco irrigation given severe colitis. Will give dose of Bumex 1mg IVP tonight and monitor renal functions and UOP Continue with intermittent dosing Will hold off on Bumex drip at this time as UOP is decent and hopefully output will improve with decompressed abdomen. (3) Nontraumatic compartment syndrome of abdomen Plan: Patient is at risk for. Nga Saleh Sep 22, 2016 17:17
[2016-09-22] MEDS ORDERED: POTASSIUM CHLOR 20 MEQ PREMIX 100 ML IV ONE (17:30)
[2016-09-22] MEDS ORDERED: BUMETANIDE INJ 1 MG/4 ML VIAL IV PUSH ONE (17:30)
--- NOTE | 2016-09-22 20:11 | RADRPT ---
EXAM DATE/TIME: 09/22/2016 18:32 [facility] COMPARISON: No previous studies available for comparison. INDICATIONS : Increased BUN/creatinine. MEDICAL HISTORY : Hypothyroidism. Arthritis. Hypertension. Neuropathy. GERD. Spinal stenosis. Melanoma. Anticoagulant t herapy, Plavix. Cdiff. SURGICAL HISTORY : Left cataract. Esophageal dilation. Left knee arthroscopy - meniscus tear. Skin cancer removal from n ose. ENCOUNTER: Initial ACUITY: 1 day PAIN SCORE: 3/10 LOCATION: Bilateral flank MEASUREMENTS: RIGHT KIDNEY: 9.9 x 3.9 x 3.9 cm LEFT KIDNEY: 8.6 x 4.6 x 4.5 cm FINDINGS: Suboptimal visualization due to the patient's body habitus. RIGHT KIDNEY: Renal cortex is normal in thickness and echotexture. No hydronephrosis, stone, or mass. LEFT KIDNEY: Renal cortex is normal in thickness and echotexture. No hydronephrosis, stone, or mass. BLADDER: Within normal limits given the degree of distension. A small amount of free fluid is noted surrounding the liver and spleen. There are small bilateral ple ural effusions. Echogenic debris is noted in the gallbladder as well. CONCLUSION: 1. Suboptimal visualization of the kidneys with no definite hydronephrosis or focal lesion. 2. Small amount of ascitic fluid and small bilateral pleural effusions. 3. Echogenic debris in the gallbladder most consistent with sludge. Chucho Padgett MD on September 22, 2016 at 20:08 Board Certified Radiologist. This report was verified electronically.
[2016-09-22] MEDS: FIDAXOMICIN 200 MG TAB PO SCH ×2 (20:15→20:38)
[2016-09-22] MEDS: ONDANSETRON HCL 4 MG/2 ML VIAL IV PRN (20:34)
[2016-09-22] MEDS: FAT EMULSION 20% INJ 250 ML (Twice weekly over 8 hours) IV-CENTRAL SCH (21:01)
[2016-09-22 22:08] LABS: POTASSIUM 4.1 MEQ/L (3.5-5.1)
[2016-09-22] MEDS: CLINIMIX E 4.25/25 1000 mL- </= 42 mls/hr IV-CENTRAL SCH ×3 (22:19)
[2016-09-23] VITALS (18 sets, daily range): BP systolic 116–157; BP diastolic 58–67; PULSE 82–94; RESP 11–23; TEMP 97.5–98.4; O2SAT 95–98
[2016-09-23] MEDS: metroNIDAZOLE 500 MG INJ 100 ML IV SCH ×4 (02:06→20:27)
[2016-09-23] MEDS: ONDANSETRON HCL 4 MG/2 ML VIAL IV PRN (03:43)
[2016-09-23] MEDS: MORPHINE SULFATE 4 MG/ML INJ IV PRN ×4 (03:43→17:35)
[2016-09-23] MEDS: CHLORHEXIDINE GLUCONATE 2 % 1 PACK (2 CLOTHS) TOP SCH ×2 (04:00→20:39)
[2016-09-23 04:51] LABS: BICARBONATE 30.3 MEQ/L (21.0-32.0)
[2016-09-23 04:52] LABS: AUTOMATED NEUTROPHIL # 18.3 TH/MM3 (1.8-7.7); BASOPHIL % 0.2 % (0.0-2.0); LYMPH % 3.5 % (9.0-44.0); LYMPHOCYTE # 0.7 TH/MM3 (1.0-4.8); MEAN CELL VOLUME 91.1 FL (80.0-100.0); MEAN CORPUSCULAR HEMOGLOBIN 31.1 PG (27.0-34.0); MEAN CORPUSCULAR HGB CONC 34.2 % (32.0-36.0); MONO % 4.2 % (0.0-8.0); NEUT % 92.1 % (16.0-70.0); PLATELET COUNT 317 TH/MM3 (150-450); RED BLOOD COUNT 3.29 MIL/MM3 (4.00-5.30); RED CELL DISTRIBUTION WIDTH 14.8 % (11.6-17.2); WHITE BLOOD COUNT 19.9 TH/MM3 (4.0-11.0)
[2016-09-23 04:57] LABS: HEMO FLAGS AUTO DIFF
[2016-09-23] MEDS: ALBUMIN HUMAN 25% 12.5 GM/50 ML BAGP IV SCH ×3 (05:29→20:27)
[2016-09-23] MEDS: VANCOMYCIN INJ 500 MG in SODIUM CHLORIDE 0.9% IRR BTL 250 ML IRRIGATION SCH ×3 (05:29→17:35)
[2016-09-23] MEDS: VANCOMYCIN 500 MG VIAL (FOR ORAL USE ONLY) PO SCH ×3 (05:30→17:35)
[2016-09-23] MEDS: HEPARIN SODIUM - SQ 10,000 UNITS/ML VIAL SQ SCH ×3 (05:30→20:31)
[2016-09-23] MEDS: LEVOTHYROXINE SODIUM 100 MCG VIAL IV PUSH SCH (05:30)
[2016-09-23 06:07] LABS: BANDS 24 % (0-6); METAMYELOCYTES 3 % (0-1); MYELOCYTES 3 % (0-0); NEUTROPHIL # MANUAL DIFF 18.7 TH/MM3 (1.8-7.7); PLATELET ESTIMATE SMEAR NORMAL (NORMAL); PLATELET MORPHOLOGY NORMAL (NORMAL); POLYS (SEG NEUTROPHILS) 64 % (16-70); SCAN/DIFF FINAL DIFF MANUAL; TOXIC GRANULATION 1+ (NORMAL); WBC DIFF SAMPLE 100
[2016-09-23] MEDS: PANTOPRAZOLE SODIUM 40 MG VIAL IV SCH (08:51)
[2016-09-23] MEDS: SODIUM CHLORIDE 0.9% FLUSH 10 ML FLUSH IV FLUSH PRN ×2 (08:52)
[2016-09-23] MEDS: SODIUM CHLORIDE 0.9% FLUSH 10 ML FLUSH IV FLUSH SCH ×3 (08:52→20:28)
[2016-09-23] MEDS: SODIUM CHLORIDE 0.9% FLUSH 10 ML FLUSH IVF SCH (08:52)
[2016-09-23] MEDS: FIDAXOMICIN 200 MG TAB PO SCH ×2 (08:52→20:27)
[2016-09-23] MEDS: SODIUM CHLORIDE 0.9% FLUSH 10 ML FLUSH IVF PRN (08:52)
[2016-09-23] MEDS: ARTIFICIAL TEARS OPTH SOLN 15 ML BTL EACH EYE SCH ×3 (08:53→17:36)
--- NOTE | 2016-09-23 11:40 | HHI.IDPN ---
Subjective Subjective Remarks pain somewhat better no fever UOP and creatinine better off pressors Sp rectal tubing placement with vanco instillations Antibiotics flagyl IV vanco po vanco enemas dificid Past Medical History Reviewed Allergies: Coded Allergies: Tizanidine (Verified Allergy, Severe, doesn't know, 09/09/16) Tramadol (Verified Allergy, Severe, doesn't remember, 09/09/16) Baclofen (Unverified Allergy, Intermediate, RASH, 09/09/16) Cipro (Unverified Allergy, Intermediate, RASH, 09/09/16) Cymbalta (Unverified Allergy, Intermediate, SEVERE RASH, 09/09/16) Elavil (Unverified Allergy, Intermediate, RASH, 09/09/16) Tetracycline (Unverified Allergy, Intermediate, RASH, 09/09/16) Triamcinolone (Unverified Allergy, Intermediate, SEVERE RASH, 09/09/16) Objective . Vital Signs Date Time Temp Pulse Resp B/P Pulse Ox O2 Delivery O2 Flow Rate FiO2 09/23/16 10:00 82 09/23/16 10:00 82 16 132/63 96 09/23/16 09:00 90 22 132/61 95 09/23/16 08:00 94 09/23/16 08:00 98.4 94 22 147/65 98 09/23/16 07:00 90 22 141/64 98 09/23/16 06:00 90 09/23/16 04:00 86 09/23/16 04:00 98.0 86 20 132/62 96 09/23/16 02:00 93 09/23/16 00:00 91 09/23/16 00:00 97.5 91 19 157/67 95 09/22/16 22:00 92 09/22/16 20:00 97.8 98 16 140/68 97 09/22/16 20:00 98 09/22/16 19:51 98 Nasal Cannula 1.00 09/22/16 18:00 89 09/22/16 16:00 90 16 155/68 96 Nasal Cannula 3 09/22/16 15:45 88 15 162/72 97 Nasal Cannula 3 09/22/16 15:30 97.5 90 16 167/72 96 Nasal Cannula 3 09/22/16 12:00 98.6 99 20 144/65 97 09/22/16 12:00 99 09/22/16 09/22/16 09/23/16 15:00 23:00 07:00 Intake Total 735 ml 311 ml 397 ml Output Total 400 ml 1175 ml 450 ml Balance 335 ml -864 ml -53 ml Intake Oral 100 ml IV Total 250 ml 100 ml TPN/PPN 335 ml 101 ml 203 ml Lipid 60 ml 194 ml Albumin 50 ml 50 ml Output Urine Total 300 ml 700 ml 250 ml Stool Total 100 ml 475 ml 200 ml # Bowel Movements 1 . Laboratory Tests Test 09/22/16 09/23/16 04:46 03:45 White Blood Count 17.9 TH/MM3 19.9 TH/MM3 Red Blood Count 3.51 MIL/MM3 3.29 MIL/MM3 Hemoglobin 10.7 GM/DL 10.2 GM/DL Hematocrit 31.6 % 30.0 % Mean Corpuscular Volume 89.9 FL 91.1 FL Mean Corpuscular Hemoglobin 30.5 PG 31.1 PG Mean Corpuscular Hemoglobin 33.9 % 34.2 % Concent Red Cell Distribution Width 14.3 % 14.8 % Platelet Count 319 TH/MM3 317 TH/MM3 Mean Platelet Volume 7.5 FL 8.1 FL Neutrophils (%) (Auto) 85.4 % 92.1 % Lymphocytes (%) (Auto) 6.0 % 3.5 % Monocytes (%) (Auto) 8.0 % 4.2 % Eosinophils (%) (Auto) 0.4 % 0.0 % Basophils (%) (Auto) 0.2 % 0.2 % Neutrophils # (Auto) 15.3 TH/MM3 18.3 TH/MM3 Lymphocytes # (Auto) 1.1 TH/MM3 0.7 TH/MM3 Monocytes # (Auto) 1.4 TH/MM3 0.8 TH/MM3 Eosinophils # (Auto) 0.1 TH/MM3 0.0 TH/MM3 Basophils # (Auto) 0.0 TH/MM3 0.0 TH/MM3 CBC Comment AUTO DIFF AUTO DIFF Differential Total Cells 100 100 Counted Neutrophils % (Manual) 80 % 64 % Band Neutrophils % 14 % 24 % Lymphocytes % 1 % 2 % Monocytes % 1 % 4 % Neutrophils # (Manual) 17.5 TH/MM3 18.7 TH/MM3 Metamyelocytes 1 % 3 % Myelocytes 3 % 3 % Differential Comment FINAL DIFF FINAL DIFF MANUAL MANUAL Toxic Granulation 1+ 1+ Platelet Estimate NORMAL NORMAL Platelet Morphology Comment NORMAL NORMAL Laboratory Tests Test 09/21/16 09/22/16 09/22/16 09/23/16 18:44 04:46 21:30 03:45 Potassium Level 3.5 MEQ/L 3.4 MEQ/L 4.1 MEQ/L 4.0 MEQ/L Sodium Level 146 MEQ/L 146 MEQ/L Chloride Level 109 MEQ/L 109 MEQ/L Carbon Dioxide Level 33.0 MEQ/L 30.3 MEQ/L Anion Gap 4 MEQ/L 7 MEQ/L Blood Urea Nitrogen 38 MG/DL 37 MG/DL Creatinine 1.16 MG/DL 1.09 MG/DL Estimat Glomerular Filtration 44 ML/MIN 47 ML/MIN Rate Random Glucose 142 MG/DL 145 MG/DL Calcium Level 8.2 MG/DL 8.0 MG/DL Phosphorus Level 2.1 MG/DL 2.9 MG/DL 2.6 MG/DL Magnesium Level 1.9 MG/DL 2.0 MG/DL Imaging Last Impressions Renal Ultrasound 09/22/16 0000 Signed Impressions: Service Date/Time: Thursday, September 22, 2016 18:32 - CONCLUSION: 1. Suboptimal visualization of the kidneys with no definite hydronephrosis or focal lesion. 2. Small amount of ascitic fluid and small bilateral pleural effusions. 3. Echogenic debris in the gallbladder most consistent with sludge. Chucho Padgett MD Abdomen/Pelvis CT 09/22/16 0000 Signed Impressions: Service Date/Time: Thursday, September 22, 2016 08:52 - CONCLUSION: 1. Deterioration in the appearance of the abdomen with increasing ascites and substantial bowel thickening of the colon all consistent with a colitis. 2. Gallbladder is prominent but otherwise unremarkable. 3. Increasing right pleural effusion. Gatito Vásquez MD FACR Abdomen X-Ray 09/21/16 0600 Signed Impressions: Service Date/Time: Wednesday, September 21, 2016 04:25 - CONCLUSION: Stable gaseous distention of colon. Marty Marinelli MD Shoulder X-Ray 09/20/16 0000 Signed Impressions: Service Date/Time: Tuesday, September 20, 2016 09:53 - CONCLUSION: No significant interval change is identified. There is a displaced mildly comminuted proximal left humeral neck fracture with rotation of the humeral head and associated shortening. En Robledo MD Hip and Pelvis X-Ray 09/20/16 0000 Signed Impressions: Service Date/Time: Tuesday, September 20, 2016 09:57 - CONCLUSION: Left hip bipolar arthroplasty hardware demonstrates no acute finding. The bones are undermineralized but no fracture is visualized. En Robledo MD Chest X-Ray 09/18/16 0000 Signed Impressions: Service Date/Time: Sunday, September 18, 2016 15:27 - CONCLUSION: Bibasilar areas of mild atelectasis or consolidation being worse on the right. There are suspected mild bilateral pleural effusions. En Lambert MD Physical Exam CONSTITUTIONAL/GENERAL: Awake and alert, not in distress, looks more alert SKIN: Warm. No jaundice, rashes, or lesions. Diffuse anasarca, less prominent HEENT: [place] conjunctiva, no icterus. Dry oral mucosa without visible erythema, exudates, masses, or lesions. NECK: Supple, not tender CARDIOVASCULAR: Regular rate and rhythm without murmurs, gallops, or rubs. RESPIRATORY/CHEST: Symmetric, unlabored respirations. Clear to auscultation. Decreased at bases GASTROINTESTINAL: Abdomen remains appears slightly less distended and less tight with less abdominal tenderness, less guarding and no rebounding . Hypoactive BS. RECTAL: Dignishield in place small amount of stool GENITOURINARY: Bañuelos in place with small amount of brownish urine MUSCULOSKELETAL: Extremities without clubbing, cyanosis. Diffuse soft pitting edema, 3+, anasarca. No mottling NEUROLOGICAL: Grossly non-focal she is fully awalke and alert oriented x 3 PSYCHIATRIC: calm and cooperative Assessment & Plan Remarks Severe life threatening colitis, C.diff, hypervirilent stain 027 severe R side colon seem to be more involvedm, sp colonoscopy with rectal tube placement - pt with progressive ileus - slightly better today SIRS, sepsis - due to C.diff - acute renal dysfunction - improved lactic acidosis resolved No e/o UTI Pt remains critically ill - refuses colectomy, CRS s/o - vanco intillations ARF - new Prognosis is now poor taking into account non lack of response to therapy PLAN: Continue po vancomycin Continue vanco enemas Continue IV flagyl cont dificid Avoid systemic abx Monitor progress Pt can have a stool transplant , she is not having current systemic abx therapy and not highly likely to have it soon dw Shayy Braxton MD Sep 23, 2016 11:40
--- NOTE | 2016-09-23 13:17 | HHI.CCPN ---
Subjective Remarks/Hospital Course This is an 86-year-old female. Date of admission 09/15/2016. Past medical history includes peripheral neuropathy, TIA history, osteoarthritis, spinal stenosis, hypertension, dyslipidemia, chronic kidney disease stage II, hypothyroidism, chronic lumbar pain with previous history of nerve blocks and gastroesophageal reflux disease. See originally presented to [facility] status post unwitnessed fall at home which he had a left femoral neck fracture and left humeral head fracture. She was seen in consultation by Dr. Bill and had a bipolar galya-plasty 09/05 without complication. Left wrist fractures treated conservatively with a sling therapy. Patient was sent to rehabilitation 09/09 09/12 patient was diagnosed with urinary tract infection. Initially treated with Ceftin 500 mg every 12 and switch to Rocephin 1 g every 24 09/13. Patient having constipation KUB revealed stool 09/13. Receiving fleets enema 1 and Relistor 12 mg subcutaneous 1. Along with Florastor twice a day Since admission rehabilitation on Angelic-Colace. Yesterday, she was noted to have multiple bouts of diarrhea starting yesterday Today, consultation to hospitalist for hypotension abdominal pain. Noted she had white cell count that jumped from slightly above normal to 43,000 late yesterday. LFTs and lipase were normal. Lactate slightly elevated 3.2 currently 2.2 after [address] abdomen/pelvis revealed ileus type pattern. With gas in the bowel. Mild anasarca. Some free fluid in the pelvis. A nonobstructing right calculus. She received 2 L normal saline wide open was transferred to [id number] and we are asked to see in consultation. C. difficile was drawn. Worried about mesenteric ischemia sent to CT with contrast At the present time, patient complaining of diffuse abdominal pain specifically in the bilateral lower quadrants. Abdomen soft. Voluntary guarding. No rigidity. 09/16: Noted Hieu-Synephrine started overnight and 70 mu./m. Received 2 L normal saline. Urine output decreased however the creatinine is still within normal limits. Started on vancomycin enema, oral and IV Flagyl for C. difficile positive. Abdominal pain currently 8 out of 10 Subjective 09/17: Afebrile. Abdominal pain still 8 out of 10. Percocet central line yesterday however currently off all vasopressors. Will attempt single lumen PICC line for TPN 09/18: Remains critically ill. Off pressors, but abdomen severe distension, tympanic and tender. CT yesterday diffuse thickening, predominately R colon. D/ W radiology Dr. Alexandra, will repeat CT abdomen stat today. Keep nothing by mouth. CBC CMP and lactic acid stat pending 09/19: Remains critically ill, continues to have severe abdominal distention and tenderness. CT surgery Dr. Abarca was consulted yesterday, he is following. Urine output excellent with Bumex infusion 3.5 L in last 16 hours. Patient is reluctant to consider surgical options at this time. D/W Dr. Abarca, continue conservative management 09/20: Patient complains of abdominal pain, distention still noted. Repeat CT this a.m. reveal stable gaseous distention of the colon. Multimodal pain relief initiated, will begin Ofirmev 1 g every 6 hours for 24 hours. 09/21: Plan for colonoscopy in am for decompression. NGT placed to LIWS. 09/22: Tmax 98.7. She continues on vancomycin PO, and NH, and IV Flagyl. KUB results yesterday show a stable gas pattern. Plans for CT of the abdomen/ pelvis this a.m. per GI and colonoscopy. Patient previously on Bumex twice a day, with an elevation in creatinine. Bumex was held for 24 hours, with slight improvement of creatinine, but urine output decreasing. Will obtain renal studies today and plan to discuss with handle sander operator Dr. Hendricks. 09/23: Afebrile. The patient underwent colonic decompression yesterday.Improvement in VAS pain score 5/10 today. Palliative Care team discussion with sons regarding possible transition to Hospice care. Discussed with nephrology UOP and creatnine levels. The patient received 1 mg Bumex last evening with improvement of UOP. Plan is for PRN intermittent dosing of diuretic. Objective Vital Signs Date Time Temp Pulse Resp B/P Pulse Ox O2 Delivery O2 Flow Rate FiO2 09/23/16 12:00 82 09/23/16 12:00 98.2 11 120/58 97 09/22/16 19:51 Nasal Cannula 1.00 Intake and Output 09/22/16 09/22/16 09/23/16 08:00 16:00 00:00 Intake Total 360 ml 735 ml 311 ml Output Total 300 ml 400 ml 1175 ml Balance 60 ml 335 ml -864 ml Result Diagram: 09/23/16 0345 09/23/16 0345 Imaging Last Impressions Abdomen X-Ray 09/16/16 0600 Signed Impressions: Service Date/Time: August 03:32 - CONCLUSION: Colitis without obstruction. En Andres MD Chest X-Ray 09/15/16 1155 Signed Impressions: Service Date/Time: Thursday, September 15, 2016 12:29 - CONCLUSION: 1. Right IJ central line in good position without pneumothorax. Aldair Garcia MD Abdomen/Pelvis CT 09/15/16 0000 Signed Impressions: Service Date/Time: Thursday, September 15, 2016 09:43 - CONCLUSION: 1. Diffuse thickening of the entire colon consistent with diffuse colitis. 2. Mild atherosclerotic calcifications seen at the aorta. There is no aneurysm. Contrast is seen within the celiac, SMA and HARRIS. 3. Small non-obstructing right renal stone. En Lambert MD Objective Remarks GENERAL: 86-year-old female, resting in bed in mild distress 2/2 pain from fractures SKIN: Warm and dry. Ecchymosis to the left upper extremity HEAD: Atraumatic. Normocephalic. EYES: Pupils equal and round about 3 mm bilaterally. EOMI. ENT: No nasal bleeding or discharge. Upper dentures/partial lower dentures. NECK: Trachea midline. No JVD. CARDIOVASCULAR: Regular rate and rhythm. S1, S2. No S4. Without murmur RESPIRATORY: No accessory muscle use. Clear to auscultation. Breath sounds equal bilaterally. GASTROINTESTINAL: Abdomen severely distended tympanic to percussion tender to palpation. MUSCULOSKELETAL: Extremities with trace lower extremity edema. Left leg noted knee immobilizer, to avoid flexion of femoral head. Left arm is in a sling NEUROLOGICAL: Awake and alert. No obvious cranial nerve deficits. Motor grossly within normal limits. Five out of 5 muscle strength in the arms and legs. Normal speech. PSYCHIATRIC: Appropriate mood and affect; insight and judgment normal. Date of Insertion: Sep 15, 2016 Date of Removal: Sep 16, 2016 Line: Central Venous Catheter Side: Right Location: Internal, Jugular A/P Assessment and Plan Neuro/Psych: Peripheral neuropathy History of TIA Spinal stenosis Tylenol for temp> 100.5 Morphine for pain management for left hip fracture/humerus fracture Await recommendations regarding use of Methylnaltrexone from CV: Fluid overload Lactic acidosis History of hypertension Dyslipidemia Currently off all vasopressors, Status post 5 L normal saline resuscitation Bumex bolus and infusion at 0.5 mg per hour started 09/18/16 Bumex on hold on 09/21 Holding Xarelto 10 mg daily and Plavix 75 mg by mouth daily. Holding home medications of Pravachol 80 mg at night and Zetia 10 mg daily night of ileus. Holding lisinopril 10 mg daily light of hypotension and acute kidney injury Resp: Nasal cannula to maintain saturations greater than or equal to 92% Incentive spirometry while awake DuoNeb every 6 hours when necessary GI: Severe C. difficile colitis, hypervirulent strain 027 Moderate protein calorie malnutrition with albumin 1.[address] abdomen/pelvis 09/14 revealed mild chronic ileus type pattern. Nonobstructing right nephrolithiasis. Some free fluid in the pelvis. Mild anasarca. CT abdomen/post contrast 09/17 revealed diffuse colitis. Noted C. difficile positive see below CT abdomen/pelvis 09/20-stable gaseous distention of the colon Discussed with radiology Dr. Alexandra. Repeat CT abdomen and pelvis without contrast 09/18 showed similar findings with predominantly right-sided COLON Thickening and ascites Scheduled 12.5 g IV every 8 hours per GI day currently 2.3 TPN per GIs recommendations at 62.5 cc an hour with lipids 10% 250 cc 2 times a week Protonix 40 mg IV daily for GI prophylaxis Obtain CT abdomen/pelvis 09/22 per GI recommendation 09/22 clear liquid diet initiated per GI recommendations 09/23 Await recommendations regarding use of Methylnaltrexone from GI . Endo: Hypothyroidism Hyperglycemia Sliding-scale insulin with Accu-Cheks to maintain euglycemia/low regimen Continue iv Levoxyl 25 mcgs Electrolyte replacement per protocol Renal: Acute on chronic kidney injury stage II Nonobstructing right nephrolithiasis 09/18 Bumex 2 MG iv bolus and infusion at 0.5 mg per hour , discontinued 09/20 Dr. Hendricks [id number] recommendations Monitor urine output, Accurate I's and O's Nonobstructing right-sided nephrolithiasis noted 09/22 Bumex x 1 dose- continue to monitor creatinine Heme: Leukocytosis Thrombocytosis Normocytic anemia Monitor CBC daily. Follow trends ID: C. difficile, hypervirulent strain 027 Severe sepsis E cloacae UTI-urine culture on 09/15/16 negative Persistent Leukocytosis and Bandemia Currently vancomycin enema 500 mg every 6, 500 mg by mouth every 6 and Flagyl 500 mg IV every 8 day #6 09/15 blood cultures 2, urine cultures no growth to date C. difficile positive Colorectal surgery and Gi following At this time continue conservative management. ID following Dr. Rodriguez-consideration for fecal transplant FEN: Hyper-magnesium Hypophosphatemia Replace electrolytes as clinically indicated MSK: Osteoarthritis Status post bipolar hemiarthroplasty secondary to left femoral neck fracture by Dr. Bill Left humerus fracture conservative management with sling Holding vitamin D 3 2000 units daily and Os-[place] D5 100/250 one tablet twice a day Continue Physical Therapy as tolerated Access - Utilize IV. PICC placement 09/18 Prophylaxis - GI - Protonix - DVT - SCDs/heparin subcutaneous Dispo: Discussed with patient, BRICK CARRIER at bedside, Dr. Rodriguez, Dr. Manzo. Tentative plan for Hospice, discussion regarding the possibility of a fecal transplant ongoing. Planned transfer to [facility] in am. Critical Care: Level 2 Physician Mandi Clark MD Sep 23, 2016 13:17
--- NOTE | 2016-09-23 14:25 | HHI.HCPN ---
Reason for visit a. To assist with evaluation and management of symptoms including: abdominal pain; ileus b. To assist medical decision maker(s) with: better understanding of current medical conditions; weighing benefits/burdens of medical treatment options; making medical treatment decisions. . Subjective/Interval History Patient remains slightly confused today. She has no recollection of my visit yesterday. She reports her abdominal pain is somewhat better but has been giving the nursing staff reports of pain intensity of "10." On further inquiry , she states that the abdominal pain is no worse than the chronic back pain she has endured of late without the use of any opiate analgesics. I specifically ask the patient if she would want us to increase her pain medication and she says "no." Patient denies back pain at this time and also denies pain in her repaired left hip or at the site of her left humeral fracture. Though the imaging on 09/22/16 suggested worsening of the patient's colitis, when colonoscopy was performed to help with decompression, the director of golf felt there had been some improvement. Colitis involved mostly the ascending colon and cecum; the left colon appeared healthy. the decompression tube was re-positioned to allow enema delivered vancomycin to get closer to the involved bowel. Urine output improved after Bumex was given yesterday evening. Renal function continues to slowly improve. Case discussed today with GI. Medical team is investigating feasibility and protocol for fecal transplant to see if we could offer this to patient should she decline on current regimen. Hopefully, it will not need to be considered. . Family/friend interactions No family at bedside today. . Advance Directives Living Will: Completed, but not made available Health Care Surrogate: Copy in medical record Durable Power of Packaging Tech: Never completed Advance Directive Specifics Date completed: Son reports that patient completed a living will and designation of health care surrogacy when she completed her financial will. She might also have completed once since being here in the hospital. Patient has verbally stated (and witnessed) 09/23/16 that she wanted to designate her surrogate to be her son Reed in [place]. . Health Care Surrogate(s): Patient verbally states that she wants her son -- Reed -- to be her health care surrogate. Reed says she has completed paper work designating him in writing. We don't yet have this on the chart. Nurses have now confirmed and witnessed her stating her desire for Bill to be her surrogate. This is now on the chart. . . Documented care wishes: No written documentation currently available regarding patient's health care goals /preferences. . Objective Vital Signs Date Time Temp Pulse Resp B/P Pulse Ox O2 Delivery O2 Flow Rate FiO2 09/23/16 12:00 82 09/23/16 12:00 98.2 82 11 120/58 97 09/23/16 11:00 85 23 116/59 96 09/23/16 10:00 82 09/23/16 10:00 82 16 132/63 96 09/23/16 09:00 90 22 132/61 95 09/23/16 08:00 94 09/23/16 08:00 98.4 94 22 147/65 98 09/23/16 07:00 90 22 141/64 98 09/23/16 06:00 90 09/23/16 04:00 86 09/23/16 04:00 98.0 86 20 132/62 96 09/23/16 02:00 93 09/23/16 00:00 91 09/23/16 00:00 97.5 91 19 157/67 95 09/22/16 22:00 92 09/22/16 20:00 97.8 98 16 140/68 97 09/22/16 20:00 98 09/22/16 19:51 98 Nasal Cannula 1.00 09/22/16 18:00 89 09/22/16 16:00 90 16 155/68 96 Nasal Cannula 3 09/22/16 15:45 88 15 162/72 97 Nasal Cannula 3 09/22/16 15:30 97.5 90 16 167/72 96 Nasal Cannula 3 Intake & Output 09/23/16 09/23/16 07:00 19:00 Intake Total 708 ml Output Total 1625 ml Balance -917 ml IV Total 100 ml TPN/PPN 304 ml Lipid 254 ml Albumin 50 ml Output Urine Total 950 ml Stool Total 675 ml . Physical Exam CONSTITUTIONAL/GENERAL: This is an adequately nourished patient,lying somewhat stiffly in bed. Able to smile weakly. No obvious distress. Slightly confused. TUBES/LINES/DRAINS: NG tube; taylor catheter; peripheral iv; PICC line RUE; fecal management system SKIN: No jaundice, rashes, or lesions. No wounds seen anteriorly. Skin temperature appropriate. Not diaphoretic. HEAD: Atraumatic. Normocephalic. EYES: Pupils equal and round. Extraocular motions intact. No scleral icterus. No injection or drainage. Fundi not examined. ENT: Hearing grossly normal. Nose without bleeding or purulent drainage. Mucous membranes dry. Throat without visible erythema, exudates, masses, or lesions. NECK: Trachea midline. Supple, nontender. CARDIOVASCULAR: Regular rate and rhythm without murmurs, gallops, or rubs. No JVD. RESPIRATORY/CHEST: Symmetric, unlabored respirations. Clear to auscultation. Breath sounds equal bilaterally. No wheezes, rales, or rhonchi. Rare cough. GASTROINTESTINAL: Abdomen distended; diffuse mild tenderness. Tympanitic. No hepato-splenomegaly, or palpable masses. No guarding. Bowel sounds hypoactive. GENITOURINARY: Without palpable bladder distension. Taylor catheter in place. MUSCULOSKELETAL: Extremities without clubbing, cyanosis. Trace edema. LLE knee immobilizer. LUE sling. LYMPHATICS: Not examined. NEUROLOGICAL: Awake and alert. Motor and sensory grossly within normal limits. Follows commands. Moves all extremities. Answers most questions appropriately. Mild, intermittent confusion. PSYCHIATRIC: No obvious anxiety/depression. No apparent hallucinations or other psychotic thought process. . Diagnostic Tests Laboratory Laboratory Tests Test 09/21/16 09/21/16 09/22/16 09/22/16 04:23 18:44 04:46 09:45 White Blood Count 15.4 TH/MM3 17.9 TH/MM3 (4.0-11.0) (4.0-11.0) Red Blood Count 3.57 MIL/MM3 3.51 MIL/MM3 (4.00-5.30) (4.00-5.30) Hemoglobin 10.5 GM/DL 10.7 GM/DL (11.6-15.3) (11.6-15.3) Hematocrit 32.5 % 31.6 % (35.0-46.0) (35.0-46.0) Mean Corpuscular Volume 90.8 FL 89.9 FL (80.0-100.0) (80.0-100.0) Mean Corpuscular Hemoglobin 29.4 PG 30.5 PG (27.0-34.0) (27.0-34.0) Mean Corpuscular Hemoglobin 32.3 % 33.9 % Concent (32.0-36.0) (32.0-36.0) Red Cell Distribution Width 14.4 % 14.3 % (11.6-17.2) (11.6-17.2) Platelet Count 316 TH/MM3 319 TH/MM3 (150-450) (150-450) Mean Platelet Volume 7.9 FL 7.5 FL (7.0-11.0) (7.0-11.0) Neutrophils (%) (Auto) 82.1 % 85.4 % (16.0-70.0) (16.0-70.0) Lymphocytes (%) (Auto) 6.8 % 6.0 % (9.0-44.0) (9.0-44.0) Monocytes (%) (Auto) 9.6 % (0.0-8.0) 8.0 % (0.0-8.0) Eosinophils (%) (Auto) 0.8 % (0.0-4.0) 0.4 % (0.0-4.0) Basophils (%) (Auto) 0.7 % (0.0-2.0) 0.2 % (0.0-2.0) Neutrophils # (Auto) 12.7 TH/MM3 15.3 TH/MM3 (1.8-7.7) (1.8-7.7) Lymphocytes # (Auto) 1.1 TH/MM3 1.1 TH/MM3 (1.0-4.8) (1.0-4.8) Monocytes # (Auto) 1.5 TH/MM3 1.4 TH/MM3 (0-0.9) (0-0.9) Eosinophils # (Auto) 0.1 TH/MM3 0.1 TH/MM3 (0-0.4) (0-0.4) Basophils # (Auto) 0.1 TH/MM3 0.0 TH/MM3 (0-0.2) (0-0.2) CBC Comment AUTO DIFF AUTO DIFF Differential Total Cells 100 100 Counted Neutrophils % (Manual) 66 % (16-70) 80 % (16-70) Band Neutrophils % 21 % (0-6) 14 % (0-6) Lymphocytes % 3 % (9-44) 1 % (9-44) Monocytes % 6 % (0-8) 1 % (0-8) Basophils % 1 % (0-2) Neutrophils # (Manual) 13.9 TH/MM3 17.5 TH/MM3 (1.8-7.7) (1.8-7.7) Metamyelocytes 3 % (0-1) 1 % (0-1) Nucleated Red Blood Cells 1 /100 WBC (0-0) Differential Comment FINAL DIFF FINAL DIFF MANUAL MANUAL Platelet Estimate NORMAL NORMAL (NORMAL) (NORMAL) Platelet Morphology Comment NORMAL NORMAL (NORMAL) (NORMAL) Red Cell Morphology Comment NORMAL (NORMAL) Sodium Level 144 MEQ/L 146 MEQ/L (136-145) (136-145) Potassium Level 3.4 MEQ/L 3.5 MEQ/L 3.4 MEQ/L (3.5-5.1) (3.5-5.1) (3.5-5.1) Chloride Level 106 MEQ/L 109 MEQ/L (98-107) (98-107) Carbon Dioxide Level 30.8 MEQ/L 33.0 MEQ/L (21.0-32.0) (21.0-32.0) Anion Gap 7 MEQ/L (5-15) 4 MEQ/L (5-15) Blood Urea Nitrogen 35 MG/DL (7-18) 38 MG/DL (7-18) Creatinine 1.41 MG/DL 1.16 MG/DL (0.50-1.00) (0.50-1.00) Estimat Glomerular Filtration 35 ML/MIN (>89) 44 ML/MIN (>89) Rate Random Glucose 149 MG/DL 142 MG/DL (74-106) (74-106) Calcium Level 8.2 MG/DL 8.2 MG/DL (8.5-10.1) (8.5-10.1) Phosphorus Level 3.0 MG/DL 2.1 MG/DL (2.5-4.9) (2.5-4.9) Magnesium Level 1.9 MG/DL 1.9 MG/DL (1.5-2.5) (1.5-2.5) Myelocytes 3 % (0-0) Toxic Granulation 1+ (NORMAL) Urine Osmolality 531 MOSM/KG (300-1300) Urine Random Sodium 6 MEQ/L Test 09/22/16 09/23/16 21:30 03:45 Potassium Level 4.1 MEQ/L 4.0 MEQ/L (3.5-5.1) (3.5-5.1) Phosphorus Level 2.9 MG/DL 2.6 MG/DL (2.5-4.9) (2.5-4.9) White Blood Count 19.9 TH/MM3 (4.0-11.0) Red Blood Count 3.29 MIL/MM3 (4.00-5.30) Hemoglobin 10.2 GM/DL (11.6-15.3) Hematocrit 30.0 % (35.0-46.0) Mean Corpuscular Volume 91.1 FL (80.0-100.0) Mean Corpuscular Hemoglobin 31.1 PG (27.0-34.0) Mean Corpuscular Hemoglobin 34.2 % Concent (32.0-36.0) Red Cell Distribution Width 14.8 % (11.6-17.2) Platelet Count 317 TH/MM3 (150-450) Mean Platelet Volume 8.1 FL (7.0-11.0) Neutrophils (%) (Auto) 92.1 % (16.0-70.0) Lymphocytes (%) (Auto) 3.5 % (9.0-44.0) Monocytes (%) (Auto) 4.2 % (0.0-8.0) Eosinophils (%) (Auto) 0.0 % (0.0-4.0) Basophils (%) (Auto) 0.2 % (0.0-2.0) Neutrophils # (Auto) 18.3 TH/MM3 (1.8-7.7) Lymphocytes # (Auto) 0.7 TH/MM3 (1.0-4.8) Monocytes # (Auto) 0.8 TH/MM3 (0-0.9) Eosinophils # (Auto) 0.0 TH/MM3 (0-0.4) Basophils # (Auto) 0.0 TH/MM3 (0-0.2) CBC Comment AUTO DIFF Differential Total Cells 100 Counted Neutrophils % (Manual) 64 % (16-70) Band Neutrophils % 24 % (0-6) Lymphocytes % 2 % (9-44) Monocytes % 4 % (0-8) Neutrophils # (Manual) 18.7 TH/MM3 (1.8-7.7) Metamyelocytes 3 % (0-1) Myelocytes 3 % (0-0) Differential Comment FINAL DIFF MANUAL Toxic Granulation 1+ (NORMAL) Platelet Estimate NORMAL (NORMAL) Platelet Morphology Comment NORMAL (NORMAL) Sodium Level 146 MEQ/L (136-145) Chloride Level 109 MEQ/L (98-107) Carbon Dioxide Level 30.3 MEQ/L (21.0-32.0) Anion Gap 7 MEQ/L (5-15) Blood Urea Nitrogen 37 MG/DL (7-18) Creatinine 1.09 MG/DL (0.50-1.00) Estimat Glomerular Filtration 47 ML/MIN (>89) Rate Random Glucose 145 MG/DL (74-106) Calcium Level 8.0 MG/DL (8.5-10.1) Magnesium Level 2.0 MG/DL (1.5-2.5) . Result Diagram: 09/23/16 0345 09/23/16 0345 Microbiology Blood and urine cultures from 09/15/16 show no growth. . Imaging Last Impressions Renal Ultrasound 09/22/16 0000 Signed Impressions: Service Date/Time: Thursday, September 22, 2016 18:32 - CONCLUSION: 1. Suboptimal visualization of the kidneys with no definite hydronephrosis or focal lesion. 2. Small amount of ascitic fluid and small bilateral pleural effusions. 3. Echogenic debris in the gallbladder most consistent with sludge. Chucho Padgett MD Abdomen/Pelvis CT 09/22/16 0000 Signed Impressions: Service Date/Time: Thursday, September 22, 2016 08:52 - CONCLUSION: 1. Deterioration in the appearance of the abdomen with increasing ascites and substantial bowel thickening of the colon all consistent with a colitis. 2. Gallbladder is prominent but otherwise unremarkable. 3. Increasing right pleural effusion. Gatito Vásquez MD FACR Abdomen X-Ray 09/21/16 0600 Signed Impressions: Service Date/Time: Wednesday, September 21, 2016 04:25 - CONCLUSION: Stable gaseous distention of colon. Marty Marinelli MD Shoulder X-Ray 09/20/16 0000 Signed Impressions: Service Date/Time: Tuesday, September 20, 2016 09:53 - CONCLUSION: No significant interval change is identified. There is a displaced mildly comminuted proximal left humeral neck fracture with rotation of the humeral head and associated shortening. En Robledo MD Hip and Pelvis X-Ray 09/20/16 0000 Signed Impressions: Service Date/Time: Tuesday, September 20, 2016 09:57 - CONCLUSION: Left hip bipolar arthroplasty hardware demonstrates no acute finding. The bones are undermineralized but no fracture is visualized. En Robledo MD Chest X-Ray 09/18/16 0000 Signed Impressions: Service Date/Time: Sunday, September 18, 2016 15:27 - CONCLUSION: Bibasilar areas of mild atelectasis or consolidation being worse on the right. There are suspected mild bilateral pleural effusions. En Lambert MD . Procedures * Right internal jugular central line. * Colonoscopy 09/22/16 . . Assessment and Plan Disease Oriented Problem List: (1) Colitis, Clostridium difficile Comment: Severe, life-threatening, virulent strain. . (2) Severe sepsis (3) Septic shock (4) Spinal stenosis (5) Peripheral neuropathy (6) Acute kidney injury (nontraumatic) (7) UTI (urinary tract infection) Comment: Enterobacter. Resolved. . (8) Hypothyroid (9) Humerus head fracture Comment: Left side from fall on 09/10/16. Sling therapy. . (10) Osteoarthritis (11) Hip fracture, left Comment: Left side. Bipolar gayla-arthroplasty on 09/05/16. . (12) Protein-calorie malnutrition, moderate Symptom Scale: (1) Pain 0-10 Scale: 10 Comment: Current pain is mostly abdominal. Also has history of chronic low back pain and neuropathic leg pain. Other sources of pain might include prolonged bedbound status; NG tube; venous access lines; fecal management systerm; taylor catheter; etc. Patient not able to quantify or qualify pain well at time of my visit. . Pertinent Non-Medical Issues Psychosocial: Had been living independently prior to her fall. Son in [place]; two sons in [place]; one son in [place]. Spiritual: Lapsed Holiness. Appreciates berry recio. Legal: Pt verbally designates her son -- Reed -- as her surrogate and Reed claims there is paperwork confirming that selection. Ethical issues impacting care: Patient is mildly confused. Recommend shared decision making with her son. . Important Contacts * Reed Hebert (son) [phone] * Lore Hebert ([id number]) [phone] . Prognosis Patient currently has life-threatening diffuse colitis from C diff. She is not yet showing a significant response to medical management. She is not interested in surgery even if it remains the only option to save her life and her chances of successful recovery after major surgery is in doubt. Because of her ileus, she is receiving nutrition via TPN which places her a further risk of sepsis. As she is currently hemodynamically stable, breathing on her own , and renal function is reasonable, she can afford to continue to see if medical management will work. Should there be another major setback, she wants to transition to comfort measures only and family endorses this plan. . Code Status: No Code Plan == Code Status: NO CODE == Decision making: Patient has intermittent mild confusion but appears to understand her illness and goals. She is generally capacitated to make her own health care decision, but recommend there be shared decision making with her surrogate. Should she become incapacitated, she has indicated that she wants her son Reed (the only son that lives in [place]) to be her health care surrogate. == Goals: Patient is willing to continue with medical management for the time being to see if the current antibioitc regimen and supportive care can conquer the colitis. She does NOT want surgery. She does not want to be resuscitated. If there is any significant setback or it is clear medical management is not working, she wants to transition to "comfort measures only" and be enrolled with hospice. == Pain: Pain sources described above with most pain being her abdominal pain at this time. She continues to have episodes of level 8 or higher pain in spite of her current morphine regimen. However, she says she normally lives with this level of pain without using opiate analgesics. There are concerns about increasing her opiates due to recent hypotension and fear of exacerbating her ileus. If opiates are contributing to the ileus, we can offset this with methylnaltrexone (Relistor) and then perhaps increase her opiates if her BP tolerates it. == Ileus: Recommend several day trial of methylnaltrexone to see if blocking the bowel opiate receptors will help resolve the ileus. == Confusion: This is very mild and likely a multi-factorial delirium. She is mildly confused and she does not appear frightened/upset about the confusion. Do not see benefit from adding a neuroleptic at this time. Will continue to address underlying illnesses. == Have discussed possibility of "fecal transplant" with forest firefighter, ID, and GI. They are still investigating feasibility and whether patient is an appropriate candidate and if it can be done. If its feasible I will let patient /son know of what's involved and they can decide whether or not to pursue. Hopefully, she will improve and not need to consider. == Palliative care will continue to follow to assist with symptom management and to further clarify goals of medical treatment as the clinical course evolves. . Time Spent Total Floor Time (mins): 40 (Total floor time included chart review, patient exam, collaboration with primary nurse, discussion with patient regarding pain, collaboration with GI team, documentation. ) Face to Face Time (mins): 10 >50% Counseling/Coord of Care: No Attestation To help prompt me to consider important information that might be impacting today's encounter and assessment, information from prior notes written by myself or my colleagues may have been "brought forward" into today's note. My signature on this note, however, is an attestation that I personally performed the exam, history, and/or decision-making noted today, and, unless otherwise indicated, the interactions with patient, family, and staff as well as the review of records all occurred today. I also attest that the listed assessment and stated plan reflect my best clinical judgment today based on the combination of historical information, prior notes, and today's exam/ interactions. When time spent is documented, it refers only to time spent today by the signer, or if indicated, combined time spent today by collaborating physician/nurse practitioner. . Robert Manzo MD Sep 23, 2016 14:25
--- NOTE | 2016-09-23 15:50 | HHI.GIFU ---
Subjective Remarks Resting in bed. Appears more comfortable. States she is taking sips of clears. Pain improved today. (Dinora Renteria) Objective Vitals I&O Vital Signs Date Time Temp Pulse Resp B/P Pulse Ox O2 Delivery O2 Flow Rate FiO2 09/23/16 12:00 82 09/23/16 12:00 98.2 82 11 120/58 97 09/23/16 11:00 85 23 116/59 96 09/23/16 10:00 82 09/23/16 10:00 82 16 132/63 96 09/23/16 09:00 90 22 132/61 95 09/23/16 08:00 94 09/23/16 08:00 98.4 94 22 147/65 98 09/23/16 07:00 90 22 141/64 98 09/23/16 06:00 90 09/23/16 04:00 86 09/23/16 04:00 98.0 86 20 132/62 96 09/23/16 02:00 93 09/23/16 00:00 91 09/23/16 00:00 97.5 91 19 157/67 95 09/22/16 22:00 92 09/22/16 20:00 97.8 98 16 140/68 97 09/22/16 20:00 98 09/22/16 19:51 98 Nasal Cannula 1.00 09/22/16 18:00 89 09/22/16 16:00 90 16 155/68 96 Nasal Cannula 3 09/22/16 15:45 88 15 162/72 97 Nasal Cannula 3 I/O 09/22/16 09/22/16 09/22/16 09/23/16 09/23/16 09/23/16 07:00 15:00 23:00 07:00 15:00 23:00 Intake Total 360 ml 735 ml 311 ml 397 ml 524 ml Output Total 300 ml 400 ml 1175 ml 450 ml 275 ml Balance 60 ml 335 ml -864 ml -53 ml 249 ml Intake Oral 100 ml 100 ml IV Total 100 ml 250 ml 100 ml 100 ml TPN/PPN 210 ml 335 ml 101 ml 203 ml 274 ml Lipid 60 ml 194 ml Albumin 50 ml 50 ml 50 ml 50 ml Output Urine Total 250 ml 300 ml 700 ml 250 ml 175 ml Stool Total 50 ml 100 ml 475 ml 200 ml 50 ml Drainage Total 50 ml # Bowel Movements 1 Laboratory Laboratory Tests Test 09/22/16 09/23/16 21:30 03:45 Potassium Level 4.1 4.0 Phosphorus Level 2.9 2.6 White Blood Count 19.9 Red Blood Count 3.29 Hemoglobin 10.2 Hematocrit 30.0 Mean Corpuscular Volume 91.1 Mean Corpuscular Hemoglobin 31.1 Mean Corpuscular Hemoglobin 34.2 Concent Red Cell Distribution Width 14.8 Platelet Count 317 Mean Platelet Volume 8.1 Neutrophils (%) (Auto) 92.1 Lymphocytes (%) (Auto) 3.5 Monocytes (%) (Auto) 4.2 Eosinophils (%) (Auto) 0.0 Basophils (%) (Auto) 0.2 Neutrophils # (Auto) 18.3 Lymphocytes # (Auto) 0.7 Monocytes # (Auto) 0.8 Eosinophils # (Auto) 0.0 Basophils # (Auto) 0.0 CBC Comment AUTO DIFF Differential Total Cells 100 Counted Neutrophils % (Manual) 64 Band Neutrophils % 24 Lymphocytes % 2 Monocytes % 4 Neutrophils # (Manual) 18.7 Metamyelocytes 3 Myelocytes 3 Differential Comment FINAL DIFF MANUAL Toxic Granulation 1+ Platelet Estimate NORMAL Platelet Morphology Comment NORMAL Sodium Level 146 Chloride Level 109 Carbon Dioxide Level 30.3 Anion Gap 7 Blood Urea Nitrogen 37 Creatinine 1.09 Estimat Glomerular Filtration 47 Rate Random Glucose 145 Calcium Level 8.0 Magnesium Level 2.0 Imaging Last Impressions Renal Ultrasound 09/22/16 0000 Signed Impressions: Service Date/Time: Thursday, September 22, 2016 18:32 - CONCLUSION: 1. Suboptimal visualization of the kidneys with no definite hydronephrosis or focal lesion. 2. Small amount of ascitic fluid and small bilateral pleural effusions. 3. Echogenic debris in the gallbladder most consistent with sludge. Chucho Padgett MD Abdomen/Pelvis CT 09/22/16 0000 Signed Impressions: Service Date/Time: Thursday, September 22, 2016 08:52 - CONCLUSION: 1. Deterioration in the appearance of the abdomen with increasing ascites and substantial bowel thickening of the colon all consistent with a colitis. 2. Gallbladder is prominent but otherwise unremarkable. 3. Increasing right pleural effusion. Gatito Vásquez MD FACR Abdomen X-Ray 09/21/16 0600 Signed Impressions: Service Date/Time: Wednesday, September 21, 2016 04:25 - CONCLUSION: Stable gaseous distention of colon. Marty Marinelli MD Shoulder X-Ray 09/20/16 0000 Signed Impressions: Service Date/Time: Tuesday, September 20, 2016 09:53 - CONCLUSION: No significant interval change is identified. There is a displaced mildly comminuted proximal left humeral neck fracture with rotation of the humeral head and associated shortening. En Robledo MD Hip and Pelvis X-Ray 09/20/16 0000 Signed Impressions: Service Date/Time: Tuesday, September 20, 2016 09:57 - CONCLUSION: Left hip bipolar arthroplasty hardware demonstrates no acute finding. The bones are undermineralized but no fracture is visualized. En Robledo MD Chest X-Ray 09/18/16 0000 Signed Impressions: Service Date/Time: Sunday, September 18, 2016 15:27 - CONCLUSION: Bibasilar areas of mild atelectasis or consolidation being worse on the right. There are suspected mild bilateral pleural effusions. En Lambert MD Physical Exam HEENT: Normocephalic; atraumatic; no jaundice CHEST: Resp even/unlabored, diminished CARDIAC: RRR ABDOMEN: Abdomen soft, moderate distention- improved, moderate diffuse tenderness- improved,bowel sounds hypoactive. Rectal tube in place. EXTREMITIES: Generalized edema. Left CKS, Left upper extremity in sling. SKIN: Normal; no rash; no jaundice. 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 (Dinora Renteria [facility]) Assessment and Plan Plan ASSESSMENT: - Severe C difficile colitis (Epid 027 (+) in patient with recent abx use and hypotension). CT Scan abdomen and pelvis with IV contrast (09/15/16)----> 1. Diffuse thickening of the entire colon consistent with diffuse colitis. 2. Mild atherosclerotic calcifications seen at the aorta. There is no aneurysm. Contrast is seen within the celiac, SMA and HARRIS. 3. Small non-obstructing right renal stone. Colonoscopy (05/20/2005) revealed normal colon, medium internal hemorrhoids. Rpt. Abdomen/Pelvis CT (09/17/16)---> 1. The exam demonstrates diffuse colonic thickening most consistent with a colitis. The overall amount of colonic thickening is stable from previous exam however, there has now been development of a small amount of abdominal ascites. 2. Interval development of bilateral effusions and consolidative changes in the lung bases.Abdomen/Pelvis CT (09/18/16)----> 1. Compared to the prior examination of 09/17/2016, there has been no significant change in the overall appearance of the colon. There continues to be diffuse wall thickening involving the right and left colon suggestive of colitis with some moderate distention. However, no increased distention is seen on today's examination. There is no evidence of free air. 2. No change in the abdominal ascites. 3. No change in body wall anasarca. 4. No change in the bibasilar infiltrates and bilateral effusions. Abdomen X-Ray (09/21/16)----> Stable gaseous distention of colon. S/P Decompressive colonoscopy (09/23/16)-----> Colonoscopy with direct instillation of vancomycin enema into the right and transverse colon. Colonic drainage tube left in place to about the splenic flexure. This can be used to irrigate vancomycin to reach the cecum and ascending colon when the patient is on the right side. The mucosal surfaces do not appear to be much inflamed, but there is mucosal edema in some areas. ID following. Oral vanco, flagyl, vanco enema, started on Dificid (09/22). Clinically, she does seem to be improved today- less tender. She is still distended, but softer and improved from yesterday. Will cont. current treatment, as she seems to have some improvement. Will monitor over weekend, will consider fecal transplant if no improvement, but will hold for now, as she seems to have a slight improvement. - Colonic Ileus secondary to above. She has been taking pericolace and lactinex. S/P Decompression colonoscopy. Did d/w Dr. Manzo, possible dose of relistor to help with any opiate induced ileus component. Her abdomen is softer and not quite as tender. We will see how she does overnight and consider this tomorrow if worsening. - Malnutrition. Was started on TPN, Clinimix E 4. at rate of 62.5 ml/hr 20 % lipids, twice weekly, infuse 250 mls over 8 hrs. Clear liquids. - Sepsis/Leukocytosis secondary to severe CDiff infection. WBC 19.9. ID following, Flagyl, Oral vanco, Vanco enemas, ? possible fecal transplant. Will d/w ID. - Anemia. Stable, 10.2/30.0 - Acute on chronic kidney injury. Creat 1.09 - Recent fall at home on 09/04/16 and sustained a left femoral neck fracture and left humeral head fracture. S/P Bipolar hemiarthroplasty on 09/05/[address] Bill and her left humeral head fracture is being treated conservatively with sling. She was transferred to [facility] on 09/09/16, but transferred to the unit for severe abdominal tenderness and leukocytosis with concern for mesenteric ischemia. - History of TIA (on plavix), OA, Hx HTN now with hypotension, hyperlipidemia, CKD per attending. PLAN: - Clear liquid diet. - Cont. TPN for now - Cont. Dificid - Cont. Flagyl IV - Cont. Oral Vancomycin - Cont. Vanco Enema 500mg in 100mL NS retention enema ID q6h - Cont. IVF - ID following - CCM following - CRS following prn, family does not want to consider colectomy even if her condition deteriorates - Palliative care consulted - She seems to be slightly improved today. Will see how she does overnight. If she remains distended, we will consider relistor x 1. If she has no improvement, consider fecal transplant, will hold off for now, as she seems to be doing slightly better. Consider fecal transplant. - Pt seen and examined by Dr. Barnett and myself and this note is written on his behalf (Dinora Renteria) Plan - trial relistor (Monique Gibson) Dinora Renteria Sep 23, 2016 15:50 Monique Gibson Sep 23, 2016 17:45
[2016-09-23] MEDS ORDERED: BUMETANIDE INJ 1 MG/4 ML VIAL IV PUSH ONE ×2 (17:00→21:00)
--- NOTE | 2016-09-23 17:32 | HHI.NPPN ---
Subjective History of Present Illness 86-year-old female apparently with a history of severe colitis secondary to clostridium difficile. Mention in the records of his CKD stage II. Has continued complications with C diff colitis. NG tube been placed as well as rectal decompression 09/22 Started initially on Bumex drip given oliguria and renal functions improved as well as UOP Interval History Patient appears somewhat lethargic but no verbal complaints currently. Review of Systems General Constitutional: Fatigue Gastrointestinal Gastrointestinal: Abdominal Pain Objective Data Data 09/22/16 09/23/16 19:00 07:00 Intake Total 735 ml 708 ml Output Total 400 ml 1625 ml Balance 335 ml -917 ml Intake Oral 100 ml IV Total 250 ml 100 ml TPN/PPN 335 ml 304 ml Lipid 254 ml Albumin 50 ml 50 ml Output Urine Total 300 ml 950 ml Stool Total 100 ml 675 ml # Bowel Movements 1 Vital Signs Date Time Temp Pulse Resp B/P Pulse Ox O2 Delivery O2 Flow Rate FiO2 09/23/16 16:00 89 09/23/16 16:00 98.1 89 18 122/60 97 09/23/16 15:00 87 17 125/60 96 09/23/16 14:00 91 21 134/63 96 09/23/16 13:00 89 21 135/64 97 09/23/16 12:00 82 09/23/16 12:00 98.2 82 11 120/58 97 09/23/16 11:00 85 23 116/59 96 09/23/16 10:00 82 09/23/16 10:00 82 16 132/63 96 09/23/16 09:00 90 22 132/61 95 09/23/16 08:00 94 09/23/16 08:00 98.4 94 22 147/65 98 09/23/16 07:00 90 22 141/64 98 09/23/16 06:00 90 09/23/16 04:00 86 09/23/16 04:00 98.0 86 20 132/62 96 09/23/16 02:00 93 09/23/16 00:00 91 09/23/16 00:00 97.5 91 19 157/67 95 09/22/16 22:00 92 09/22/16 20:00 97.8 98 16 140/68 97 09/22/16 20:00 98 09/22/16 19:51 98 Nasal Cannula 1.00 09/22/16 18:00 89 -: 09/23/16 0345 09/23/16 0345 Physical Exam General Appearance: No Acute Distress, Pale Eyes Eye Exam: Pupils Equal, Pupils Reactive Pulmonary Resp Exam: Clear Bilaterally, Breath Sounds Equal Cardiology CV Exam: Regular, Normal Sinus Rhythm Gastrointestinal/Abdomen GI Exam: Distended Extremeties Extremities Exam: Moderate Edema (1-2+ plus pitting edema involving lower extremities hips and dependent torso.) Neurologic Neuro Exam: Alert, Awake Assessment/Plan Discussed Condition With: Patient Problem List: (1) CKD (chronic kidney disease) stage 2, GFR 60-89 ml/min Plan: Patient has significant third spacing of fluid. Continue albumin with Diuril to try and improve volume status and edema. Renal indices relatively stable. Medications should be adjusted for the patient's estimated GFR if clinically indicated. Avoid agents with significant potential for nephrotoxicity possible including NSAIDs for analgesia, iodine contrast agents. Gadolinium is contraindicated if the GFR is below 30. (2) Nontraumatic compartment syndrome of abdomen Plan: Patient is at risk for. (3) Hypernatremia Plan: Diuril ordered. Continue free fluid. Broderick Hendricks MD Sep 23, 2016 17:32
[2016-09-23] MEDS ORDERED: METHYLNALTREXONE BROMIDE 12 MG/0.6 ML VIAL SQ ONE (18:30)
[2016-09-23] MEDS: CHLOROTHIAZIDE SOD 500 MG VIAL IV SCH (20:28)
[2016-09-23] MEDS: CLINIMIX E 4.25/25 1000 mL- </= 42 mls/hr IV-CENTRAL SCH ×3 (20:28)
[2016-09-24] VITALS (18 sets, daily range): BP systolic 116–155; BP diastolic 58–73; PULSE 87–98; RESP 11–26; TEMP 97.9–99.7; O2SAT 95–98
[2016-09-24] MEDS: MORPHINE SULFATE 4 MG/ML INJ IV PRN ×3 (00:47→18:10)
[2016-09-24] MEDS: VANCOMYCIN INJ 500 MG in SODIUM CHLORIDE 0.9% IRR BTL 250 ML IRRIGATION SCH ×4 (01:11→18:11)
[2016-09-24] MEDS: HEPARIN SODIUM - SQ 10,000 UNITS/ML VIAL SQ SCH ×2 (06:00→12:22)
[2016-09-24] MEDS: VANCOMYCIN 500 MG VIAL (FOR ORAL USE ONLY) PO SCH ×4 (06:00→18:11)
[2016-09-24] MEDS: metroNIDAZOLE 500 MG INJ 100 ML IV SCH ×3 (06:13→12:21)
[2016-09-24] MEDS: LEVOTHYROXINE SODIUM 100 MCG VIAL IV PUSH SCH (06:18)
[2016-09-24 06:20] LABS: AUTOMATED NEUTROPHIL # 13.2 TH/MM3 (1.8-7.7); BASOPHIL # 0.1 TH/MM3 (0-0.2); BASOPHIL % 0.3 % (0.0-2.0); EOSINOPHIL % 0.3 % (0.0-4.0); HEMATOCRIT 30.6 % (35.0-46.0); LYMPH % 7.2 % (9.0-44.0); LYMPHOCYTE # 1.1 TH/MM3 (1.0-4.8); MEAN CELL VOLUME 91.8 FL (80.0-100.0); MEAN CORPUSCULAR HEMOGLOBIN 30.7 PG (27.0-34.0); MEAN CORPUSCULAR HGB CONC 33.5 % (32.0-36.0); MONO % 8.9 % (0.0-8.0); NEUT % 83.3 % (16.0-70.0); PLATELET COUNT 271 TH/MM3 (150-450); RED BLOOD COUNT 3.34 MIL/MM3 (4.00-5.30); WHITE BLOOD COUNT 15.8 TH/MM3 (4.0-11.0)
[2016-09-24 06:27] LABS: PROTHROMBIN TIME - PATIENT 10.8 SEC (9.8-11.6)
[2016-09-24 06:28] LABS: HEMO FLAGS AUTO DIFF
[2016-09-24 06:56] LABS: ALT (GPT) 16 U/L (10-53); ANION GAP 6 MEQ/L (5-15); AST (GOT) 31 U/L (15-37); BICARBONATE 30.6 MEQ/L (21.0-32.0); BLOOD UREA NITROGEN 43 MG/DL (7-18); CHLORIDE 110 MEQ/L (98-107); GLOMERULAR FILTRATION RATE 45 ML/MIN (>89); MAGNESIUM 1.9 MG/DL (1.5-2.5); POTASSIUM 3.7 MEQ/L (3.5-5.1); SODIUM (NA) 147 MEQ/L (136-145)
[2016-09-24 06:58] LABS: ALKALINE PHOSPHATASE 67 U/L (45-117); TOTAL BILIRUBIN ADULT 0.4 MG/DL (0.2-1.0)
[2016-09-24] MEDS: SODIUM CHLORIDE 0.9% FLUSH 10 ML FLUSH IV FLUSH SCH ×2 (08:37→08:39)
[2016-09-24] MEDS: ALBUMIN HUMAN 25% 12.5 GM/50 ML BAGP IV SCH (08:38)
[2016-09-24] MEDS: CHLOROTHIAZIDE SOD 500 MG VIAL IV SCH ×2 (08:38→21:30)
[2016-09-24] MEDS: ARTIFICIAL TEARS OPTH SOLN 15 ML BTL EACH EYE SCH ×3 (08:38→18:12)
[2016-09-24] MEDS: SODIUM CHLORIDE 0.9% FLUSH 10 ML FLUSH IVF SCH (08:39)
[2016-09-24] MEDS: FIDAXOMICIN 200 MG TAB PO SCH (08:39)
[2016-09-24] MEDS: PANTOPRAZOLE SODIUM 40 MG VIAL IV SCH (08:39)
[2016-09-24 08:57] LABS: BANDS 12 % (0-6); EOSINOPHILS 1 % (0-4); METAMYELOCYTES 1 % (0-1); MYELOCYTES 2 % (0-0); NEUTROPHIL # MANUAL DIFF 13.7 TH/MM3 (1.8-7.7); PLATELET ESTIMATE SMEAR NORMAL (NORMAL); PLATELET MORPHOLOGY NORMAL (NORMAL); POLYS (SEG NEUTROPHILS) 72 % (16-70); SCAN/DIFF FINAL DIFF MANUAL; WBC DIFF SAMPLE 100
--- NOTE | 2016-09-24 08:57 | HHI.PR ---
Subjective Remarks appears comfortable. no new complaints pt stated she would like to continue active treatement for her c.diff. but still dnr. Objective Vitals nad oriented heart reg lung cta abd distended/high pitch bs/tender ext left leg immobilizer.lat surgical incision bandaged rectal tube/dignisheild. taylor Vital Signs Date Time Temp Pulse Resp B/P Pulse Ox O2 Delivery O2 Flow Rate FiO2 09/24/16 06:00 92 09/24/16 04:00 98.2 98 18 155/73 96 09/24/16 04:00 98 09/24/16 02:00 89 09/24/16 01:00 16 09/24/16 00:00 91 09/24/16 00:00 97.9 91 18 127/58 96 09/23/16 22:00 86 09/23/16 20:00 98.1 89 18 128/61 97 09/23/16 20:00 86 09/23/16 19:59 96 Nasal Cannula 2.00 09/23/16 18:00 86 09/23/16 16:00 89 09/23/16 16:00 98.1 89 18 122/60 97 09/23/16 15:00 87 17 125/60 96 09/23/16 14:00 91 21 134/63 96 09/23/16 13:00 89 21 135/64 97 09/23/16 12:00 82 09/23/16 12:00 98.2 82 11 120/58 97 09/23/16 11:00 85 23 116/59 96 09/23/16 10:00 82 09/23/16 10:00 82 16 132/63 96 09/23/16 09:00 90 22 132/61 95 09/23/16 09/23/16 09/24/16 15:00 23:00 07:00 Intake Total 524 ml 400 ml 425 ml Output Total 275 ml 475 ml 1500 ml Balance 249 ml -75 ml -1075 ml Intake Oral 100 ml IV Total 100 ml 100 ml TPN/PPN 274 ml 237 ml 325 ml Lipid 113 ml Albumin 50 ml 50 ml Output Urine Total 175 ml 475 ml 500 ml Stool Total 50 ml 700 ml Drainage Total 50 ml 300 ml Result Diagram: 09/24/16 0505 09/24/16 0505 Date of Insertion: Sep 15, 2016 Date of Removal: Sep 16, 2016 Line: Central Venous Catheter Side: Right Location: Internal, Jugular A/P Problem List: (1) Colitis, Clostridium difficile Status: Acute Plan: Recently hospitalized for left femoral neck fx and left humerus fx Left hip hemiarthroplasty on 09/05/16. Sling and conservative management for the humerus fx. Pt presented to hospital with severe hypotension severe C.diff colitis(027).with colonic ileus hypoalbumenemia/pleural effusions/ascites/compressive lung consolidations bilaterally. dave and volume overload s/p c-scope and colonic decompression/rectal tube 09/22 pt on po/rectal vanco, iv flagyl, and dificid tpn and lipids albumen and diuretic per renal PT and dvt prophylaxis palliative care following. 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 (6) HTN (hypertension) Status: Chronic (7) Hypothyroid Status: Chronic (8) Dyslipidemia Status: Acute (9) Peripheral neuropathy Status: Chronic (10) Spinal stenosis Status: Chronic Problem Qualifiers (1) Hip fracture, left: Qualified Code: S72.002D - Hip fracture, left, closed, with routine healing, subsequent encounter (2) Humerus head fracture: (3) HTN (hypertension): Qualified Code: I10 - Essential hypertension (4) Hypothyroid: Qualified Code: E03.9 - Hypothyroidism, unspecified type (5) Peripheral neuropathy: Qualified Code: G62.9 - Peripheral polyneuropathy (6) Spinal stenosis: Qualified Code: M48.06 - Spinal stenosis of lumbar region Kavin Delgado MD Sep 24, 2016 08:57
[2016-09-24 09:02] LABS: TARGET CELLS 1+ (NORMAL)
--- NOTE | 2016-09-24 09:39 | HHI.GIFU ---
Subjective Remarks Resting in bed. Appears more comfortable today. Abdomen roving can tender on exam. She had the relistor yesterday evening had 775cc of stool documented from yesterday, nurse was not told in report about bowel movements. Objective Vitals I&O Vital Signs Date Time Temp Pulse Resp B/P Pulse Ox O2 Delivery O2 Flow Rate FiO2 09/24/16 08:59 95 Nasal Cannula 2.00 09/24/16 06:00 92 09/24/16 04:00 98.2 98 18 155/73 96 09/24/16 04:00 98 09/24/16 02:00 89 09/24/16 01:00 16 09/24/16 00:00 91 09/24/16 00:00 97.9 91 18 127/58 96 09/23/16 22:00 86 09/23/16 20:00 98.1 89 18 128/61 97 09/23/16 20:00 86 09/23/16 19:59 96 Nasal Cannula 2.00 09/23/16 18:00 86 09/23/16 16:00 89 09/23/16 16:00 98.1 89 18 122/60 97 09/23/16 15:00 87 17 125/60 96 09/23/16 14:00 91 21 134/63 96 09/23/16 13:00 89 21 135/64 97 09/23/16 12:00 82 09/23/16 12:00 98.2 82 11 120/58 97 09/23/16 11:00 85 23 116/59 96 09/23/16 10:00 82 09/23/16 10:00 82 16 132/63 96 I/O 09/23/16 09/23/16 09/23/16 09/24/16 09/24/16 09/24/16 07:00 15:00 23:00 07:00 15:00 23:00 Intake Total 397 ml 524 ml 400 ml 425 ml Output Total 450 ml 275 ml 475 ml 1500 ml Balance -53 ml 249 ml -75 ml -1075 ml Intake Oral 100 ml IV Total 100 ml 100 ml TPN/PPN 203 ml 274 ml 237 ml 325 ml Lipid 194 ml 113 ml Albumin 50 ml 50 ml Output Urine Total 250 ml 175 ml 475 ml 500 ml Stool Total 200 ml 50 ml 700 ml Drainage Total 50 ml 300 ml Laboratory Laboratory Tests Test 09/24/16 05:05 White Blood Count 15.8 Red Blood Count 3.34 Hemoglobin 10.3 Hematocrit 30.6 Mean Corpuscular Volume 91.8 Mean Corpuscular Hemoglobin 30.7 Mean Corpuscular Hemoglobin 33.5 Concent Red Cell Distribution Width 15.0 Platelet Count 271 Mean Platelet Volume 8.2 Neutrophils (%) (Auto) 83.3 Lymphocytes (%) (Auto) 7.2 Monocytes (%) (Auto) 8.9 Eosinophils (%) (Auto) 0.3 Basophils (%) (Auto) 0.3 Neutrophils # (Auto) 13.2 Lymphocytes # (Auto) 1.1 Monocytes # (Auto) 1.4 Eosinophils # (Auto) 0.0 Basophils # (Auto) 0.1 CBC Comment AUTO DIFF Differential Total Cells 100 Counted Neutrophils % (Manual) 72 Band Neutrophils % 12 Lymphocytes % 6 Monocytes % 6 Eosinophils % 1 Neutrophils # (Manual) 13.7 Metamyelocytes 1 Myelocytes 2 Differential Comment FINAL DIFF MANUAL Platelet Estimate NORMAL Platelet Morphology Comment NORMAL Target Cells 1+ Prothrombin Time 10.8 Prothromb Time International 1.0 Ratio Sodium Level 147 Potassium Level 3.7 Chloride Level 110 Carbon Dioxide Level 30.6 Anion Gap 6 Blood Urea Nitrogen 43 Creatinine 1.14 Estimat Glomerular Filtration 45 Rate Random Glucose 128 Calcium Level 8.0 Phosphorus Level 2.3 Magnesium Level 1.9 Total Bilirubin 0.4 Aspartate Amino Transf 31 (AST/SGOT) Alanine Aminotransferase 16 (ALT/SGPT) Alkaline Phosphatase 67 Total Protein 4.9 Albumin 3.1 Imaging Last Impressions Renal Ultrasound 09/22/16 0000 Signed Impressions: Service Date/Time: Thursday, September 22, 2016 18:32 - CONCLUSION: 1. Suboptimal visualization of the kidneys with no definite hydronephrosis or focal lesion. 2. Small amount of ascitic fluid and small bilateral pleural effusions. 3. Echogenic debris in the gallbladder most consistent with sludge. Chucho Padgett MD Abdomen/Pelvis CT 09/22/16 0000 Signed Impressions: Service Date/Time: Thursday, September 22, 2016 08:52 - CONCLUSION: 1. Deterioration in the appearance of the abdomen with increasing ascites and substantial bowel thickening of the colon all consistent with a colitis. 2. Gallbladder is prominent but otherwise unremarkable. 3. Increasing right pleural effusion. Gatito Vásquez MD FACR Abdomen X-Ray 09/21/16 0600 Signed Impressions: Service Date/Time: Wednesday, September 21, 2016 04:25 - CONCLUSION: Stable gaseous distention of colon. Marty Marinelli MD Shoulder X-Ray 09/20/16 0000 Signed Impressions: Service Date/Time: Tuesday, September 20, 2016 09:53 - CONCLUSION: No significant interval change is identified. There is a displaced mildly comminuted proximal left humeral neck fracture with rotation of the humeral head and associated shortening. En Robledo MD Hip and Pelvis X-Ray 09/20/16 0000 Signed Impressions: Service Date/Time: Tuesday, September 20, 2016 09:57 - CONCLUSION: Left hip bipolar arthroplasty hardware demonstrates no acute finding. The bones are undermineralized but no fracture is visualized. En Robledo MD Chest X-Ray 09/18/16 0000 Signed Impressions: Service Date/Time: Sunday, September 18, 2016 15:27 - CONCLUSION: Bibasilar areas of mild atelectasis or consolidation being worse on the right. There are suspected mild bilateral pleural effusions. En Lambert MD Physical Exam HEENT: Normocephalic; atraumatic; no jaundice CHEST: Resp even/unlabored, diminished CARDIAC: RRR ABDOMEN: Abdomen soft, moderate distention- improved, moderate diffuse tenderness- improved,bowel sounds hypoactive. Rectal tube in place. EXTREMITIES: Generalized edema. Left CKS, Left upper extremity in sling. SKIN: Normal; no rash; no jaundice. 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 Assessment and Plan Plan ASSESSMENT: - Severe C difficile colitis (Epid 027 (+) in patient with recent abx use and hypotension). CT Scan abdomen and pelvis with IV contrast (09/15/16)----> 1. Diffuse thickening of the entire colon consistent with diffuse colitis. 2. Mild atherosclerotic calcifications seen at the aorta. There is no aneurysm. Contrast is seen within the celiac, SMA and HARRIS. 3. Small non-obstructing right renal stone. Colonoscopy (05/20/2005) revealed normal colon, medium internal hemorrhoids. Abdomen/Pelvis CT (09/18/16)----> 1. Compared to the prior examination of 09/17/2016, there has been no significant change in the overall appearance of the colon. There continues to be diffuse wall thickening involving the right and left colon suggestive of colitis with some moderate distention. However, no increased distention is seen on today's examination. There is no evidence of free air. 2. No change in the abdominal ascites. 3. No change in body wall anasarca. 4. No change in the bibasilar infiltrates and bilateral effusions. S/P Decompressive colonoscopy (09/23/16)-----> Colonoscopy with direct instillation of vancomycin enema into the right and transverse colon. Colonic drainage tube left in place to about the splenic flexure. This can be used to irrigate vancomycin to reach the cecum and ascending colon when the patient is on the right side. The mucosal surfaces do not appear to be much inflamed, but there is mucosal edema in some areas. S/P Relistor for any associated opiate induced ileus- 775cc stool documented yesterday, although nurse was not told in report about stool output. ID following. Oral vanco, flagyl, vanco enema, started on Dificid (09/22). Clinically, she seems to be slowly improving. We will continue to monitor over weekend and consider fecal transplant if no improvement, but will continue to hold for now, as she seems to be slowly improving. - Colonic Ileus secondary to above. She has been taking pericolace and lactinex. S/P Decompression colonoscopy. S/P Relistor (09/23). - Malnutrition. Was started on TPN, Clinimix E 4.25/25 at rate of 62.5 ml/hr 20 % lipids, twice weekly, infuse 250 mls over 8 hrs. Clear liquids for comfort. - Sepsis/Leukocytosis secondary to severe CDiff infection. WBC 15.8. ID following, Flagyl, Dificid, Oral vanco, Vanco enemas, - Anemia. Stable, 10.3/30.6 - Acute on chronic kidney injury. Creat 1.14 - Recent fall at home on 09/04/16 and sustained a left femoral neck fracture and left humeral head fracture. S/P Bipolar hemiarthroplasty on 09/05/[address] Bill and her left humeral head fracture is being treated conservatively with sling. She was transferred to [facility] on 09/09/16, but transferred to the unit for severe abdominal tenderness and leukocytosis with concern for mesenteric ischemia. - History of TIA (on plavix), OA, Hx HTN now with hypotension, hyperlipidemia, CKD per attending. PLAN: - Clear liquid diet. - Cont. TPN for now - Cont. Dificid - Cont. Flagyl IV - Cont. Oral Vancomycin - Cont. Vanco Enema 500mg in 100mL NS retention enema MD q6h - Cont. IVF - S/P Relistor (09/23) - ID following - CCM following - CRS following prn, family does not want to consider colectomy even if her condition deteriorates - Palliative care following - Will monitor over weekend, if worsening or no improvement, will consider fecal transplant - Pt seen and examined by Dr. Barnett and myself and this note is written on his behalf Dinora Renteria Sep 24, 2016 09:39
--- NOTE | 2016-09-24 14:05 | HHI.IDPN ---
Subjective Subjective Remarks co abdominal pain no fever good UOP and creatinine better off pressors Sp rectal tubing placement with vanco instillations Antibiotics flagyl IV vanco po vanco enemas dificid Past Medical History Reviewed Allergies: Coded Allergies: Tizanidine (Verified Allergy, Severe, doesn't know, 09/09/16) Tramadol (Verified Allergy, Severe, doesn't remember, 09/09/16) Baclofen (Unverified Allergy, Intermediate, RASH, 09/09/16) Cipro (Unverified Allergy, Intermediate, RASH, 09/09/16) Cymbalta (Unverified Allergy, Intermediate, SEVERE RASH, 09/09/16) Elavil (Unverified Allergy, Intermediate, RASH, 09/09/16) Tetracycline (Unverified Allergy, Intermediate, RASH, 09/09/16) Triamcinolone (Unverified Allergy, Intermediate, SEVERE RASH, 09/09/16) Objective . Vital Signs Date Time Temp Pulse Resp B/P Pulse Ox O2 Delivery O2 Flow Rate FiO2 09/24/16 14:00 95 26 129/58 96 09/24/16 14:00 93 09/24/16 13:00 90 15 128/58 97 09/24/16 12:00 98.3 96 21 118/58 97 09/24/16 12:00 96 09/24/16 11:00 96 17 125/61 97 09/24/16 10:00 96 09/24/16 10:00 92 15 120/60 98 09/24/16 09:00 91 11 130/62 96 09/24/16 08:59 95 Nasal Cannula 2.00 09/24/16 08:00 98.4 96 22 120/65 95 09/24/16 07:00 91 13 116/61 97 09/24/16 06:00 92 09/24/16 04:00 98.2 98 18 155/73 96 09/24/16 04:00 98 09/24/16 02:00 89 09/24/16 01:00 16 09/24/16 00:00 91 09/24/16 00:00 97.9 91 18 127/58 96 09/23/16 22:00 86 09/23/16 20:00 98.1 89 18 128/61 97 09/23/16 20:00 86 09/23/16 19:59 96 Nasal Cannula 2.00 09/23/16 18:00 86 09/23/16 16:00 89 09/23/16 16:00 98.1 89 18 122/60 97 09/23/16 15:00 87 17 125/60 96 09/23/16 09/23/16 09/24/16 15:00 23:00 07:00 Intake Total 524 ml 400 ml 425 ml Output Total 275 ml 475 ml 1500 ml Balance 249 ml -75 ml -1075 ml Intake Oral 100 ml IV Total 100 ml 100 ml TPN/PPN 274 ml 237 ml 325 ml Lipid 113 ml Albumin 50 ml 50 ml Output Urine Total 175 ml 475 ml 500 ml Stool Total 50 ml 700 ml Drainage Total 50 ml 300 ml . Laboratory Tests Test 09/23/16 09/24/16 03:45 05:05 White Blood Count 19.9 TH/MM3 15.8 TH/MM3 Red Blood Count 3.29 MIL/MM3 3.34 MIL/MM3 Hemoglobin 10.2 GM/DL 10.3 GM/DL Hematocrit 30.0 % 30.6 % Mean Corpuscular Volume 91.1 FL 91.8 FL Mean Corpuscular Hemoglobin 31.1 PG 30.7 PG Mean Corpuscular Hemoglobin 34.2 % 33.5 % Concent Red Cell Distribution Width 14.8 % 15.0 % Platelet Count 317 TH/MM3 271 TH/MM3 Mean Platelet Volume 8.1 FL 8.2 FL Neutrophils (%) (Auto) 92.1 % 83.3 % Lymphocytes (%) (Auto) 3.5 % 7.2 % Monocytes (%) (Auto) 4.2 % 8.9 % Eosinophils (%) (Auto) 0.0 % 0.3 % Basophils (%) (Auto) 0.2 % 0.3 % Neutrophils # (Auto) 18.3 TH/MM3 13.2 TH/MM3 Lymphocytes # (Auto) 0.7 TH/MM3 1.1 TH/MM3 Monocytes # (Auto) 0.8 TH/MM3 1.4 TH/MM3 Eosinophils # (Auto) 0.0 TH/MM3 0.0 TH/MM3 Basophils # (Auto) 0.0 TH/MM3 0.1 TH/MM3 CBC Comment AUTO DIFF AUTO DIFF Differential Total Cells 100 100 Counted Neutrophils % (Manual) 64 % 72 % Band Neutrophils % 24 % 12 % Lymphocytes % 2 % 6 % Monocytes % 4 % 6 % Neutrophils # (Manual) 18.7 TH/MM3 13.7 TH/MM3 Metamyelocytes 3 % 1 % Myelocytes 3 % 2 % Differential Comment FINAL DIFF FINAL DIFF MANUAL MANUAL Toxic Granulation 1+ Platelet Estimate NORMAL NORMAL Platelet Morphology Comment NORMAL NORMAL Eosinophils % 1 % Target Cells 1+ Laboratory Tests Test 09/22/16 09/23/16 09/24/16 21:30 03:45 05:05 Potassium Level 4.1 MEQ/L 4.0 MEQ/L 3.7 MEQ/L Phosphorus Level 2.9 MG/DL 2.6 MG/DL 2.3 MG/DL Sodium Level 146 MEQ/L 147 MEQ/L Chloride Level 109 MEQ/L 110 MEQ/L Carbon Dioxide Level 30.3 MEQ/L 30.6 MEQ/L Anion Gap 7 MEQ/L 6 MEQ/L Blood Urea Nitrogen 37 MG/DL 43 MG/DL Creatinine 1.09 MG/DL 1.14 MG/DL Estimat Glomerular Filtration 47 ML/MIN 45 ML/MIN Rate Random Glucose 145 MG/DL 128 MG/DL Calcium Level 8.0 MG/DL 8.0 MG/DL Magnesium Level 2.0 MG/DL 1.9 MG/DL Total Bilirubin 0.4 MG/DL Aspartate Amino Transf 31 U/L (AST/SGOT) Alanine Aminotransferase 16 U/L (ALT/SGPT) Alkaline Phosphatase 67 U/L Total Protein 4.9 GM/DL Albumin 3.1 GM/DL Imaging Last Impressions Renal Ultrasound 09/22/16 0000 Signed Impressions: Service Date/Time: Thursday, September 22, 2016 18:32 - CONCLUSION: 1. Suboptimal visualization of the kidneys with no definite hydronephrosis or focal lesion. 2. Small amount of ascitic fluid and small bilateral pleural effusions. 3. Echogenic debris in the gallbladder most consistent with sludge. Chucho Padgett MD Abdomen/Pelvis CT 09/22/16 0000 Signed Impressions: Service Date/Time: Thursday, September 22, 2016 08:52 - CONCLUSION: 1. Deterioration in the appearance of the abdomen with increasing ascites and substantial bowel thickening of the colon all consistent with a colitis. 2. Gallbladder is prominent but otherwise unremarkable. 3. Increasing right pleural effusion. Gatito Vásquez MD FACR Abdomen X-Ray 09/21/16 0600 Signed Impressions: Service Date/Time: Wednesday, September 21, 2016 04:25 - CONCLUSION: Stable gaseous distention of colon. Marty Marinelli MD Shoulder X-Ray 09/20/16 0000 Signed Impressions: Service Date/Time: Tuesday, September 20, 2016 09:53 - CONCLUSION: No significant interval change is identified. There is a displaced mildly comminuted proximal left humeral neck fracture with rotation of the humeral head and associated shortening. En Robledo MD Hip and Pelvis X-Ray 09/20/16 0000 Signed Impressions: Service Date/Time: Tuesday, September 20, 2016 09:57 - CONCLUSION: Left hip bipolar arthroplasty hardware demonstrates no acute finding. The bones are undermineralized but no fracture is visualized. En Robledo MD Chest X-Ray 09/18/16 0000 Signed Impressions: Service Date/Time: Sunday, September 18, 2016 15:27 - CONCLUSION: Bibasilar areas of mild atelectasis or consolidation being worse on the right. There are suspected mild bilateral pleural effusions. En Lambert MD Physical Exam CONSTITUTIONAL/GENERAL: Awake and alert, not in distress, looks more alert SKIN: Warm. No jaundice, rashes, Eryhema noted on lower abdomen and diaper area Diffuse anasarca, less prominent HEENT: [place] conjunctiva, no icterus. Dry oral mucosa without visible erythema, exudates, masses, or lesions. NECK: Supple, not tender CARDIOVASCULAR: Regular rate and rhythm without murmurs, gallops, or rubs. RESPIRATORY/CHEST: Symmetric, unlabored respirations. Clear to auscultation. Decreased at bases GASTROINTESTINAL: Abdomen remains appears slightly less distended and less tight with less abdominal tenderness, less guarding and no rebounding . Hypoactive BS. RECTAL: Dignishield in place small amount of stool GENITOURINARY: Bañuelos in place with small amount of clear yellow urine MUSCULOSKELETAL: Extremities without clubbing, cyanosis. Diffuse soft pitting edema, 3+, anasarca. No mottling NEUROLOGICAL: Grossly non-focal she is fully awalke and alert oriented x 3 PSYCHIATRIC: calm and cooperative Assessment & Plan Remarks Severe life threatening colitis, C.diff, hypervirilent stain 027 severe R side colon seem to be more involvedm, sp colonoscopy with rectal tube placement - pt with progressive ileus - slightly better today SIRS, sepsis - due to C.diff - acute renal dysfunction - improved lactic acidosis resolved No e/o UTI Pt remains critically ill - refuses colectomy, CRS s/o - vanco intillations ARF - new Prognosis is now poor taking into account non lack of response to therapy PLAN: Continue po vancomycin Continue vanco enemas Continue IV flagyl cont dificid Avoid systemic abx Monitor progress Pt can have a stool transplant , she is not having current systemic abx therapy and not highly likely to have it soon dw Shayy Braxton MD Sep 24, 2016 14:05
--- NOTE | 2016-09-24 14:32 | MR ---
cc: ROGER BARNETT. DATE: 09/22/2016 PROCEDURE: Colonoscopy with placement of a colon decompression tube. INDICATIONS: Severe C. difficile colitis. REFERRING PHYSICIAN: Dr. Teo Lloyd PROCEDURE NOTE: After informed consent was obtained the patient was placed in supine position. She was given general endotracheal anesthesia. She was then turned up on her right side and a colonoscopy was performed. The digital rectal examination was normal. The Pentax videoscope was inserted and the anal canal advanced through the colon reaching well into the transverse colon. It could not be advanced further, therefore, she was turned over onto her back and then slightly onto her left side so that we could advance the scope to the cecum. The cecum was identified. The cecum was irrigated and suctioned as well as possible. There was a fair amount of semi-solid stool present throughout the colon. As the scope was withdrawn 500 milligrams of vancomycin enema solution was instilled into the cecum, ascending colon, and transverse colon. The scope was withdrawn into the splenic flexure area. A guide wire was then introduced as the scope was pulled out the rest of the way. Over the guide wire a colonic decompression tube was advanced into the colon to allow for decompression to be performed in the Intensive Care Unit, and also to allow the irrigation of vancomycin into the colon. The procedure was then terminated. The tube was affixed to the thigh with tape. She was maintained in the right side down position as she was extubated and taken to the recovery area. She was in stable condition. FINDINGS: 1. The left side of the colon appeared to be relatively free of inflammation. There was some semi-solid stool throughout and much of this was washed and aspirated clear. As the scope was introduced farther, there was evidence of mucosal edema and some erythematous inflammation and a few small ulcerations, but overall the appearance of the colon was surprisingly benign. 2. A colonic decompression tube was placed in the left colon over a guide wire. 3. Aspiration of the tube yielded fecal material and some fluid was then instilled from preventing the tube from clogging up. IMPRESSION: 1. C. difficile colitis most significant in the right side including the cecum, ascending colon and transverse colon but surprisingly mild given her clinical scenario. 2. Mucosal edema in the right side of the colon especially, but not in the left. PLAN: I believe the patient does not need her NG tube any longer and she should be given a clear liquid diet. We will test the location of the colonic decompression tube with Gastrografin injection under fluoro. The patient should receive vancomycin enemas through the colonic decompression tube with her position done on the right side to allow better drainage of the vancomycin into the right colon. She should also continue p.o. vancomycin. I have discussed the case with Infectious Disease ruby on rails consultant and we will begin on Dificid as well. Roger Barnett MD [facility]/JAMES /4:00 PM /2:21 PM
--- NOTE | 2016-09-24 16:20 | HHI.NPPN ---
Subjective History of Present Illness 86-year-old female apparently with a history of severe colitis secondary to clostridium difficile. Mention in the records of his CKD stage II. Has continued complications with C diff colitis. NG tube been placed as well as rectal decompression 09/22 Started initially on Bumex drip given oliguria and renal functions improved as well as UOP Interval History Pt offered no verbal complaints except abdominal discomfort UOP decent (Nga Saleh) Review of Systems General Constitutional: Fatigue (Nga Saleh) Gastrointestinal Gastrointestinal: Abdominal Pain (Nga Saleh) Objective Data Data 09/23/16 09/24/16 18:59 06:59 Intake Total 524 ml 825 ml Output Total 275 ml 1975 ml Balance 249 ml -1150 ml Intake Oral 100 ml IV Total 100 ml 100 ml TPN/PPN 274 ml 562 ml Lipid 113 ml Albumin 50 ml 50 ml Output Urine Total 175 ml 975 ml Stool Total 50 ml 700 ml Drainage Total 50 ml 300 ml Vital Signs Date Time Temp Pulse Resp B/P Pulse Ox O2 Delivery O2 Flow Rate FiO2 09/24/16 14:00 95 26 129/58 96 09/24/16 14:00 93 09/24/16 13:00 90 15 128/58 97 09/24/16 12:00 98.3 96 21 118/58 97 09/24/16 12:00 96 09/24/16 11:00 96 17 125/61 97 09/24/16 10:00 96 09/24/16 10:00 92 15 120/60 98 09/24/16 09:00 91 11 130/62 96 09/24/16 08:59 95 Nasal Cannula 2.00 09/24/16 08:00 98.4 96 22 120/65 95 09/24/16 07:00 91 13 116/61 97 09/24/16 06:00 92 09/24/16 04:00 98.2 98 18 155/73 96 09/24/16 04:00 98 09/24/16 02:00 89 09/24/16 01:00 16 09/24/16 00:00 91 09/24/16 00:00 97.9 91 18 127/58 96 09/23/16 22:00 86 09/23/16 20:00 98.1 89 18 128/61 97 09/23/16 20:00 86 09/23/16 19:59 96 Nasal Cannula 2.00 09/23/16 18:00 86 (Nga Saleh) -: 09/24/16 0505 09/24/16 0505 Imaging Last Impressions Renal Ultrasound 09/22/16 0000 Signed Impressions: Service Date/Time: Thursday, September 22, 2016 18:32 - CONCLUSION: 1. Suboptimal visualization of the kidneys with no definite hydronephrosis or focal lesion. 2. Small amount of ascitic fluid and small bilateral pleural effusions. 3. Echogenic debris in the gallbladder most consistent with sludge. Chucho Padgett MD Abdomen/Pelvis CT 09/22/16 0000 Signed Impressions: Service Date/Time: Thursday, September 22, 2016 08:52 - CONCLUSION: 1. Deterioration in the appearance of the abdomen with increasing ascites and substantial bowel thickening of the colon all consistent with a colitis. 2. Gallbladder is prominent but otherwise unremarkable. 3. Increasing right pleural effusion. Gatito Vásquez MD FACR Abdomen X-Ray 09/21/16 0600 Signed Impressions: Service Date/Time: Wednesday, September 21, 2016 04:25 - CONCLUSION: Stable gaseous distention of colon. Marty Marinelli MD Shoulder X-Ray 09/20/16 0000 Signed Impressions: Service Date/Time: Tuesday, September 20, 2016 09:53 - CONCLUSION: No significant interval change is identified. There is a displaced mildly comminuted proximal left humeral neck fracture with rotation of the humeral head and associated shortening. En Robledo MD Hip and Pelvis X-Ray 09/20/16 0000 Signed Impressions: Service Date/Time: Tuesday, September 20, 2016 09:57 - CONCLUSION: Left hip bipolar arthroplasty hardware demonstrates no acute finding. The bones are undermineralized but no fracture is visualized. En Robledo MD Chest X-Ray 09/18/16 0000 Signed Impressions: Service Date/Time: Sunday, September 18, 2016 15:27 - CONCLUSION: Bibasilar areas of mild atelectasis or consolidation being worse on the right. There are suspected mild bilateral pleural effusions. En Lambert MD Medication Review Current Medications Medications (Trade) Dose Ordered Sig/Bunny Route Start Time Stop Time Status Last Admin (Synthroid) 25 mcg DAILY PO 09/15/16 09:00 Hold 09/18/16 08:54 (NS Flush) 2 ml UNSCH PRN IV FLUSH 09/15/16 08:15 09/23/16 08:52 (NS Flush) 2 ml BID IV FLUSH 09/15/16 09:00 09/24/16 08:39 (Tylenol) 650 mg Q6H PRN PO 09/15/16 08:15 Hold ([place] 5-325 Mg) 1 tab Q4H PRN PO 09/15/16 08:15 Hold 09/16/16 08:37 (Morphine Inj) 2 mg Q2H PRN IV 09/15/16 08:15 09/24/16 08:37 (Protonix Inj) 40 mg DAILY IV 09/15/16 09:00 09/24/16 08:39 (Tears Naturale Opth Soln) 1 drop TID EACH EYE 09/15/16 09:00 09/24/16 12:21 (Zofran Inj) 4 mg Q6H PRN IV 09/15/16 08:15 09/23/16 03:43 Miscellaneous Information 1 Q361D XX 09/15/16 08:15 09/15/16 08:15 (Chlorhexidine 2% Cloth) Taper DAILY@04 TOP 09/16/16 04:00 09/12/17 03:59 09/23/16 20:39 (Chlorhexidine 2% Cloth) 3 pack UNSCH PRN TOP 09/15/16 08:15 (Milk Of Magnesia Liq) 30 ml Q12H PRN PO 09/15/16 08:15 (Dulcolax Supp) 10 mg DAILY PRN RECTAL 09/15/16 08:15 Lactulose 30 ml 30 ml DAILY PRN PO 09/15/16 08:15 (Flagyl 500 Mg Inj) 100 ml @ 100 mls/hr Q6H IV 09/15/16 14:00 09/24/16 12:21 (NS Flush) DAILY IVF 09/16/16 09:00 09/24/16 08:39 (NS Flush) UNSCH PRN IVF 09/15/16 12:00 09/23/16 08:52 Vancomycin HCl 500 mg 500 mg Q6HR PO 09/15/16 13:15 09/24/16 12:22 (Vancomycin Inj/ NS Irr Btl) 250 ml @ 0 mls/hr Q6HR IRRIGATION 09/15/16 18:00 09/24/16 12:22 Heparin Sodium (Porcine) 5000 units 5,000 units Q8HR SQ 09/16/16 14:00 09/24/16 12:22 (Liposyn Iii 20% Inj) 250 ml @ 31.25 mls/ hr SuWe@20 IV-CENTRAL 09/19/16 20:00 09/22/16 21:01 (Apresoline Inj) 10 mg Q1HR PRN IV PUSH 09/17/16 16:30 09/18/16 00:19 (Nitroglycerin 2% Oint) 2 inch Q6HR PRN TOPICAL 09/17/16 16:30 (NS Flush) See Protocol DAILY IV FLUSH 09/18/16 09:00 09/24/16 08:37 (NS Flush) See Protocol UNSCH PRN IV FLUSH 09/17/16 21:45 09/23/16 08:52 (Heparin Central Flush) See Protocol DAILY IV FLUSH 09/18/16 09:00 09/24/16 08:37 (Heparin Central Flush) See Protocol UNSCH PRN IV FLUSH 09/17/16 21:45 (NS Flush) UNSCH PRN IV FLUSH 09/17/16 21:45 09/23/16 08:52 Levothyroxine Sodium 25 mcg 25 mcg DAILY@06 IV PUSH 09/19/16 06:00 09/24/16 06:18 Potassium Chloride 100 ml @ 50 mls/hr Q2H PRN IV 09/18/16 16:30 (KCl 20 Meq Premix Inj) 100 ml @ 50 mls/hr Q2H PRN IV 09/18/16 16:30 Potassium Bicarb/ Potassium Chloride 50 meq 50 meq UNSCH PRN PO 09/18/16 16:30 Potassium Chloride 100 ml @ 25 mls/hr UNSCH PRN IV 09/18/16 16:30 09/21/16 09:07 Potassium Chloride 100 ml @ 50 mls/hr Q2H PRN IV 09/18/16 16:30 (Magnesium Sulfate Inj/NS Inj) 100 ml @ 50 mls/hr UNSCH PRN IV 09/18/16 16:30 Magnesium Oxide 800 mg 800 mg UNSCH PRN PO 09/18/16 16:30 (Magnesium Sulfate Inj/NS Inj) 100 ml @ 50 mls/hr UNSCH PRN IV 09/18/16 16:30 Potassium Phosphate 2000 mg 2,000 mg Q4H PRN PO 09/18/16 16:30 (Sodium Phosphate Inj/NS 250 ml Inj) 250 ml @ 42 mls/hr UNSCH PRN IV 09/18/16 16:30 09/18/16 17:15 Potassium Phosphate 2000 mg 2,000 mg UNSCH PRN PO/TUBE 09/18/16 16:30 (Potassium Phosphate Inj/NS 250 ml Inj) 260 ml @ 42 mls/hr UNSCH PRN IV 09/18/16 16:30 09/22/16 08:03 (Chapstick) 1 applic UNSCH PRN TOPICAL 09/19/16 09:30 (Dificid) 200 mg BID PO 09/22/16 21:00 10/02/16 20:59 09/24/16 08:39 (Albumin 25% Inj) 12.5 gm Q12HR IV 09/23/16 21:00 09/24/16 08:38 Chlorothiazide Sodium 500 mg 500 mg Q12H IV 09/23/16 21:30 09/24/16 08:38 (Mvi-12 Inj/ Folvite Inj/ Clinimix E 4.25/ 25) 1,010.2 ml @ 30 mls/hr Q24H IV-CENTRAL 09/24/16 20:00 (Nga Saleh) Physical Exam General Appearance: No Acute Distress, Pale (Nga Saleh) Eyes Eye Exam: Pupils Equal, Pupils Reactive (Nga Saleh) Pulmonary Resp Exam: Clear Bilaterally, Breath Sounds Equal (Nga Saleh) Cardiology CV Exam: Regular, Normal Sinus Rhythm (Nga Saleh) Gastrointestinal/Abdomen GI Exam: Distended (Nga Saleh) Extremeties Extremities Exam: Moderate Edema (1-2+ plus pitting edema involving lower extremities hips and dependent torso.) (Nga Saleh) Neurologic Neuro Exam: Alert, Awake (Nga Saleh) Assessment/Plan Discussed Condition With: Patient Problem List: (1) CKD (chronic kidney disease) stage 2, GFR 60-89 ml/min Plan: atient has significant third spacing of fluid. Continue albumin with Diuril to try and improve volume status and edema. Renal indices relatively stable. Will start D5W @40mL given hypernatremia Medications should be adjusted for the patient's estimated GFR if clinically indicated. Avoid agents with significant potential for nephrotoxicity possible including NSAIDs for analgesia, iodine contrast agents. Gadolinium is contraindicated if the GFR is below 30. (2) Nontraumatic compartment syndrome of abdomen Plan: Patient is at risk for. (3) Hypernatremia Plan: Diuril ordered. Continue free fluid. (Nga Saleh) Plan The exam, history, and the medical decision-making described in the above note were completed with the assistance of the PA-C. I reviewed and agree with the findings presented. I attest that I had a [id number] encounter with the patient on the same day, and personally performed and documented my assessment and findings in the medical record. (Broderick Hendricks MD) Nga Saleh Sep 24, 2016 16:20 Broderick Hendricks MD Sep 24, 2016 17:47
[2016-09-24] MEDS ORDERED: DIATRIZOATE MEGLUM/DIATRIZOATE SOD 9 ML CUP PO ONE (17:00)
[2016-09-24] MEDS ORDERED: BUMETANIDE INJ 1 MG/4 ML VIAL IV PUSH ONE (17:00)
--- NOTE | 2016-09-24 17:45 | HHI.HCPN ---
Reason for visit a. To assist with evaluation and management of symptoms including: abdominal pain; ileus b. To assist medical decision maker(s) with: better understanding of current medical conditions; weighing benefits/burdens of medical treatment options; making medical treatment decisions. . Subjective/Interval History Patient reports feeling about the same. Abdominal pain unchanged. Still reporting pain in the 8-10 range , still reporting this is similar to her chronic pain, and still indicating she does not want a change in her pain regimen. 2 mg moprhine sulfate given IV x 4 doses on 09/23/16. Patient denies back pain at this time and also denies pain in her repaired left hip or at the site of her left humeral fracture. Primary nurse reports that patient was asked about goals (aggressive vs comfort oriented) by Dr. Delgado earlier today and she indicated she wanted ongoing aggressive care. Primary nurse also indicated it was not certain if patient actually received her methylnaltrexone as charted and if the subsequent stool volume included the volume of her enema (250 cc). Afebrile. Hemodynamically stable. 02 sats good on 02 via NC. Adequate urine output (Bumetanide given x 1 today). CBC stable. GFR declined from 78 to 35 since 09/19/16. No new imaging. . Family/friend interactions Did not speak with family / friends. . Advance Directives Living Will: Completed, but not made available Health Care Surrogate: Copy in medical record Durable Power of Supervisor [employer]: Never completed Advance Directive Specifics Date completed: Son reports that patient completed a living will and designation of health care surrogacy when she completed her financial will. She might also have completed once since being here in the hospital. Patient has verbally stated (and witnessed) 09/23/16 that she wanted to designate her surrogate to be her son Reed in [place]. . Health Care Surrogate(s): Patient verbally states that she wants her son -- Reed -- to be her health care surrogate. Reed says she has completed paper work designating him in writing. We don't yet have this on the chart. Nurses have now confirmed and witnessed her stating her desire for Reed to be her surrogate. This is now on the chart. . . Documented care wishes: No written documentation currently available regarding patient's health care goals /preferences. . Objective Vital Signs Date Time Temp Pulse Resp B/P Pulse Ox O2 Delivery O2 Flow Rate FiO2 09/24/16 14:00 95 26 129/58 96 09/24/16 14:00 93 09/24/16 13:00 90 15 128/58 97 09/24/16 12:00 98.3 96 21 118/58 97 09/24/16 12:00 96 09/24/16 11:00 96 17 125/61 97 09/24/16 10:00 96 09/24/16 10:00 92 15 120/60 98 09/24/16 09:00 91 11 130/62 96 09/24/16 08:59 95 Nasal Cannula 2.00 09/24/16 08:00 98.4 96 22 120/65 95 09/24/16 07:00 91 13 116/61 97 09/24/16 06:00 92 09/24/16 04:00 98.2 98 18 155/73 96 09/24/16 04:00 98 09/24/16 02:00 89 09/24/16 01:00 16 09/24/16 00:00 91 09/24/16 00:00 97.9 91 18 127/58 96 09/23/16 22:00 86 09/23/16 20:00 98.1 89 18 128/61 97 09/23/16 20:00 86 09/23/16 19:59 96 Nasal Cannula 2.00 09/23/16 18:00 86 Intake & Output 09/24/16 09/24/16 07:00 19:00 Intake Total 825 ml 402 ml Output Total 1975 ml 475 ml Balance -1150 ml -73 ml Intake Oral 50 ml IV Total 100 ml 120 ml TPN/PPN 562 ml 182 ml Lipid 113 ml Albumin 50 ml 50 ml Output Urine Total 975 ml 400 ml Stool Total 700 ml 50 ml Drainage Total 300 ml 25 ml . Physical Exam CONSTITUTIONAL/GENERAL: This is an adequately nourished patient,lying somewhat stiffly in bed. Able to smile weakly. Occasional weak moan. Slightly confused. TUBES/LINES/DRAINS: taylor catheter; peripheral iv; PICC line RUE; fecal management system SKIN: No jaundice, rashes, or lesions. No wounds seen anteriorly. Skin temperature appropriate. Not diaphoretic. EYES: Pupils equal and round. Extraocular motions intact. No scleral icterus. No injection or drainage. Fundi not examined. ENT: Hearing grossly normal. Nose without bleeding or purulent drainage. Mucous membranes dry. Throat without visible erythema, exudates, masses, or lesions. NECK: Trachea midline. Supple, nontender. CARDIOVASCULAR: Regular rate and rhythm without murmurs, gallops, or rubs. No JVD. RESPIRATORY/CHEST: Symmetric, unlabored respirations. Clear to auscultation. Breath sounds equal bilaterally. No wheezes, rales, or rhonchi. GASTROINTESTINAL: Abdomen distended; diffuse mild tenderness. Tympanitic. No hepato-splenomegaly, or palpable masses. No guarding. Bowel sounds hypoactive. GENITOURINARY: Without palpable bladder distension. Taylor catheter in place. MUSCULOSKELETAL: Extremities without clubbing, cyanosis. Trace edema. LLE knee immobilizer. LUE sling. LYMPHATICS: Not examined. NEUROLOGICAL: Awake and alert. Motor and sensory grossly within normal limits. Follows commands. Moves all extremities. Answers most questions appropriately. Mild, intermittent confusion. PSYCHIATRIC: No obvious anxiety/depression. No apparent hallucinations or other psychotic thought process. . Diagnostic Tests Laboratory Laboratory Tests Test 09/21/16 09/22/16 09/22/16 09/22/16 18:44 04:46 09:45 21:30 Potassium Level 3.5 MEQ/L 3.4 MEQ/L 4.1 MEQ/L (3.5-5.1) (3.5-5.1) (3.5-5.1) White Blood Count 17.9 TH/MM3 (4.0-11.0) Red Blood Count 3.51 MIL/MM3 (4.00-5.30) Hemoglobin 10.7 GM/DL (11.6-15.3) Hematocrit 31.6 % (35.0-46.0) Mean Corpuscular Volume 89.9 FL (80.0-100.0) Mean Corpuscular Hemoglobin 30.5 PG (27.0-34.0) Mean Corpuscular Hemoglobin 33.9 % Concent (32.0-36.0) Red Cell Distribution Width 14.3 % (11.6-17.2) Platelet Count 319 TH/MM3 (150-450) Mean Platelet Volume 7.5 FL (7.0-11.0) Neutrophils (%) (Auto) 85.4 % (16.0-70.0) Lymphocytes (%) (Auto) 6.0 % (9.0-44.0) Monocytes (%) (Auto) 8.0 % (0.0-8.0) Eosinophils (%) (Auto) 0.4 % (0.0-4.0) Basophils (%) (Auto) 0.2 % (0.0-2.0) Neutrophils # (Auto) 15.3 TH/MM3 (1.8-7.7) Lymphocytes # (Auto) 1.1 TH/MM3 (1.0-4.8) Monocytes # (Auto) 1.4 TH/MM3 (0-0.9) Eosinophils # (Auto) 0.1 TH/MM3 (0-0.4) Basophils # (Auto) 0.0 TH/MM3 (0-0.2) CBC Comment AUTO DIFF Differential Total Cells 100 Counted Neutrophils % (Manual) 80 % (16-70) Band Neutrophils % 14 % (0-6) Lymphocytes % 1 % (9-44) Monocytes % 1 % (0-8) Neutrophils # (Manual) 17.5 TH/MM3 (1.8-7.7) Metamyelocytes 1 % (0-1) Myelocytes 3 % (0-0) Differential Comment FINAL DIFF MANUAL Toxic Granulation 1+ (NORMAL) Platelet Estimate NORMAL (NORMAL) Platelet Morphology Comment NORMAL (NORMAL) Sodium Level 146 MEQ/L (136-145) Chloride Level 109 MEQ/L (98-107) Carbon Dioxide Level 33.0 MEQ/L (21.0-32.0) Anion Gap 4 MEQ/L (5-15) Blood Urea Nitrogen 38 MG/DL (7-18) Creatinine 1.16 MG/DL (0.50-1.00) Estimat Glomerular Filtration 44 ML/MIN (>89) Rate Random Glucose 142 MG/DL (74-106) Calcium Level 8.2 MG/DL (8.5-10.1) Phosphorus Level 2.1 MG/DL 2.9 MG/DL (2.5-4.9) (2.5-4.9) Magnesium Level 1.9 MG/DL (1.5-2.5) Urine Osmolality 531 MOSM/KG (300-1300) Urine Random Sodium 6 MEQ/L Test 09/23/16 09/24/16 03:45 05:05 White Blood Count 19.9 TH/MM3 15.8 TH/MM3 (4.0-11.0) (4.0-11.0) Red Blood Count 3.29 MIL/MM3 3.34 MIL/MM3 (4.00-5.30) (4.00-5.30) Hemoglobin 10.2 GM/DL 10.3 GM/DL (11.6-15.3) (11.6-15.3) Hematocrit 30.0 % 30.6 % (35.0-46.0) (35.0-46.0) Mean Corpuscular Volume 91.1 FL 91.8 FL (80.0-100.0) (80.0-100.0) Mean Corpuscular Hemoglobin 31.1 PG 30.7 PG (27.0-34.0) (27.0-34.0) Mean Corpuscular Hemoglobin 34.2 % 33.5 % Concent (32.0-36.0) (32.0-36.0) Red Cell Distribution Width 14.8 % 15.0 % (11.6-17.2) (11.6-17.2) Platelet Count 317 TH/MM3 271 TH/MM3 (150-450) (150-450) Mean Platelet Volume 8.1 FL 8.2 FL (7.0-11.0) (7.0-11.0) Neutrophils (%) (Auto) 92.1 % 83.3 % (16.0-70.0) (16.0-70.0) Lymphocytes (%) (Auto) 3.5 % 7.2 % (9.0-44.0) (9.0-44.0) Monocytes (%) (Auto) 4.2 % (0.0-8.0) 8.9 % (0.0-8.0) Eosinophils (%) (Auto) 0.0 % (0.0-4.0) 0.3 % (0.0-4.0) Basophils (%) (Auto) 0.2 % (0.0-2.0) 0.3 % (0.0-2.0) Neutrophils # (Auto) 18.3 TH/MM3 13.2 TH/MM3 (1.8-7.7) (1.8-7.7) Lymphocytes # (Auto) 0.7 TH/MM3 1.1 TH/MM3 (1.0-4.8) (1.0-4.8) Monocytes # (Auto) 0.8 TH/MM3 1.4 TH/MM3 (0-0.9) (0-0.9) Eosinophils # (Auto) 0.0 TH/MM3 0.0 TH/MM3 (0-0.4) (0-0.4) Basophils # (Auto) 0.0 TH/MM3 0.1 TH/MM3 (0-0.2) (0-0.2) CBC Comment AUTO DIFF AUTO DIFF Differential Total Cells 100 100 Counted Neutrophils % (Manual) 64 % (16-70) 72 % (16-70) Band Neutrophils % 24 % (0-6) 12 % (0-6) Lymphocytes % 2 % (9-44) 6 % (9-44) Monocytes % 4 % (0-8) 6 % (0-8) Neutrophils # (Manual) 18.7 TH/MM3 13.7 TH/MM3 (1.8-7.7) (1.8-7.7) Metamyelocytes 3 % (0-1) 1 % (0-1) Myelocytes 3 % (0-0) 2 % (0-0) Differential Comment FINAL DIFF FINAL DIFF MANUAL MANUAL Toxic Granulation 1+ (NORMAL) Platelet Estimate NORMAL NORMAL (NORMAL) (NORMAL) Platelet Morphology Comment NORMAL NORMAL (NORMAL) (NORMAL) Sodium Level 146 MEQ/L 147 MEQ/L (136-145) (136-145) Potassium Level 4.0 MEQ/L 3.7 MEQ/L (3.5-5.1) (3.5-5.1) Chloride Level 109 MEQ/L 110 MEQ/L (98-107) (98-107) Carbon Dioxide Level 30.3 MEQ/L 30.6 MEQ/L (21.0-32.0) (21.0-32.0) Anion Gap 7 MEQ/L (5-15) 6 MEQ/L (5-15) Blood Urea Nitrogen 37 MG/DL (7-18) 43 MG/DL (7-18) Creatinine 1.09 MG/DL 1.14 MG/DL (0.50-1.00) (0.50-1.00) Estimat Glomerular Filtration 47 ML/MIN (>89) 45 ML/MIN (>89) Rate Random Glucose 145 MG/DL 128 MG/DL (74-106) (74-106) Calcium Level 8.0 MG/DL 8.0 MG/DL (8.5-10.1) (8.5-10.1) Phosphorus Level 2.6 MG/DL 2.3 MG/DL (2.5-4.9) (2.5-4.9) Magnesium Level 2.0 MG/DL 1.9 MG/DL (1.5-2.5) (1.5-2.5) Eosinophils % 1 % (0-4) Target Cells 1+ (NORMAL) Prothrombin Time 10.8 SEC (9.8-11.6) Prothromb Time International 1.0 RATIO Ratio Total Bilirubin 0.4 MG/DL (0.2-1.0) Aspartate Amino Transf 31 U/L (15-37) (AST/SGOT) Alanine Aminotransferase 16 U/L (10-53) (ALT/SGPT) Alkaline Phosphatase 67 U/L (45-117) Total Protein 4.9 GM/DL (6.4-8.2) Albumin 3.1 GM/DL (3.4-5.0) . Result Diagram: 09/24/16 0505 09/24/16 0505 Imaging Last Impressions Renal Ultrasound 09/22/16 0000 Signed Impressions: Service Date/Time: Thursday, September 22, 2016 18:32 - CONCLUSION: 1. Suboptimal visualization of the kidneys with no definite hydronephrosis or focal lesion. 2. Small amount of ascitic fluid and small bilateral pleural effusions. 3. Echogenic debris in the gallbladder most consistent with sludge. Chucho Padgett MD Abdomen/Pelvis CT 09/22/16 0000 Signed Impressions: Service Date/Time: Thursday, September 22, 2016 08:52 - CONCLUSION: 1. Deterioration in the appearance of the abdomen with increasing ascites and substantial bowel thickening of the colon all consistent with a colitis. 2. Gallbladder is prominent but otherwise unremarkable. 3. Increasing right pleural effusion. Gatito Vásquez MD FACR Abdomen X-Ray 09/21/16 0600 Signed Impressions: Service Date/Time: Wednesday, September 21, 2016 04:25 - CONCLUSION: Stable gaseous distention of colon. Marty Marinelli MD Shoulder X-Ray 09/20/16 0000 Signed Impressions: Service Date/Time: Tuesday, September 20, 2016 09:53 - CONCLUSION: No significant interval change is identified. There is a displaced mildly comminuted proximal left humeral neck fracture with rotation of the humeral head and associated shortening. En Robledo MD Hip and Pelvis X-Ray 09/20/16 0000 Signed Impressions: Service Date/Time: Tuesday, September 20, 2016 09:57 - CONCLUSION: Left hip bipolar arthroplasty hardware demonstrates no acute finding. The bones are undermineralized but no fracture is visualized. En Robledo MD Chest X-Ray 09/18/16 0000 Signed Impressions: Service Date/Time: Sunday, September 18, 2016 15:27 - CONCLUSION: Bibasilar areas of mild atelectasis or consolidation being worse on the right. There are suspected mild bilateral pleural effusions. En Lambert MD . Procedures * Right internal jugular central line. * Colonoscopy 09/22/16 . . Assessment and Plan Disease Oriented Problem List: (1) Colitis, Clostridium difficile Comment: Severe, life-threatening, virulent strain. . (2) Severe sepsis (3) Septic shock (4) Spinal stenosis (5) Peripheral neuropathy (6) Acute kidney injury (nontraumatic) (7) UTI (urinary tract infection) Comment: Enterobacter. Resolved. . (8) Hypothyroid Comment: TSH WNL (9) Humerus head fracture Comment: Left side from fall on 09/10/16. Sling therapy. . (10) Osteoarthritis (11) Hip fracture, left Comment: Left side. Bipolar gayla-arthroplasty on 09/05/16. . (12) Protein-calorie malnutrition, moderate Symptom Scale: (1) Pain 0-10 Scale: 10 Comment: Current pain is mostly abdominal. Also has history of chronic low back pain and neuropathic leg pain. Other sources of pain might include prolonged bedbound status; NG tube; venous access lines; fecal management systerm; taylor catheter; etc. Patient not able to quantify or qualify pain well at time of my visit. . Pertinent Non-Medical Issues Psychosocial: Had been living independently prior to her fall. Son in [place]; two sons in [place]; one son in [place]. Spiritual: Lapsed [employer]ism. Appreciates berry recio. Legal: Pt verbally designates her son -- Bill -- as her surrogate and Reed claims there is paperwork confirming that selection. Ethical issues impacting care: Patient is mildly confused. Recommend shared decision making with her son. . Important Contacts * Reed Hebert (son) [phone] * Lore Hebert ([id number]) [phone] . Prognosis Patient currently has life-threatening diffuse colitis from C diff. She is not yet showing a significant response to medical management. She is not interested in surgery even if it remains the only option to save her life and her chances of successful recovery after major surgery is in doubt. Because of her ileus, she is receiving nutrition via TPN which places her a further risk of sepsis. As she is currently hemodynamically stable, breathing on her own , and renal function is reasonable, she can afford to continue to see if medical management will work. Should there be another major setback, she wants to transition to comfort measures only and family endorses this plan. . Code Status: No Code Plan == Code Status: NO CODE == Decision making: Patient has intermittent mild confusion but appears to understand her illness and goals. She is generally capacitated to make her own health care decision, but recommend there be shared decision making with her surrogate. Should she become incapacitated, she has indicated that she wants her son Reed (the only son that lives in [place]) to be her health care surrogate. == Goals: Patient is willing to continue with medical management for the time being to see if the current antibioitc regimen and supportive care can conquer the colitis. She does NOT want surgery. She does not want to be resuscitated. If there is any significant setback or it is clear medical management is not working, she wants to transition to "comfort measures only" and be enrolled with hospice. == Pain: Pain sources described above with most pain being her abdominal pain at this time. She continues to have episodes of level 8 or higher pain in spite of her current morphine regimen. However, she says she normally lives with this level of pain without using opiate analgesics. There are concerns about increasing her opiates due to recent hypotension and fear of exacerbating her ileus. If opiates are contributing to the ileus, we can offset this with methylnaltrexone (Relistor) and then perhaps increase her opiates if her BP tolerates it. == Ileus: Recommend several day trial of methylnaltrexone to see if blocking the bowel opiate receptors will help resolve the ileus. == Confusion: This is very mild and likely a multi-factorial delirium. She is mildly confused and she does not appear frightened/upset about the confusion. Do not see benefit from adding a neuroleptic at this time. Will continue to address underlying illnesses. == Have discussed possibility of "fecal transplant" with catheterization laboratory technician, ID, and GI. They are still investigating feasibility and whether patient is an appropriate candidate and if it can be done. If its feasible I will let patient /son know of what's involved and they can decide whether or not to pursue. Hopefully, she will improve and not need to consider. == Palliative care will continue to follow to assist with symptom management and to further clarify goals of medical treatment as the clinical course evolves. . Attestation To help prompt me to consider important information that might be impacting today's encounter and assessment, information from prior notes written by myself or my colleagues may have been "brought forward" into today's note. My signature on this note, however, is an attestation that I personally performed the exam, history, and/or decision-making noted today, and, unless otherwise indicated, the interactions with patient, family, and staff as well as the review of records all occurred today. I also attest that the listed assessment and stated plan reflect my best clinical judgment today based on the combination of historical information, prior notes, and today's exam/ interactions. When time spent is documented, it refers only to time spent today by the signer, or if indicated, combined time spent today by collaborating physician/nurse practitioner. . Robert Manzo MD Sep 24, 2016 17:45
[2016-09-24] MEDS: DEXTROSE 5% IN WATE 1000ML INJ 1,000 ML IV SCH (18:31)
--- NOTE | 2016-09-24 21:40 | RADRPT ---
EXAM DATE/TIME: 09/24/2016 21:10 [facility] COMPARISON: CT ABDOMEN & PELVIS W/O CONTRAST, September 22, 2016, 8:52. INDICATIONS : <<Patient complains of abdominal pain. Known colitis and ascites. ORAL CONTRAST: Prescribed oral contrast ingested. RADIATION DOSE: <<17.26>> CTDIvol (mGy) MEDICAL HISTORY : Hypertension. Spinal stenosis. SURGICAL HISTORY : Left hip replacement. ENCOUNTER: Initial ACUITY: 2 days PAIN SCALE: 5/10 LOCATION: lower quadrant TECHNIQUE: Volumetric scanning of the abdomen and pelvis was performed. Using automated exposure control and ad justment of the mA and/or kV according to patient size, radiation dose was kept as low as reasonably achievable to obtain optimal diagnostic quality images. DICOM format image data is available electro nically for review and comparison. FINDINGS: LOWER LUNGS: Bilateral pleural effusions are again noted right greater than left. There is mild consolidation in t he posterior lung bases. LIVER: Homogeneous density without lesion. There is no dilation of the biliary tree. No calcified gallston es. The gallbladder is at the upper limits of normal in size. Ascitic fluid is noted surrounding port ions of the liver. This may be slightly increased. SPLEEN: Normal size without lesion. There is surrounding ascites. PANCREAS: Within normal limits. KIDNEYS: Normal in size and shape. There is no mass or hydronephrosis. A small nonobstructing calculus is aga in noted in the upper pole the right kidney. ADRENAL GLANDS: Within normal limits. VASCULAR: There is no aortic aneurysm. BOWEL/MESENTERY: A nasogastric tube is now noted the tip in the proximal small bowel. There is limited oral opacificat ion of the proximal and mid small bowel. There is been placement of a rectal catheter. The colon john ins diffusely abnormal in appearance with diffuse wall thickening and mild inflammatory change. Fluid is noted in both paracolic gutters and pelvis. There is evidence of anasarca. The colon is unopacifi ed. There is no free air. ABDOMINAL WALL: Within normal limits. RETROPERITONEUM: There is no lymphadenopathy. BLADDER: No wall thickening or mass. REPRODUCTIVE: Within normal limits. INGUINAL: There is no lymphadenopathy or hernia. MUSCULOSKELETAL: Within normal limits for patient age. CONCLUSION: 1. The colon remains abnormal in appearance with diffuse wall thickening and inflammatory change. The small bowel is decompressed. 2. Moderate amount of ascitic fluid which may be mildly increased. 3. Small bilateral pleural effusions again noted with mild consolidation in the lung bases. 4. Small nonobstructing right renal calculus. 5. Interval placement of rectal tube. A nasogastric tube is been placed as well. Chucho Padgett MD on September 24, 2016 at 21:30 Board Certified Radiologist. This report was verified electronically.
[2016-09-25] VITALS (25 sets, daily range): BP systolic 103–173; BP diastolic 53–69; PULSE 85–111; RESP 17–31; TEMP 98.4–99.2; O2SAT 92–98
[2016-09-25] MEDS: metroNIDAZOLE 500 MG INJ 100 ML IV SCH ×5 (00:35→21:21)
[2016-09-25] MEDS: ALBUMIN HUMAN 25% 12.5 GM/50 ML BAGP IV SCH ×3 (00:36→21:23)
[2016-09-25] MEDS: SODIUM CHLORIDE 0.9% FLUSH 10 ML FLUSH IV FLUSH SCH ×4 (00:36→21:24)
[2016-09-25] MEDS: MULTIVITAMIN INJ 10 ML, FOLIC ACID INJ 1 MG in AMINO ACID IN D5W W/ELECTROLYT 1,000 ML IV-CENTRAL SCH ×6 (00:36→21:35)
[2016-09-25] MEDS: FIDAXOMICIN 200 MG TAB PO SCH ×3 (00:37→21:24)
[2016-09-25] MEDS: HEPARIN SODIUM - SQ 10,000 UNITS/ML VIAL SQ SCH ×4 (00:38→21:24)
[2016-09-25] MEDS: VANCOMYCIN INJ 500 MG in SODIUM CHLORIDE 0.9% IRR BTL 250 ML IRRIGATION SCH ×4 (00:38→18:09)
[2016-09-25] MEDS: CHLORHEXIDINE GLUCONATE 2 % 1 PACK (2 CLOTHS) TOP SCH (04:00)
[2016-09-25] MEDS: LEVOTHYROXINE SODIUM 100 MCG VIAL IV PUSH SCH (05:40)
[2016-09-25] MEDS: VANCOMYCIN 500 MG VIAL (FOR ORAL USE ONLY) PO SCH ×4 (05:41→18:09)
[2016-09-25] MEDS: MORPHINE SULFATE 4 MG/ML INJ IV PRN ×2 (05:42→22:01)
[2016-09-25 06:52] LABS: HEMATOCRIT 29.2 % (35.0-46.0); MEAN CELL VOLUME 92.8 FL (80.0-100.0); MEAN CORPUSCULAR HEMOGLOBIN 30.9 PG (27.0-34.0); MEAN CORPUSCULAR HGB CONC 33.3 % (32.0-36.0); PLATELET COUNT 237 TH/MM3 (150-450); RED BLOOD COUNT 3.15 MIL/MM3 (4.00-5.30); RED CELL DISTRIBUTION WIDTH 15.6 % (11.6-17.2); REVIEW FLAG FINAL; WHITE BLOOD COUNT 13.3 TH/MM3 (4.0-11.0)
[2016-09-25 07:02] LABS: BICARBONATE 33.3 MEQ/L (21.0-32.0); MAGNESIUM 1.7 MG/DL (1.5-2.5); POTASSIUM 3.1 MEQ/L (3.5-5.1)
[2016-09-25] MEDS: ARTIFICIAL TEARS OPTH SOLN 15 ML BTL EACH EYE SCH ×3 (08:33→18:09)
[2016-09-25] MEDS: PANTOPRAZOLE SODIUM 40 MG VIAL IV SCH (08:38)
[2016-09-25] MEDS: CHLOROTHIAZIDE SOD 500 MG VIAL IV SCH ×2 (08:39→21:25)
--- NOTE | 2016-09-25 09:47 | HHI.PR ---
Subjective Remarks says she is more comfortable ngt placed last night for contrast. Objective Vitals oriented follows commands ngt heart reg lung good air entry cristiane. diminished at bases abd less distended. bs taylor. rectal tube. [facility] Vital Signs Date Time Temp Pulse Resp B/P Pulse Ox O2 Delivery O2 Flow Rate FiO2 09/25/16 08:02 94 Nasal Cannula 2.00 09/25/16 07:30 98.7 09/25/16 06:00 85 09/25/16 04:00 95 09/25/16 04:00 99.0 95 18 131/60 94 09/25/16 02:00 103 09/25/16 00:00 99.2 98 22 119/57 96 09/25/16 00:00 103 09/24/16 22:12 97 Nasal Cannula 1.50 09/24/16 22:00 92 09/24/16 20:00 87 09/24/16 20:00 99.7 87 22 137/70 96 09/24/16 18:00 93 09/24/16 16:00 92 09/24/16 16:00 98.6 92 26 126/61 96 09/24/16 14:00 95 26 129/58 96 09/24/16 14:00 93 09/24/16 13:00 90 15 128/58 97 09/24/16 12:00 98.3 96 21 118/58 97 09/24/16 12:00 96 09/24/16 11:00 96 17 125/61 97 09/24/16 10:00 96 09/24/16 10:00 92 15 120/60 98 09/24/16 09/24/16 09/25/16 15:00 23:00 07:00 Intake Total 402 ml 520 ml 729 ml Output Total 475 ml 1150 ml 850 ml Balance -73 ml -630 ml -121 ml Intake Oral 50 ml IV Total 120 ml 520 ml 380 ml TPN/PPN 182 ml 172 ml Lipid 177 ml Albumin 50 ml Output Urine Total 400 ml 900 ml 500 ml Stool Total 50 ml 200 ml 300 ml Drainage Total 25 ml 50 ml 50 ml Result Diagram: 09/25/16 0500 09/25/16 0500 Date of Insertion: Sep 15, 2016 Date of Removal: Sep 16, 2016 Line: Central Venous Catheter Side: Right Location: Internal, Jugular A/P Problem List: (1) Colitis, Clostridium difficile Status: Acute Plan: Recently hospitalized for left femoral neck fx and left humerus fx Left hip hemiarthroplasty on 09/05/16. Sling and conservative management for the humerus fx. Pt presented to hospital with severe hypotension severe C.diff colitis(027).with colonic ileus hypoalbumenemia/pleural effusions/ascites/compressive lung consolidations bilaterally. dave and volume overload hypokalemia/hypophosphatemia s/p c-scope and colonic decompression/rectal tube 09/22 pt on po/rectal vanco, iv flagyl, and dificid tpn and lipids albumen and diuretic per renal discussed with RN. phos/kcl replacement today. increased in tpn yesterday. PT and dvt prophylaxis palliative care following. 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 (6) HTN (hypertension) Status: Chronic (7) Hypothyroid Status: Chronic (8) Dyslipidemia Status: Acute (9) Peripheral neuropathy Status: Chronic (10) Spinal stenosis Status: Chronic Problem Qualifiers (1) Hip fracture, left: Qualified Code: S72.002D - Hip fracture, left, closed, with routine healing, subsequent encounter (2) Humerus head fracture: (3) HTN (hypertension): Qualified Code: I10 - Essential hypertension (4) Hypothyroid: Qualified Code: E03.9 - Hypothyroidism, unspecified type (5) Peripheral neuropathy: Qualified Code: G62.9 - Peripheral polyneuropathy (6) Spinal stenosis: Qualified Code: M48.06 - Spinal stenosis of lumbar region Kavin Delgado MD Sep 25, 2016 09:47
[2016-09-25] MEDS: POTASSIUM CHLOR 40 MEQ PREMIX 100 ML IV PRN ×2 (11:02→16:25)
[2016-09-25] MEDS: POTASSIUM PHOSPHATE INJ 30 MMOL in SODIUM CHLOR 0.9% 250 ML INJ 250 ML IV PRN (11:02)
[2016-09-25] MEDS: SODIUM CHLORIDE 0.9% FLUSH 10 ML FLUSH IVF SCH (11:05)
--- NOTE | 2016-09-25 14:27 | HHI.GIFU ---
Subjective Remarks Pt complains of abdominal pain and distension today Its unclear if this is worse than it had been yesterday or not. Pt had about 700cc of liquid stool out since last night noted in the [employer] which includes fluid from irrigation. Pt has been afebrile Eating minimal amounts by mouth for pleasure only. (Sarita Stanley) Objective Vitals I&O Vital Signs Date Time Temp Pulse Resp B/P Pulse Ox O2 Delivery O2 Flow Rate FiO2 09/25/16 08:02 94 Nasal Cannula 2.00 09/25/16 07:30 98.7 09/25/16 06:00 85 09/25/16 04:00 95 09/25/16 04:00 99.0 95 18 131/60 94 09/25/16 02:00 103 09/25/16 00:00 99.2 98 22 119/57 96 09/25/16 00:00 103 09/24/16 22:12 97 Nasal Cannula 1.50 09/24/16 22:00 92 09/24/16 20:00 87 09/24/16 20:00 99.7 87 22 137/70 96 09/24/16 18:00 93 09/24/16 16:00 92 09/24/16 16:00 98.6 92 26 126/61 96 I/O 09/24/16 09/24/16 09/24/16 09/25/16 09/25/16 09/25/16 07:00 15:00 23:00 07:00 15:00 23:00 Intake Total 425 ml 402 ml 520 ml 729 ml Output Total 1500 ml 475 ml 1150 ml 850 ml Balance -1075 ml -73 ml -630 ml -121 ml Intake Oral 50 ml IV Total 100 ml 120 ml 520 ml 380 ml TPN/PPN 325 ml 182 ml 172 ml Lipid 177 ml Albumin 50 ml Output Urine Total 500 ml 400 ml 900 ml 500 ml Stool Total 700 ml 50 ml 200 ml 300 ml Drainage Total 300 ml 25 ml 50 ml 50 ml Laboratory Laboratory Tests Test 09/25/16 05:00 White Blood Count 13.3 Red Blood Count 3.15 Hemoglobin 9.7 Hematocrit 29.2 Mean Corpuscular Volume 92.8 Mean Corpuscular Hemoglobin 30.9 Mean Corpuscular Hemoglobin 33.3 Concent Red Cell Distribution Width 15.6 Platelet Count 237 Mean Platelet Volume 8.2 Sodium Level 144 Potassium Level 3.1 Chloride Level 106 Carbon Dioxide Level 33.3 Anion Gap 5 Blood Urea Nitrogen 37 Creatinine 1.06 Estimat Glomerular Filtration 49 Rate Random Glucose 143 Calcium Level 7.8 Phosphorus Level 1.8 Magnesium Level 1.7 Triglycerides Level 360 Imaging Last Impressions Abdomen/Pelvis CT 09/24/16 0000 Signed Impressions: Service Date/Time: Saturday, September 24, 2016 21:10 - CONCLUSION: 1. The colon remains abnormal in appearance with diffuse wall thickening and inflammatory change. The small bowel is decompressed. 2. Moderate amount of ascitic fluid which may be mildly increased. 3. Small bilateral pleural effusions again noted with mild consolidation in the lung bases. 4. Small nonobstructing right renal calculus. 5. Interval placement of rectal tube. A nasogastric tube is been placed as well. Chucho Padgett MD Renal Ultrasound 09/22/16 0000 Signed Impressions: Service Date/Time: Thursday, September 22, 2016 18:32 - CONCLUSION: 1. Suboptimal visualization of the kidneys with no definite hydronephrosis or focal lesion. 2. Small amount of ascitic fluid and small bilateral pleural effusions. 3. Echogenic debris in the gallbladder most consistent with sludge. Chucho Padgett MD Abdomen X-Ray 09/21/16 0600 Signed Impressions: Service Date/Time: Wednesday, September 21, 2016 04:25 - CONCLUSION: Stable gaseous distention of colon. Marty Marinelli MD Shoulder X-Ray 09/20/16 0000 Signed Impressions: Service Date/Time: Tuesday, September 20, 2016 09:53 - CONCLUSION: No significant interval change is identified. There is a displaced mildly comminuted proximal left humeral neck fracture with rotation of the humeral head and associated shortening. En Robledo MD Hip and Pelvis X-Ray 09/20/16 0000 Signed Impressions: Service Date/Time: Tuesday, September 20, 2016 09:57 - CONCLUSION: Left hip bipolar arthroplasty hardware demonstrates no acute finding. The bones are undermineralized but no fracture is visualized. En Robledo MD Chest X-Ray 09/18/16 0000 Signed Impressions: Service Date/Time: Sunday, September 18, 2016 15:27 - CONCLUSION: Bibasilar areas of mild atelectasis or consolidation being worse on the right. There are suspected mild bilateral pleural effusions. En Lambert MD Physical Exam HEENT: Normocephalic; atraumatic; no jaundice CHEST: Resp even/unlabored, diminished CARDIAC: RRR ABDOMEN: Hypoactive BS, soft, moderate distention, moderate diffuse tenderness. Rectal tube in place. EXTREMITIES: Generalized edema. Left CKS, Left upper extremity in sling. SKIN: Normal; no rash; no jaundice. 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 (Sarita Stanley) Assessment and Plan Plan ASSESSMENT: - Severe C difficile colitis (Epid 027+) in patient with recent abx use and hypotension). CT Scan abdomen and pelvis with IV contrast (09/15/16)----> Diffuse thickening of the entire colon consistent with diffuse colitis. Mild atherosclerotic calcifications seen at the aorta. There is no aneurysm. Contrast is seen within the celiac, SMA and HARRIS. Small non-obstructing right renal stone. Colonoscopy (05/20/2005) revealed normal colon, medium internal hemorrhoids. Abdomen/Pelvis CT (09/18/16)----> 1. Compared to the prior examination of 09/17/2016, there has been no significant change in the overall appearance of the colon. There continues to be diffuse wall thickening involving the right and left colon suggestive of colitis with some moderate distention. However, no increased distention is seen on today's examination. There is no evidence of free air. 2. No change in the abdominal ascites. 3. No change in body wall anasarca. 4. No change in the bibasilar infiltrates and bilateral effusions. S/P Decompressive colonoscopy (09/23/16)-----> Colonoscopy with direct instillation of vancomycin enema into the right and transverse colon. Colonic drainage tube left in place to about the splenic flexure. This can be used to irrigate vancomycin to reach the cecum and ascending colon when the patient is on the right side. The mucosal surfaces do not appear to be much inflamed, but there is mucosal edema in some areas. Repeat CT Abd/ pelvis (09/24/16) ---> The colon remains abnormal in appearance with diffuse wall thickening and inflammatory change. The small bowel is decompressed. Moderate amount of ascitic fluid which may be mildly increased. Small bilateral pleural effusions again noted with mild consolidation in the lung bases. Small nonobstructing right renal calculus. Interval placement of rectal tube. A nasogastric tube is been placed as well. S/P Relistor for any associated opiate induced ileus- 550cc stool documented out overnight. ID following. Oral vanco, flagyl, vanco enema, started on Dificid (09/22). Clinically, she seems to be slowly improving. We will continue to monitor over weekend and consider fecal transplant if no improvement, but will continue to hold for now, as she seems to be slowly improving. - Colonic Ileus secondary to above. She has been taking pericolace and lactinex. S/P Decompression colonoscopy. S/P Relistor (09/23). - Malnutrition. Was started on TPN, Clinimix E 4.25/25 at rate of 30 ml/hr. Clear liquids for comfort. - Sepsis/Leukocytosis secondary to severe CDiff infection. WBC 13.3. ID following, Flagyl, Dificid, Oral vanco, Vanco enemas, - Anemia. Stable, 9.7/.2 - Acute on chronic kidney injury. Creat 1.06 - Recent fall at home on 09/04/16 and sustained a left femoral neck fracture and left humeral head fracture. S/P Bipolar hemiarthroplasty on 09/05/[address] Bill and her left humeral head fracture is being treated conservatively with sling. She was transferred to [facility] on 09/09/16, but transferred to the unit for severe abdominal tenderness and leukocytosis with concern for mesenteric ischemia. - History of TIA (on plavix), OA, Hx HTN now with hypotension, hyperlipidemia, CKD per attending. PLAN: - Clear liquid diet. - Cont. TPN - Cont. Dificid - Cont. Flagyl IV - Cont. Oral Vancomycin - Cont. Vanco Enema 500mg in 100mL NS retention enema [place] q6h - Cont. IVF - S/P Relistor (09/23) - ID following - Palliative care following. Pt is a DNR. - Pt was seen and examined by myself and Dr. Melara and this note was written on his behalf (Sarita Stanley) Physician Comments Patient seen and examined Agree with above Continue with current supportive care Monitor labs (Shemar Melara MD) Sarita Stanley Sep 25, 2016 14:27 Shemar Melara MD Sep 25, 2016 17:39
[2016-09-25] MEDS: POTASSIUM CHLORIDE 25 MEQ EFFERVESCENT TAB NG SCH (15:30)
[2016-09-25] MEDS ORDERED: BUMETANIDE INJ 1 MG/4 ML VIAL IV PUSH ONE (15:30)
--- NOTE | 2016-09-25 15:31 | HHI.NPPN ---
Subjective History of Present Illness 86-year-old female apparently with a history of severe colitis secondary to clostridium difficile. Mention in the records of his CKD stage II. Has continued complications with C diff colitis. NG tube been placed as well as rectal decompression 09/22 Started initially on Bumex drip given oliguria and renal functions improved as well as UOP Interval History Patient indicated she was feeling somewhat better. Review of Systems General Constitutional: Fatigue Gastrointestinal Gastrointestinal: Abdominal Pain Objective Data Data 09/24/16 09/25/16 19:00 07:00 Intake Total 402 ml 1249 ml Output Total 475 ml 2000 ml Balance -73 ml -751 ml Intake Oral 50 ml IV Total 120 ml 900 ml TPN/PPN 182 ml 172 ml Lipid 177 ml Albumin 50 ml Output Urine Total 400 ml 1400 ml Stool Total 50 ml 500 ml Drainage Total 25 ml 100 ml Vital Signs Date Time Temp Pulse Resp B/P Pulse Ox O2 Delivery O2 Flow Rate FiO2 09/25/16 08:02 94 Nasal Cannula 2.00 09/25/16 07:30 98.7 09/25/16 06:00 85 09/25/16 04:00 95 09/25/16 04:00 99.0 95 18 131/60 94 09/25/16 02:00 103 09/25/16 00:00 99.2 98 22 119/57 96 09/25/16 00:00 103 09/24/16 22:12 97 Nasal Cannula 1.50 09/24/16 22:00 92 09/24/16 20:00 87 09/24/16 20:00 99.7 87 22 137/70 96 09/24/16 18:00 93 09/24/16 16:00 92 09/24/16 16:00 98.6 92 26 126/61 96 -: 09/25/16 0500 09/25/16 0500 Physical Exam General Appearance: No Acute Distress, Pale Eyes Eye Exam: Pupils Equal, Pupils Reactive Pulmonary Resp Exam: Clear Bilaterally, Breath Sounds Equal Cardiology CV Exam: Regular, Normal Sinus Rhythm Gastrointestinal/Abdomen GI Exam: Distended Extremeties Extremities Exam: Moderate Edema (1-2+ plus pitting edema involving lower extremities hips and dependent torso.) Neurologic Neuro Exam: Alert, Awake Assessment/Plan Discussed Condition With: Patient Problem List: (1) CKD (chronic kidney disease) stage 2, GFR 60-89 ml/min Plan: Patient's urine output and creatinine level has improved since yesterday. Hypernatremia has also resolved. Reduce Diuril. Continue albumin. Continue intermittent bumetanide dosing. Potassium supplementation as ordered. Patient appears to be improving overall and hopefully this will continue. Still with guarded prognosis. Medications should be adjusted for the patient's estimated GFR if clinically indicated. Avoid agents with significant potential for nephrotoxicity possible including NSAIDs for analgesia, iodine contrast agents. Gadolinium is contraindicated if the GFR is below 30. (2) Nontraumatic compartment syndrome of abdomen Plan: Patient is at risk for. (3) Hypernatremia Plan: Diuril ordered. Continue free fluid. Broderick Hendricks MD Sep 25, 2016 15:31
[2016-09-25] MEDS: SODIUM CHLORIDE 0.9% FLUSH 10 ML FLUSH IV FLUSH PRN (16:27)
[2016-09-25] MEDS: DEXTROSE 5% IN WATE 1000ML INJ 1,000 ML IV SCH (18:09)
[2016-09-26] VITALS (25 sets, daily range): BP systolic 111–154; BP diastolic 53–81; PULSE 85–111; RESP 18–25; TEMP 98.1–98.9; O2SAT 92–97
[2016-09-26] MEDS: metroNIDAZOLE 500 MG INJ 100 ML IV SCH ×4 (02:09→22:16)
[2016-09-26] MEDS: CHLORHEXIDINE GLUCONATE 2 % 1 PACK (2 CLOTHS) TOP SCH (03:35)
[2016-09-26 06:16] LABS: BICARBONATE 31.3 MEQ/L (21.0-32.0); MAGNESIUM 1.7 MG/DL (1.5-2.5); POTASSIUM 3.7 MEQ/L (3.5-5.1)
[2016-09-26] MEDS: VANCOMYCIN INJ 500 MG in SODIUM CHLORIDE 0.9% IRR BTL 250 ML IRRIGATION SCH ×5 (06:34→18:19)
[2016-09-26] MEDS: HEPARIN SODIUM - SQ 10,000 UNITS/ML VIAL SQ SCH ×3 (06:34→22:17)
[2016-09-26] MEDS: VANCOMYCIN 500 MG VIAL (FOR ORAL USE ONLY) PO SCH ×4 (06:34→18:19)
[2016-09-26] MEDS: MORPHINE SULFATE 4 MG/ML INJ IV PRN ×4 (06:35→22:18)
[2016-09-26] MEDS: LEVOTHYROXINE SODIUM 100 MCG VIAL IV PUSH SCH (06:35)
[2016-09-26] MEDS: DEXTROSE 5% IN WATE 1000ML INJ 1,000 ML IV SCH (06:55)
[2016-09-26] MEDS: ARTIFICIAL TEARS OPTH SOLN 15 ML BTL EACH EYE SCH ×3 (08:54→15:48)
[2016-09-26] MEDS: ALBUMIN HUMAN 25% 12.5 GM/50 ML BAGP IV SCH ×2 (08:55→22:16)
[2016-09-26] MEDS: SODIUM CHLORIDE 0.9% FLUSH 10 ML FLUSH IV FLUSH SCH ×3 (08:56→22:17)
[2016-09-26] MEDS: POTASSIUM CHLORIDE 25 MEQ EFFERVESCENT TAB NG SCH (08:57)
[2016-09-26] MEDS: PANTOPRAZOLE SODIUM 40 MG VIAL IV SCH (08:57)
[2016-09-26] MEDS: FIDAXOMICIN 200 MG TAB PO SCH ×2 (08:59→22:17)
[2016-09-26] MEDS: SODIUM CHLORIDE 0.9% FLUSH 10 ML FLUSH IVF SCH (08:59)
--- NOTE | 2016-09-26 09:43 | HHI.PR ---
Subjective Remarks feels better. Objective Vitals nad oriented heart reg lung cta abd distended. bs ext no edema taylor rectal tube dignishield Vital Signs Date Time Temp Pulse Resp B/P Pulse Ox O2 Delivery O2 Flow Rate FiO2 09/26/16 07:45 98.9 09/26/16 07:28 94 Nasal Cannula 2.00 09/26/16 06:00 97 09/26/16 06:00 97 21 128/81 97 09/26/16 05:00 103 20 126/58 94 09/26/16 04:00 98.9 100 21 131/59 95 09/26/16 04:00 100 09/26/16 03:00 105 23 139/57 94 09/26/16 02:00 106 09/26/16 02:00 106 25 133/58 93 09/26/16 01:00 103 19 114/55 95 09/26/16 00:00 109 09/26/16 00:00 98.1 109 22 113/53 94 09/25/16 23:00 110 21 103/54 95 09/25/16 22:00 111 09/25/16 22:00 111 28 108/53 96 09/25/16 21:00 111 26 119/56 96 09/25/16 20:00 109 09/25/16 20:00 99.2 108 23 124/58 97 09/25/16 19:44 98 Nasal Cannula 2.00 09/25/16 19:00 109 21 136/63 97 09/25/16 18:00 111 22 134/65 94 09/25/16 18:00 85 09/25/16 17:00 108 31 128/60 94 09/25/16 16:20 98.4 100 21 117/56 92 09/25/16 16:00 85 09/25/16 15:00 104 24 136/60 93 09/25/16 14:00 101 17 113/57 93 09/25/16 14:00 85 09/25/16 13:00 97 20 116/58 95 09/25/16 12:00 85 09/25/16 12:00 98.5 96 17 118/58 93 09/25/16 11:00 94 21 141/65 92 09/25/16 10:00 85 09/25/16 10:00 97 19 143/63 92 7/109/25/16 09/26/16 15:00 23:00 07:00 Intake Total 1838 ml 776 ml Output Total 1950 ml 650 ml Balance -112 ml 126 ml Intake Oral 120 ml 60 ml IV Total 1563 ml 454 ml TPN/PPN 155 ml 262 ml Output Urine Total 1350 ml 450 ml Stool Total 600 ml 200 ml Result Diagram: 09/25/16 0500 09/26/16 0500 Date of Insertion: Sep 15, 2016 Date of Removal: Sep 16, 2016 Line: Central Venous Catheter Side: Right Location: Internal, Jugular A/P Problem List: (1) Colitis, Clostridium difficile Status: Acute Plan: Recently hospitalized for left femoral neck fx and left humerus fx Left hip hemiarthroplasty on 09/05/16. Sling and conservative management for the humerus fx. Pt presented to hospital with severe hypotension severe C.diff colitis(027).with colonic ileus hypoalbumenemia/pleural effusions/ascites/compressive lung consolidations bilaterally. dave and volume overload hypokalemia/hypophosphatemia s/p c-scope and colonic decompression/rectal tube 09/22 pt on po/rectal vanco, iv flagyl, and dificid tpn and lipids albumen and diuretic per renal . phos/kcl replacement . increased in tpn PT and dvt prophylaxis palliative care following. 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 (6) HTN (hypertension) Status: Chronic (7) Hypothyroid Status: Chronic (8) Dyslipidemia Status: Acute (9) Peripheral neuropathy Status: Chronic (10) Spinal stenosis Status: Chronic Problem Qualifiers (1) Hip fracture, left: Qualified Code: S72.002D - Hip fracture, left, closed, with routine healing, subsequent encounter (2) Humerus head fracture: (3) HTN (hypertension): Qualified Code: I10 - Essential hypertension (4) Hypothyroid: Qualified Code: E03.9 - Hypothyroidism, unspecified type (5) Peripheral neuropathy: Qualified Code: G62.9 - Peripheral polyneuropathy (6) Spinal stenosis: Qualified Code: M48.06 - Spinal stenosis of lumbar region Kavin Delgado MD Sep 26, 2016 09:42
[2016-09-26] MEDS: CHLOROTHIAZIDE SOD 500 MG VIAL IV SCH ×2 (10:00→22:00)
--- NOTE | 2016-09-26 13:48 | HHI.GIFU ---
Subjective Remarks Pt resting in bed, caregiver at bedside. She says she is not feeling well but cannot further qualify. Caregiver says her abd is less distended than before and she seems to be making more stool. (Monique Gibson) Objective Vitals I&O Vital Signs Date Time Temp Pulse Resp B/P Pulse Ox O2 Delivery O2 Flow Rate FiO2 09/26/16 11:56 20 09/26/16 07:45 98.9 09/26/16 07:28 94 Nasal Cannula 2.00 09/26/16 06:00 97 09/26/16 06:00 97 21 128/81 97 09/26/16 05:00 103 20 126/58 94 09/26/16 04:00 98.9 100 21 131/59 95 09/26/16 04:00 100 09/26/16 03:00 105 23 139/57 94 09/26/16 02:00 106 09/26/16 02:00 106 25 133/58 93 09/26/16 01:00 103 19 114/55 95 09/26/16 00:00 109 09/26/16 00:00 98.1 109 22 113/53 94 09/25/16 23:00 110 21 103/54 95 09/25/16 22:00 111 09/25/16 22:00 111 28 108/53 96 09/25/16 21:00 111 26 119/56 96 09/25/16 20:00 109 09/25/16 20:00 99.2 108 23 124/58 97 09/25/16 19:44 98 Nasal Cannula 2.00 09/25/16 19:00 109 21 136/63 97 09/25/16 18:00 111 22 134/65 94 09/25/16 18:00 85 09/25/16 17:00 108 31 128/60 94 09/25/16 16:20 98.4 100 21 117/56 92 09/25/16 16:00 85 09/25/16 15:00 104 24 136/60 93 09/25/16 14:00 101 17 113/57 93 09/25/16 14:00 85 I/O 09/25/16 09/25/16 09/25/16 09/26/16 09/26/16 09/26/16 07:00 15:00 23:00 07:00 15:00 23:00 Intake Total 729 ml 1838 ml 776 ml Output Total 850 ml 1950 ml 650 ml Balance -121 ml -112 ml 126 ml Intake Oral 120 ml 60 ml IV Total 380 ml 1563 ml 454 ml TPN/PPN 172 ml 155 ml 262 ml Lipid 177 ml Output Urine Total 500 ml 1350 ml 450 ml Stool Total 300 ml 600 ml 200 ml Drainage Total 50 ml Laboratory Laboratory Tests Test 09/26/16 05:00 Sodium Level 142 Potassium Level 3.7 Chloride Level 105 Carbon Dioxide Level 31.3 Anion Gap 6 Blood Urea Nitrogen 31 Creatinine 0.90 Estimat Glomerular Filtration 59 Rate Random Glucose 141 Calcium Level 8.2 Phosphorus Level 2.7 Magnesium Level 1.7 Imaging Last Impressions Abdomen/Pelvis CT 09/24/16 0000 Signed Impressions: Service Date/Time: Saturday, September 24, 2016 21:10 - CONCLUSION: 1. The colon remains abnormal in appearance with diffuse wall thickening and inflammatory change. The small bowel is decompressed. 2. Moderate amount of ascitic fluid which may be mildly increased. 3. Small bilateral pleural effusions again noted with mild consolidation in the lung bases. 4. Small nonobstructing right renal calculus. 5. Interval placement of rectal tube. A nasogastric tube is been placed as well. Chucho Padgett MD Renal Ultrasound 09/22/16 0000 Signed Impressions: Service Date/Time: Thursday, September 22, 2016 18:32 - CONCLUSION: 1. Suboptimal visualization of the kidneys with no definite hydronephrosis or focal lesion. 2. Small amount of ascitic fluid and small bilateral pleural effusions. 3. Echogenic debris in the gallbladder most consistent with sludge. Chucho Padgett MD Abdomen X-Ray 09/21/16 0600 Signed Impressions: Service Date/Time: Wednesday, September 21, 2016 04:25 - CONCLUSION: Stable gaseous distention of colon. Marty Marinelli MD Shoulder X-Ray 09/20/16 0000 Signed Impressions: Service Date/Time: Tuesday, September 20, 2016 09:53 - CONCLUSION: No significant interval change is identified. There is a displaced mildly comminuted proximal left humeral neck fracture with rotation of the humeral head and associated shortening. En Robledo MD Hip and Pelvis X-Ray 09/20/16 0000 Signed Impressions: Service Date/Time: Tuesday, September 20, 2016 09:57 - CONCLUSION: Left hip bipolar arthroplasty hardware demonstrates no acute finding. The bones are undermineralized but no fracture is visualized. En Robledo MD Chest X-Ray 09/18/16 0000 Signed Impressions: Service Date/Time: Sunday, September 18, 2016 15:27 - CONCLUSION: Bibasilar areas of mild atelectasis or consolidation being worse on the right. There are suspected mild bilateral pleural effusions. En Lambert MD Physical Exam HEENT: Normocephalic; atraumatic; no jaundice CHEST: Resp even/unlabored, diminished CARDIAC: RRR ABDOMEN: Hypoactive BS, soft, moderate distention, moderate diffuse tenderness. Rectal tube in place. EXTREMITIES: Generalized edema. Left CKS, Left upper extremity in sling. SKIN: Normal; no rash; no jaundice. 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 (Monique Gibson [facility]) Assessment and Plan Plan ASSESSMENT: - Severe C difficile colitis (Epid 027+) in patient with recent abx use and hypotension). CT Scan abdomen and pelvis with IV contrast (09/15/16)----> Diffuse thickening of the entire colon consistent with diffuse colitis. Mild atherosclerotic calcifications seen at the aorta. There is no aneurysm. Contrast is seen within the celiac, SMA and HARRIS. Small non-obstructing right renal stone. Colonoscopy (05/20/2005) revealed normal colon, medium internal hemorrhoids. Abdomen/Pelvis CT (09/18/16)----> 1. Compared to the prior examination of 09/17/2016, there has been no significant change in the overall appearance of the colon. There continues to be diffuse wall thickening involving the right and left colon suggestive of colitis with some moderate distention. However, no increased distention is seen on today's examination. There is no evidence of free air. 2. No change in the abdominal ascites. 3. No change in body wall anasarca. 4. No change in the bibasilar infiltrates and bilateral effusions. S/P Decompressive colonoscopy (09/23/16)-----> Colonoscopy with direct instillation of vancomycin enema into the right and transverse colon. Colonic drainage tube left in place to about the splenic flexure. This can be used to irrigate vancomycin to reach the cecum and ascending colon when the patient is on the right side. The mucosal surfaces do not appear to be much inflamed, but there is mucosal edema in some areas. Repeat CT Abd/ pelvis (09/24/16) ---> The colon remains abnormal in appearance with diffuse wall thickening and inflammatory change. The small bowel is decompressed. Moderate amount of ascitic fluid which may be mildly increased. Small bilateral pleural effusions again noted with mild consolidation in the lung bases. Small nonobstructing right renal calculus. Interval placement of rectal tube. A nasogastric tube is been placed as well. S/P Relistor for any associated opiate induced ileus- 550cc stool documented out overnight. ID following. Oral vanco, flagyl, vanco enema, started on Dificid (09/22). Clinically, she seems to be slowly improving. We will continue to monitor over weekend and consider fecal transplant if no improvement, but will continue to hold for now, as she seems to be slowly improving. - Colonic Ileus secondary to above. She has been taking pericolace and lactinex. S/P Decompression colonoscopy. S/P Relistor (09/23). - Malnutrition. Was started on TPN, Clinimix E 4.25/25 at rate of 30 ml/hr. Clear liquids for comfort. - Sepsis/Leukocytosis secondary to severe CDiff infection. WBC 13.3. ID following, Flagyl, Dificid, Oral vanco, Vanco enemas, - Anemia. Stable, - Acute on chronic kidney injury. labs improving - Recent fall at home on 09/04/16 and sustained a left femoral neck fracture and left humeral head fracture. S/P Bipolar hemiarthroplasty on 09/05/[address] Bill and her left humeral head fracture is being treated conservatively with sling. She was transferred to [facility] on 09/09/16, but transferred to the unit for severe abdominal tenderness and leukocytosis with concern for mesenteric ischemia. - History of TIA (on plavix), OA, Hx HTN now with hypotension, hyperlipidemia, CKD per attending. PLAN: - consider fecal transplant - Clear liquid diet. - Cont. TPN - Cont. Dificid - Cont. Flagyl IV - Cont. Oral Vancomycin - Cont. Vanco Enema 500mg in 100mL NS retention enema [place] q6h - Cont. IVF - S/P Relistor (09/23) - ID following - Palliative care following. Pt is a DNR. - Pt was seen and examined by myself and Dr. Melara and this note was written on his behalf (Monique Gibson) Physician Comments seen, examined agree with above (Giovanna Beck MD) Monique Gibson Sep 26, 2016 13:48 Giovanna Beck MD Sep 26, 2016 19:24
--- NOTE | 2016-09-26 15:27 | HHI.NPPN ---
Subjective History of Present Illness 86-year-old female apparently with a history of severe colitis secondary to clostridium difficile. Mention in the records of his CKD stage II. Has continued complications with C diff colitis. NG tube been placed as well as rectal decompression 09/22 Started initially on Bumex drip given oliguria and renal functions improved as well as UOP Interval History Patient indicated that she was feeling well today. Review of Systems General Constitutional: Fatigue Gastrointestinal Gastrointestinal: Abdominal Pain Objective Data Data 09/25/16 09/26/16 19:00 07:00 Intake Total 1192 ml 1422 ml Output Total 700 ml 1900 ml Balance 492 ml -478 ml Intake Oral 120 ml 60 ml IV Total 1072 ml 945 ml TPN/PPN 417 ml Output Urine Total 500 ml 1300 ml Stool Total 200 ml 600 ml Vital Signs Date Time Temp Pulse Resp B/P Pulse Ox O2 Delivery O2 Flow Rate FiO2 09/26/16 11:56 20 09/26/16 08:00 85 09/26/16 07:45 98.9 09/26/16 07:28 94 Nasal Cannula 2.00 09/26/16 06:00 97 09/26/16 06:00 97 21 128/81 97 09/26/16 05:00 103 20 126/58 94 09/26/16 04:00 98.9 100 21 131/59 95 09/26/16 04:00 100 09/26/16 03:00 105 23 139/57 94 09/26/16 02:00 106 09/26/16 02:00 106 25 133/58 93 09/26/16 01:00 103 19 114/55 95 09/26/16 00:00 109 09/26/16 00:00 98.1 109 22 113/53 94 09/25/16 23:00 110 21 103/54 95 09/25/16 22:00 111 09/25/16 22:00 111 28 108/53 96 09/25/16 21:00 111 26 119/56 96 09/25/16 20:00 109 09/25/16 20:00 99.2 108 23 124/58 97 09/25/16 19:44 98 Nasal Cannula 2.00 09/25/16 19:00 109 21 136/63 97 09/25/16 18:00 111 22 134/65 94 09/25/16 17:00 108 31 128/60 94 09/25/16 16:20 98.4 100 21 117/56 92 -: 09/25/16 0500 09/26/16 0500 Physical Exam General Appearance: No Acute Distress, Pale Eyes Eye Exam: Pupils Equal, Pupils Reactive Pulmonary Resp Exam: Clear Bilaterally, Breath Sounds Equal Cardiology CV Exam: Regular, Normal Sinus Rhythm Gastrointestinal/Abdomen GI Exam: Distended Extremeties Extremities Exam: Moderate Edema (1-2+ plus pitting edema involving lower extremities hips and dependent torso.) Neurologic Neuro Exam: Alert, Awake Assessment/Plan Discussed Condition With: Patient Problem List: (1) CKD (chronic kidney disease) stage 2, GFR 60-89 ml/min Plan: The patient is making progress daily. Still has significant dependent edema. Continue diuretics as tolerated. Bumetanide today 1 again. Continue Diuril. Creatinine level now within "normal range". Patient appears to be improving overall and hopefully this will continue. Still with guarded prognosis. Medications should be adjusted for the patient's estimated GFR if clinically indicated. Avoid agents with significant potential for nephrotoxicity possible including NSAIDs for analgesia, iodine contrast agents. Gadolinium is contraindicated if the GFR is below 30. (2) Nontraumatic compartment syndrome of abdomen Plan: Patient is at risk for. (3) Hypernatremia Plan: Resolved. Discontinue IV D5W. Broderick Hendricks MD Sep 26, 2016 15:27
[2016-09-26] MEDS ORDERED: BUMETANIDE INJ 1 MG/4 ML VIAL IV PUSH ONE (15:30)
[2016-09-26] MEDS: FAT EMULSION 20% INJ 250 ML (Twice weekly over 8 hours) IV-CENTRAL SCH (22:16)
[2016-09-26] MEDS: MULTIVITAMIN INJ 10 ML, FOLIC ACID INJ 1 MG in AMINO ACID IN D5W W/ELECTROLYT 1,000 ML IV-CENTRAL SCH ×3 (22:16)
[2016-09-27] VITALS (29 sets, daily range): BP systolic 100–153; BP diastolic 49–91; PULSE 92–114; RESP 13–30; TEMP 98–101.7; O2SAT 94–98
[2016-09-27] MEDS: VANCOMYCIN 500 MG VIAL (FOR ORAL USE ONLY) PO SCH ×4 (01:10→17:39)
[2016-09-27] MEDS: VANCOMYCIN INJ 500 MG in SODIUM CHLORIDE 0.9% IRR BTL 250 ML IRRIGATION SCH ×4 (01:10→17:38)
[2016-09-27] MEDS: metroNIDAZOLE 500 MG INJ 100 ML IV SCH ×4 (01:10→21:40)
[2016-09-27] MEDS: MORPHINE SULFATE 4 MG/ML INJ IV PRN ×4 (01:11→21:43)
[2016-09-27] MEDS: CHLORHEXIDINE GLUCONATE 2 % 1 PACK (2 CLOTHS) TOP SCH (05:47)
[2016-09-27] MEDS: HEPARIN SODIUM - SQ 10,000 UNITS/ML VIAL SQ SCH ×3 (05:48→21:41)
[2016-09-27] MEDS: LEVOTHYROXINE SODIUM 100 MCG VIAL IV PUSH SCH (05:48)
[2016-09-27 07:46] LABS: BICARBONATE 33.5 MEQ/L (21.0-32.0); MAGNESIUM 1.6 MG/DL (1.5-2.5); POTASSIUM 3.2 MEQ/L (3.5-5.1)
[2016-09-27] MEDS: ALBUMIN HUMAN 25% 12.5 GM/50 ML BAGP IV SCH ×2 (08:21→21:41)
[2016-09-27] MEDS: SODIUM CHLORIDE 0.9% FLUSH 10 ML FLUSH IV FLUSH SCH ×3 (08:22→21:41)
[2016-09-27] MEDS: PANTOPRAZOLE SODIUM 40 MG VIAL IV SCH (08:22)
[2016-09-27] MEDS: ARTIFICIAL TEARS OPTH SOLN 15 ML BTL EACH EYE SCH ×3 (08:22→17:38)
[2016-09-27] MEDS: FIDAXOMICIN 200 MG TAB PO SCH ×2 (09:00→21:41)
[2016-09-27] MEDS: POTASSIUM CHLORIDE 25 MEQ EFFERVESCENT TAB NG SCH (09:00)
[2016-09-27] MEDS: SODIUM CHLORIDE 0.9% FLUSH 10 ML FLUSH IVF SCH (09:00)
[2016-09-27] MEDS: CHLOROTHIAZIDE SOD 500 MG VIAL IV SCH ×2 (10:00→21:42)
[2016-09-27] MEDS: POTASSIUM CHLOR 40 MEQ PREMIX 100 ML IV PRN ×2 (10:51→12:51)
--- NOTE | 2016-09-27 12:32 | HHI.GIFU ---
Subjective Remarks Resting in bed. Continues to have diffuse abdominal tenderness, but much improved. Abdominal distention improved as well. Taking small amounts of clears- does not care for the clear liquids. (+) Stool. Objective Vitals I&O Vital Signs Date Time Temp Pulse Resp B/P Pulse Ox O2 Delivery O2 Flow Rate FiO2 09/27/16 12:00 99.3 93 24 138/60 96 09/27/16 12:00 93 09/27/16 10:00 93 09/27/16 08:00 99.1 94 24 136/60 96 09/27/16 08:00 93 09/27/16 07:35 97 Nasal Cannula 2.00 09/27/16 06:00 97 09/27/16 04:00 100.5 101 30 122/58 95 09/27/16 04:00 101 09/27/16 02:00 108 09/27/16 00:00 98.0 114 22 153/67 94 09/27/16 00:00 114 09/26/16 22:11 96 Nasal Cannula 2.00 09/26/16 22:00 111 09/26/16 20:00 109 09/26/16 20:00 98.1 109 22 141/64 97 09/26/16 19:00 108 21 143/66 95 09/26/16 18:00 106 18 154/67 93 09/26/16 17:00 102 18 117/55 93 09/26/16 16:00 101 18 133/63 92 09/26/16 15:50 23 09/26/16 15:00 99 19 124/57 93 09/26/16 14:00 104 23 118/59 93 09/26/16 13:00 102 22 118/59 93 I/O 09/26/16 09/26/16 09/26/16 09/27/16 09/27/16 09/27/16 07:00 15:00 23:00 07:00 15:00 23:00 Intake Total 776 ml 1097 ml 478 ml Output Total 650 ml 2470 ml 150 ml Balance 126 ml -1373 ml 328 ml Intake Oral 60 ml 240 ml 0 ml IV Total 454 ml 511 ml 478 ml TPN/PPN 262 ml 296 ml Albumin 50 ml Output Urine Total 450 ml 1550 ml 150 ml Stool Total 200 ml 920 ml # Bowel Movements 0 Laboratory Laboratory Tests Test 09/27/16 05:45 Sodium Level 142 Potassium Level 3.2 Chloride Level 104 Carbon Dioxide Level 33.5 Anion Gap 5 Blood Urea Nitrogen 27 Creatinine 0.89 Estimat Glomerular Filtration 60 Rate Random Glucose 124 Calcium Level 7.8 Phosphorus Level 2.2 Magnesium Level 1.6 Imaging Last Impressions Abdomen/Pelvis CT 09/24/16 0000 Signed Impressions: Service Date/Time: Saturday, September 24, 2016 21:10 - CONCLUSION: 1. The colon remains abnormal in appearance with diffuse wall thickening and inflammatory change. The small bowel is decompressed. 2. Moderate amount of ascitic fluid which may be mildly increased. 3. Small bilateral pleural effusions again noted with mild consolidation in the lung bases. 4. Small nonobstructing right renal calculus. 5. Interval placement of rectal tube. A nasogastric tube is been placed as well. Chucho Padgett MD Renal Ultrasound 09/22/16 0000 Signed Impressions: Service Date/Time: Thursday, September 22, 2016 18:32 - CONCLUSION: 1. Suboptimal visualization of the kidneys with no definite hydronephrosis or focal lesion. 2. Small amount of ascitic fluid and small bilateral pleural effusions. 3. Echogenic debris in the gallbladder most consistent with sludge. Chucho Padgett MD Abdomen X-Ray 09/21/16 0600 Signed Impressions: Service Date/Time: Wednesday, September 21, 2016 04:25 - CONCLUSION: Stable gaseous distention of colon. Marty Marinelli MD Shoulder X-Ray 09/20/16 0000 Signed Impressions: Service Date/Time: Tuesday, September 20, 2016 09:53 - CONCLUSION: No significant interval change is identified. There is a displaced mildly comminuted proximal left humeral neck fracture with rotation of the humeral head and associated shortening. En Robledo MD Hip and Pelvis X-Ray 09/20/16 0000 Signed Impressions: Service Date/Time: Tuesday, September 20, 2016 09:57 - CONCLUSION: Left hip bipolar arthroplasty hardware demonstrates no acute finding. The bones are undermineralized but no fracture is visualized. En Robledo MD Chest X-Ray 09/18/16 0000 Signed Impressions: Service Date/Time: Sunday, September 18, 2016 15:27 - CONCLUSION: Bibasilar areas of mild atelectasis or consolidation being worse on the right. There are suspected mild bilateral pleural effusions. En Lambert MD Physical Exam HEENT: Normocephalic; atraumatic; no jaundice CHEST: Resp even/unlabored, diminished CARDIAC: RRR ABDOMEN: Hypoactive BS, soft, mild to moderate distention, moderate diffuse tenderness- improved. Flexiseal with liquid stool EXTREMITIES: Generalized edema. Left CKS, Left upper extremity in sling. SKIN: Normal; no rash; no jaundice. 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 Assessment and Plan Plan ASSESSMENT: - Severe C difficile colitis (Epid 027+) in patient with recent abx use and hypotension). CT Scan abdomen and pelvis with IV contrast (09/15/16)----> Diffuse thickening of the entire colon consistent with diffuse colitis. Mild atherosclerotic calcifications seen at the aorta. There is no aneurysm. Contrast is seen within the celiac, SMA and HARRIS. Small non-obstructing right renal stone. Colonoscopy (05/20/2005) revealed normal colon, medium internal hemorrhoids. Abdomen/Pelvis CT (09/18/16)----> 1. Compared to the prior examination of 09/17/2016, there has been no significant change in the overall appearance of the colon. There continues to be diffuse wall thickening involving the right and left colon suggestive of colitis with some moderate distention. However, no increased distention is seen on today's examination. There is no evidence of free air. 2. No change in the abdominal ascites. 3. No change in body wall anasarca. 4. No change in the bibasilar infiltrates and bilateral effusions. S/P Decompressive colonoscopy (09/23/16)-----> Colonoscopy with direct instillation of vancomycin enema into the right and transverse colon. Colonic drainage tube left in place to about the splenic flexure. This can be used to irrigate vancomycin to reach the cecum and ascending colon when the patient is on the right side. The mucosal surfaces do not appear to be much inflamed, but there is mucosal edema in some areas. Repeat CT Abd /pelvis (09/24/16) ---> The colon remains abnormal in appearance with diffuse wall thickening and inflammatory change. The small bowel is decompressed. Moderate amount of ascitic fluid which may be mildly increased. Small bilateral pleural effusions again noted with mild consolidation in the lung bases. Small nonobstructing right renal calculus. Interval placement of rectal tube. S/P Relistor (09/23/16). ID following. Oral vanco , flagyl, vanco enema, started on Dificid (09/22). Clinically, she is slowly improving. Will advance diet to fulls. - Colonic Ileus secondary to above. She has been taking pericolace and lactinex. S/P Decompression colonoscopy. S/P Relistor (09/23). Will advance diet to full liquids. If worsening distention, consider repeat dose of relistor. - Malnutrition. Was started on TPN, Clinimix E 4.25/25 at rate of 30 ml/hr. Clear liquids - Sepsis/Leukocytosis secondary to severe CDiff infection. WBC 13.3. ID following, Flagyl, Dificid, Oral vanco, Vanco enemas, - Anemia. Stable, 9.7/29.2. - Acute on chronic kidney injury. labs improving - Recent fall at home on 09/04/16 and sustained a left femoral neck fracture and left humeral head fracture. S/P Bipolar hemiarthroplasty on 09/05/[address] iBll and her left humeral head fracture is being treated conservatively with sling. She was transferred to [facility] on 09/09/16, but transferred to the unit for severe abdominal tenderness and leukocytosis with concern for mesenteric ischemia. - History of TIA (on plavix), OA, Hx HTN now with hypotension, hyperlipidemia, CKD per attending. PLAN: - Full liquids - Cont. TPN - Cont. Dificid - Cont. Flagyl IV - Cont. Oral Vancomycin - Cont. Vanco Enema 500mg in 100mL NS retention enema WV q6h - Cont. IVF - S/P Relistor (09/23) - If worsening distention once diet advanced, consider repeat dose of Relistor - ID following - Palliative care following. Pt is a DNR. - Pt was seen and examined by myself and Dr. Barnett and this note was written on his behalf Dinora Renteria Sep 27, 2016 12:32
--- NOTE | 2016-09-27 12:47 | HHI.PR ---
Subjective Remarks Pt had a low grade temp this morning around 0400 Pt not taking in much by mouth except some minimal sips of clear liquids Pt complains of pain "all over" She has documented 920mL of stool output overnight. Objective Vitals Vital Signs Date Time Temp Pulse Resp B/P Pulse Ox O2 Delivery O2 Flow Rate FiO2 09/27/16 12:00 99.3 93 24 138/60 96 09/27/16 12:00 93 09/27/16 10:00 93 09/27/16 08:00 99.1 94 24 136/60 96 09/27/16 08:00 93 09/27/16 07:35 97 Nasal Cannula 2.00 09/27/16 06:00 97 09/27/16 04:00 100.5 101 30 122/58 95 09/27/16 04:00 101 09/27/16 02:00 108 09/27/16 00:00 98.0 114 22 153/67 94 09/27/16 00:00 114 09/26/16 22:11 96 Nasal Cannula 2.00 09/26/16 22:00 111 09/26/16 20:00 109 09/26/16 20:00 98.1 109 22 141/64 97 09/26/16 19:00 108 21 143/66 95 09/26/16 18:00 106 18 154/67 93 09/26/16 17:00 102 18 117/55 93 09/26/16 16:00 101 18 133/63 92 09/26/16 15:50 23 09/26/16 15:00 99 19 124/57 93 09/26/16 14:00 104 23 118/59 93 09/26/16 13:00 102 22 118/59 93 09/26/16 09/26/16 09/27/16 15:00 23:00 07:00 Intake Total 1097 ml 478 ml Output Total 2470 ml 150 ml Balance -1373 ml 328 ml Intake Oral 240 ml 0 ml IV Total 511 ml 478 ml TPN/PPN 296 ml Albumin 50 ml Output Urine Total 1550 ml 150 ml Stool Total 920 ml # Bowel Movements 0 Result Diagram: 09/25/16 0500 09/27/16 0545 Other Results Laboratory Tests Test 09/26/16 09/27/16 05:00 05:45 Sodium Level 142 MEQ/L 142 MEQ/L Potassium Level 3.7 MEQ/L 3.2 MEQ/L Chloride Level 105 MEQ/L 104 MEQ/L Carbon Dioxide Level 31.3 MEQ/L 33.5 MEQ/L Anion Gap 6 MEQ/L 5 MEQ/L Blood Urea Nitrogen 31 MG/DL 27 MG/DL Creatinine 0.90 MG/DL 0.89 MG/DL Estimat Glomerular Filtration 59 ML/MIN 60 ML/MIN Rate Random Glucose 141 MG/DL 124 MG/DL Calcium Level 8.2 MG/DL 7.8 MG/DL Phosphorus Level 2.7 MG/DL 2.2 MG/DL Magnesium Level 1.7 MG/DL 1.6 MG/DL Imaging Last Impressions Abdomen/Pelvis CT 09/24/16 0000 Signed Impressions: Service Date/Time: Saturday, September 24, 2016 21:10 - CONCLUSION: 1. The colon remains abnormal in appearance with diffuse wall thickening and inflammatory change. The small bowel is decompressed. 2. Moderate amount of ascitic fluid which may be mildly increased. 3. Small bilateral pleural effusions again noted with mild consolidation in the lung bases. 4. Small nonobstructing right renal calculus. 5. Interval placement of rectal tube. A nasogastric tube is been placed as well. Chucho Padgett MD Renal Ultrasound 09/22/16 0000 Signed Impressions: Service Date/Time: Thursday, September 22, 2016 18:32 - CONCLUSION: 1. Suboptimal visualization of the kidneys with no definite hydronephrosis or focal lesion. 2. Small amount of ascitic fluid and small bilateral pleural effusions. 3. Echogenic debris in the gallbladder most consistent with sludge. Chucho Padgett MD Abdomen X-Ray 09/21/16 0600 Signed Impressions: Service Date/Time: Wednesday, September 21, 2016 04:25 - CONCLUSION: Stable gaseous distention of colon. Marty Marinelli MD Shoulder X-Ray 09/20/16 0000 Signed Impressions: Service Date/Time: Tuesday, September 20, 2016 09:53 - CONCLUSION: No significant interval change is identified. There is a displaced mildly comminuted proximal left humeral neck fracture with rotation of the humeral head and associated shortening. En Robledo MD Hip and Pelvis X-Ray 09/20/16 0000 Signed Impressions: Service Date/Time: Tuesday, September 20, 2016 09:57 - CONCLUSION: Left hip bipolar arthroplasty hardware demonstrates no acute finding. The bones are undermineralized but no fracture is visualized. En Robledo MD Chest X-Ray 09/18/16 0000 Signed Impressions: Service Date/Time: Sunday, September 18, 2016 15:27 - CONCLUSION: Bibasilar areas of mild atelectasis or consolidation being worse on the right. There are suspected mild bilateral pleural effusions. En Lambert MD Objective Remarks General: NAD, Alert, oriented to self and place Chest: CTA, diminished Cardiac: RRR Abd: Hypoactive BS, soft, moderate distention, moderate diffuse tenderness. Rectal tube in place. Ext: Generalized edema. Left upper extremity in sling. Date of Insertion: Sep 15, 2016 Date of Removal: Sep 16, 2016 Line: Central Venous Catheter Side: Right Location: Internal, Jugular A/P Problem List: (1) Colitis, Clostridium difficile Status: Acute Plan: - Pt was recently hospitalized after a fall at home on 09/04/16 and sustained a left femoral neck fracture and left humeral head fracture. S/P Bipolar hemiarthroplasty on 09/05/[address] Bill and her left humeral head fracture is being treated conservatively with sling. She was transferred to [facility] on 09/09/16, but transferred to the unit for severe abdominal tenderness, hypotension and leukocytosis. - Pt was found to have severe C difficile colitis (Epid 027+) with colonic ileus. - CT Abd/pelvis with IV contrast (09/15/16)--> Diffuse thickening of the entire colon consistent with diffuse colitis. Mild atherosclerotic calcifications seen at the aorta. There is no aneurysm. Contrast is seen within the celiac, SMA and HARRIS. Small non-obstructing right renal stone. - Repeat CT Abd/Pelvis (09/18/16)--> Compared to the prior examination of 2016, there has been no significant change in the overall appearance of the colon. There continues to be diffuse wall thickening involving the right and left colon suggestive of colitis with some moderate distention. However, no increased distention is seen on today's examination. There is no evidence of free air. No change in the abdominal ascites. No change in body wall anasarca. No change in the bibasilar infiltrates and bilateral effusions. - She underwent Decompressive colonoscopy (09/23/16)---> Colonoscopy with direct instillation of vancomycin enema into the right and transverse colon. The mucosal surfaces do not appear to be much inflamed, but there is mucosal edema in some areas. Colonic drainage tube left in place to about the splenic flexure which is being used to irrigate vancomycin to reach the cecum and ascending colon when the patient is on the right side. - Pt received Relistor on 09/13 for any associated opiate induced ileus - Repeat CT Abd/pelvis (09/24/16) ---> The colon remains abnormal in appearance with diffuse wall thickening and inflammatory change. The small bowel is decompressed. Moderate amount of ascitic fluid which may be mildly increased. Small bilateral pleural effusions again noted with mild consolidation in the lung bases. Small nonobstructing right renal calculus. Interval placement of rectal tube. A nasogastric tube is been placed as well. - IF anf GI following. - Pt is on oral vanco, flagyl, vanco enema, started on Dificid (09/22). - Clinically, she seems to be slowly improving. - Pt is a DNR. (2) Acute kidney injury (nontraumatic) Status: Acute Plan: - Improving. - Pt with significant dependent edema/hypoalbuminemia/pleural effusions/ascites/ compressive lung - Nephrology is following. - She has been receiving Bumex IV given oliguria and renal functions improved as well as UOP - Pt is on Diuril 250mg IV Q12H - Pt is on TPN - Cont Albumin 12.5grams IV Q12H - Monitor renal function (3) Hip fracture, left Status: Acute Plan: - See above. (4) Humerus head fracture Status: Acute Plan: - See above. 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 (7) Hypothyroid Status: Chronic (8) Dyslipidemia Status: Chronic (9) Peripheral neuropathy Status: Chronic (10) Spinal stenosis Status: Chronic Problem Qualifiers (1) Hip fracture, left: Qualified Code: S72.002D - Hip fracture, left, closed, with routine healing, subsequent encounter (2) Humerus head fracture: (3) HTN (hypertension): Qualified Code: I10 - Essential hypertension (4) Hypothyroid: Qualified Code: E03.9 - Hypothyroidism, unspecified type (5) Peripheral neuropathy: Qualified Code: G62.9 - Peripheral polyneuropathy (6) Spinal stenosis: Qualified Code: M48.06 - Spinal stenosis of lumbar region Sarita Stanley Sep 27, 2016 12:47
--- NOTE | 2016-09-27 16:35 | HHI.HCPN ---
Reason for visit a. To assist with evaluation and management of symptoms including: abdominal pain; debility, ileus b. To assist medical decision maker(s) with: better understanding of current medical conditions; weighing benefits/burdens of medical treatment options; making medical treatment decisions. . Subjective/Interval History Patient is lethargic on exam, grimacing with eyes tightly closed. She reports ongoing abdominal pain, rated 10 out of 10. Patient son is a bedside. Current order for PRN Morphine 2mg IV q 2hours; 5 doses were administered over the past 24 hours. Patient is not able to use nursing call button to request PRN pain medication at this time. Recommendations to initiate a small dose of Morphine q 6 hours ATC; both patient and son are amenable to this change. Patient with low-grade fevers overnight. Patient remains on Dificid, the Flagyl , oral vancomycin and vancomycin enema. Nephrology continues to follow. Kidney functioning and urine output. BUN: 27, creatinine 0.89, GFR 60. Remains on TPN, tolerating minimal sips of clear liquids. 920 ML liquid stool overnight. . Family/friend interactions Spoke with patient's son, Reed, at bedside and again on the telephone later today. . Advance Directives Living Will: Completed, but not made available Health Care Surrogate: Copy in medical record Durable Power of Soft Drink Powder Mixer: Never completed Advance Directive Specifics Date completed: Son reports that patient completed a living will and designation of health care surrogacy when she completed her financial will. She might also have completed once since being here in the hospital. Patient has verbally stated (and witnessed) 09/23/16 that she wanted to designate her surrogate to be her son Reed in [place]. . Health Care Surrogate(s): Patient verbally states that she wants her son -- Reed -- to be her health care surrogate. Reed says she has completed paper work designating him in writing. We don't yet have this on the chart. Nurses have now confirmed and witnessed her stating her desire for Reed to be her surrogate. This is now on the chart. . . Documented care wishes: No written documentation currently available regarding patient's health care goals /preferences. . Objective Vital Signs Date Time Temp Pulse Resp B/P Pulse Ox O2 Delivery O2 Flow Rate FiO2 09/27/16 14:00 93 09/27/16 12:00 99.3 93 24 138/60 96 7/3/17 12:00 93 09/27/16 10:00 93 09/27/16 08:00 99.1 94 24 136/60 96 09/27/16 08:00 93 09/27/16 07:35 97 Nasal Cannula 2.00 09/27/16 06:00 97 09/27/16 04:00 100.5 101 30 122/58 95 09/27/16 04:00 101 09/27/16 02:00 108 09/27/16 00:00 98.0 114 22 153/67 94 09/27/16 00:00 114 09/26/16 22:11 96 Nasal Cannula 2.00 09/26/16 22:00 111 09/26/16 20:00 109 09/26/16 20:00 98.1 109 22 141/64 97 09/26/16 19:00 108 21 143/66 95 09/26/16 18:00 106 18 154/67 93 09/26/16 17:00 102 18 117/55 93 Intake & Output 09/27/16 09/27/16 07:00 19:00 Intake Total 955 ml 726 ml Output Total 2120 ml 1250 ml Balance -1165 ml -524 ml Intake Oral 120 ml IV Total 835 ml 380 ml TPN/PPN 296 ml Albumin 50 ml Output Urine Total 1300 ml 450 ml Stool Total 820 ml 800 ml # Bowel Movements 0 . Physical Exam CONSTITUTIONAL/GENERAL: This is an adequately nourished patient, lying somewhat stiffly in bed. Eyes are tightly closed with for brow, intermittent grimacing observed TUBES/LINES/DRAINS: Taylor catheter, PIV, PICC line RUE; fecal management system SKIN: No jaundice, rashes, or lesions. No wounds seen anteriorly. Skin temperature appropriate. Not diaphoretic. EYES: Pupils equal and round. Extraocular motions intact. No scleral icterus. No injection or drainage. Fundi not examined. ENT: Hearing grossly normal. Nose without bleeding or purulent drainage. Mucous membranes dry. Throat without visible erythema, exudates, masses, or lesions. NECK: Trachea midline. Supple, nontender. CARDIOVASCULAR: Regular rate and rhythm without murmurs, gallops, or rubs. No JVD. RESPIRATORY/CHEST: Symmetric, unlabored respirations. Breath sounds equal bilaterally. No wheezes, rales, or rhonchi. GASTROINTESTINAL: Abdomen distended; diffuse mild tenderness. No hepato- splenomegaly, or palpable masses. No guarding. Bowel sounds hypoactive. GENITOURINARY: Without palpable bladder distension. Taylor catheter in place. MUSCULOSKELETAL: Extremities without clubbing, cyanosis. Trace edema. Left upper extremity in sling. LYMPHATICS: Not examined. NEUROLOGICAL: Lethargic, oriented to person and place. Able to respond to simple questions appropriately. Follows most commands. Mild, intermittent confusion. PSYCHIATRIC: No obvious anxiety/depression. No apparent hallucinations or other psychotic thought process. . Diagnostic Tests Laboratory Laboratory Tests Test 09/25/16 09/26/16 09/27/16 05:00 05:00 05:45 White Blood Count 13.3 TH/MM3 (4.0-11.0) Red Blood Count 3.15 MIL/MM3 (4.00-5.30) Hemoglobin 9.7 GM/DL (11.6-15.3) Hematocrit 29.2 % (35.0-46.0) Mean Corpuscular Volume 92.8 FL (80.0-100.0) Mean Corpuscular Hemoglobin 30.9 PG (27.0-34.0) Mean Corpuscular Hemoglobin 33.3 % Concent (32.0-36.0) Red Cell Distribution Width 15.6 % (11.6-17.2) Platelet Count 237 TH/MM3 (150-450) Mean Platelet Volume 8.2 FL (7.0-11.0) Sodium Level 144 MEQ/L 142 MEQ/L 142 MEQ/L (136-145) (136-145) (136-145) Potassium Level 3.1 MEQ/L 3.7 MEQ/L 3.2 MEQ/L (3.5-5.1) (3.5-5.1) (3.5-5.1) Chloride Level 106 MEQ/L 105 MEQ/L 104 MEQ/L (98-107) (98-107) (98-107) Carbon Dioxide Level 33.3 MEQ/L 31.3 MEQ/L 33.5 MEQ/L (21.0-32.0) (21.0-32.0) (21.0-32.0) Anion Gap 5 MEQ/L (5-15) 6 MEQ/L (5-15) 5 MEQ/L (5-15) Blood Urea Nitrogen 37 MG/DL (7-18) 31 MG/DL (7-18) 27 MG/DL (7-18) Creatinine 1.06 MG/DL 0.90 MG/DL 0.89 MG/DL (0.50-1.00) (0.50-1.00) (0.50-1.00) Estimat Glomerular Filtration 49 ML/MIN (>89) 59 ML/MIN (>89) 60 ML/MIN (>89) Rate Random Glucose 143 MG/DL 141 MG/DL 124 MG/DL (74-106) (74-106) (74-106) Calcium Level 7.8 MG/DL 8.2 MG/DL 7.8 MG/DL (8.5-10.1) (8.5-10.1) (8.5-10.1) Phosphorus Level 1.8 MG/DL 2.7 MG/DL 2.2 MG/DL (2.5-4.9) (2.5-4.9) (2.5-4.9) Magnesium Level 1.7 MG/DL 1.7 MG/DL 1.6 MG/DL (1.5-2.5) (1.5-2.5) (1.5-2.5) Triglycerides Level 360 MG/DL (42-150) . Result Diagram: 09/25/16 0500 09/27/16 0545 Procedures * Right internal jugular central line. * Colonoscopy 09/22/16 . . Assessment and Plan Disease Oriented Problem List: (1) Colitis, Clostridium difficile Comment: Severe, life-threatening, virulent strain. . (2) Severe sepsis (3) Septic shock (4) Spinal stenosis (5) Peripheral neuropathy (6) Acute kidney injury (nontraumatic) (7) UTI (urinary tract infection) Comment: Enterobacter. Resolved. . (8) Hypothyroid Comment: TSH WNL (9) Humerus head fracture Comment: Left side from fall on 09/10/16. Sling therapy. . (10) Osteoarthritis (11) Hip fracture, left Comment: Left side. Bipolar gayla-arthroplasty on 09/05/16. . (12) Protein-calorie malnutrition, moderate Symptom Scale: (1) Pain 0-10 Scale: 10 Comment: Current pain is mostly abdominal. Also has history of chronic low back pain and neuropathic leg pain. Other sources of pain might include prolonged bedbound status; NG tube; venous access lines; fecal management systerm; taylor catheter; etc. . (2) Debility (3) Ileus Pertinent Non-Medical Issues Psychosocial: Had been living independently prior to her fall. Son in [place]; two sons in [place]; one son in [place]. Spiritual: Lapsed [employer]. Appreciates water quality managerparker recio. Legal: Pt verbally designates her son -- Reed -- as her surrogate and Reed claims there is paperwork confirming that selection. Ethical issues impacting care: Patient is mildly confused. Recommend shared decision making with her son. . Important Contacts * Reed Hebert (son) [phone] * Lore Hebert ([id number]-als) [phone] . Prognosis Patient currently has life-threatening diffuse colitis from C diff. showing some response to medical management. She is not interested in surgery even if it remains the only option to save her life and her chances of successful recovery after major surgery is in doubt. Because of her ileus, she is receiving nutrition via TPN which places her a further risk of sepsis. As she is currently hemodynamically stable, breathing on her own , and renal function is reasonable, she can afford to continue to see if medical management will work. Should there be another major setback, she wants to transition to comfort measures only and family endorses this plan. . Code Status: No Code Plan == Code Status: NO CODE == Decision making: Patient has intermittent mild confusion but appears to understand her illness and goals. She is generally capacitated to make her own health care decision, but recommend there be shared decision making with her surrogate. Should she become incapacitated, she has indicated that she wants her son Reed (the only son that lives in [place]) to be her health care surrogate. == Goals: Patient is willing to continue with medical management for the time being to see if the current antibiotic regimen and supportive care can conquer the colitis. She does NOT want surgery. She does not want to be resuscitated. If there is any significant setback or it is clear medical management is not working, she wants to transition to "comfort measures only" and be enrolled with hospice. == Pain: Pain sources described above with most pain being her abdominal pain at this time, rated 10 out of 10 on exam. Patient son is a bedside. Current order for PRN Morphine 2mg IV q 2hours; 5 doses were administered over the past 24 hours. Patient is not able to use nursing call button to request PRN pain medication at this time. Recommendations to initiate a small dose of Morphine q 6 hours ATC; both patient and son are minimal to this change. There are concerns about increasing her opiates due to recent hypotension and fear of exacerbating her ileus. If opiates are contributing to the ileus, we can offset this with methylnaltrexone (Relistor) and then perhaps increase her opiates if her BP tolerates it. == Ileus: Recommend several day trial of methylnaltrexone to see if blocking the bowel opiate receptors will help resolve the ileus. == Confusion: This is very mild and likely a multi-factorial delirium. She is mildly confused and she does not appear frightened/upset about the confusion. Do not see benefit from adding a neuroleptic at this time. Will continue to address underlying illnesses. == Palliative care will continue to follow to assist with symptom management and to further clarify goals of medical treatment as the clinical course evolves. . Attestation To help prompt me to consider important information that might be impacting today's encounter and assessment, information from prior notes written by myself or my colleagues may have been "brought forward" into today's note. My signature on this note, however, is an attestation that I personally performed the exam, history, and/or decision-making noted today, and, unless otherwise indicated, the interactions with patient, family, and staff as well as the review of records all occurred today. I also attest that the listed assessment and stated plan reflect my best clinical judgment today based on the combination of historical information, prior notes, and today's exam/ interactions. When time spent is documented, it refers only to time spent today by the signer, or if indicated, combined time spent today by collaborating physician/nurse practitioner. . Juana Goodson Sep 27, 2016 16:35 Juana Goodson Sep 27, 2016 16:35
--- NOTE | 2016-09-27 16:48 | HHI.IDPN ---
Subjective Subjective Remarks co severe abdominal pain no fever good UOP and creatinine better off pressors Sp rectal tubing placement with vanco instillations Antibiotics flagyl IV vanco po vanco enemas dificid Past Medical History Reviewed Allergies: Coded Allergies: Tizanidine (Verified Allergy, Severe, doesn't know, 09/09/16) Tramadol (Verified Allergy, Severe, doesn't remember, 09/09/16) Baclofen (Unverified Allergy, Intermediate, RASH, 09/09/16) Cipro (Unverified Allergy, Intermediate, RASH, 09/09/16) Cymbalta (Unverified Allergy, Intermediate, SEVERE RASH, 09/09/16) Elavil (Unverified Allergy, Intermediate, RASH, 09/09/16) Tetracycline (Unverified Allergy, Intermediate, RASH, 09/09/16) Triamcinolone (Unverified Allergy, Intermediate, SEVERE RASH, 09/09/16) Objective . Vital Signs Date Time Temp Pulse Resp B/P Pulse Ox O2 Delivery O2 Flow Rate FiO2 09/27/16 16:00 99.4 102 22 106/91 97 09/27/16 16:00 93 09/27/16 14:00 93 09/27/16 12:00 99.3 93 24 138/60 96 09/27/16 12:00 93 09/27/16 10:00 93 09/27/16 08:00 99.1 94 24 136/60 96 09/27/16 08:00 93 09/27/16 07:35 97 Nasal Cannula 2.00 09/27/16 06:00 97 09/27/16 04:00 100.5 101 30 122/58 95 09/27/16 04:00 101 09/27/16 02:00 108 09/27/16 00:00 98.0 114 22 153/67 94 09/27/16 00:00 114 09/26/16 22:11 96 Nasal Cannula 2.00 09/26/16 22:00 111 09/26/16 20:00 109 09/26/16 20:00 98.1 109 22 141/64 97 09/26/16 19:00 108 21 143/66 95 09/26/16 18:00 106 18 154/67 93 09/26/16 17:00 102 18 117/55 93 7/05/1409/26/16 09/27/16 15:00 23:00 07:00 Intake Total 1097 ml 478 ml Output Total 2470 ml 150 ml Balance -1373 ml 328 ml Intake Oral 240 ml 0 ml IV Total 511 ml 478 ml TPN/PPN 296 ml Albumin 50 ml Output Urine Total 1550 ml 150 ml Stool Total 920 ml # Bowel Movements 0 . Laboratory Tests Test 09/26/16 09/27/16 05:00 05:45 Sodium Level 142 MEQ/L 142 MEQ/L Potassium Level 3.7 MEQ/L 3.2 MEQ/L Chloride Level 105 MEQ/L 104 MEQ/L Carbon Dioxide Level 31.3 MEQ/L 33.5 MEQ/L Anion Gap 6 MEQ/L 5 MEQ/L Blood Urea Nitrogen 31 MG/DL 27 MG/DL Creatinine 0.90 MG/DL 0.89 MG/DL Estimat Glomerular Filtration 59 ML/MIN 60 ML/MIN Rate Random Glucose 141 MG/DL 124 MG/DL Calcium Level 8.2 MG/DL 7.8 MG/DL Phosphorus Level 2.7 MG/DL 2.2 MG/DL Magnesium Level 1.7 MG/DL 1.6 MG/DL Imaging Last Impressions Abdomen/Pelvis CT 09/24/16 0000 Signed Impressions: Service Date/Time: Saturday, September 24, 2016 21:10 - CONCLUSION: 1. The colon remains abnormal in appearance with diffuse wall thickening and inflammatory change. The small bowel is decompressed. 2. Moderate amount of ascitic fluid which may be mildly increased. 3. Small bilateral pleural effusions again noted with mild consolidation in the lung bases. 4. Small nonobstructing right renal calculus. 5. Interval placement of rectal tube. A nasogastric tube is been placed as well. Chucho Padgett MD Renal Ultrasound 09/22/16 0000 Signed Impressions: Service Date/Time: Thursday, September 22, 2016 18:32 - CONCLUSION: 1. Suboptimal visualization of the kidneys with no definite hydronephrosis or focal lesion. 2. Small amount of ascitic fluid and small bilateral pleural effusions. 3. Echogenic debris in the gallbladder most consistent with sludge. Chucho Padgett MD Abdomen X-Ray 09/21/16 0600 Signed Impressions: Service Date/Time: Wednesday, September 21, 2016 04:25 - CONCLUSION: Stable gaseous distention of colon. Marty Marinelli MD Shoulder X-Ray 09/20/16 0000 Signed Impressions: Service Date/Time: Tuesday, September 20, 2016 09:53 - CONCLUSION: No significant interval change is identified. There is a displaced mildly comminuted proximal left humeral neck fracture with rotation of the humeral head and associated shortening. En Robledo MD Hip and Pelvis X-Ray 09/20/16 0000 Signed Impressions: Service Date/Time: Tuesday, September 20, 2016 09:57 - CONCLUSION: Left hip bipolar arthroplasty hardware demonstrates no acute finding. The bones are undermineralized but no fracture is visualized. En Robledo MD Chest X-Ray 09/18/16 0000 Signed Impressions: Service Date/Time: Sunday, September 18, 2016 15:27 - CONCLUSION: Bibasilar areas of mild atelectasis or consolidation being worse on the right. There are suspected mild bilateral pleural effusions. En Lambert MD Physical Exam CONSTITUTIONAL/GENERAL: Awake and alert, not in distress, looks in distress 2 /2 pain SKIN: Warm. No jaundice, rashes, Eryhema noted on lower abdomen and diaper area Diffuse anasarca, less prominent HEENT: Garvin conjunctiva, no icterus. Dry oral mucosa without visible erythema, exudates, masses, or lesions. NECK: Supple, not tender CARDIOVASCULAR: Regular rate and rhythm without murmurs, gallops, or rubs. RESPIRATORY/CHEST: Symmetric, unlabored respirations. Clear to auscultation. Decreased at bases GASTROINTESTINAL: Abdomen remains appears slightly less distended and less tight with less abdominal tenderness, less guarding and no rebounding . Hypoactive BS. RECTAL: Dignishield in place with liquid brown stool GENITOURINARY: Bañuelos in place with small amount of clear yellow urine MUSCULOSKELETAL: Extremities without clubbing, cyanosis. Diffuse soft pitting edema, 3+, anasarca. No mottling NEUROLOGICAL: Grossly non-focal she is fully awalke and alert oriented x 3 PSYCHIATRIC: anxious Assessment & Plan Remarks Severe life threatening colitis, C.diff, hypervirilent stain 027 severe R side colon seem to be more involvedm, sp colonoscopy with rectal tube placement - pt with progressive ileus - slightly better today SIRS, sepsis - due to C.diff - acute renal dysfunction - improved lactic acidosis resolved No e/o UTI Pt remains critically ill - refuses colectomy, CRS s/o - vanco intillations ARF - resolved Pt actually improved clinically PLAN: Continue po vancomycin Continue vanco enemas for now. Anticipate few more days Continue IV flagyl cont dificid Avoid systemic abx Monitor progress Pt can have a stool transplant , she is not having current systemic abx therapy and not highly likely to have it soon rechk stool for C.diff rechk WBC Shayy Rodriguez MD Sep 27, 2016 16:48
--- NOTE | 2016-09-27 17:10 | HHI.NPPN ---
Subjective History of Present Illness 86-year-old female apparently with a history of severe colitis secondary to clostridium difficile. Mention in the records of his CKD stage II. Has continued complications with C diff colitis. NG tube been placed as well as rectal decompression 09/22 Started initially on Bumex drip given oliguria and renal functions improved as well as UOP Interval History Pt lethargic today (Nga Saleh) Review of Systems General Constitutional: Fatigue (Nga Saleh) Gastrointestinal Gastrointestinal: Abdominal Pain (Nga Saleh) Objective Data Data 09/26/16 09/27/16 19:00 07:00 Intake Total 620 ml 955 ml Output Total 500 ml 2120 ml Balance 120 ml -1165 ml Intake Oral 120 ml 120 ml IV Total 154 ml 835 ml TPN/PPN 296 ml Albumin 50 ml Output Urine Total 400 ml 1300 ml Stool Total 100 ml 820 ml # Bowel Movements 0 Vital Signs Date Time Temp Pulse Resp B/P Pulse Ox O2 Delivery O2 Flow Rate FiO2 09/27/16 16:00 99.4 102 22 106/91 97 09/27/16 16:00 93 09/27/16 14:00 93 09/27/16 12:00 99.3 93 24 138/60 96 09/27/16 12:00 93 09/27/16 10:00 93 09/27/16 08:00 99.1 94 24 136/60 96 09/27/16 08:00 93 09/27/16 07:35 97 Nasal Cannula 2.00 09/27/16 06:00 97 09/27/16 04:00 100.5 101 30 122/58 95 09/27/16 04:00 101 09/27/16 02:00 108 09/27/16 00:00 98.0 114 22 153/67 94 09/27/16 00:00 114 09/26/16 22:11 96 Nasal Cannula 2.00 09/26/16 22:00 111 09/26/16 20:00 109 09/26/16 20:00 98.1 109 22 141/64 97 09/26/16 19:00 108 21 143/66 95 09/26/16 18:00 106 18 154/67 93 (Nga Saleh) -: 09/25/16 0500 09/27/16 0545 Imaging Last Impressions Abdomen/Pelvis CT 09/24/16 0000 Signed Impressions: Service Date/Time: Saturday, September 24, 2016 21:10 - CONCLUSION: 1. The colon remains abnormal in appearance with diffuse wall thickening and inflammatory change. The small bowel is decompressed. 2. Moderate amount of ascitic fluid which may be mildly increased. 3. Small bilateral pleural effusions again noted with mild consolidation in the lung bases. 4. Small nonobstructing right renal calculus. 5. Interval placement of rectal tube. A nasogastric tube is been placed as well. Chucho Padgett MD Renal Ultrasound 09/22/16 0000 Signed Impressions: Service Date/Time: Thursday, September 22, 2016 18:32 - CONCLUSION: 1. Suboptimal visualization of the kidneys with no definite hydronephrosis or focal lesion. 2. Small amount of ascitic fluid and small bilateral pleural effusions. 3. Echogenic debris in the gallbladder most consistent with sludge. Chucho Padgett MD Abdomen X-Ray 09/21/16 0600 Signed Impressions: Service Date/Time: Wednesday, September 21, 2016 04:25 - CONCLUSION: Stable gaseous distention of colon. Marty Marinelli MD Shoulder X-Ray 09/20/16 0000 Signed Impressions: Service Date/Time: Tuesday, September 20, 2016 09:53 - CONCLUSION: No significant interval change is identified. There is a displaced mildly comminuted proximal left humeral neck fracture with rotation of the humeral head and associated shortening. En Robledo MD Hip and Pelvis X-Ray 09/20/16 0000 Signed Impressions: Service Date/Time: Tuesday, September 20, 2016 09:57 - CONCLUSION: Left hip bipolar arthroplasty hardware demonstrates no acute finding. The bones are undermineralized but no fracture is visualized. En Robledo MD Chest X-Ray 09/18/16 0000 Signed Impressions: Service Date/Time: Sunday, September 18, 2016 15:27 - CONCLUSION: Bibasilar areas of mild atelectasis or consolidation being worse on the right. There are suspected mild bilateral pleural effusions. En Lambert MD Medication Review Current Medications Medications (Trade) Dose Ordered Sig/Bunny Route Start Time Stop Time Status Last Admin (Synthroid) 25 mcg DAILY PO 09/15/16 09:00 Hold 09/18/16 08:54 (NS Flush) 2 ml UNSCH PRN IV FLUSH 09/15/16 08:15 09/25/16 16:27 (NS Flush) 2 ml BID IV FLUSH 09/15/16 09:00 09/27/16 08:22 (Tylenol) 650 mg Q6H PRN PO 09/15/16 08:15 Hold ([place] 5-325 Mg) 1 tab Q4H PRN PO 09/15/16 08:15 Hold 09/16/16 08:37 (Morphine Inj) 2 mg Q2H PRN IV 09/15/16 08:15 09/27/16 05:49 (Protonix Inj) 40 mg DAILY IV 09/15/16 09:00 09/27/16 08:22 (Tears Naturale Opth Soln) 1 drop TID EACH EYE 09/15/16 09:00 09/27/16 12:52 (Zofran Inj) 4 mg Q6H PRN IV 09/15/16 08:15 09/23/16 03:43 Miscellaneous Information 1 Q361D XX 09/15/16 08:15 09/15/16 08:15 (Chlorhexidine 2% Cloth) Taper DAILY@04 TOP 09/16/16 04:00 09/12/17 03:59 09/27/16 05:47 (Chlorhexidine 2% Cloth) 3 pack UNSCH PRN TOP 09/15/16 08:15 (Milk Of Magnesia Liq) 30 ml Q12H PRN PO 09/15/16 08:15 (Dulcolax Supp) 10 mg DAILY PRN RECTAL 09/15/16 08:15 Lactulose 30 ml 30 ml DAILY PRN PO 09/15/16 08:15 (Flagyl 500 Mg Inj) 100 ml @ 100 mls/hr Q6H IV 09/15/16 14:00 09/27/16 12:51 (NS Flush) DAILY IVF 09/16/16 09:00 09/27/16 09:00 (NS Flush) UNSCH PRN IVF 09/15/16 12:00 09/23/16 08:52 Vancomycin HCl 500 mg 500 mg Q6HR PO 09/15/16 13:15 09/27/16 12:00 (Vancomycin Inj/ NS Irr Btl) 250 ml @ 0 mls/hr Q6HR IRRIGATION 09/15/16 18:00 09/27/16 12:52 Heparin Sodium (Porcine) 5000 units 5,000 units Q8HR SQ 09/16/16 14:00 09/27/16 12:52 (Liposyn Iii 20% Inj) 250 ml @ 31.25 mls/ hr SuWe@20 IV-CENTRAL 09/19/16 20:00 09/26/16 22:16 (Apresoline Inj) 10 mg Q1HR PRN IV PUSH 09/17/16 16:30 09/18/16 00:19 (Nitroglycerin 2% Oint) 2 inch Q6HR PRN TOPICAL 09/17/16 16:30 (NS Flush) See Protocol DAILY IV FLUSH 09/18/16 09:00 09/27/16 08:23 (NS Flush) See Protocol UNSCH PRN IV FLUSH 09/17/16 21:45 09/23/16 08:52 (Heparin Central Flush) See Protocol DAILY IV FLUSH 09/18/16 09:00 09/27/16 08:22 (Heparin Central Flush) See Protocol UNSCH PRN IV FLUSH 09/17/16 21:45 09/26/16 04:57 (NS Flush) UNSCH PRN IV FLUSH 09/17/16 21:45 09/23/16 08:52 Levothyroxine Sodium 25 mcg 25 mcg DAILY@06 IV PUSH 09/19/16 06:00 09/27/16 05:48 Potassium Chloride 100 ml @ 50 mls/hr Q2H PRN IV 09/18/16 16:30 09/27/16 12:51 (KCl 20 Meq Premix Inj) 100 ml @ 50 mls/hr Q2H PRN IV 09/18/16 16:30 Potassium Bicarb/ Potassium Chloride 50 meq 50 meq UNSCH PRN PO 09/18/16 16:30 Potassium Chloride 100 ml @ 25 mls/hr UNSCH PRN IV 09/18/16 16:30 09/21/16 09:07 Potassium Chloride 100 ml @ 50 mls/hr Q2H PRN IV 09/18/16 16:30 (Magnesium Sulfate Inj/NS Inj) 100 ml @ 50 mls/hr UNSCH PRN IV 09/18/16 16:30 Magnesium Oxide 800 mg 800 mg UNSCH PRN PO 09/18/16 16:30 (Magnesium Sulfate Inj/NS Inj) 100 ml @ 50 mls/hr UNSCH PRN IV 09/18/16 16:30 Potassium Phosphate 2000 mg 2,000 mg Q4H PRN PO 09/18/16 16:30 (Sodium Phosphate Inj/NS 250 ml Inj) 250 ml @ 42 mls/hr UNSCH PRN IV 09/18/16 16:30 09/18/16 17:15 Potassium Phosphate 2000 mg 2,000 mg UNSCH PRN PO/TUBE 09/18/16 16:30 (Potassium Phosphate Inj/NS 250 ml Inj) 260 ml @ 42 mls/hr UNSCH PRN IV 09/18/16 16:30 09/25/16 11:02 (Chapstick) 1 applic UNSCH PRN TOPICAL 09/19/16 09:30 09/26/16 09:00 (Dificid) 200 mg BID PO 09/22/16 21:00 10/02/16 20:59 09/27/16 09:00 Albumin Human 12.5 gm 12.5 gm Q12HR IV 09/23/16 21:00 09/27/16 08:21 (Mvi-12 Inj/ Folvite Inj/ Clinimix E 4.25/ 25) 1,010.2 ml @ 30 mls/hr Q24H IV-CENTRAL 09/24/16 20:00 09/26/16 22:16 (Diuril Inj) 250 mg Q12H IV 09/25/16 22:00 09/26/16 10:00 (K-Lyte Cl Eff) 25 meq DAILY NG 09/25/16 15:30 09/27/16 09:00 (Nga Saleh) Physical Exam General Appearance: No Acute Distress, Pale (Nga Saleh) Eyes Eye Exam: Pupils Equal, Pupils Reactive (Nga Saleh) Pulmonary Resp Exam: Clear Bilaterally, Breath Sounds Equal (Nga Saleh) Cardiology CV Exam: Regular, Normal Sinus Rhythm (Nga Saleh) Gastrointestinal/Abdomen GI Exam: Distended (Nga Saleh) Extremeties Extremities Exam: Moderate Edema (1+ pitting edema involving lower extremities hips and dependent torso.) (Nga Saleh) Assessment/Plan Discussed Condition With: Patient Problem List: (1) CKD (chronic kidney disease) stage 2, GFR 60-89 ml/min Plan: SCr stable. UOP decent Bumex 1mg IVP tonight. KCl supplemented Patient appears to be improving overall and hopefully this will continue. Still with guarded prognosis. Medications should be adjusted for the patient's estimated GFR if clinically indicated. Avoid agents with significant potential for nephrotoxicity possible including NSAIDs for analgesia, iodine contrast agents. Gadolinium is contraindicated if the GFR is below 30. (2) Nontraumatic compartment syndrome of abdomen Plan: Patient is at risk for. (3) Hypernatremia Plan: Resolved. Discontinue IV D5W. (Nga Saleh) Plan The exam, history, and the medical decision-making described in the above note were completed with the assistance of the PAUna. I reviewed and agree with the findings presented. (Broderick Hendricks MD) Nga Saleh Sep 27, 2016 17:10 Broderick Hendricks MD Sep 28, 2016 12:55
[2016-09-27] MEDS ORDERED: POTASSIUM CHLOR 20 MEQ PREMIX 100 ML IV SCH (17:15)
[2016-09-27] MEDS ORDERED: BUMETANIDE INJ 1 MG/4 ML VIAL IV PUSH ONE (17:15)
[2016-09-27] MEDS: MULTIVITAMIN INJ 10 ML, FOLIC ACID INJ 1 MG in AMINO ACID IN D5W W/ELECTROLYT 1,000 ML IV-CENTRAL SCH ×3 (21:40)
[2016-09-28] VITALS (17 sets, daily range): BP systolic 108–149; BP diastolic 52–63; PULSE 97–105; RESP 16–22; TEMP 98.2–99.6; O2SAT 95–100
[2016-09-28] MEDS: VANCOMYCIN INJ 500 MG in SODIUM CHLORIDE 0.9% IRR BTL 250 ML IRRIGATION SCH ×2 (01:20→05:43)
[2016-09-28] MEDS: VANCOMYCIN 500 MG VIAL (FOR ORAL USE ONLY) PO SCH ×4 (01:20→17:57)
[2016-09-28] MEDS: metroNIDAZOLE 500 MG INJ 100 ML IV SCH ×4 (01:21→20:25)
[2016-09-28] MEDS: MORPHINE SULFATE 4 MG/ML INJ IV PRN ×2 (01:22→05:45)
[2016-09-28] MEDS: CHLORHEXIDINE GLUCONATE 2 % 1 PACK (2 CLOTHS) TOP SCH (01:22)
[2016-09-28] MEDS: HEPARIN SODIUM - SQ 10,000 UNITS/ML VIAL SQ SCH ×3 (05:44→22:22)
[2016-09-28] MEDS: LEVOTHYROXINE SODIUM 100 MCG VIAL IV PUSH SCH (05:44)
[2016-09-28 07:55] LABS: AUTOMATED NEUTROPHIL # 7.1 TH/MM3 (1.8-7.7); BASOPHIL # 0.1 TH/MM3 (0-0.2); BASOPHIL % 1.3 % (0.0-2.0); EOSINOPHIL # 0.1 TH/MM3 (0-0.4); EOSINOPHIL % 0.7 % (0.0-4.0); HEMATOCRIT 27.4 % (35.0-46.0); HEMO FLAGS DIFF FINAL; LYMPH % 7.1 % (9.0-44.0); LYMPHOCYTE # 0.6 TH/MM3 (1.0-4.8); MEAN CORPUSCULAR HEMOGLOBIN 30.6 PG (27.0-34.0); MEAN CORPUSCULAR HGB CONC 33.2 % (32.0-36.0); MONO % 8.2 % (0.0-8.0); NEUT % 82.7 % (16.0-70.0); PLATELET COUNT 238 TH/MM3 (150-450); RED BLOOD COUNT 2.98 MIL/MM3 (4.00-5.30); RED CELL DISTRIBUTION WIDTH 15.6 % (11.6-17.2); WHITE BLOOD COUNT 8.5 TH/MM3 (4.0-11.0)
[2016-09-28 08:20] LABS: MAGNESIUM 1.7 MG/DL (1.5-2.5); POTASSIUM 4.1 MEQ/L (3.5-5.1)
[2016-09-28] MEDS: ARTIFICIAL TEARS OPTH SOLN 15 ML BTL EACH EYE SCH ×3 (08:33→17:57)
[2016-09-28] MEDS: ALBUMIN HUMAN 25% 12.5 GM/50 ML BAGP IV SCH ×2 (08:34→20:25)
[2016-09-28] MEDS: FIDAXOMICIN 200 MG TAB PO SCH ×2 (08:36→20:26)
[2016-09-28] MEDS: POTASSIUM CHLORIDE 25 MEQ EFFERVESCENT TAB NG SCH (08:36)
[2016-09-28] MEDS: PANTOPRAZOLE SODIUM 40 MG VIAL IV SCH (08:36)
[2016-09-28] MEDS: SODIUM CHLORIDE 0.9% FLUSH 10 ML FLUSH IV FLUSH SCH ×3 (08:36→20:26)
[2016-09-28] MEDS: SODIUM CHLORIDE 0.9% FLUSH 10 ML FLUSH IVF SCH (08:37)
[2016-09-28] MEDS: CHLOROTHIAZIDE SOD 500 MG VIAL IV SCH ×2 (08:38→22:22)
--- NOTE | 2016-09-28 10:45 | HHI.GIFU ---
Subjective Remarks Resting in bed. Lethargic, confused. Tenderness much improved on exam. Pt unsure if she got out of bed yesterday, but there is a sheet on the chair. Objective Vitals I&O Vital Signs Date Time Temp Pulse Resp B/P Pulse Ox O2 Delivery O2 Flow Rate FiO2 09/28/16 06:00 99 09/28/16 04:00 98.2 98 16 127/58 99 09/28/16 04:00 98 09/28/16 02:00 104 09/28/16 00:00 98.2 102 16 108/52 98 09/28/16 00:00 102 09/27/16 22:00 106 09/27/16 20:00 103 09/27/16 20:00 101.7 103 13 104/49 95 09/27/16 19:34 94 Nasal Cannula 2.00 09/27/16 18:00 109 18 106/51 96 09/27/16 18:00 93 09/27/16 17:00 104 16 106/49 98 09/27/16 16:30 100 16 98 09/27/16 16:00 101 17 106/51 98 09/27/16 16:00 99.4 102 22 106/91 97 09/27/16 16:00 101 17 106/51 98 09/27/16 16:00 93 09/27/16 15:30 100 17 97 09/27/16 15:00 96 18 113/54 95 09/27/16 14:30 96 18 95 09/27/16 14:00 98 19 95 09/27/16 14:00 93 09/27/16 13:30 96 20 95 09/27/16 13:00 96 17 100/55 95 09/27/16 12:43 100 23 113/56 96 09/27/16 12:30 93 18 97 09/27/16 12:00 93 20 97 09/27/16 12:00 99.3 93 24 138/60 96 09/27/16 12:00 93 09/27/16 11:30 92 18 97 09/27/16 11:00 105 28 94 I/O 09/27/16 09/27/16 09/27/16 09/28/16 09/28/16 09/28/16 07:00 15:00 23:00 07:00 15:00 23:00 Intake Total 478 ml 726 ml 627 ml 322 ml Output Total 150 ml 1250 ml 1075 ml 300 ml Balance 328 ml -524 ml -448 ml 22 ml Intake Oral 0 ml 120 ml 0 ml IV Total 478 ml 380 ml 507 ml 322 ml TPN/PPN 296 ml Albumin 50 ml Output Urine Total 150 ml 450 ml 1075 ml 200 ml Stool Total 800 ml 0 ml 100 ml # Bowel Movements 0 Laboratory Laboratory Tests Test 09/27/16 09/28/16 20:20 05:35 Potassium Level 4.5 4.1 White Blood Count 8.5 Red Blood Count 2.98 Hemoglobin 9.1 Hematocrit 27.4 Mean Corpuscular Volume 92.0 Mean Corpuscular Hemoglobin 30.6 Mean Corpuscular Hemoglobin 33.2 Concent Red Cell Distribution Width 15.6 Platelet Count 238 Mean Platelet Volume 9.1 Neutrophils (%) (Auto) 82.7 Lymphocytes (%) (Auto) 7.1 Monocytes (%) (Auto) 8.2 Eosinophils (%) (Auto) 0.7 Basophils (%) (Auto) 1.3 Neutrophils # (Auto) 7.1 Lymphocytes # (Auto) 0.6 Monocytes # (Auto) 0.7 Eosinophils # (Auto) 0.1 Basophils # (Auto) 0.1 CBC Comment DIFF FINAL Differential Comment Sodium Level 143 Chloride Level 106 Carbon Dioxide Level 34.0 Anion Gap 3 Blood Urea Nitrogen 28 Creatinine 0.86 Estimat Glomerular Filtration 62 Rate Random Glucose 120 Calcium Level 8.0 Magnesium Level 1.7 Imaging Last Impressions Abdomen/Pelvis CT 09/24/16 0000 Signed Impressions: Service Date/Time: Saturday, September 24, 2016 21:10 - CONCLUSION: 1. The colon remains abnormal in appearance with diffuse wall thickening and inflammatory change. The small bowel is decompressed. 2. Moderate amount of ascitic fluid which may be mildly increased. 3. Small bilateral pleural effusions again noted with mild consolidation in the lung bases. 4. Small nonobstructing right renal calculus. 5. Interval placement of rectal tube. A nasogastric tube is been placed as well. Chucho Padgett MD Renal Ultrasound 09/22/16 0000 Signed Impressions: Service Date/Time: Thursday, September 22, 2016 18:32 - CONCLUSION: 1. Suboptimal visualization of the kidneys with no definite hydronephrosis or focal lesion. 2. Small amount of ascitic fluid and small bilateral pleural effusions. 3. Echogenic debris in the gallbladder most consistent with sludge. Chucho Padgett MD Abdomen X-Ray 09/21/16 0600 Signed Impressions: Service Date/Time: Wednesday, September 21, 2016 04:25 - CONCLUSION: Stable gaseous distention of colon. Marty Marinelli MD Shoulder X-Ray 09/20/16 0000 Signed Impressions: Service Date/Time: Tuesday, September 20, 2016 09:53 - CONCLUSION: No significant interval change is identified. There is a displaced mildly comminuted proximal left humeral neck fracture with rotation of the humeral head and associated shortening. En Robledo MD Hip and Pelvis X-Ray 09/20/16 0000 Signed Impressions: Service Date/Time: Tuesday, September 20, 2016 09:57 - CONCLUSION: Left hip bipolar arthroplasty hardware demonstrates no acute finding. The bones are undermineralized but no fracture is visualized. En Robledo MD Chest X-Ray 09/18/16 0000 Signed Impressions: Service Date/Time: Sunday, September 18, 2016 15:27 - CONCLUSION: Bibasilar areas of mild atelectasis or consolidation being worse on the right. There are suspected mild bilateral pleural effusions. En Lambert MD Physical Exam HEENT: Normocephalic; atraumatic; no jaundice CHEST: Resp shallow, even/unlabored, diminished CARDIAC: RRR ABDOMEN: Abdomen is soft, less distended, less tender, flexiseal/rectal tube in place with liquid stool. EXTREMITIES: Generalized edema. Left CKS, Left upper extremity in sling. SKIN: Normal; no rash; no jaundice. 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 CT Scan abdomen and pelvis with IV contrast (09/15/16)----> Diffuse thickening of the entire colon consistent with diffuse colitis. Mild atherosclerotic calcifications seen at the aorta. There is no aneurysm. Contrast is seen within the celiac, SMA and HARRIS. Small non-obstructing right renal stone. Colonoscopy (05/20/2005) revealed normal colon, medium internal hemorrhoids. Abdomen/Pelvis CT (09/18/16)----> 1. Compared to the prior examination of 09/17/2016, there has been no significant change in the overall appearance of the colon. There continues to be diffuse wall thickening involving the right and left colon suggestive of colitis with some moderate distention. However, no increased distention is seen on today's examination. There is no evidence of free air. 2. No change in the abdominal ascites. 3. No change in body wall anasarca. 4. No change in the bibasilar infiltrates and bilateral effusions. S/P Decompressive colonoscopy (09/23/16)-----> Colonoscopy with direct instillation of vancomycin enema into the right and transverse colon. Colonic drainage tube left in place to about the splenic flexure. This can be used to irrigate vancomycin to reach the cecum and ascending colon when the patient is on the right side. The mucosal surfaces do not appear to be much inflamed, but there is mucosal edema in some areas. Repeat CT Abd /pelvis (09/24/16) ---> The colon remains abnormal in appearance with diffuse wall thickening and inflammatory change. The small bowel is decompressed. Moderate amount of ascitic fluid which may be mildly increased. Small bilateral pleural effusions again noted with mild consolidation in the lung bases. Small nonobstructing right renal calculus. Interval placement of rectal tube. S/P Relistor (09/23/16). ID following. Oral vanco , flagyl, vanco enema, started on Dificid (09/22). Clinically, she is slowly improving- less distention, less tender. WBC 8.5. Will d/c rectal tube, vanco enema. Cont. Oral vanco, dificid x 10 days total, and flagyl. - Colonic Ileus, multifactorial secondary to cdiff, opiates, and immobility. She has been taking pericolace and lactinex. S/P Decompression colonoscopy. S/P Relistor (09/23). Improved. Pt OOB daily. Encourage mobility. - Malnutrition. Was started on TPN, Clinimix E 4.25/25 at rate of 30 ml/hr. Full liquids- will advanced as tolerated. - Sepsis/Leukocytosis secondary to severe CDiff infection. IMPROVED. WBC 8.5. ID following, Flagyl, Dificid, Oral vanco, Vanco enemas, - Anemia. Stable, 9.04/23.4 - Acute on chronic kidney injury. IMPROVED. - Recent fall at home on 09/04/16 and sustained a left femoral neck fracture and left humeral head fracture. S/P Bipolar hemiarthroplasty on 09/05/[address] Bill and her left humeral head fracture is being treated conservatively with sling. She was transferred to [facility] on 09/09/16, but transferred to the unit for severe abdominal tenderness and leukocytosis with concern for mesenteric ischemia. - History of TIA (on plavix), OA, Hx HTN now with hypotension, hyperlipidemia, CKD per attending. PLAN: - Full liquids- advance as tolerated - Cont. TPN - Cont. Dificid - Cont. Flagyl IV - Cont. Oral Vancomycin - D/C vanco enemas - D/C rectal tubes - OOB to chair daily - Cont. IVF - Monitor labs, clinical status - S/P Relistor (09/23) - ID following - Palliative care following. Pt is a DNR. - Pt was seen and examined by myself and Dr. Barnett and this note was written on his behalf Dinora Renteria Sep 28, 2016 10:45
--- NOTE | 2016-09-28 11:39 | HHI.PR ---
Subjective Remarks Pt was up to the chair for about an hour and a half this morning Pt still not eating much of anything by mouth. Appears more alert today. Afebrile. PT reports that the pts right knee is quite painful and swollen Objective Vitals Vital Signs Date Time Temp Pulse Resp B/P Pulse Ox O2 Delivery O2 Flow Rate FiO2 09/28/16 11:09 95 Nasal Cannula 2.00 09/28/16 06:00 99 09/28/16 04:00 98.2 98 16 127/58 99 09/28/16 04:00 98 09/28/16 02:00 104 09/28/16 00:00 98.2 102 16 108/52 98 09/28/16 00:00 102 09/27/16 22:00 106 09/27/16 20:00 103 09/27/16 20:00 101.7 103 13 104/49 95 09/27/16 19:34 94 Nasal Cannula 2.00 09/27/16 18:00 109 18 106/51 96 09/27/16 18:00 93 09/27/16 17:00 104 16 106/49 98 09/27/16 16:30 100 16 98 09/27/16 16:00 101 17 106/51 98 09/27/16 16:00 99.4 102 22 106/91 97 09/27/16 16:00 101 17 106/51 98 09/27/16 16:00 93 09/27/16 15:30 100 17 97 09/27/16 15:00 96 18 113/54 95 09/27/16 14:30 96 18 95 09/27/16 14:00 98 19 95 09/27/16 14:00 93 09/27/16 13:30 96 20 95 09/27/16 13:00 96 17 100/55 95 09/27/16 12:43 100 23 113/56 96 09/27/16 12:30 93 18 97 09/27/16 12:00 93 20 97 09/27/16 12:00 99.3 93 24 138/60 96 09/27/16 12:00 93 09/27/16 09/27/16 09/28/16 15:00 23:00 07:00 Intake Total 726 ml 627 ml 322 ml Output Total 1250 ml 1075 ml 300 ml Balance -524 ml -448 ml 22 ml Intake Oral 120 ml 0 ml IV Total 380 ml 507 ml 322 ml TPN/PPN 296 ml Albumin 50 ml Output Urine Total 450 ml 1075 ml 200 ml Stool Total 800 ml 0 ml 100 ml Result Diagram: 09/28/16 0535 09/28/16 0535 Other Results Laboratory Tests Test 09/27/16 09/27/16 09/28/16 05:45 20:20 05:35 Sodium Level 142 MEQ/L 143 MEQ/L Potassium Level 3.2 MEQ/L 4.5 MEQ/L 4.1 MEQ/L Chloride Level 104 MEQ/L 106 MEQ/L Carbon Dioxide Level 33.5 MEQ/L 34.0 MEQ/L Anion Gap 5 MEQ/L 3 MEQ/L Blood Urea Nitrogen 27 MG/DL 28 MG/DL Creatinine 0.89 MG/DL 0.86 MG/DL Estimat Glomerular Filtration 60 ML/MIN 62 ML/MIN Rate Random Glucose 124 MG/DL 120 MG/DL Calcium Level 7.8 MG/DL 8.0 MG/DL Phosphorus Level 2.2 MG/DL 2.2 MG/DL Magnesium Level 1.6 MG/DL 1.7 MG/DL White Blood Count 8.5 TH/MM3 Red Blood Count 2.98 MIL/MM3 Hemoglobin 9.1 GM/DL Hematocrit 27.4 % Mean Corpuscular Volume 92.0 FL Mean Corpuscular Hemoglobin 30.6 PG Mean Corpuscular Hemoglobin 33.2 % Concent Red Cell Distribution Width 15.6 % Platelet Count 238 TH/MM3 Mean Platelet Volume 9.1 FL Neutrophils (%) (Auto) 82.7 % Lymphocytes (%) (Auto) 7.1 % Monocytes (%) (Auto) 8.2 % Eosinophils (%) (Auto) 0.7 % Basophils (%) (Auto) 1.3 % Neutrophils # (Auto) 7.1 TH/MM3 Lymphocytes # (Auto) 0.6 TH/MM3 Monocytes # (Auto) 0.7 TH/MM3 Eosinophils # (Auto) 0.1 TH/MM3 Basophils # (Auto) 0.1 TH/MM3 CBC Comment DIFF FINAL Differential Comment Imaging Last Impressions Abdomen/Pelvis CT 09/24/16 0000 Signed Impressions: Service Date/Time: Saturday, September 24, 2016 21:10 - CONCLUSION: 1. The colon remains abnormal in appearance with diffuse wall thickening and inflammatory change. The small bowel is decompressed. 2. Moderate amount of ascitic fluid which may be mildly increased. 3. Small bilateral pleural effusions again noted with mild consolidation in the lung bases. 4. Small nonobstructing right renal calculus. 5. Interval placement of rectal tube. A nasogastric tube is been placed as well. Chucho Padgett MD Renal Ultrasound 09/22/16 0000 Signed Impressions: Service Date/Time: Thursday, September 22, 2016 18:32 - CONCLUSION: 1. Suboptimal visualization of the kidneys with no definite hydronephrosis or focal lesion. 2. Small amount of ascitic fluid and small bilateral pleural effusions. 3. Echogenic debris in the gallbladder most consistent with sludge. Chucho Padgett MD Abdomen X-Ray 09/21/16 0600 Signed Impressions: Service Date/Time: Wednesday, September 21, 2016 04:25 - CONCLUSION: Stable gaseous distention of colon. Marty Marinelli MD Shoulder X-Ray 09/20/16 0000 Signed Impressions: Service Date/Time: Tuesday, September 20, 2016 09:53 - CONCLUSION: No significant interval change is identified. There is a displaced mildly comminuted proximal left humeral neck fracture with rotation of the humeral head and associated shortening. En Robledo MD Hip and Pelvis X-Ray 09/20/16 0000 Signed Impressions: Service Date/Time: Tuesday, September 20, 2016 09:57 - CONCLUSION: Left hip bipolar arthroplasty hardware demonstrates no acute finding. The bones are undermineralized but no fracture is visualized. En Robledo MD Chest X-Ray 09/18/16 0000 Signed Impressions: Service Date/Time: Sunday, September 18, 2016 15:27 - CONCLUSION: Bibasilar areas of mild atelectasis or consolidation being worse on the right. There are suspected mild bilateral pleural effusions. En Lambert MD Objective Remarks General: NAD Chest: CTA, diminished Cardiac: RRR Abd: Hypoactive BS, soft, moderate distention, moderate diffuse tenderness. Rectal tubes still in place Ext: Generalized edema, right knee effusion. Left upper extremity in sling. Date of Insertion: Sep 15, 2016 Date of Removal: Sep 16, 2016 Line: Central Venous Catheter Side: Right Location: Internal, Jugular A/P Problem List: (1) Colitis, Clostridium difficile Status: Acute Plan: - Pt was recently hospitalized after a fall at home on 09/04/16 and sustained a left femoral neck fracture and left humeral head fracture. S/P Bipolar hemiarthroplasty on 09/05/[address] Bill and her left humeral head fracture is being treated conservatively with sling. She was transferred to [facility] on 09/09/16, but transferred to the unit for severe abdominal tenderness, hypotension and leukocytosis. - Pt was found to have severe C difficile colitis (Epid 027+) with colonic ileus. - CT Abd/pelvis with IV contrast (09/15/16)--> Diffuse thickening of the entire colon consistent with diffuse colitis. Mild atherosclerotic calcifications seen at the aorta. There is no aneurysm. Contrast is seen within the celiac, SMA and HARRIS. Small non-obstructing right renal stone. - Repeat CT Abd/Pelvis (09/18/16)--> Compared to the prior examination of 2016, there has been no significant change in the overall appearance of the colon. There continues to be diffuse wall thickening involving the right and left colon suggestive of colitis with some moderate distention. However, no increased distention is seen on today's examination. There is no evidence of free air. No change in the abdominal ascites. No change in body wall anasarca. No change in the bibasilar infiltrates and bilateral effusions. - She underwent Decompressive colonoscopy (09/23/16)---> Colonoscopy with direct instillation of vancomycin enema into the right and transverse colon. The mucosal surfaces do not appear to be much inflamed, but there is mucosal edema in some areas. Colonic drainage tube left in place to about the splenic flexure which is being used to irrigate vancomycin to reach the cecum and ascending colon when the patient is on the right side. - Pt received Relistor on 09/13 for any associated opiate induced ileus - Repeat CT Abd/pelvis (09/24/16) ---> The colon remains abnormal in appearance with diffuse wall thickening and inflammatory change. The small bowel is decompressed. Moderate amount of ascitic fluid which may be mildly increased. Small bilateral pleural effusions again noted with mild consolidation in the lung bases. Small nonobstructing right renal calculus. Interval placement of rectal tube. A nasogastric tube is been placed as well. - ID and GI following. - Pt is on oral vanco, flagyl, and started on Dificid (09/22). - Vanco enemas and rectal tubes D/C'd - Clinically, she seems to be slowly improving. - Pt will likely transfer to general medical floor tomorrow depending on clinical status. - Pt is a DNR. (2) Acute kidney injury (nontraumatic) Status: Acute Plan: - Improving. - Pt with significant dependent edema/hypoalbuminemia/pleural effusions/ascites/ compressive lung - Nephrology is following. - She has been receiving Bumex IV given oliguria and renal functions improved as well as UOP - Pt is on Diuril 250mg IV Q12H - Pt is on TPN - Cont Albumin 12.5grams IV Q12H - Monitor renal function (3) Hip fracture, left Status: Acute Plan: - See above. (4) Humerus head fracture Status: Acute Plan: - See above. 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 (7) Hypothyroid Status: Chronic (8) Dyslipidemia Status: Chronic (9) Peripheral neuropathy Status: Chronic (10) Spinal stenosis Status: Chronic Problem Qualifiers (1) Hip fracture, left: Qualified Code: S72.002D - Hip fracture, left, closed, with routine healing, subsequent encounter (2) Humerus head fracture: (3) HTN (hypertension): Qualified Code: I10 - Essential hypertension (4) Hypothyroid: Qualified Code: E03.9 - Hypothyroidism, unspecified type (5) Peripheral neuropathy: Qualified Code: G62.9 - Peripheral polyneuropathy (6) Spinal stenosis: Qualified Code: M48.06 - Spinal stenosis of lumbar region Sarita Stanley Sep 28, 2016 11:39
[2016-09-28] MEDS ORDERED: BUMETANIDE INJ 1 MG/4 ML VIAL IV PUSH ONE (12:00)
--- NOTE | 2016-09-28 12:54 | HHI.NPPN ---
Subjective History of Present Illness 86-year-old female apparently with a history of severe colitis secondary to clostridium difficile. Mention in the records of his CKD stage II. Has continued complications with C diff colitis. NG tube been placed as well as rectal decompression 09/22 Started initially on Bumex drip given oliguria and renal functions improved as well as UOP Interval History Patient had no new verbal complaints today. Review of Systems General Constitutional: Fatigue Gastrointestinal Gastrointestinal: Abdominal Pain Objective Data Data 09/27/16 09/28/16 19:00 07:00 Intake Total 726 ml 949 ml Output Total 1250 ml 1375 ml Balance -524 ml -426 ml Intake Oral 120 ml IV Total 380 ml 829 ml TPN/PPN 296 ml Albumin 50 ml Output Urine Total 450 ml 1275 ml Stool Total 800 ml 100 ml Vital Signs Date Time Temp Pulse Resp B/P Pulse Ox O2 Delivery O2 Flow Rate FiO2 09/28/16 11:09 95 Nasal Cannula 2.00 09/28/16 06:00 99 09/28/16 04:00 98.2 98 16 127/58 99 09/28/16 04:00 98 09/28/16 02:00 104 09/28/16 00:00 98.2 102 16 108/52 98 09/28/16 00:00 102 09/27/16 22:00 106 09/27/16 20:00 103 09/27/16 20:00 101.7 103 13 104/49 95 09/27/16 19:34 94 Nasal Cannula 2.00 09/27/16 18:00 109 18 106/51 96 09/27/16 18:00 93 09/27/16 17:00 104 16 106/49 98 09/27/16 16:30 100 16 98 09/27/16 16:00 101 17 106/51 98 09/27/16 16:00 99.4 102 22 106/91 97 09/27/16 16:00 101 17 106/51 98 09/27/16 16:00 93 09/27/16 15:30 100 17 97 09/27/16 15:00 96 18 113/54 95 09/27/16 14:30 96 18 95 09/27/16 14:00 98 19 95 09/27/16 14:00 93 09/27/16 13:30 96 20 95 7/3/17 13:00 96 17 100/55 95 -: 09/28/16 0535 09/28/16 0535 Physical Exam General Appearance: No Acute Distress, Pale Eyes Eye Exam: Pupils Equal, Pupils Reactive Pulmonary Resp Exam: Clear Bilaterally, Breath Sounds Equal Cardiology CV Exam: Regular, Normal Sinus Rhythm Gastrointestinal/Abdomen GI Exam: Distended Extremeties Extremities Exam: Moderate Edema (1+ pitting edema involving lower extremities hips and dependent torso.) Assessment/Plan Discussed Condition With: Patient Problem List: (1) CKD (chronic kidney disease) stage 2, GFR 60-89 ml/min Plan: SCr stable. UOP decent Continue diuretic therapy with Diuril for the present. 1 dose of Diamox as the patient appears to be developing a contraction alkalosis. Renal indices relatively stable. Patient appears to be improving overall and hopefully this will continue. Still with guarded prognosis. Medications should be adjusted for the patient's estimated GFR if clinically indicated. Avoid agents with significant potential for nephrotoxicity possible including NSAIDs for analgesia, iodine contrast agents. Gadolinium is contraindicated if the GFR is below 30. (2) Nontraumatic compartment syndrome of abdomen Plan: Patient is at risk for. (3) Hypernatremia Plan: Resolved. Discontinue IV D5W. Broderick Hendricks MD Sep 28, 2016 12:54
--- NOTE | 2016-09-28 14:44 | RADRPT ---
EXAM DATE/TIME: 09/28/2016 13:50 [facility] COMPARISON: No previous studies available for comparison. INDICATIONS : Joint Pain MEDICAL HISTORY : Cardiovascular disease. Hypertension. SURGICAL HISTORY : Left hip arthroplasty ENCOUNTER: Subsequent ACUITY: 3 weeks PAIN SCORE: Non-responsive. LOCATION: Right knee FINDINGS: Four view examination of the right knee demonstrates no evidence of fracture or dislocation. Bony mi neralization is normal. The articular surfaces are intact. The suprapatellar soft tissues have a no rmal configuration. CONCLUSION: 1. Mild osteoarthritis at the knee. No acute bony abnormality. Asim Abbasi MD on September 28, 2016 at 14:41 Board Certified Radiologist. This report was verified electronically.
--- NOTE | 2016-09-28 15:49 | HHI.HCPN ---
Reason for visit a. To assist with evaluation and management of symptoms including: abdominal pain; debility, ileus b. To assist medical decision maker(s) with: better understanding of current medical conditions; weighing benefits/burdens of medical treatment options; making medical treatment decisions. . Subjective/Interval History Patient presents sitting upright in recliner, more alert today. Physical therapy and occupational therapy are following, patient remains maximum assist for all mobility. Increased participation. She reports ongoing generalized pain that has decreased since yesterday. Current order for PRN Morphine 2mg IV q 2hours; 4 doses were administered over the past 24 hours. Patient tolerating minimal intake clear fluid diet, remains on TPN. Afebrile overnight. Patient remains on Dificid, the Flagyl, oral vancomycin and vancomycin enema. Nephrology continues to follow renal function and urine output. BUN: 28, creatinine 0.86, GFR 62 Patient showing some clinical improvement; goals remain aggressive up to the point of cardiopulmonary resuscitation. Possible chance for to medical floor tomorrow 08/30/2016. . Advance Directives Living Will: Completed, but not made available Health Care Surrogate: Copy in medical record Durable Power of Box Nailer: Never completed Advance Directive Specifics Date completed: Son reports that patient completed a living will and designation of health care surrogacy when she completed her financial will. She might also have completed once since being here in the hospital. Patient has verbally stated (and witnessed) 09/23/16 that she wanted to designate her surrogate to be her son Reed in [place]. . Health Care Surrogate(s): Patient verbally states that she wants her son -- Reed -- to be her health care surrogate. Reed says she has completed paper work designating him in writing. We don't yet have this on the chart. Nurses have now confirmed and witnessed her stating her desire for Reed to be her surrogate. This is now on the chart. . . Documented care wishes: No written documentation currently available regarding patient's health care goals /preferences. . Objective Vital Signs Date Time Temp Pulse Resp B/P Pulse Ox O2 Delivery O2 Flow Rate FiO2 09/28/16 11:09 95 Nasal Cannula 2.00 09/28/16 08:00 102 09/28/16 06:00 99 09/28/16 04:00 98.2 98 16 127/58 99 09/28/16 04:00 98 09/28/16 02:00 104 09/28/16 00:00 98.2 102 16 108/52 98 09/28/16 00:00 102 09/27/16 22:00 106 09/27/16 20:00 103 09/27/16 20:00 101.7 103 13 104/49 95 09/27/16 19:34 94 Nasal Cannula 2.00 09/27/16 18:00 109 18 106/51 96 09/27/16 18:00 93 09/27/16 17:00 104 16 106/49 98 09/27/16 16:30 100 16 98 09/27/16 16:00 101 17 106/51 98 09/27/16 16:00 99.4 102 22 106/91 97 09/27/16 16:00 101 17 106/51 98 09/27/16 16:00 93 Intake & Output 09/28/16 09/28/16 07:00 19:00 Intake Total 949 ml Output Total 1375 ml Balance -426 ml Intake Oral 120 ml IV Total 829 ml Output Urine Total 1275 ml Stool Total 100 ml . Physical Exam CONSTITUTIONAL/GENERAL: This is an frail appearing, female patient who presents sitting upright TUBES/LINES/DRAINS: Taylor catheter, PIV, PICC line RUE; fecal management system SKIN: No jaundice, rashes, or lesions. No wounds seen anteriorly. Skin temperature appropriate. Not diaphoretic. EYES: Pupils equal and round. Extraocular motions intact. No scleral icterus. No injection or drainage. Fundi not examined. ENT: Hearing grossly normal. Nose without bleeding or purulent drainage. Mucous membranes dry. Throat without visible erythema, exudates, masses, or lesions. NECK: Trachea midline. Supple, nontender. CARDIOVASCULAR: Regular rate and rhythm without murmurs, gallops, or rubs. No JVD. RESPIRATORY/CHEST: Symmetric, unlabored respirations. Breath sounds equal bilaterally. No wheezes, rales, or rhonchi. GASTROINTESTINAL: Abdomen distended; diffuse mild tenderness. No guarding. Bowel sounds hypoactive. GENITOURINARY: Without palpable bladder distension. Taylor catheter in place. MUSCULOSKELETAL: Extremities without clubbing, cyanosis. Trace edema. Left upper extremity in sling. LYMPHATICS: Not examined. NEUROLOGICAL: Lethargic, oriented to person and place.answering questions, able to make needs known. Follows most commands. PSYCHIATRIC: No obvious anxiety/depression. No apparent hallucinations or other psychotic thought process. . Diagnostic Tests Laboratory Laboratory Tests Test 09/26/16 09/27/16 09/27/16 09/28/16 05:00 05:45 20:20 05:35 Sodium Level 142 MEQ/L 142 MEQ/L 143 MEQ/L (136-145) (136-145) (136-145) Potassium Level 3.7 MEQ/L 3.2 MEQ/L 4.5 MEQ/L 4.1 MEQ/L (3.5-5.1) (3.5-5.1) (3.5-5.1) (3.5-5.1) Chloride Level 105 MEQ/L 104 MEQ/L 106 MEQ/L (98-107) (98-107) (98-107) Carbon Dioxide Level 31.3 MEQ/L 33.5 MEQ/L 34.0 MEQ/L (21.0-32.0) (21.0-32.0) (21.0-32.0) Anion Gap 6 MEQ/L (5-15) 5 MEQ/L (5-15) 3 MEQ/L (5-15) Blood Urea Nitrogen 31 MG/DL (7-18) 27 MG/DL (7-18) 28 MG/DL (7-18) Creatinine 0.90 MG/DL 0.89 MG/DL 0.86 MG/DL (0.50-1.00) (0.50-1.00) (0.50-1.00) Estimat Glomerular Filtration 59 ML/MIN (>89) 60 ML/MIN (>89) 62 ML/MIN (>89) Rate Random Glucose 141 MG/DL 124 MG/DL 120 MG/DL (74-106) (74-106) (74-106) Calcium Level 8.2 MG/DL 7.8 MG/DL 8.0 MG/DL (8.5-10.1) (8.5-10.1) (8.5-10.1) Phosphorus Level 2.7 MG/DL 2.2 MG/DL 2.2 MG/DL (2.5-4.9) (2.5-4.9) (2.5-4.9) Magnesium Level 1.7 MG/DL 1.6 MG/DL 1.7 MG/DL (1.5-2.5) (1.5-2.5) (1.5-2.5) White Blood Count 8.5 TH/MM3 (4.0-11.0) Red Blood Count 2.98 MIL/MM3 (4.00-5.30) Hemoglobin 9.1 GM/DL (11.6-15.3) Hematocrit 27.4 % (35.0-46.0) Mean Corpuscular Volume 92.0 FL (80.0-100.0) Mean Corpuscular Hemoglobin 30.6 PG (27.0-34.0) Mean Corpuscular Hemoglobin 33.2 % Concent (32.0-36.0) Red Cell Distribution Width 15.6 % (11.6-17.2) Platelet Count 238 TH/MM3 (150-450) Mean Platelet Volume 9.1 FL (7.0-11.0) Neutrophils (%) (Auto) 82.7 % (16.0-70.0) Lymphocytes (%) (Auto) 7.1 % (9.0-44.0) Monocytes (%) (Auto) 8.2 % (0.0-8.0) Eosinophils (%) (Auto) 0.7 % (0.0-4.0) Basophils (%) (Auto) 1.3 % (0.0-2.0) Neutrophils # (Auto) 7.1 TH/MM3 (1.8-7.7) Lymphocytes # (Auto) 0.6 TH/MM3 (1.0-4.8) Monocytes # (Auto) 0.7 TH/MM3 (0-0.9) Eosinophils # (Auto) 0.1 TH/MM3 (0-0.4) Basophils # (Auto) 0.1 TH/MM3 (0-0.2) CBC Comment DIFF FINAL Differential Comment . Result Diagram: 09/28/16 0535 09/28/1635 Procedures * Right internal jugular central line. * Colonoscopy 09/22/16 . . Assessment and Plan Disease Oriented Problem List: (1) Colitis, Clostridium difficile Comment: Severe, life-threatening, virulent strain. . (2) Severe sepsis (3) Septic shock (4) Spinal stenosis (5) Peripheral neuropathy (6) Acute kidney injury (nontraumatic) (7) UTI (urinary tract infection) Comment: Enterobacter. Resolved. . (8) Hypothyroid Comment: TSH WNL (9) Humerus head fracture Comment: Left side from fall on 09/10/16. Sling therapy. . (10) Osteoarthritis (11) Hip fracture, left Comment: Left side. Bipolar gayla-arthroplasty on 09/05/16. . (12) Protein-calorie malnutrition, moderate Symptom Scale: (1) Pain 0-10 Scale: 10 Comment: Current pain is mostly abdominal. Also has history of chronic low back pain and neuropathic leg pain. Other sources of pain might include prolonged bedbound status; NG tube; venous access lines; fecal management systerm; taylor catheter; etc. . (2) Debility (3) Ileus Pertinent Non-Medical Issues Psychosocial: Had been living independently prior to her fall. Son in [place]; two sons in [place]; one son in [place]. Spiritual: Lapsed Hoah[employer]ism. Appreciates berry recio. Legal: Pt verbally designates her son -- Reed -- as her surrogate and Reed claims there is paperwork confirming that selection. Ethical issues impacting care: Patient is mildly confused. Recommend shared decision making with her son. . Important Contacts * Reed Hebert (son) [phone] * Lore Hebert ([id number]) [phone] . Prognosis Patient currently has life-threatening diffuse colitis from C diff. showing some response to medical management. She is not interested in surgery even if it remains the only option to save her life and her chances of successful recovery after major surgery is in doubt. Because of her ileus, she is receiving nutrition via TPN which places her a further risk of sepsis. As she is currently hemodynamically stable, breathing on her own , and renal function is reasonable, she can afford to continue to see if medical management will work. Should there be another major setback, she wants to transition to comfort measures only and family endorses this plan. . Code Status: No Code Plan == Code Status: NO CODE == Decision making: Patient has intermittent mild confusion but appears to understand her illness and goals. She is generally capacitated to make her own health care decision, but recommend there be shared decision making with her surrogate. Should she become incapacitated, she has indicated that she wants her son Reed (the only son that lives in [place]) to be her health care surrogate. == Goals: Patient is willing to continue with medical management for the time being to see if the current antibiotic regimen and supportive care can conquer the colitis. She does NOT want surgery. She does not want to be resuscitated. If there is any significant setback or it is clear medical management is not working, she wants to transition to "comfort measures only" and be enrolled with hospice. == Pain: Reporting generalized pain, decreased since yesterday. Current order for PRN Morphine 2mg IV q 2hours; 4 doses were administered over the past 24 hours. There are concerns about increasing her opiates due to recent hypotension and fear of exacerbating her ileus. If opiates are contributing to the ileus, we can offset this with methylnaltrexone (Relistor) and then perhaps increase her opiates if her BP tolerates it. == Ileus: Recommend several day trial of methylnaltrexone to see if blocking the bowel opiate receptors will help resolve the ileus. == Palliative care will continue to follow to assist with symptom management and to further clarify goals of medical treatment as the clinical course evolves. . Attestation To help prompt me to consider important information that might be impacting today's encounter and assessment, information from prior notes written by myself or my colleagues may have been "brought forward" into today's note. My signature on this note, however, is an attestation that I personally performed the exam, history, and/or decision-making noted today, and, unless otherwise indicated, the interactions with patient, family, and staff as well as the review of records all occurred today. I also attest that the listed assessment and stated plan reflect my best clinical judgment today based on the combination of historical information, prior notes, and today's exam/ interactions. When time spent is documented, it refers only to time spent today by the signer, or if indicated, combined time spent today by collaborating physician/nurse practitioner. . Juana Goodson Sep 28, 2016 15:49
[2016-09-28] MEDS: MULTIVITAMIN INJ 10 ML, FOLIC ACID INJ 1 MG in AMINO ACID IN D5W W/ELECTROLYT 1,000 ML IV-CENTRAL SCH ×3 (20:25)
[2016-09-29] VITALS (29 sets, daily range): BP systolic 118–178; BP diastolic 56–98; PULSE 89–106; RESP 15–34; TEMP 98.9–99.8; O2SAT 94–100
[2016-09-29] MEDS: VANCOMYCIN 500 MG VIAL (FOR ORAL USE ONLY) PO SCH ×5 (00:33→23:33)
[2016-09-29] MEDS: metroNIDAZOLE 500 MG INJ 100 ML IV SCH ×4 (03:21→20:36)
[2016-09-29] MEDS: CHLORHEXIDINE GLUCONATE 2 % 1 PACK (2 CLOTHS) TOP SCH (04:00)
[2016-09-29 05:22] LABS: BASOPHIL # 0.1 TH/MM3 (0-0.2); BASOPHIL % 0.8 % (0.0-2.0); EOSINOPHIL % 0.5 % (0.0-4.0); HEMATOCRIT 26.2 % (35.0-46.0); HEMO FLAGS DIFF FINAL; LYMPH % 7.6 % (9.0-44.0); LYMPHOCYTE # 0.6 TH/MM3 (1.0-4.8); MEAN CELL VOLUME 93.1 FL (80.0-100.0); MEAN CORPUSCULAR HEMOGLOBIN 30.4 PG (27.0-34.0); MEAN CORPUSCULAR HGB CONC 32.6 % (32.0-36.0); MONO % 7.1 % (0.0-8.0); PLATELET COUNT 228 TH/MM3 (150-450); RED BLOOD COUNT 2.82 MIL/MM3 (4.00-5.30); RED CELL DISTRIBUTION WIDTH 16.7 % (11.6-17.2); WHITE BLOOD COUNT 8.3 TH/MM3 (4.0-11.0)
[2016-09-29 05:46] LABS: ALKALINE PHOSPHATASE 67 U/L (45-117); ALT (GPT) 15 U/L (10-53); ANION GAP 5 MEQ/L (5-15); AST (GOT) 32 U/L (15-37); BLOOD UREA NITROGEN 28 MG/DL (7-18); CHLORIDE 105 MEQ/L (98-107); GLOMERULAR FILTRATION RATE 57 ML/MIN (>89); MAGNESIUM 1.8 MG/DL (1.5-2.5); SODIUM (NA) 143 MEQ/L (136-145); TOTAL BILIRUBIN ADULT 0.4 MG/DL (0.2-1.0)
[2016-09-29 05:53] LABS: POTASSIUM 2.8 MEQ/L (3.5-5.1)
[2016-09-29] MEDS: LEVOTHYROXINE SODIUM 100 MCG VIAL IV PUSH SCH (05:53)
[2016-09-29] MEDS: HEPARIN SODIUM - SQ 10,000 UNITS/ML VIAL SQ SCH ×3 (05:53→22:00)
[2016-09-29] MEDS: ONDANSETRON HCL 4 MG/2 ML VIAL IV PRN (06:02)
[2016-09-29] MEDS: POTASSIUM CHLOR 40 MEQ PREMIX 100 ML IV PRN ×2 (06:15→08:30)
[2016-09-29] MEDS: ALBUMIN HUMAN 25% 12.5 GM/50 ML BAGP IV SCH ×2 (08:30→20:38)
[2016-09-29] MEDS: FIDAXOMICIN 200 MG TAB PO SCH ×2 (08:31→20:36)
[2016-09-29] MEDS: POTASSIUM CHLORIDE 25 MEQ EFFERVESCENT TAB NG SCH (08:32)
[2016-09-29] MEDS: SODIUM CHLORIDE 0.9% FLUSH 10 ML FLUSH IVF SCH (08:33)
[2016-09-29] MEDS: PANTOPRAZOLE SODIUM 40 MG VIAL IV SCH (08:33)
[2016-09-29] MEDS: ARTIFICIAL TEARS OPTH SOLN 15 ML BTL EACH EYE SCH ×3 (08:34→17:59)
[2016-09-29] MEDS: SODIUM CHLORIDE 0.9% FLUSH 10 ML FLUSH IV FLUSH SCH ×3 (09:00→20:48)
[2016-09-29] MEDS: CHLOROTHIAZIDE SOD 500 MG VIAL IV SCH ×2 (10:00→22:00)
--- NOTE | 2016-09-29 10:24 | HHI.NPPN ---
Subjective History of Present Illness 86-year-old female apparently with a history of severe colitis secondary to clostridium difficile. Mention in the records of his CKD stage II. Has continued complications with C diff colitis. NG tube been placed as well as rectal decompression 09/22 Started initially on Bumex drip given oliguria and renal functions improved as well as UOP Interval History Pt sitting up in chair. Says she is in pain today. Review of Systems General Constitutional: Fatigue Gastrointestinal Gastrointestinal: Abdominal Pain Objective Data Data 09/28/16 09/29/16 19:00 07:00 Intake Total 912 ml 934 ml Output Total 950 ml 1200 ml Balance -38 ml -266 ml Intake Oral 240 ml 200 ml IV Total 672 ml 322 ml TPN/PPN 362 ml Albumin 50 ml Output Urine Total 950 ml 1200 ml Stool Total 0 ml Vital Signs Date Time Temp Pulse Resp B/P Pulse Ox O2 Delivery O2 Flow Rate FiO2 09/29/16 08:34 99 Nasal Cannula 2.00 09/29/16 08:00 98.9 94 18 125/57 97 09/29/16 08:00 103 09/29/16 06:01 104 16 178/98 95 09/29/16 06:00 103 09/29/16 05:00 97 22 120/57 97 09/29/16 04:00 101 09/29/16 04:00 99.8 101 27 124/78 96 09/29/16 03:00 98 19 123/60 98 09/29/16 02:00 100 20 134/56 97 09/29/16 02:00 100 09/29/16 01:00 101 19 142/65 97 09/29/16 00:01 99.0 103 21 139/60 97 09/29/16 00:00 101 09/28/16 23:00 103 20 123/57 99 09/28/16 22:00 101 20 140/60 99 09/28/16 22:00 101 09/28/16 21:00 102 19 132/60 98 09/28/16 20:08 98 Nasal Cannula 2.00 09/28/16 20:00 98.5 105 22 149/63 98 09/28/16 20:00 105 09/28/16 19:00 103 20 113/54 100 09/28/16 18:00 103 09/28/16 16:00 99.6 100 18 132/62 98 09/28/16 16:00 100 09/28/16 14:00 100 09/28/16 12:00 98.9 97 16 143/63 97 09/28/16 12:00 97 09/28/16 11:09 95 Nasal Cannula 2.00 -: 09/29/16 0450 09/29/16 0450 Imaging Last Impressions Knee X-Ray 09/28/16 0000 Signed Impressions: Service Date/Time: Wednesday, September 28, 2016 13:50 - CONCLUSION: 1. Mild osteoarthritis at the knee. No acute bony abnormality. Asim Abbasi MD Abdomen/Pelvis CT 09/24/16 0000 Signed Impressions: Service Date/Time: Saturday, September 24, 2016 21:10 - CONCLUSION: 1. The colon remains abnormal in appearance with diffuse wall thickening and inflammatory change. The small bowel is decompressed. 2. Moderate amount of ascitic fluid which may be mildly increased. 3. Small bilateral pleural effusions again noted with mild consolidation in the lung bases. 4. Small nonobstructing right renal calculus. 5. Interval placement of rectal tube. A nasogastric tube is been placed as well. Chucho Padgett MD Renal Ultrasound 09/22/16 0000 Signed Impressions: Service Date/Time: Thursday, September 22, 2016 18:32 - CONCLUSION: 1. Suboptimal visualization of the kidneys with no definite hydronephrosis or focal lesion. 2. Small amount of ascitic fluid and small bilateral pleural effusions. 3. Echogenic debris in the gallbladder most consistent with sludge. Chucho Padgett MD Abdomen X-Ray 09/21/16 0600 Signed Impressions: Service Date/Time: Wednesday, September 21, 2016 04:25 - CONCLUSION: Stable gaseous distention of colon. Marty Marinelli MD Shoulder X-Ray 09/20/16 0000 Signed Impressions: Service Date/Time: Tuesday, September 20, 2016 09:53 - CONCLUSION: No significant interval change is identified. There is a displaced mildly comminuted proximal left humeral neck fracture with rotation of the humeral head and associated shortening. En Robledo MD Hip and Pelvis X-Ray 09/20/16 0000 Signed Impressions: Service Date/Time: Tuesday, September 20, 2016 09:57 - CONCLUSION: Left hip bipolar arthroplasty hardware demonstrates no acute finding. The bones are undermineralized but no fracture is visualized. En Robledo MD Chest X-Ray 09/18/16 0000 Signed Impressions: Service Date/Time: Sunday, September 18, 2016 15:27 - CONCLUSION: Bibasilar areas of mild atelectasis or consolidation being worse on the right. There are suspected mild bilateral pleural effusions. En Lambert MD Medication Review Current Medications Medications (Trade) Dose Ordered Sig/Bunny Route Start Time Stop Time Status Last Admin (Synthroid) 25 mcg DAILY PO 09/15/16 09:00 Hold 09/18/16 08:54 (NS Flush) 2 ml UNSCH PRN IV FLUSH 09/15/16 08:15 09/25/16 16:27 (NS Flush) 2 ml BID IV FLUSH 09/15/16 09:00 09/29/16 09:00 (Tylenol) 650 mg Q6H PRN PO 09/15/16 08:15 Hold (Dassel 5-325 Mg) 1 tab Q4H PRN PO 09/15/16 08:15 Hold 09/16/16 08:37 (Morphine Inj) 2 mg Q2H PRN IV 09/15/16 08:15 09/28/16 05:45 (Protonix Inj) 40 mg DAILY IV 09/15/16 09:00 09/29/16 08:33 (Tears Naturale Opth Soln) 1 drop TID EACH EYE 09/15/16 09:00 09/29/16 08:34 (Zofran Inj) 4 mg Q6H PRN IV 09/15/16 08:15 09/29/16 06:02 Miscellaneous Information 1 Q361D XX 09/15/16 08:15 09/15/16 08:15 (Chlorhexidine 2% Cloth) Taper DAILY@04 TOP 09/16/16 04:00 09/12/17 03:59 09/28/16 01:22 (Chlorhexidine 2% Cloth) 3 pack UNSCH PRN TOP 09/15/16 08:15 (Milk Of Magnesia Liq) 30 ml Q12H PRN PO 09/15/16 08:15 (Dulcolax Supp) 10 mg DAILY PRN RECTAL 09/15/16 08:15 Lactulose 30 ml 30 ml DAILY PRN PO 09/15/16 08:15 (Flagyl 500 Mg Inj) 100 ml @ 100 mls/hr Q6H IV 09/15/16 14:00 09/29/16 08:00 (NS Flush) DAILY IVF 09/16/16 09:00 09/29/16 08:33 (NS Flush) UNSCH PRN IVF 09/15/16 12:00 09/23/16 08:52 (VANCOMYCIN for oral use only) 500 mg Q6HR PO 09/15/16 13:15 09/29/16 05:52 Heparin Sodium (Porcine) 5000 units 5,000 units Q8HR SQ 09/16/16 14:00 09/29/16 05:53 (Liposyn Iii 20% Inj) 250 ml @ 31.25 mls/ hr SuWe@20 IV-CENTRAL 09/19/16 20:00 09/26/16 22:16 (Apresoline Inj) 10 mg Q1HR PRN IV PUSH 09/17/16 16:30 09/18/16 00:19 (Nitroglycerin 2% Oint) 2 inch Q6HR PRN TOPICAL 09/17/16 16:30 (NS Flush) See Protocol DAILY IV FLUSH 09/18/16 09:00 09/29/16 09:00 (NS Flush) See Protocol UNSCH PRN IV FLUSH 09/17/16 21:45 09/23/16 08:52 (Heparin Central Flush) See Protocol DAILY IV FLUSH 09/18/16 09:00 09/29/16 08:32 (Heparin Central Flush) See Protocol UNSCH PRN IV FLUSH 09/17/16 21:45 09/26/16 04:57 (NS Flush) UNSCH PRN IV FLUSH 09/17/16 21:45 09/23/16 08:52 Levothyroxine Sodium 25 mcg 25 mcg DAILY@06 IV PUSH 09/19/16 06:00 09/29/16 05:53 Potassium Chloride 100 ml @ 50 mls/hr Q2H PRN IV 09/18/16 16:30 09/29/16 08:30 (KCl 20 Meq Premix Inj) 100 ml @ 50 mls/hr Q2H PRN IV 09/18/16 16:30 Potassium Bicarb/ Potassium Chloride 50 meq 50 meq UNSCH PRN PO 09/18/16 16:30 Potassium Chloride 100 ml @ 25 mls/hr UNSCH PRN IV 09/18/16 16:30 09/21/16 09:07 Potassium Chloride 100 ml @ 50 mls/hr Q2H PRN IV 09/18/16 16:30 (Magnesium Sulfate Inj/NS Inj) 100 ml @ 50 mls/hr UNSCH PRN IV 09/18/16 16:30 Magnesium Oxide 800 mg 800 mg UNSCH PRN PO 09/18/16 16:30 (Magnesium Sulfate Inj/NS Inj) 100 ml @ 50 mls/hr UNSCH PRN IV 09/18/16 16:30 Potassium Phosphate 2000 mg 2,000 mg Q4H PRN PO 09/18/16 16:30 (Sodium Phosphate Inj/NS 250 ml Inj) 250 ml @ 42 mls/hr UNSCH PRN IV 09/18/16 16:30 09/18/16 17:15 Potassium Phosphate 2000 mg 2,000 mg UNSCH PRN PO/TUBE 09/18/16 16:30 (Potassium Phosphate Inj/NS 250 ml Inj) 260 ml @ 42 mls/hr UNSCH PRN IV 09/18/16 16:30 09/25/16 11:02 (Chapstick) 1 applic UNSCH PRN TOPICAL 09/19/16 09:30 09/26/16 09:00 (Dificid) 200 mg BID PO 09/22/16 21:00 10/02/16 20:59 09/29/16 08:31 Albumin Human 12.5 gm 12.5 gm Q12HR IV 09/23/16 21:00 09/29/16 08:30 (Mvi-12 Inj/ Folvite Inj/ Clinimix E ) 1,010.2 ml @ 30 mls/hr Q24H IV-CENTRAL 09/24/16 20:00 09/28/16 20:25 (Diuril Inj) 250 mg Q12H IV 09/25/16 22:00 09/28/16 22:22 (K-Lyte Cl Eff) 25 meq DAILY NG 09/25/16 15:30 09/29/16 08:32 Physical Exam General Appearance: No Acute Distress, Pale Eyes Eye Exam: Pupils Equal, Pupils Reactive Pulmonary Resp Exam: Clear Bilaterally, Breath Sounds Equal Cardiology CV Exam: Regular, Normal Sinus Rhythm Gastrointestinal/Abdomen GI Exam: Distended Extremeties Extremities Exam: Moderate Edema (1+ pitting edema involving lower extremities hips) Neurologic Neuro Exam: Alert, Awake Assessment/Plan Discussed Condition With: Patient Problem List: (1) CKD (chronic kidney disease) stage 2, GFR 60-89 ml/min Plan: SCr stable. UOP improving Edema improving Continue diuretic therapy with Diuril for the present. Defer Bumex today Diamox 250mg IVP x1 KCL repletion ordered Medications should be adjusted for the patient's estimated GFR if clinically indicated. Avoid agents with significant potential for nephrotoxicity possible including NSAIDs for analgesia, iodine contrast agents. Gadolinium is contraindicated if the GFR is below 30. (2) Nontraumatic compartment syndrome of abdomen Plan: Patient is at risk for. (3) Hypernatremia Plan: Resolved. Discontinue IV D5W. Plan Nga Saleh Sep 29, 2016 10:24
--- NOTE | 2016-09-29 10:28 | HHI.HCPN ---
Reason for visit a. To assist with evaluation and management of symptoms including: abdominal pain; debility, ileus b. To assist medical decision maker(s) with: better understanding of current medical conditions; weighing benefits/burdens of medical treatment options; making medical treatment decisions. . Subjective/Interval History INTERVAL NOTE: Pt is up in chair and complaining of shoulder pain. Tmax 99.8 in past 24 hours. She did not receive PRN MS since yesterday AM but is getting a dose now as she continues to c/o pain. No dyspnea or nausea, and denies abdom pain. . Family/friend interactions d/w son/TAMICA Mcbride via telephone: he is tiring of the suffering he sees and asks multiple questions about hospice. He is to speak w his brothers today and will call us if they're ready for hospice consult. . Advance Directives Living Will: Completed, but not made available Health Care Surrogate: Copy in medical record Durable Power of Rn Procedure: Never completed Advance Directive Specifics Date completed: Son reports that patient completed a living will and designation of health care surrogacy when she completed her financial will. She might also have completed once since being here in the hospital. Patient has verbally stated (and witnessed) 09/23/16 that she wanted to designate her surrogate to be her son Reed in [place]. . Health Care Surrogate(s): Patient verbally states that she wants her son -- Reed -- to be her health care surrogate. Reed says she has completed paper work designating him in writing. We don't yet have this on the chart. Nurses have now confirmed and witnessed her stating her desire for Reed to be her surrogate. This is now on the chart. . . Documented care wishes: No written documentation currently available regarding patient's health care goals /preferences. . Objective Vital Signs Date Time Temp Pulse Resp B/P Pulse Ox O2 Delivery O2 Flow Rate FiO2 09/29/16 08:34 99 Nasal Cannula 2.00 09/29/16 08:00 98.9 94 18 125/57 97 09/29/16 08:00 103 09/29/16 06:01 104 16 178/98 95 09/29/16 06:00 103 09/29/16 05:00 97 22 120/57 97 09/29/16 04:00 101 09/29/16 04:00 99.8 101 27 124/78 96 09/29/16 03:00 98 19 123/60 98 09/29/16 02:00 100 20 134/56 97 09/29/16 02:00 100 09/29/16 01:00 101 19 142/65 97 09/29/16 00:01 99.0 103 21 139/60 97 09/29/16 00:00 101 09/28/16 23:00 103 20 123/57 99 09/28/16 22:00 101 20 140/60 99 09/28/16 22:00 101 09/28/16 21:00 102 19 132/60 98 09/28/16 20:08 98 Nasal Cannula 2.00 09/28/16 20:00 98.5 105 22 149/63 98 09/28/16 20:00 105 09/28/16 19:00 103 20 113/54 100 09/28/16 18:00 103 09/28/16 16:00 99.6 100 18 132/62 98 09/28/16 16:00 100 09/28/16 14:00 100 09/28/16 12:00 98.9 97 16 143/63 97 09/28/16 12:00 97 09/28/16 11:09 95 Nasal Cannula 2.00 Intake & Output 09/29/16 09/29/16 07:00 19:00 Intake Total 934 ml Output Total 1200 ml Balance -266 ml Intake Oral 200 ml IV Total 322 ml TPN/PPN 362 ml Albumin 50 ml Output Urine Total 1200 ml Stool Total 0 ml Physical Exam CONSTITUTIONAL/GENERAL: This is an frail appearing, female patient who presents sitting in chair. Alert but confused TUBES/LINES/DRAINS: Taylor catheter, PIV, PICC line RUE SKIN: No jaundice, rashes, or lesions. No wounds seen anteriorly. Skin temperature appropriate. Not diaphoretic. CARDIOVASCULAR: Regular rate and rhythm without murmurs, gallops, or rubs. No JVD. RESPIRATORY/CHEST: Symmetric, unlabored respirations. Breath sounds equal bilaterally. No wheezes, rales, or rhonchi. GASTROINTESTINAL: Abdomen distended; diffuse mild tenderness. No guarding. Bowel sounds hypoactive. MUSCULOSKELETAL: Extremities without clubbing, cyanosis. Trace edema. Left upper extremity in sling. NEUROLOGICAL: alert, confused. Follows most commands. PSYCHIATRIC: No obvious anxiety/depression. No apparent hallucinations or other psychotic thought process. . Diagnostic Tests Laboratory Laboratory Tests Test 09/27/16 09/27/16 09/28/16 09/29/16 05:45 20:20 05:35 04:50 Sodium Level 142 MEQ/L 143 MEQ/L 143 MEQ/L (136-145) (136-145) (136-145) Potassium Level 3.2 MEQ/L 4.5 MEQ/L 4.1 MEQ/L 2.8 MEQ/L (3.5-5.1) (3.5-5.1) (3.5-5.1) (3.5-5.1) Chloride Level 104 MEQ/L 106 MEQ/L 105 MEQ/L (98-107) (98-107) (98-107) Carbon Dioxide Level 33.5 MEQ/L 34.0 MEQ/L 33.0 MEQ/L (21.0-32.0) (21.0-32.0) (21.0-32.0) Anion Gap 5 MEQ/L (5-15) 3 MEQ/L (5-15) 5 MEQ/L (5-15) Blood Urea Nitrogen 27 MG/DL (7-18) 28 MG/DL (7-18) 28 MG/DL (7-18) Creatinine 0.89 MG/DL 0.86 MG/DL 0.93 MG/DL (0.50-1.00) (0.50-1.00) (0.50-1.00) Estimat Glomerular Filtration 60 ML/MIN (>89) 62 ML/MIN (>89) 57 ML/MIN (>89) Rate Random Glucose 124 MG/DL 120 MG/DL 132 MG/DL (74-106) (74-106) (74-106) Calcium Level 7.8 MG/DL 8.0 MG/DL 7.8 MG/DL (8.5-10.1) (8.5-10.1) (8.5-10.1) Phosphorus Level 2.2 MG/DL 2.2 MG/DL (2.5-4.9) (2.5-4.9) Magnesium Level 1.6 MG/DL 1.7 MG/DL 1.8 MG/DL (1.5-2.5) (1.5-2.5) (1.5-2.5) White Blood Count 8.5 TH/MM3 8.3 TH/MM3 (4.0-11.0) (4.0-11.0) Red Blood Count 2.98 MIL/MM3 2.82 MIL/MM3 (4.00-5.30) (4.00-5.30) Hemoglobin 9.1 GM/DL 8.6 GM/DL (11.6-15.3) (11.6-15.3) Hematocrit 27.4 % 26.2 % (35.0-46.0) (35.0-46.0) Mean Corpuscular Volume 92.0 FL 93.1 FL (80.0-100.0) (80.0-100.0) Mean Corpuscular Hemoglobin 30.6 PG 30.4 PG (27.0-34.0) (27.0-34.0) Mean Corpuscular Hemoglobin 33.2 % 32.6 % Concent (32.0-36.0) (32.0-36.0) Red Cell Distribution Width 15.6 % 16.7 % (11.6-17.2) (11.6-17.2) Platelet Count 238 TH/MM3 228 TH/MM3 (150-450) (150-450) Mean Platelet Volume 9.1 FL 8.9 FL (7.0-11.0) (7.0-11.0) Neutrophils (%) (Auto) 82.7 % 84.0 % (16.0-70.0) (16.0-70.0) Lymphocytes (%) (Auto) 7.1 % 7.6 % (9.0-44.0) (9.0-44.0) Monocytes (%) (Auto) 8.2 % (0.0-8.0) 7.1 % (0.0-8.0) Eosinophils (%) (Auto) 0.7 % (0.0-4.0) 0.5 % (0.0-4.0) Basophils (%) (Auto) 1.3 % (0.0-2.0) 0.8 % (0.0-2.0) Neutrophils # (Auto) 7.1 TH/MM3 7.0 TH/MM3 (1.8-7.7) (1.8-7.7) Lymphocytes # (Auto) 0.6 TH/MM3 0.6 TH/MM3 (1.0-4.8) (1.0-4.8) Monocytes # (Auto) 0.7 TH/MM3 0.6 TH/MM3 (0-0.9) (0-0.9) Eosinophils # (Auto) 0.1 TH/MM3 0.0 TH/MM3 (0-0.4) (0-0.4) Basophils # (Auto) 0.1 TH/MM3 0.1 TH/MM3 (0-0.2) (0-0.2) CBC Comment DIFF FINAL DIFF FINAL Differential Comment Total Bilirubin 0.4 MG/DL (0.2-1.0) Aspartate Amino Transf 32 U/L (15-37) (AST/SGOT) Alanine Aminotransferase 15 U/L (10-53) (ALT/SGPT) Alkaline Phosphatase 67 U/L (45-117) Total Protein 5.1 GM/DL (6.4-8.2) Albumin 2.6 GM/DL (3.4-5.0) Result Diagram: 09/29/1644909/29/16449 Procedures * Right internal jugular central line. * Colonoscopy 09/22/16 . . Assessment and Plan Disease Oriented Problem List: (1) Colitis, Clostridium difficile Comment: Severe, life-threatening, virulent strain. . (2) Severe sepsis (3) Septic shock (4) Spinal stenosis (5) Peripheral neuropathy (6) Acute kidney injury (nontraumatic) (7) UTI (urinary tract infection) Comment: Enterobacter. Resolved. . (8) Hypothyroid Comment: TSH WNL (9) Humerus head fracture Comment: Left side from fall on 09/10/16. Sling therapy. . (10) Osteoarthritis (11) Hip fracture, left Comment: Left side. Bipolar gayla-arthroplasty on 09/05/16. . (12) Protein-calorie malnutrition, moderate Symptom Scale: (1) Pain 0-10 Scale: 10 Comment: Current pain is mostly abdominal. Also has history of chronic low back pain and neuropathic leg pain. Other sources of pain might include prolonged bedbound status; NG tube; venous access lines; fecal management systerm; taylor catheter; etc. . (2) Debility (3) Ileus Pertinent Non-Medical Issues Psychosocial: Had been living independently prior to her fall. Son in [place]; two sons in [place]; one son in [place]. Spiritual: Lapsed Confucianist. Appreciates analytical scientistjohn recio. Legal: Pt verbally designates her son -- Reed -- as her surrogate and Reed claims there is paperwork confirming that selection. Ethical issues impacting care: Patient is mildly confused. Recommend shared decision making with her son. . Important Contacts * Reed Hebert (son) [phone] * Lore Hebert ([id number]) [phone] . Prognosis Patient currently has life-threatening diffuse colitis from C diff. showing some response to medical management. She is not interested in surgery even if it remains the only option to save her life and her chances of successful recovery after major surgery is in doubt. Because of her ileus, she is receiving nutrition via TPN which places her a further risk of sepsis. As she is currently hemodynamically stable, breathing on her own , and renal function is reasonable, she can afford to continue to see if medical management will work. Should there be another major setback, she wants to transition to comfort measures only and family endorses this plan. . Code Status: No Code Plan == Code Status: NO CODE == Decision making: Patient has intermittent mild confusion but appears to understand her illness and goals. She is generally capacitated to make her own health care decision, but recommend there be shared decision making with her surrogate (gayle Mcbride). Should she become incapacitated, she has designated her son Reed as HCS == Goals: Patient is willing to continue with medical management for the time being to see if the current antibiotic regimen and supportive care can conquer the colitis. She does NOT want surgery or resuscitation. If there is any significant setback or it is clear medical management is not working, she wants to transition to "comfort measures only" and be enrolled with hospice. 09/29/16: Son is talking with his brothers about possible hospice consult. == Pain: generalized and shoulder fx pain; receiving PRN Morphine 2mg IV one to 4 times daily. == Ileus: Recommend several day trial of methylnaltrexone to see if blocking the bowel opiate receptors will help resolve the ileus. == Palliative care will continue to follow to assist with symptom management and to further clarify goals of medical treatment as the clinical course evolves. . Time Spent Total Floor Time (mins): 39 Face to Face Time (mins): 11 >50% Counseling/Coord of Care: Yes (d/w RN) Attestation To help prompt me to consider important information that might be impacting today's encounter and assessment, information from prior notes written by myself or my colleagues may have been "brought forward" into today's note. My signature on this note, however, is an attestation that I personally performed the exam, history, and/or decision-making noted today, and, unless otherwise indicated, the interactions with patient, family, and staff as well as the review of records all occurred today. I also attest that the listed assessment and stated plan reflect my best clinical judgment today based on the combination of historical information, prior notes, and today's exam/ interactions. When time spent is documented, it refers only to time spent today by the signer, or if indicated, combined time spent today by collaborating physician/nurse practitioner. So Orr MD Sep 29, 2016 10:28
--- NOTE | 2016-09-29 10:57 | HHI.PR ---
Subjective Remarks Pt did better with PT today, took three steps and less painful. Pt had low grade temp this morning of 99.8 Pt still not eating much by mouth. Pt is on TPN Objective Vitals Vital Signs Date Time Temp Pulse Resp B/P Pulse Ox O2 Delivery O2 Flow Rate FiO2 09/29/16 08:34 99 Nasal Cannula 2.00 09/29/16 08:00 98.9 94 18 125/57 97 09/29/16 08:00 103 09/29/16 06:01 104 16 178/98 95 09/29/16 06:00 103 09/29/16 05:00 97 22 120/57 97 09/29/16 04:00 101 09/29/16 04:00 99.8 101 27 124/78 96 09/29/16 03:00 98 19 123/60 98 09/29/16 02:00 100 20 134/56 97 09/29/16 02:00 100 09/29/16 01:00 101 19 142/65 97 09/29/16 00:01 99.0 103 21 139/60 97 09/29/16 00:00 101 09/28/16 23:00 103 20 123/57 99 09/28/16 22:00 101 20 140/60 99 09/28/16 22:00 101 09/28/16 21:00 102 19 132/60 98 09/28/16 20:08 98 Nasal Cannula 2.00 09/28/16 20:00 98.5 105 22 149/63 98 09/28/16 20:00 105 09/28/16 19:00 103 20 113/54 100 09/28/16 18:00 103 09/28/16 16:00 99.6 100 18 132/62 98 09/28/16 16:00 100 09/28/16 14:00 100 09/28/16 12:00 98.9 97 16 143/63 97 09/28/16 12:00 97 09/28/16 11:09 95 Nasal Cannula 2.00 09/28/16 09/28/16 09/29/16 15:00 23:00 07:00 Intake Total 1343 ml 503 ml Output Total 1750 ml 400 ml Balance -407 ml 103 ml Intake Oral 340 ml 100 ml IV Total 822 ml 172 ml TPN/PPN 131 ml 231 ml Albumin 50 ml Output Urine Total 1750 ml 400 ml Stool Total 0 ml 0 ml Result Diagram: 09/29/16 0450 09/29/16 0450 Other Results Laboratory Tests Test 09/27/16 09/28/16 09/29/16 20:20 05:35 04:50 Potassium Level 4.5 MEQ/L 4.1 MEQ/L 2.8 MEQ/L White Blood Count 8.5 TH/MM3 8.3 TH/MM3 Red Blood Count 2.98 MIL/MM3 2.82 MIL/MM3 Hemoglobin 9.1 GM/DL 8.6 GM/DL Hematocrit 27.4 % 26.2 % Mean Corpuscular Volume 92.0 FL 93.1 FL Mean Corpuscular Hemoglobin 30.6 PG 30.4 PG Mean Corpuscular Hemoglobin 33.2 % 32.6 % Concent Red Cell Distribution Width 15.6 % 16.7 % Platelet Count 238 TH/MM3 228 TH/MM3 Mean Platelet Volume 9.1 FL 8.9 FL Neutrophils (%) (Auto) 82.7 % 84.0 % Lymphocytes (%) (Auto) 7.1 % 7.6 % Monocytes (%) (Auto) 8.2 % 7.1 % Eosinophils (%) (Auto) 0.7 % 0.5 % Basophils (%) (Auto) 1.3 % 0.8 % Neutrophils # (Auto) 7.1 TH/MM3 7.0 TH/MM3 Lymphocytes # (Auto) 0.6 TH/MM3 0.6 TH/MM3 Monocytes # (Auto) 0.7 TH/MM3 0.6 TH/MM3 Eosinophils # (Auto) 0.1 TH/MM3 0.0 TH/MM3 Basophils # (Auto) 0.1 TH/MM3 0.1 TH/MM3 CBC Comment DIFF FINAL DIFF FINAL Differential Comment Sodium Level 143 MEQ/L 143 MEQ/L Chloride Level 106 MEQ/L 105 MEQ/L Carbon Dioxide Level 34.0 MEQ/L 33.0 MEQ/L Anion Gap 3 MEQ/L 5 MEQ/L Blood Urea Nitrogen 28 MG/DL 28 MG/DL Creatinine 0.86 MG/DL 0.93 MG/DL Estimat Glomerular Filtration 62 ML/MIN 57 ML/MIN Rate Random Glucose 120 MG/DL 132 MG/DL Calcium Level 8.0 MG/DL 7.8 MG/DL Phosphorus Level 2.2 MG/DL Magnesium Level 1.7 MG/DL 1.8 MG/DL Total Bilirubin 0.4 MG/DL Aspartate Amino Transf 32 U/L (AST/SGOT) Alanine Aminotransferase 15 U/L (ALT/SGPT) Alkaline Phosphatase 67 U/L Total Protein 5.1 GM/DL Albumin 2.6 GM/DL Imaging Last Impressions Abdomen/Pelvis CT 09/24/16 0000 Signed Impressions: Service Date/Time: Saturday, September 24, 2016 21:10 - CONCLUSION: 1. The colon remains abnormal in appearance with diffuse wall thickening and inflammatory change. The small bowel is decompressed. 2. Moderate amount of ascitic fluid which may be mildly increased. 3. Small bilateral pleural effusions again noted with mild consolidation in the lung bases. 4. Small nonobstructing right renal calculus. 5. Interval placement of rectal tube. A nasogastric tube is been placed as well. Chucho Padgett MD Renal Ultrasound 09/22/16 0000 Signed Impressions: Service Date/Time: Thursday, September 22, 2016 18:32 - CONCLUSION: 1. Suboptimal visualization of the kidneys with no definite hydronephrosis or focal lesion. 2. Small amount of ascitic fluid and small bilateral pleural effusions. 3. Echogenic debris in the gallbladder most consistent with sludge. Chucho Padgett MD Abdomen X-Ray 09/21/16 0600 Signed Impressions: Service Date/Time: Wednesday, September 21, 2016 04:25 - CONCLUSION: Stable gaseous distention of colon. Marty Marinelli MD Shoulder X-Ray 09/20/16 0000 Signed Impressions: Service Date/Time: Tuesday, September 20, 2016 09:53 - CONCLUSION: No significant interval change is identified. There is a displaced mildly comminuted proximal left humeral neck fracture with rotation of the humeral head and associated shortening. En Robledo MD Hip and Pelvis X-Ray 09/20/16 0000 Signed Impressions: Service Date/Time: Tuesday, September 20, 2016 09:57 - CONCLUSION: Left hip bipolar arthroplasty hardware demonstrates no acute finding. The bones are undermineralized but no fracture is visualized. En Robledo MD Chest X-Ray 09/18/16 0000 Signed Impressions: Service Date/Time: Sunday, September 18, 2016 15:27 - CONCLUSION: Bibasilar areas of mild atelectasis or consolidation being worse on the right. There are suspected mild bilateral pleural effusions. En Lambert MD Objective Remarks General: NAD Chest: CTA, diminished Cardiac: RRR Abd: Hypoactive BS, soft, moderate distention, moderate diffuse tenderness. Ext: Generalized edema. Left upper extremity in sling. DigniSheild in place. Bañuelos cath in place. Date of Insertion: Sep 15, 2016 Date of Removal: Sep 16, 2016 Line: Central Venous Catheter Side: Right Location: Internal, Jugular A/P Problem List: (1) Colitis, Clostridium difficile Status: Acute Plan: - Pt was recently hospitalized after a fall at home on 09/04/16 and sustained a left femoral neck fracture and left humeral head fracture. S/P Bipolar hemiarthroplasty on 09/05/[address] Bill and her left humeral head fracture is being treated conservatively with sling. She was transferred to [facility] on 09/09/16, but transferred to the unit for severe abdominal tenderness, hypotension and leukocytosis. - Pt was found to have severe C difficile colitis (Epid 027+) with colonic ileus. - CT Abd/pelvis with IV contrast (09/15/16)--> Diffuse thickening of the entire colon consistent with diffuse colitis. Mild atherosclerotic calcifications seen at the aorta. There is no aneurysm. Contrast is seen within the celiac, SMA and HARRIS. Small non-obstructing right renal stone. - Repeat CT Abd/Pelvis (09/18/16)--> Compared to the prior examination of 2016, there has been no significant change in the overall appearance of the colon. There continues to be diffuse wall thickening involving the right and left colon suggestive of colitis with some moderate distention. However, no increased distention is seen on today's examination. There is no evidence of free air. No change in the abdominal ascites. No change in body wall anasarca. No change in the bibasilar infiltrates and bilateral effusions. - She underwent Decompressive colonoscopy (09/23/16)---> Colonoscopy with direct instillation of vancomycin enema into the right and transverse colon. The mucosal surfaces do not appear to be much inflamed, but there is mucosal edema in some areas. Colonic drainage tube left in place to about the splenic flexure which is being used to irrigate vancomycin to reach the cecum and ascending colon when the patient is on the right side. - Pt received Relistor on 09/13 for any associated opiate induced ileus - Repeat CT Abd/pelvis (09/24/16) ---> The colon remains abnormal in appearance with diffuse wall thickening and inflammatory change. The small bowel is decompressed. Moderate amount of ascitic fluid which may be mildly increased. Small bilateral pleural effusions again noted with mild consolidation in the lung bases. Small nonobstructing right renal calculus. Interval placement of rectal tube. A nasogastric tube is been placed as well. - ID and GI following. - Pt is on oral Vanco, Flagyl, and started on Dificid (09/22). - Vanco enemas and rectal tubes D/C'd - Clinically, she seems to be slowly improving. - Palliative care is following and the family is considering Hospice, await family decision regarding this. - Pt is a DNR. (2) Acute kidney injury (nontraumatic) Status: Acute Plan: - Improving. - Pt with significant dependent edema/hypoalbuminemia/pleural effusions/ascites/ compressive lung - Nephrology is following. - She has been receiving Bumex IV given oliguria and renal functions improved as well as UOP - Pt is on Diuril 250mg IV Q12H - Pt is on TPN - Cont Albumin 12.5grams IV Q12H - Pt is getting potassium replacement per protocol. - Pt is Diamox as the patient appears to be developing a contraction alkalosis. - Monitor renal function (3) Hip fracture, left Status: Acute Plan: - See above. (4) Humerus head fracture Status: Acute Plan: - See above. 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 (7) Hypothyroid Status: Chronic (8) Dyslipidemia Status: Chronic (9) Peripheral neuropathy Status: Chronic (10) Spinal stenosis Status: Chronic Problem Qualifiers (1) Hip fracture, left: Qualified Code: S72.002D - Hip fracture, left, closed, with routine healing, subsequent encounter (2) Humerus head fracture: (3) HTN (hypertension): Qualified Code: I10 - Essential hypertension (4) Hypothyroid: Qualified Code: E03.9 - Hypothyroidism, unspecified type (5) Peripheral neuropathy: Qualified Code: G62.9 - Peripheral polyneuropathy (6) Spinal stenosis: Qualified Code: M48.06 - Spinal stenosis of lumbar region Sarita Stanley Sep 29, 2016 10:57
[2016-09-29] MEDS ORDERED: POTASSIUM CHLORIDE 10 MEQ CONTROLLED RELEASE TAB PO ONE (11:00)
[2016-09-29] MEDS ORDERED: METHYLNALTREXONE BROMIDE 12 MG/0.6 ML VIAL SQ ONE ×2 (14:45→15:00)
--- NOTE | 2016-09-29 14:50 | HHI.GIFU ---
Subjective Remarks Resting in bed. Very lethargic. Poor appetite. No BM, worsening distention. Although not as tender on exam. Objective Vitals I&O Vital Signs Date Time Temp Pulse Resp B/P Pulse Ox O2 Delivery O2 Flow Rate FiO2 09/29/16 14:30 89 17 99 09/29/16 14:00 90 18 119/56 99 09/29/16 14:00 91 09/29/16 13:30 93 34 97 09/29/16 13:00 93 19 123/59 98 09/29/16 12:30 92 15 99 09/29/16 12:00 99 09/29/16 12:00 99.0 93 18 126/86 97 09/29/16 12:00 94 16 118/58 99 09/29/16 11:30 97 31 98 09/29/16 11:00 102 27 123/88 96 09/29/16 10:30 101 21 96 09/29/16 10:00 103 09/29/16 10:00 106 26 94 09/29/16 09:30 96 19 98 09/29/16 09:00 97 20 124/58 97 09/29/16 08:34 99 Nasal Cannula 2.00 09/29/16 08:30 96 19 98 09/29/16 08:00 98.9 94 18 125/57 97 09/29/16 08:00 96 20 125/57 99 09/29/16 08:00 103 09/29/16 06:01 104 16 178/98 95 09/29/16 06:00 103 09/29/16 05:00 97 22 120/57 97 09/29/16 04:00 101 09/29/16 04:00 99.8 101 27 124/78 96 09/29/16 03:00 98 19 123/60 98 09/29/16 02:00 100 20 134/56 97 09/29/16 02:00 100 09/29/16 01:00 101 19 142/65 97 09/29/16 00:01 99.0 103 21 139/60 97 09/29/16 00:00 101 09/28/16 23:00 103 20 123/57 99 09/28/16 22:00 101 20 140/60 99 09/28/16 22:00 101 09/28/16 21:00 102 19 132/60 98 09/28/16 20:08 98 Nasal Cannula 2.00 09/28/16 20:00 98.5 105 22 149/63 98 09/28/16 20:00 105 09/28/16 19:00 103 20 113/54 100 09/28/16 18:00 103 09/28/16 16:00 99.6 100 18 132/62 98 09/28/16 16:00 100 I/O 09/28/16 09/28/16 09/28/16 09/29/16 09/29/16 09/29/16 07:00 15:00 23:00 07:00 15:00 23:00 Intake Total 322 ml 1343 ml 503 ml 869 ml Output Total 300 ml 1750 ml 400 ml 470 ml Balance 22 ml -407 ml 103 ml 399 ml Intake Oral 0 ml 340 ml 100 ml 240 ml IV Total 322 ml 822 ml 172 ml 356 ml TPN/PPN 131 ml 231 ml 223 ml Albumin 50 ml 50 ml Output Urine Total 200 ml 1750 ml 400 ml 450 ml Stool Total 100 ml 0 ml 0 ml 20 ml Laboratory Laboratory Tests Test 09/29/16 04:50 White Blood Count 8.3 Red Blood Count 2.82 Hemoglobin 8.6 Hematocrit 26.2 Mean Corpuscular Volume 93.1 Mean Corpuscular Hemoglobin 30.4 Mean Corpuscular Hemoglobin 32.6 Concent Red Cell Distribution Width 16.7 Platelet Count 228 Mean Platelet Volume 8.9 Neutrophils (%) (Auto) 84.0 Lymphocytes (%) (Auto) 7.6 Monocytes (%) (Auto) 7.1 Eosinophils (%) (Auto) 0.5 Basophils (%) (Auto) 0.8 Neutrophils # (Auto) 7.0 Lymphocytes # (Auto) 0.6 Monocytes # (Auto) 0.6 Eosinophils # (Auto) 0.0 Basophils # (Auto) 0.1 CBC Comment DIFF FINAL Differential Comment Sodium Level 143 Potassium Level 2.8 Chloride Level 105 Carbon Dioxide Level 33.0 Anion Gap 5 Blood Urea Nitrogen 28 Creatinine 0.93 Estimat Glomerular Filtration 57 Rate Random Glucose 132 Calcium Level 7.8 Magnesium Level 1.8 Total Bilirubin 0.4 Aspartate Amino Transf 32 (AST/SGOT) Alanine Aminotransferase 15 (ALT/SGPT) Alkaline Phosphatase 67 Total Protein 5.1 Albumin 2.6 Imaging Last Impressions Knee X-Ray 09/28/16 0000 Signed Impressions: Service Date/Time: Wednesday, September 28, 2016 13:50 - CONCLUSION: 1. Mild osteoarthritis at the knee. No acute bony abnormality. Asim Abbasi MD Abdomen/Pelvis CT 09/24/16 0000 Signed Impressions: Service Date/Time: Saturday, September 24, 2016 21:10 - CONCLUSION: 1. The colon remains abnormal in appearance with diffuse wall thickening and inflammatory change. The small bowel is decompressed. 2. Moderate amount of ascitic fluid which may be mildly increased. 3. Small bilateral pleural effusions again noted with mild consolidation in the lung bases. 4. Small nonobstructing right renal calculus. 5. Interval placement of rectal tube. A nasogastric tube is been placed as well. Chucho Padgett MD Renal Ultrasound 09/22/16 0000 Signed Impressions: Service Date/Time: Thursday, September 22, 2016 18:32 - CONCLUSION: 1. Suboptimal visualization of the kidneys with no definite hydronephrosis or focal lesion. 2. Small amount of ascitic fluid and small bilateral pleural effusions. 3. Echogenic debris in the gallbladder most consistent with sludge. Chucho Padgett MD Abdomen X-Ray 09/21/16 0600 Signed Impressions: Service Date/Time: Wednesday, September 21, 2016 04:25 - CONCLUSION: Stable gaseous distention of colon. Marty Marinelli MD Shoulder X-Ray 09/20/16 0000 Signed Impressions: Service Date/Time: Tuesday, September 20, 2016 09:53 - CONCLUSION: No significant interval change is identified. There is a displaced mildly comminuted proximal left humeral neck fracture with rotation of the humeral head and associated shortening. En Robledo MD Hip and Pelvis X-Ray 09/20/16 0000 Signed Impressions: Service Date/Time: Tuesday, September 20, 2016 09:57 - CONCLUSION: Left hip bipolar arthroplasty hardware demonstrates no acute finding. The bones are undermineralized but no fracture is visualized. En Robledo MD Chest X-Ray 09/18/16 0000 Signed Impressions: Service Date/Time: Sunday, September 18, 2016 15:27 - CONCLUSION: Bibasilar areas of mild atelectasis or consolidation being worse on the right. There are suspected mild bilateral pleural effusions. En Lambert MD Physical Exam HEENT: Normocephalic; atraumatic; no jaundice CHEST: Resp shallow, even/unlabored, diminished CARDIAC: RRR ABDOMEN: Abdomen is soft, more distended today, less tender, flexiseal in place no significant stool EXTREMITIES: Generalized edema. Left CKS, Left upper extremity in sling. SKIN: Normal; no rash; no jaundice. LEAD BURNER: Lethargic, oriented to self Assessment and Plan Plan ASSESSMENT: - Severe C difficile colitis (Epid 027+) in patient with recent abx use and hypotension). CT Scan abdomen and pelvis with IV contrast (09/15/16)----> Diffuse thickening of the entire colon consistent with diffuse colitis. Mild atherosclerotic calcifications seen at the aorta. There is no aneurysm. Contrast is seen within the celiac, SMA and HARRIS. Small non-obstructing right renal stone. Colonoscopy (05/20/2005) revealed normal colon, medium internal hemorrhoids. Abdomen/Pelvis CT (09/18/16)----> 1. Compared to the prior examination of 09/17/2016, there has been no significant change in the overall appearance of the colon. There continues to be diffuse wall thickening involving the right and left colon suggestive of colitis with some moderate distention. However, no increased distention is seen on today's examination. There is no evidence of free air. 2. No change in the abdominal ascites. 3. No change in body wall anasarca. 4. No change in the bibasilar infiltrates and bilateral effusions. S/P Decompressive colonoscopy (09/23/16)-----> Colonoscopy with direct instillation of vancomycin enema into the right and transverse colon. Colonic drainage tube left in place to about the splenic flexure. This can be used to irrigate vancomycin to reach the cecum and ascending colon when the patient is on the right side. The mucosal surfaces do not appear to be much inflamed, but there is mucosal edema in some areas. Repeat CT Abd /pelvis (09/24/16) ---> The colon remains abnormal in appearance with diffuse wall thickening and inflammatory change. The small bowel is decompressed. Moderate amount of ascitic fluid which may be mildly increased. Small bilateral pleural effusions again noted with mild consolidation in the lung bases. Small nonobstructing right renal calculus. Interval placement of rectal tube. S/P Relistor (09/23/16). ID following. Oral vanco , flagyl, vanco enema, started on Dificid (09/22). Clinically, she is slowly improving. She is definitely less tender today, but seems to have worsening distention and has not had a bowel movement. Rectal tube was d/c'd but they left the flexiseal in place. Cont. Oral vanco, dificid x 10 days total (10/02), and flagyl. - Colonic Ileus, multifactorial secondary to cdiff, opiates, and immobility. S/ P Decompression colonoscopy. S/P Relistor (09/23). Pt is getting OOB but not moving much. Has worsening distention today, although not as tender. Will give dose of Relistor today. Add daily miralax. Pt OOB daily. Encourage mobility. - Malnutrition. Was started on TPN, Clinimix E 4.25/25 at rate of 30 ml/hr. Full liquids- very poor intake. Add megace. - Sepsis/Leukocytosis secondary to severe CDiff infection. IMPROVED. WBC 8.5. ID following, Flagyl, Dificid, Oral vanco, Vanco enemas, - Anemia. Stable, 8.6/26.2 - Acute on chronic kidney injury. IMPROVED. - Recent fall at home on 09/04/16 and sustained a left femoral neck fracture and left humeral head fracture. S/P Bipolar hemiarthroplasty on 09/05/[address] Bill and her left humeral head fracture is being treated conservatively with sling. She was transferred to [facility] on 09/09/16, but transferred to the unit for severe abdominal tenderness and leukocytosis with concern for mesenteric ischemia. - History of TIA (on plavix), OA, Hx HTN now with hypotension, hyperlipidemia, CKD per attending. PLAN: - Full liquids- advance as tolerated - Cont. TPN - Cont. Dificid---> 10/02 - Cont. Flagyl IV - Cont. Oral Vancomycin - Add Miralax 17gram po daily - Relistor 12mg sq x 1 today - Add Megace - OOB to chair daily, encourage mobility - Monitor labs - Palliative care following. Pt is a DNR. - Pt was seen and examined by myself and Dr. Barnett and this note was written on his behalf Dinora Renteria Sep 29, 2016 14:50
[2016-09-29] MEDS ORDERED: POLYETHYLENE GLYCOL 17 GM PKG PO SCH (15:00)
[2016-09-29] MEDS ORDERED: MEGESTROL ACETATE 40 MG TAB PO SCH (15:00)
[2016-09-29] MEDS: POLYETHYLENE GLYCOL 17 GM PKG PO SCH ×2 (17:00→22:01)
[2016-09-29] MEDS: MULTIVITAMIN INJ 10 ML, FOLIC ACID INJ 1 MG in AMINO ACID IN D5W W/ELECTROLYT 1,000 ML IV-CENTRAL SCH ×3 (20:36)
[2016-09-29] MEDS: FAT EMULSION 20% INJ 250 ML (Twice weekly over 8 hours) IV-CENTRAL SCH (20:48)
[2016-09-29] MEDS ORDERED: DIATRIZOATE MEGLUM/DIATRIZOATE SOD 9 ML CUP PO ONE (23:00)
[2016-09-30] VITALS (8 sets, daily range): BP systolic 119–133; BP diastolic 56–63; PULSE 100–108; RESP 20–38; TEMP 99.1–99.8; O2SAT 97–100
[2016-09-30] MEDS: metroNIDAZOLE 500 MG INJ 100 ML IV SCH ×2 (01:49→08:00)
--- NOTE | 2016-09-30 03:31 | RADRPT ---
EXAM DATE/TIME: 09/30/2016 03:08 [facility] COMPARISON: CT ABDOMEN & PELVIS W/O CONTRAST, September 24, 2016, 21:10. INDICATIONS : Abdomen pain. ORAL CONTRAST: Prescribed oral contrast ingested. RADIATION DOSE: 9.96 CTDIvol (mGy) MEDICAL HISTORY : Cardiovascular disease. Gastroesophageal reflux disease. Skin cancer SURGICAL HISTORY : None. ENCOUNTER: Subsequent ACUITY: 1 week PAIN SCALE: 6/10 LOCATION: Bilateral abdomen TECHNIQUE: Volumetric scanning of the abdomen and pelvis was performed. Using automated exposure control and ad justment of the mA and/or kV according to patient size, radiation dose was kept as low as reasonably achievable to obtain optimal diagnostic quality images. DICOM format image data is available electro nically for review and comparison. FINDINGS: LOWER LUNGS: Small bilateral pleural effusions and bibasilar densities greater on the right. LIVER: Homogeneous density without lesion. There is no dilation of the biliary tree. No calcified gallston es. Moderate abdominal ascites. SPLEEN: Normal size without lesion. PANCREAS: Within normal limits. KIDNEYS: Normal in size and shape. There is no mass or hydronephrosis. Nonobstructing right renal calculus me asures 5 mm. ADRENAL GLANDS: Within normal limits. VASCULAR: There is no aortic aneurysm. BOWEL/MESENTERY: Diverticulosis without diverticulitis. There is no free intraperitoneal air or fluid. Rectal tube. ABDOMINAL WALL: Within normal limits. RETROPERITONEUM: There is no lymphadenopathy. BLADDER: No wall thickening or mass. REPRODUCTIVE: Within normal limits. INGUINAL: There is no lymphadenopathy or hernia. MUSCULOSKELETAL: Left hip prosthesis. CONCLUSION: 1. Small bilateral pleural effusions greater on the right. 2. Diverticulosis without diverticulitis. 3. Abdominal ascites. 4. Nonobstructing right renal calculus measures 5 mm. Jozef Salcedo MD on September 30, 2016 at 3:25 Board Certified Radiologist. This report was verified electronically.
[2016-09-30] MEDS: CHLORHEXIDINE GLUCONATE 2 % 1 PACK (2 CLOTHS) TOP SCH (04:00)
[2016-09-30] MEDS: POLYETHYLENE GLYCOL 17 GM PKG PO SCH (04:21)
[2016-09-30] MEDS: HEPARIN SODIUM - SQ 10,000 UNITS/ML VIAL SQ SCH (05:20)
[2016-09-30] MEDS: VANCOMYCIN 500 MG VIAL (FOR ORAL USE ONLY) PO SCH (05:20)
[2016-09-30] MEDS: LEVOTHYROXINE SODIUM 100 MCG VIAL IV PUSH SCH (05:21)
[2016-09-30 05:49] LABS: HEMATOCRIT 24.6 % (35.0-46.0); MEAN CELL VOLUME 91.9 FL (80.0-100.0); MEAN CORPUSCULAR HEMOGLOBIN 30.9 PG (27.0-34.0); MEAN CORPUSCULAR HGB CONC 33.6 % (32.0-36.0); PLATELET COUNT 209 TH/MM3 (150-450); RED BLOOD COUNT 2.67 MIL/MM3 (4.00-5.30); REVIEW FLAG FINAL; WHITE BLOOD COUNT 8.6 TH/MM3 (4.0-11.0)
[2016-09-30 06:11] LABS: BICARBONATE 28.5 MEQ/L (21.0-32.0); POTASSIUM 3.2 MEQ/L (3.5-5.1)
[2016-09-30] MEDS: POTASSIUM CHLOR 40 MEQ PREMIX 100 ML IV PRN (06:25)
[2016-09-30] MEDS: ALBUMIN HUMAN 25% 12.5 GM/50 ML BAGP IV SCH (08:00)
[2016-09-30] MEDS: PANTOPRAZOLE SODIUM 40 MG VIAL IV SCH (08:01)
[2016-09-30] MEDS: FIDAXOMICIN 200 MG TAB PO SCH (08:52)
[2016-09-30] MEDS: ARTIFICIAL TEARS OPTH SOLN 15 ML BTL EACH EYE SCH (08:52)
[2016-09-30] MEDS: POTASSIUM CHLORIDE 25 MEQ EFFERVESCENT TAB NG SCH (08:52)
--- NOTE | 2016-09-30 09:17 | HHI.PR ---
Subjective Remarks Nursing staff reports some soft stools in her DigniShield this morning She is eating some liquids, drank her Ensure this morning Less complaints of abdominal pain overnight. Pt with low grade fever 99.8. Objective Vitals Vital Signs Date Time Temp Pulse Resp B/P Pulse Ox O2 Delivery O2 Flow Rate FiO2 09/30/16 08:00 99.8 108 20 119/56 99 09/30/16 08:00 107 09/30/16 06:00 107 09/30/16 04:00 99.8 104 38 127/60 100 09/30/16 04:00 101 09/30/16 02:00 100 09/30/16 00:00 99.1 100 25 133/63 97 09/30/16 00:00 100 09/29/16 22:00 100 09/29/16 20:00 96 09/29/16 20:00 99.0 96 23 129/59 100 09/29/16 19:56 100 Nasal Cannula 2.00 09/29/16 18:00 91 09/29/16 16:00 91 09/29/16 16:00 90 18 119/56 99 09/29/16 14:30 89 17 99 09/29/16 14:00 90 18 119/56 99 09/29/16 14:00 91 09/29/16 13:30 93 34 97 09/29/16 13:00 93 19 123/59 98 09/29/16 12:30 92 15 99 09/29/16 12:00 99 09/29/16 12:00 99.0 93 18 126/86 97 09/29/16 12:00 94 16 118/58 99 09/29/16 11:30 97 31 98 09/29/16 11:00 102 27 123/88 96 09/29/16 10:30 101 21 96 09/29/16 10:00 103 09/29/16 10:00 106 26 94 09/29/16 09:30 96 19 98 09/29/16 09/29/16 09/30/16 15:00 23:00 07:00 Intake Total 869 ml 457 ml 1713 ml Output Total 470 ml 475 ml 300 ml Balance 399 ml -18 ml 1413 ml Intake Oral 240 ml 240 ml 1170 ml IV Total 356 ml 36 ml 100 ml TPN/PPN 223 ml 97 ml 250 ml Lipid 34 ml 193 ml Albumin 50 ml 50 ml Output Urine Total 450 ml 425 ml 250 ml Stool Total 20 ml 50 ml 50 ml Result Diagram: 09/30/16 0515 09/30/16 0515 Other Results Laboratory Tests Test 09/29/16 09/29/16 09/30/16 04:50 17:37 05:15 White Blood Count 8.3 TH/MM3 8.6 TH/MM3 Red Blood Count 2.82 MIL/MM3 2.67 MIL/MM3 Hemoglobin 8.6 GM/DL 8.2 GM/DL Hematocrit 26.2 % 24.6 % Mean Corpuscular Volume 93.1 FL 91.9 FL Mean Corpuscular Hemoglobin 30.4 PG 30.9 PG Mean Corpuscular Hemoglobin 32.6 % 33.6 % Concent Red Cell Distribution Width 16.7 % 17.0 % Platelet Count 228 TH/MM3 209 TH/MM3 Mean Platelet Volume 8.9 FL 9.2 FL Neutrophils (%) (Auto) 84.0 % Lymphocytes (%) (Auto) 7.6 % Monocytes (%) (Auto) 7.1 % Eosinophils (%) (Auto) 0.5 % Basophils (%) (Auto) 0.8 % Neutrophils # (Auto) 7.0 TH/MM3 Lymphocytes # (Auto) 0.6 TH/MM3 Monocytes # (Auto) 0.6 TH/MM3 Eosinophils # (Auto) 0.0 TH/MM3 Basophils # (Auto) 0.1 TH/MM3 CBC Comment DIFF FINAL Differential Comment Sodium Level 143 MEQ/L 139 MEQ/L Potassium Level 2.8 MEQ/L 3.4 MEQ/L 3.2 MEQ/L Chloride Level 105 MEQ/L 105 MEQ/L Carbon Dioxide Level 33.0 MEQ/L 28.5 MEQ/L Anion Gap 5 MEQ/L 6 MEQ/L Blood Urea Nitrogen 28 MG/DL 28 MG/DL Creatinine 0.93 MG/DL 0.88 MG/DL Estimat Glomerular Filtration 57 ML/MIN 61 ML/MIN Rate Random Glucose 132 MG/DL 126 MG/DL Calcium Level 7.8 MG/DL 8.1 MG/DL Magnesium Level 1.8 MG/DL Total Bilirubin 0.4 MG/DL Aspartate Amino Transf 32 U/L (AST/SGOT) Alanine Aminotransferase 15 U/L (ALT/SGPT) Alkaline Phosphatase 67 U/L Total Protein 5.1 GM/DL Albumin 2.6 GM/DL 2.6 GM/DL Phosphorus Level 2.0 MG/DL Imaging Last Impressions Abdomen/Pelvis CT 09/29/16 0000 Signed Impressions: Service Date/Time: September 03:08 - CONCLUSION: 1. Small bilateral pleural effusions greater on the right. 2. Diverticulosis without diverticulitis. 3. Abdominal ascites. 4. Nonobstructing right renal calculus measures 5 mm. Jozef Salcedo MD Knee X-Ray 09/28/16 0000 Signed Impressions: Service Date/Time: Wednesday, September 28, 2016 13:50 - CONCLUSION: 1. Mild osteoarthritis at the knee. No acute bony abnormality. Asim Abbasi MD Renal Ultrasound 09/22/16 0000 Signed Impressions: Service Date/Time: Thursday, September 22, 2016 18:32 - CONCLUSION: 1. Suboptimal visualization of the kidneys with no definite hydronephrosis or focal lesion. 2. Small amount of ascitic fluid and small bilateral pleural effusions. 3. Echogenic debris in the gallbladder most consistent with sludge. Chucho Padgett MD Abdomen X-Ray 09/21/16 0600 Signed Impressions: Service Date/Time: Wednesday, September 21, 2016 04:25 - CONCLUSION: Stable gaseous distention of colon. Marty Marinelli MD Shoulder X-Ray 09/20/16 0000 Signed Impressions: Service Date/Time: Tuesday, September 20, 2016 09:53 - CONCLUSION: No significant interval change is identified. There is a displaced mildly comminuted proximal left humeral neck fracture with rotation of the humeral head and associated shortening. En Robledo MD Hip and Pelvis X-Ray 09/20/16 0000 Signed Impressions: Service Date/Time: Tuesday, September 20, 2016 09:57 - CONCLUSION: Left hip bipolar arthroplasty hardware demonstrates no acute finding. The bones are undermineralized but no fracture is visualized. En Robledo MD Chest X-Ray 09/18/16 0000 Signed Impressions: Service Date/Time: Sunday, September 18, 2016 15:27 - CONCLUSION: Bibasilar areas of mild atelectasis or consolidation being worse on the right. There are suspected mild bilateral pleural effusions. En Lambert MD Last Impressions Abdomen/Pelvis CT 09/24/16 0000 Signed Impressions: Service Date/Time: Saturday, September 24, 2016 21:10 - CONCLUSION: 1. The colon remains abnormal in appearance with diffuse wall thickening and inflammatory change. The small bowel is decompressed. 2. Moderate amount of ascitic fluid which may be mildly increased. 3. Small bilateral pleural effusions again noted with mild consolidation in the lung bases. 4. Small nonobstructing right renal calculus. 5. Interval placement of rectal tube. A nasogastric tube is been placed as well. Chucho Padgett MD Renal Ultrasound 09/22/16 0000 Signed Impressions: Service Date/Time: Thursday, September 22, 2016 18:32 - CONCLUSION: 1. Suboptimal visualization of the kidneys with no definite hydronephrosis or focal lesion. 2. Small amount of ascitic fluid and small bilateral pleural effusions. 3. Echogenic debris in the gallbladder most consistent with sludge. Chucho Padgett MD Abdomen X-Ray 09/21/16 0600 Signed Impressions: Service Date/Time: Wednesday, September 21, 2016 04:25 - CONCLUSION: Stable gaseous distention of colon. Marty Marinelli MD Shoulder X-Ray 09/20/16 0000 Signed Impressions: Service Date/Time: Tuesday, September 20, 2016 09:53 - CONCLUSION: No significant interval change is identified. There is a displaced mildly comminuted proximal left humeral neck fracture with rotation of the humeral head and associated shortening. En Robleod MD Hip and Pelvis X-Ray 09/20/16 0000 Signed Impressions: Service Date/Time: Tuesday, September 20, 2016 09:57 - CONCLUSION: Left hip bipolar arthroplasty hardware demonstrates no acute finding. The bones are undermineralized but no fracture is visualized. En Robledo MD Chest X-Ray 09/18/16 0000 Signed Impressions: Service Date/Time: Sunday, September 18, 2016 15:27 - CONCLUSION: Bibasilar areas of mild atelectasis or consolidation being worse on the right. There are suspected mild bilateral pleural effusions. En Lambert MD Objective Remarks General: NAD Chest: CTA, diminished Cardiac: RRR Abd: Hypoactive BS, soft, less distension, less tenderness. Ext: Generalized edema. Left upper extremity in sling. DigniSheild in place. Bañuelos cath in place. Date of Insertion: Sep 15, 2016 Date of Removal: Sep 16, 2016 Line: Central Venous Catheter Side: Right Location: Internal, Jugular A/P Problem List: (1) Colitis, Clostridium difficile Status: Acute Plan: - Pt was recently hospitalized after a fall at home on 09/04/16 and sustained a left femoral neck fracture and left humeral head fracture. S/P Bipolar hemiarthroplasty on 09/05/[address] Bill and her left humeral head fracture is being treated conservatively with sling. She was transferred to [facility] on 09/09/16, but transferred to the unit for severe abdominal tenderness, hypotension and leukocytosis. - Pt was found to have severe C difficile colitis (Epid 027+) with colonic ileus. - CT Abd/pelvis with IV contrast (09/15/16)--> Diffuse thickening of the entire colon consistent with diffuse colitis. Mild atherosclerotic calcifications seen at the aorta. There is no aneurysm. Contrast is seen within the celiac, SMA and HARRIS. Small non-obstructing right renal stone. - Repeat CT Abd/Pelvis (09/18/16)--> Compared to the prior examination of 2016, there has been no significant change in the overall appearance of the colon. There continues to be diffuse wall thickening involving the right and left colon suggestive of colitis with some moderate distention. However, no increased distention is seen on today's examination. There is no evidence of free air. No change in the abdominal ascites. No change in body wall anasarca. No change in the bibasilar infiltrates and bilateral effusions. - She underwent Decompressive colonoscopy (09/23/16)---> Colonoscopy with direct instillation of vancomycin enema into the right and transverse colon. The mucosal surfaces do not appear to be much inflamed, but there is mucosal edema in some areas. Colonic drainage tube left in place to about the splenic flexure which is being used to irrigate vancomycin to reach the cecum and ascending colon when the patient is on the right side. - Pt received Relistor on 09/13 for any associated opiate induced ileus - Repeat CT Abd/pelvis (09/24/16) ---> The colon remains abnormal in appearance with diffuse wall thickening and inflammatory change. The small bowel is decompressed. Moderate amount of ascitic fluid which may be mildly increased. Small bilateral pleural effusions again noted with mild consolidation in the lung bases. Small nonobstructing right renal calculus. Interval placement of rectal tube. A nasogastric tube is been placed as well. - ID and GI following. - Pt is on oral Vanco, Flagyl, and started on Dificid (09/22). - Vanco enemas and rectal tubes D/C'd on 09/28/16 - Pt given Relistor x 1 dose on 09/29, Miralax added to regimen, and Megace added but pt has not received this yet. - Repeat CT Abd/pelvis (09/29/16) --> Small bilateral pleural effusions greater on the right. Diverticulosis without diverticulitis. Abdominal ascites. Nonobstructing right renal calculus measures 5 mm. - Clinically, she seems to be slowly improving. - Encourage oral intake - Palliative care is following and the family is considering Hospice, await family decision regarding this. - Pt is a DNR. (2) Acute kidney injury (nontraumatic) Status: Acute Plan: - Improving. - Pt with significant dependent edema/hypoalbuminemia/pleural effusions/ascites/ compressive lung - Nephrology is following. - She has been receiving Bumex IV given oliguria and renal functions improved as well as UOP - Pt is on Diuril 250mg IV Q12H - Pt is on TPN - Cont Albumin 12.5grams IV Q12H - Pt is getting electrolyte replacement per protocol. - Pt was given Diamox for contraction alkalosis on 09/28 and 09/29 - Monitor renal function (3) Hip fracture, left Status: Acute Plan: - See above. (4) Humerus head fracture Status: Acute Plan: - See above. 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 (7) Hypothyroid Status: Chronic (8) Dyslipidemia Status: Chronic (9) Peripheral neuropathy Status: Chronic (10) Spinal stenosis Status: Chronic Problem Qualifiers (1) Hip fracture, left: Qualified Code: S72.002D - Hip fracture, left, closed, with routine healing, subsequent encounter (2) Humerus head fracture: (3) HTN (hypertension): Qualified Code: I10 - Essential hypertension (4) Hypothyroid: Qualified Code: E03.9 - Hypothyroidism, unspecified type (5) Peripheral neuropathy: Qualified Code: G62.9 - Peripheral polyneuropathy (6) Spinal stenosis: Qualified Code: M48.06 - Spinal stenosis of lumbar region Sarita Stanley Sep 30, 2016 09:17
[2016-09-30] MEDS: CHLOROTHIAZIDE SOD 500 MG VIAL IV SCH (10:00)
--- NOTE | 2016-09-30 10:01 | HHI.PR ---
Addendum to Inpatient Note Additional Information Pt was seen and examined full note to follow Shayy Rodriguez MD Sep 30, 2016 10:00
--- NOTE | 2016-09-30 11:49 | HHI.DS ---
Discharge Summary Admission Date Sep 15, 2016 at 07:25 Discharge Date: Sep 30, 2016 Admitting Diagnosis (1) Colitis, Clostridium difficile Diagnosis: Principal (2) Acute kidney injury (nontraumatic) Diagnosis: Principal (3) Hip fracture, left Diagnosis: Secondary (4) Humerus head fracture Diagnosis: Secondary (5) HTN (hypertension) Diagnosis: Secondary (6) Hx TIA/stroke w/o resid Diagnosis: Secondary (7) Hypothyroid Diagnosis: Secondary (8) Dyslipidemia Diagnosis: Secondary (9) Peripheral neuropathy Diagnosis: Secondary (10) Spinal stenosis Diagnosis: Secondary Consultants Dr. Robert Manzo, Palliative Dr. Barnett, Gastroenterology Dr. Shayy Rodriguez, Infectious Disease Dr. Carlitos Abarca, Colorectal Surgeon Dr. Gamaliel Hendricks, Nephrology Brief History This is an 86-year-old female. Date of admission 09/15/2016. Past medical history includes peripheral neuropathy, TIA history, osteoarthritis, spinal stenosis, hypertension, dyslipidemia, chronic kidney disease stage II, hypothyroidism, chronic lumbar pain with previous history of nerve blocks and gastroesophageal reflux disease. See originally presented to [facility] status post unwitnessed fall at home which he had a left femoral neck fracture and left humeral head fracture. She was seen in consultation by Dr. Bill and had a bipolar gayla-plasty 09/05 without complication. Left wrist fractures treated conservatively with a sling therapy. Patient was sent to rehabilitation 09/09 09/12 patient was diagnosed with urinary tract infection. Initially treated with Ceftin 500 mg every 12 and switch to Rocephin 1 g every 24 09/13. Patient having constipation KUB revealed stool 09/13. Receiving fleets enema 1 and Relistor 12 mg subcutaneous 1. Along with Florastor twice a day Since admission rehabilitation on [facility]. Yesterday, she was noted to have multiple bouts of diarrhea starting yesterday Today, consultation to hospitalist for hypotension abdominal pain. Noted she had white cell count that jumped from slightly above normal to 43,000 late yesterday. LFTs and lipase were normal. Lactate slightly elevated 3.2 currently 2.2 after [address] abdomen/pelvis revealed ileus type pattern. With gas in the bowel. Mild anasarca. Some free fluid in the pelvis. A nonobstructing right calculus. She received 2 L normal saline wide open was transferred to [place] [id number] and we are asked to see in consultation. C. difficile was drawn. Worried about mesenteric ischemia sent to CT with contrast At the present time, patient complaining of diffuse abdominal pain specifically in the bilateral lower quadrants. Abdomen soft. Voluntary guarding. No rigidity. CBC/BMP: 09/30/16 0515 09/30/16 0515 Significant Findings Laboratory Tests Test 09/28/16 09/29/16 09/29/16 09/30/16 05:35 04:50 17:37 05:15 Red Blood Count 2.98 MIL/MM3 2.82 MIL/MM3 2.67 MIL/MM3 (4.00-5.30) (4.00-5.30) (4.00-5.30) Hemoglobin 9.1 GM/DL 8.6 GM/DL 8.2 GM/DL (11.6-15.3) (11.6-15.3) (11.6-15.3) Hematocrit 27.4 % 26.2 % 24.6 % (35.0-46.0) (35.0-46.0) (35.0-46.0) Neutrophils (%) (Auto) 82.7 % 84.0 % (16.0-70.0) (16.0-70.0) Lymphocytes (%) (Auto) 7.1 % 7.6 % (9.0-44.0) (9.0-44.0) Monocytes (%) (Auto) 8.2 % (0.0-8.0) Lymphocytes # (Auto) 0.6 TH/MM3 0.6 TH/MM3 (1.0-4.8) (1.0-4.8) Carbon Dioxide Level 34.0 MEQ/L 33.0 MEQ/L (21.0-32.0) (21.0-32.0) Anion Gap 3 MEQ/L (5-15) Blood Urea Nitrogen 28 MG/DL (7-18) 28 MG/DL (7-18) 28 MG/DL (7-18) Estimat Glomerular Filtration 62 ML/MIN (>89) 57 ML/MIN (>89) 61 ML/MIN (>89) Rate Random Glucose 120 MG/DL 132 MG/DL 126 MG/DL (74-106) (74-106) (74-106) Calcium Level 8.0 MG/DL 7.8 MG/DL 8.1 MG/DL (8.5-10.1) (8.5-10.1) (8.5-10.1) Phosphorus Level 2.2 MG/DL 2.0 MG/DL (2.5-4.9) (2.5-4.9) Potassium Level 2.8 MEQ/L 3.4 MEQ/L 3.2 MEQ/L (3.5-5.1) (3.5-5.1) (3.5-5.1) Total Protein 5.1 GM/DL (6.4-8.2) Albumin 2.6 GM/DL 2.6 GM/DL (3.4-5.0) (3.4-5.0) PE at Discharge General: NAD Chest: CTA, diminished Cardiac: RRR Abd: Hypoactive BS, soft, less distension, less tenderness. Ext: Generalized edema. Left upper extremity in sling. DigniSheild in place. Bañuelos cath in place. Hospital Course (1) Colitis, Clostridium difficile Status: Acute Plan: - Pt was recently hospitalized after a fall at home on 09/04/16 and sustained a left femoral neck fracture and left humeral head fracture. S/P Bipolar hemiarthroplasty on 09/05/[address] Bill and her left humeral head fracture is being treated conservatively with sling. She was transferred to [facility] on 09/09/16, but transferred to the unit for severe abdominal tenderness, hypotension and leukocytosis. - Pt was found to have severe C difficile colitis (Epid 027+) with colonic ileus. - CT Abd/pelvis with IV contrast (09/15/16)--> Diffuse thickening of the entire colon consistent with diffuse colitis. Mild atherosclerotic calcifications seen at the aorta. There is no aneurysm. Contrast is seen within the celiac, SMA and HARRIS. Small non-obstructing right renal stone. - Repeat CT Abd/Pelvis (09/18/16)--> Compared to the prior examination of 2016, there has been no significant change in the overall appearance of the colon. There continues to be diffuse wall thickening involving the right and left colon suggestive of colitis with some moderate distention. However, no increased distention is seen on today's examination. There is no evidence of free air. No change in the abdominal ascites. No change in body wall anasarca. No change in the bibasilar infiltrates and bilateral effusions. - She underwent Decompressive colonoscopy (09/23/16)---> Colonoscopy with direct instillation of vancomycin enema into the right and transverse colon. The mucosal surfaces do not appear to be much inflamed, but there is mucosal edema in some areas. Colonic drainage tube left in place to about the splenic flexure which is being used to irrigate vancomycin to reach the cecum and ascending colon when the patient is on the right side. - Pt received Relistor on 09/13 for any associated opiate induced ileus - Repeat CT Abd/pelvis (09/24/16) ---> The colon remains abnormal in appearance with diffuse wall thickening and inflammatory change. The small bowel is decompressed. Moderate amount of ascitic fluid which may be mildly increased. Small bilateral pleural effusions again noted with mild consolidation in the lung bases. Small nonobstructing right renal calculus. Interval placement of rectal tube. A nasogastric tube is been placed as well. - ID and GI following. - Pt is on oral Vanco, Flagyl, and started on Dificid (09/22). - Vanco enemas and rectal tubes D/C'd on 09/28/16 - Pt given Relistor x 1 dose on 09/29, Miralax added to regimen, and Megace added but pt has not received this yet. - Repeat CT Abd/pelvis (09/29/16) --> Small bilateral pleural effusions greater on the right. Diverticulosis without diverticulitis. Abdominal ascites. Nonobstructing right renal calculus measures 5 mm. - Pt eating very little - Pt family met and discussed case with hospice - [facility] - I met with pt together with Brennen Stanley PA-C, and Gina, Hospice Nurse. Pt reiterated that she wanted [facility] - see orders (2) Acute kidney injury (nontraumatic) Status: Acute Plan: - Improving. - Pt with significant dependent edema/hypoalbuminemia/pleural effusions/ascites/ compressive lung - Nephrology is following. - She has been receiving Bumex IV given oliguria and renal functions improved as well as UOP - Pt is on Diuril 250mg IV Q12H - Pt is on TPN - Cont Albumin 12.5grams IV Q12H - Pt is getting electrolyte replacement per protocol. - Pt was given Diamox for contraction alkalosis on 09/28 and 09/29 - Monitor renal function (3) Hip fracture, left Status: Acute Plan: - See above. (4) Humerus head fracture Status: Acute Plan: - See above. 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 (7) Hypothyroid Status: Chronic (8) Dyslipidemia Status: Chronic (9) Peripheral neuropathy Status: Chronic (10) Spinal stenosis Status: Chronic Pt Condition on Discharge: Deteriorating Discharge Disposition: Hospice/Med Facility Discharge Instructions DIET: Follow Instructions for: As Tolerated, No Restrictions Speech Therapy-Diet Recommends: [place] Thickened Liquids Activities you can perform: Weight Bearing as Kwasi Continued Medications: Hydrocodone-Acetaminophen (Hydrocodone-Acetaminophen) 7.5-325 mg Tab 1 TAB PO Q4H PRN PAIN #60 Ref 0 TAB Discontinued Medications: Calcium Carbonate-Vitamin D (Calcium 600+D 200) 600-200 Mg-Unit Tab 1 TAB PO BID Nutritional Supplement Days 30 Ref 0 TAB Cholecalciferol (Vitamin D3) 2,000 Unit Cap 2000 UNITS PO DAILY Nutritional Supplement #56 Ref 0 CAP Clopidogrel (Plavix) 75 Mg Tab 75 MG PO DAILY resume September 25 Blood Clot Prevention #0 Ref 0 TAB Ezetimibe (Zetia) 10 Mg Tab 10 MG PO DAILY #30 Ref 0 TAB Lactobacillus Acidophilus (Acidophilus/l-Sporogenes) 1 Tab Tab 1 TAB PO Q12HR #60 TAB Levothyroxine (Levothyroxine) 25 Mcg Tab 25 MCG PO DAILY Thyroid #30 Ref 0 TAB Lisinopril (Lisinopril) 5 Mg Tab 10 MG PO Blood Pressure Management #30 Ref 0 TAB Lisinopril (Lisinopril) 5 Mg Tab 5 MG PO HS Blood Pressure Management #30 Ref 0 TAB Lovastatin (Lovastatin) 40 Mg Tab 80 MG PO DAILY Cholesterol Management #60 Ref 0 TAB Multiple Vitamin (Multiple Vitamin) 1 Tab 1 TAB PO DAILY Nutritional Supplement Ref 0 TAB Piperacillin-Tazobactam Inj (Zosyn Inj) 3.375 Gm Inj 3.375 GM IV Q6HR Infection Days 1 Ref 0 BAG Rivaroxaban (Xarelto) 10 Mg Tab 10 MG PO DAILY Blood Clot Prevention #14 Ref 0 TAB Sodium Chloride (Sodium Chloride) 1 Gm Tab 1 GM PO DAILY #30 TAB Ankit Fournier DO Sep 30, 2016 11:49
--- NOTE | 2016-09-30 12:22 | HHI.IDPN ---
Subjective Subjective Remarks abdominal pain much improved no fever good UOP off pressors takes po a little bit small amount of stool low grade fever up to 99.8 vanco enemas and irrigations stopped Antibiotics flagyl IV vanco po dificid Past Medical History Reviewed Allergies: Coded Allergies: Tizanidine (Verified Allergy, Severe, doesn't know, 09/09/16) Tramadol (Verified Allergy, Severe, doesn't remember, 09/09/16) Baclofen (Unverified Allergy, Intermediate, RASH, 09/09/16) Cipro (Unverified Allergy, Intermediate, RASH, 09/09/16) Cymbalta (Unverified Allergy, Intermediate, SEVERE RASH, 09/09/16) Elavil (Unverified Allergy, Intermediate, RASH, 09/09/16) Tetracycline (Unverified Allergy, Intermediate, RASH, 09/09/16) Triamcinolone (Unverified Allergy, Intermediate, SEVERE RASH, 09/09/16) Objective . Vital Signs Date Time Temp Pulse Resp B/P Pulse Ox O2 Delivery O2 Flow Rate FiO2 09/30/16 10:00 107 09/30/16 08:00 99.8 108 20 119/56 99 09/30/16 08:00 107 09/30/16 06:00 107 09/30/16 04:00 99.8 104 38 127/60 100 09/30/16 04:00 101 09/30/16 02:00 100 09/30/16 00:00 99.1 100 25 133/63 97 09/30/16 00:00 100 09/29/16 22:00 100 09/29/16 20:00 96 09/29/16 20:00 99.0 96 23 129/59 100 09/29/16 19:56 100 Nasal Cannula 2.00 09/29/16 18:00 91 09/29/16 16:00 91 09/29/16 16:00 90 18 119/56 99 09/29/16 14:30 89 17 99 09/29/16 14:00 90 18 119/56 99 09/29/16 14:00 91 09/29/16 13:30 93 34 97 09/29/16 13:00 93 19 123/59 98 09/29/16 12:30 92 15 99 09/29/16 12:00 99 09/29/16 12:00 99.0 93 18 126/86 97 09/29/16 12:00 94 16 118/58 99 09/29/16 09/29/16 09/30/16 15:00 23:00 07:00 Intake Total 869 ml 457 ml 1713 ml Output Total 470 ml 475 ml 300 ml Balance 399 ml -18 ml 1413 ml Intake Oral 240 ml 240 ml 1170 ml IV Total 356 ml 36 ml 100 ml TPN/PPN 223 ml 97 ml 250 ml Lipid 34 ml 193 ml Albumin 50 ml 50 ml Output Urine Total 450 ml 425 ml 250 ml Stool Total 20 ml 50 ml 50 ml . Laboratory Tests Test 09/29/16 09/30/16 04:50 05:15 White Blood Count 8.3 TH/MM3 8.6 TH/MM3 Red Blood Count 2.82 MIL/MM3 2.67 MIL/MM3 Hemoglobin 8.6 GM/DL 8.2 GM/DL Hematocrit 26.2 % 24.6 % Mean Corpuscular Volume 93.1 FL 91.9 FL Mean Corpuscular Hemoglobin 30.4 PG 30.9 PG Mean Corpuscular Hemoglobin 32.6 % 33.6 % Concent Red Cell Distribution Width 16.7 % 17.0 % Platelet Count 228 TH/MM3 209 TH/MM3 Mean Platelet Volume 8.9 FL 9.2 FL Neutrophils (%) (Auto) 84.0 % Lymphocytes (%) (Auto) 7.6 % Monocytes (%) (Auto) 7.1 % Eosinophils (%) (Auto) 0.5 % Basophils (%) (Auto) 0.8 % Neutrophils # (Auto) 7.0 TH/MM3 Lymphocytes # (Auto) 0.6 TH/MM3 Monocytes # (Auto) 0.6 TH/MM3 Eosinophils # (Auto) 0.0 TH/MM3 Basophils # (Auto) 0.1 TH/MM3 CBC Comment DIFF FINAL Differential Comment Laboratory Tests Test 09/29/16 09/29/16 09/30/16 04:50 17:37 05:15 Sodium Level 143 MEQ/L 139 MEQ/L Potassium Level 2.8 MEQ/L 3.4 MEQ/L 3.2 MEQ/L Chloride Level 105 MEQ/L 105 MEQ/L Carbon Dioxide Level 33.0 MEQ/L 28.5 MEQ/L Anion Gap 5 MEQ/L 6 MEQ/L Blood Urea Nitrogen 28 MG/DL 28 MG/DL Creatinine 0.93 MG/DL 0.88 MG/DL Estimat Glomerular Filtration 57 ML/MIN 61 ML/MIN Rate Random Glucose 132 MG/DL 126 MG/DL Calcium Level 7.8 MG/DL 8.1 MG/DL Magnesium Level 1.8 MG/DL Total Bilirubin 0.4 MG/DL Aspartate Amino Transf 32 U/L (AST/SGOT) Alanine Aminotransferase 15 U/L (ALT/SGPT) Alkaline Phosphatase 67 U/L Total Protein 5.1 GM/DL Albumin 2.6 GM/DL 2.6 GM/DL Phosphorus Level 2.0 MG/DL Imaging Last Impressions Abdomen/Pelvis CT 09/29/16 0000 Signed Impressions: Service Date/Time: September 03:08 - CONCLUSION: 1. Small bilateral pleural effusions greater on the right. 2. Diverticulosis without diverticulitis. 3. Abdominal ascites. 4. Nonobstructing right renal calculus measures 5 mm. Jozef Salcedo MD Knee X-Ray 09/28/16 0000 Signed Impressions: Service Date/Time: Wednesday, September 28, 2016 13:50 - CONCLUSION: 1. Mild osteoarthritis at the knee. No acute bony abnormality. Asim Abbasi MD Renal Ultrasound 09/22/16 0000 Signed Impressions: Service Date/Time: Thursday, September 22, 2016 18:32 - CONCLUSION: 1. Suboptimal visualization of the kidneys with no definite hydronephrosis or focal lesion. 2. Small amount of ascitic fluid and small bilateral pleural effusions. 3. Echogenic debris in the gallbladder most consistent with sludge. Chucho Padgett MD Abdomen X-Ray 09/21/16 0600 Signed Impressions: Service Date/Time: Wednesday, September 21, 2016 04:25 - CONCLUSION: Stable gaseous distention of colon. Marty Marinelli MD Shoulder X-Ray 09/20/16 0000 Signed Impressions: Service Date/Time: Tuesday, September 20, 2016 09:53 - CONCLUSION: No significant interval change is identified. There is a displaced mildly comminuted proximal left humeral neck fracture with rotation of the humeral head and associated shortening. En Robledo MD Hip and Pelvis X-Ray 09/20/16 0000 Signed Impressions: Service Date/Time: Tuesday, September 20, 2016 09:57 - CONCLUSION: Left hip bipolar arthroplasty hardware demonstrates no acute finding. The bones are undermineralized but no fracture is visualized. En Robledo MD Chest X-Ray 09/18/16 0000 Signed Impressions: Service Date/Time: Tuesday, September 18, 2016 15:27 - CONCLUSION: Bibasilar areas of mild atelectasis or consolidation being worse on the right. There are suspected mild bilateral pleural effusions. En Lambert MD Physical Exam CONSTITUTIONAL/GENERAL: Awake and alert, not in distress, looks in distress 2 /2 pain SKIN: Warm. No jaundice, rashes, Eryhema noted on lower abdomen and diaper area and spreading down inner thighs Diffuse anasarca, mucn less prominent HEENT: [place] conjunctiva, no icterus. Dry oral mucosa without visible erythema, exudates, masses, or lesions. NECK: Supple, not tender CARDIOVASCULAR: Regular rate and rhythm without murmurs, gallops, or rubs. RESPIRATORY/CHEST: Symmetric, unlabored respirations. Clear to auscultation. Decreased at bases GASTROINTESTINAL: Abdomen remains appears slightly less distended and less tight with less abdominal tenderness, less guarding and no rebounding . Hypoactive BS. RECTAL: Dignishield in place with liquid brown stool GENITOURINARY: Bañuelos in place with small amount of clear yellow urine MUSCULOSKELETAL: Extremities without clubbing, cyanosis. Much improved soft pitting edema, 1-2 +, anasarca. No mottling NEUROLOGICAL: Grossly non-focal she is fully awalke and alert oriented x 3 PSYCHIATRIC: anxious Assessment & Plan Remarks Severe life threatening colitis, C.diff, hypervirilent stain 027 severe R side colon seem to be more involvedm, sp colonoscopy with rectal tube placement - pt with progressive ileus -pt is doing much better SIRS, sepsis - due to C.diff - acute renal dysfunction - improved lactic acidosis resolved No e/o UTI Pt remains critically ill - refuses colectomy, CRS s/o - vanco intillations ARF - resolved Pt actually improved clinically PLAN: Continue po vancomycin Continue vanco enemas for now. Anticipate few more days complete dificid on 10/02 dc IV flagyl Avoid systemic abx Monitor progress Pt can have a stool transplant , she is not having current systemic abx therapy and not highly likely to have it soon Shayy Rodriguez MD Sep 30, 2016 12:22
[2016-09-30] MEDS: MORPHINE SULFATE 4 MG/ML INJ IV PRN (14:56)
== END 2016-09-30 15:15 | disposition hospice, inpatient (51) | DRG 871 ==
LOC: HIMN 07:25
PROVIDERS: ADMIT Hospitalist; ATTEND Hospitalist
PROC: 05HM33Z Insertion of Infusion Device into Right Internal Jugular Vein, Percutaneous Approach (ICD-10-PCS; principal; 2016-09-15)
PROC: 0DJD8ZZ Inspection of Lower Intestinal Tract, Via Natural or Artificial Opening Endoscopic (ICD-10-PCS; 2016-09-22)
PROC: 0D7G8ZZ Dilation of Left Large Intestine, Via Natural or Artificial Opening Endoscopic (ICD-10-PCS; 2016-09-22)
PROC: 3E0 Administration, Physiological Systems and Anatomical Regions, Introduction (ICD-10-PCS; 2016-09-22)
DX: A41.4 Sepsis due to anaerobes (principal); R65.21 Severe sepsis with septic shock; R34 Anuria and oliguria; J90 Pleural effusion, not elsewhere classified; A04.7 Enterocolitis due to Clostridium difficile; R18.8 Other ascites; E87.0 Hyperosmolality and hypernatremia; N17.9 Acute kidney failure, unspecified; E44.0 Moderate protein-calorie malnutrition; N18.3 Chronic kidney disease, stage 3 (moderate); I67.2 Cerebral atherosclerosis; E87.2 Acidosis; E87.1 Hypo-osmolality and hyponatremia; M79.A3 Nontraumatic compartment syndrome of abdomen; K56.7 Ileus, unspecified; T82.524A Displacement of infusion catheter, initial encounter; G62.9 Polyneuropathy, unspecified; Z86.73 Personal history of transient ischemic attack (TIA), and cerebral infarction without residual deficits; I12.9 Hypertensive chronic kidney disease with stage 1 through stage 4 chronic kidney disease, or unspecified chronic kidney disease; E03.9 Hypothyroidism, unspecified; E78.5 Hyperlipidemia, unspecified; M48.06 Spinal stenosis, lumbar region; M19.90 Unspecified osteoarthritis, unspecified site; K21.9 Gastro-esophageal reflux disease without esophagitis; S42.292D Other displaced fracture of upper end of left humerus, subsequent encounter for fracture with routine healing; S72.002D Fracture of unspecified part of neck of left femur, subsequent encounter for closed fracture with routine healing; W19.XXXD Unspecified fall, subsequent encounter; Z85.828 Personal history of other malignant neoplasm of skin; Z96.652 Presence of left artificial knee joint; Z80.1 Family history of malignant neoplasm of trachea, bronchus and lung; N20.0 Calculus of kidney; D64.9 Anemia, unspecified; D75.89 Other specified diseases of blood and blood-forming organs; Z79.02 Long term (current) use of antithrombotics/antiplatelets; K59.03 Drug induced constipation; K64.8 Other hemorrhoids; K29.70 Gastritis, unspecified, without bleeding; M54.12 Radiculopathy, cervical region; G89.29 Other chronic pain; I70.0 Atherosclerosis of aorta; Z66 Do not resuscitate; Z51.5 Encounter for palliative care; E87.70 Fluid overload, unspecified; E83.39 Other disorders of phosphorus metabolism; R73.9 Hyperglycemia, unspecified; E87.6 Hypokalemia; K57.90 Diverticulosis of intestine, part unspecified, without perforation or abscess without bleeding; Z96.642 Presence of left artificial hip joint; T40.605A Adverse effect of unspecified narcotics, initial encounter; Y92.009 Unspecified place in unspecified non-institutional (private) residence as the place of occurrence of the external cause
CPT/HCPCS: 36556; 36569; 71010; 73030; 73502; 73564; 74000; 74176; 74177; 76775; 76937; 80048; 80053; 80069; 81001; 82533; 82550; 82948; 83605; 83690; 83735; 83935; 84100; 84132; 84300; 84443; 84478; 84484; 85007; 85025; 85027; 85384; 85610; 85730; 87040; 87086; 87493; 87641; 93005; 94150; 94664; C1769; C9113; J0131; J0360; J1120; J1170; J1205; J1610; J1642; J1644; J1940; J2212; J2270; J2370; J2405; J3370; J3480; J7030; J7040; J7050; J7060; J7070; J7613; P9047; Q9963; Q9967